=== PATIENT | female | born 1965 | race Caucasian/White ===

== ENCOUNTER 2017-09-13 00:39 | Emergency (ER) | payer MEDICARE, MEDICAID, SELFPAY ==
[2017-09-13 00:51] VITALS: BP 108/62; PULSE 98; RESP 18; TEMP 36.6; O2SAT 98; BMI 29.1
--- NOTE | 2017-09-13 01:09 | DI.RAD.S_ITS ---
PROCEDURE: XR CHEST 2V INDICATIONS: chest and back pain TECHNIQUE: 2 views of the chest were acquired. COMPARISON: None. FINDINGS: Surgical changes and devices: Partially visualized surgical plate over the lower cervical spine.. Lungs and pleura: No pleural effusions or pneumothorax. Minimal bibasilar atelectasis. No focal consolidation. Mediastinum: Mediastinal contours are normal. Heart size is normal. Bones and chest wall: No suspicious bony abnormalities. Soft tissues appear unremarkable. IMPRESSION: Mild bibasilar atelectasis. Findings consistent with the preliminary reading Dictated by: Alex Mark M.D. on 09/13/2017 at 7:43 Approved by: Alex Mark M.D. on 09/13/2017 at 7:44
--- NOTE | 2017-09-13 01:09 | ED.BACK ---
HPI - Back Pain/Injury General Chief Complaint: Back Pain/Injury Stated Complaint: fever 5 days, back/chest pain Time Seen by Provider: 09/13/17 00:54 Source: patient and family Mode of arrival: ambulatory Limitations: no limitations History of Present Illness HPI Narrative: Patient is a 52-year-old female presenting with back and chest pain. She has chronic back pain she says it has been worse over the last 5 days. She feels as though she has had a temperature though she has not taken it. She has had overall body aches felt warm and chilled at times. No productive cough no shortness of breath. She intermittently has some left-sided chest pain but not currently having chest pain. She has had multiple back surgeries. She denies any abdominal pain nausea vomiting or painful urination. She usually takes Dilaudid for pain however it is not working. Related Data Home Medications Medication Instructions Recorded Confirmed DIVALPROEX SODIUM (Depakote mg PO TID #0 08/17/10 Sprinkle) DOCUSATE SODIUM (#COLACE) 50 mg PO #0 08/17/10 MELOXICAM mg PO #0 08/17/10 NAFCILLIN (#UNIPEN / NAFCIL) 2 gm IV Q4 #0 08/17/10 citalopram [Celexa] mg PO QDAY #0 08/17/10 cyclobenzaprine 10 mg PO TID #0 08/17/10 pramipexole [Mirapex] mg PO #0 08/17/10 Hydromorphone HCL (HYDROmorphone) 12 mg PO Q8HP #0 09/21/10 methocarbamol [Robaxin-750] 750 mg PO TIDP #0 09/21/10 omeprazole 20 mg PO BID@0600,2100 #0 09/21/10 ondansetron HCl 8 mg PO Q8HP #0 09/21/10 rifampin [Rifadin] 300 mg PO BID #0 09/21/10 Allergies Allergy/AdvReac Type Severity Reaction Status Date / Time ASPIRIN Allergy Intermediate STOMACH Uncoded 07/04/17 11:57 ISSUES BEE VENOM Allergy Intermediate Uncoded 07/04/17 11:57 METHADONE Allergy Intermediate HALLUCINATI Uncoded 07/04/17 11:57 ONS MORPHINE Allergy Intermediate ANAPHYLAXIS Uncoded 07/04/17 11:57 PCN (PENICILLIN) Allergy Intermediate ANAPHYLAXIS Uncoded 07/04/17 11:57 SULFA Allergy Intermediate ANAPHYLAXIS Uncoded 07/04/17 11:57 Review of Systems Review of Systems All systems reviewed & are unremarkable except as noted in HPI and below Constitutional Reports body ache(s), Reports chills, Reports fever(s) and Denies frequent falls ENT Ears, Nose, Mouth, and Throat: Denies dizziness Cardiovascular Reports chest pain (off and on number of days), Denies irregular heart rhythm, Denies lightheadedness, Denies palpitations, Denies dyspnea, Denies dyspnea on exertion and Denies orthopnea Respiratory Denies cough, Denies dyspnea, Denies dyspnea on exertion and Denies wheezing Gastrointestinal Gastrointestinal: Denies abdominal pain, Denies change in bowel habits, Denies diarrhea, Denies nausea and Denies vomiting Musculoskeletal Reports system reviewed and no additional complaints, except as docu, Reports as per HPI and Denies numbness Integumentary/Breasts Denies pruritus, Denies erythema, Denies rash and Denies wounds Neurologic Denies behavioral changes, Denies confusion, Denies dizziness, Denies frequent falls and Denies numbness Psychiatric Denies behavioral changes and Denies confusion Endocrine Denies palpitations Allergic/Immunologic Denies wheezing PFSH Social History Smoking Status: Never smoker Exam Initial Vital Signs Initial Vital Signs: Vital Signs Temperature 97.8 F 09/13/17 00:51 Pulse Rate 98 H 09/13/17 00:51 Respiratory Rate 18 09/13/17 00:51 Blood Pressure 108/62 09/13/17 00:51 Pulse Oximetry 98 09/13/17 00:51 Const General: cooperative and well developed Nutritional Appearance: well nourished Orientation: alert, awake, oriented x3 and not confused Neck Neck: No full ROM (Left-sided pain), no meningeal signs and supple Chest Chest: normal inspection of the chest Resp Effort & Inspection: normal respiratory effort, able to speak in complete sentences, no respiratory distress and no use of accessory muscles Auscultation: clear to auscultation bilaterally, no rales, no rhonchi and no wheezes Back/Spine/Pelvis Back: No CVA tenderness Cervical Spine: pain with cervical ROM Thoracic/Lumbar Spine: thoracic and lumbar spine normal to inspection Skin General: no rashes or lesions noted, No jaundice and No petechiae Course Orders Ordered: ED Orders 09/13/17 EKG-12 Lead Stat 09/13/17 01:09 XR chest 2V Stat 09/13/17 01:50 Complete Blood Count AUTO DIFF Stat Comprehensive Metabolic Panel Stat Lactate (Lactic Acid) Stat Procalcitonin Stat Troponin with CK Cardiac Panel Stat 09/13/17 03:22 Urinalysis and Microscopic Stat Discontinued Medications Hydromorphone HCl (Dilaudid) 1 mg IV NOW ONE Stop: 09/13/17 02:35 Last Admin: 09/13/17 02:38 Dose: 1 mg Hydromorphone HCl (Dilaudid) 1 mg IV NOW ONE Stop: 09/13/17 03:16 Last Admin: 09/13/17 03:52 Dose: Hydromorphone HCl (Dilaudid) 1 mg IV NOW ONE Stop: 09/13/17 03:01 Last Admin: 09/13/17 03:05 Dose: 1 mg Sodium Chloride (Normal Saline 0.9%) 1,000 mls @ 1,000 mls/hr IV BOLUS ONE Stop: 09/13/17 02:08 Last Infusion: 09/13/17 04:07 Dose: 1,000 mls/hr Admin: 09/13/17 02:15 Dose: 1,000 mls/hr Vital Signs - 8 hr 09/13/17 00:51 09/13/17 02:00 09/13/17 04:09 Temperature 97.8 F 97.8 F 97.8 F Pulse Rate 98 H 98 H 81 Respiratory Rate 18 18 15 Blood Pressure 108/62 108/62 98/59 L Pulse Oximetry 98 98 97 MDM - Back Pain/Injury Lab Data Result diagrams: 09/13/17 01:50 09/13/17 01:50 Lab Results 09/13/17 09/13/17 09/13/17 Range/Units 01:50 01:50 01:50 WBC 9.0 (4.5-11.0) X10^3/uL RBC 3.31 L (4.0-5.2) X10^6/uL Hgb 9.2 L (12.0-16.0) g/dL Hct 27.1 L (36-46) % MCV 81.8 (80-100) fL MCH 27.8 (26-34) PG MCHC 34.0 (30-36) % RDW 15.4 H (11.6-14.8) % Plt Count 175 (150-400) X10^3/uL Neut % (Auto) 79.3 H (50-75) % Lymph % (Auto) 8.4 L (25-40) % [place] % (Auto) 10.7 (3-14) % Eos % (Auto) 1.2 L (2-4) % Baso % (Auto) 0.4 (0-2) % Neut # (Auto) 7100 H (9511-3527) /uL Sodium 144 (137-145) mmol/L Potassium 3.6 (3.4-5.1) mmol/L Chloride 103 (98-107) mmol/L Carbon Dioxide 26 (22-32) mmol/L BUN 31 H (7-17) mg/dL Creatinine 1.10 H (0.52-1.04) mg/dL Estimated GFR 52.0 L (>60) mL/min BUN/Creatinine Ratio 28.2 H (6-22) Glucose 136 H (70-100) mg/dL Lactate (0.7-2.1) mmol/L Calcium 8.8 (8.4-10.2) mg/dL Total Bilirubin 0.9 (0.2-1.3) mg/dL AST 21 (14-36) IU/L ALT 29 (9-52) IU/L Alkaline Phosphatase 310 H (38-126) U/L Total Creatine Kinase 30 (30-135) U/L Troponin I < 0.012 (0.01-0.034) ng/mL Total Protein 7.4 (6.3-8.2) g/dL Albumin 3.3 L (3.5-5.0) g/dL Globulin 4.1 (1.7-4.1) g/dL Albumin/Globulin Ratio 0.8 L (1.0-2.8) Procalcitonin 16.88 H (<0.5) ng/mL Urine Color Urine Appearance Urine pH (4.5-8.0) Ur Specific [place] (1.000-1.035) Urine Protein (Negative) Urine Glucose (UA) (Normal) g/dL Urine Ketones (NEGATIVE) Urine Occult Blood (Negative) Urine Nitrate (Negative) Urine Bilirubin (NEGATIVE) Urine Urobilinogen (0.2) E.U./dL Ur Leukocyte Esterase (NEGATIVE) Urine RBC (0-5/HPF) Urine WBC (0-5/HPF) Ur Squamous Epith Cells Amorphous Sediment Urine Bacteria (None) Hyaline Casts (None) Granular Casts (None) Urine Mucus (Negative) Ur Culture Indicated? 09/13/17 09/13/17 Range/Units 01:50 03:22 WBC (4.5-11.0) X10^3/uL RBC (4.0-5.2) X10^6/uL Hgb (12.0-16.0) g/dL Hct (36-46) % MCV (80-100) fL MCH (26-34) PG MCHC (30-36) % RDW (11.6-14.8) % Plt Count (150-400) X10^3/uL Neut % (Auto) (50-75) % Lymph % (Auto) (25-40) % [place] % (Auto) (3-14) % Eos % (Auto) (2-4) % Baso % (Auto) (0-2) % Neut # (Auto) (1286-2198) /uL Sodium (137-145) mmol/L Potassium (3.4-5.1) mmol/L Chloride (98-107) mmol/L Carbon Dioxide (22-32) mmol/L BUN (7-17) mg/dL Creatinine (0.52-1.04) mg/dL Estimated GFR (>60) mL/min BUN/Creatinine Ratio (6-22) Glucose (70-100) mg/dL Lactate 1.2 (0.7-2.1) mmol/L Calcium (8.4-10.2) mg/dL Total Bilirubin (0.2-1.3) mg/dL AST (14-36) IU/L ALT (9-52) IU/L Alkaline Phosphatase (38-126) U/L Total Creatine Kinase (30-135) U/L Troponin I (0.01-0.034) ng/mL Total Protein (6.3-8.2) g/dL Albumin (3.5-5.0) g/dL Globulin (1.7-4.1) g/dL Albumin/Globulin Ratio (1.0-2.8) Procalcitonin (<0.5) ng/mL Urine Color Dark yellow Urine Appearance Sl cloudy Urine pH 5.0 (4.5-8.0) Ur Specific [place] 1.020 (1.000-1.035) Urine Protein 2+ H (Negative) Urine Glucose (UA) Negative (Normal) g/dL Urine Ketones Trace H (NEGATIVE) Urine Occult Blood Negative (Negative) Urine Nitrate Negative (Negative) Urine Bilirubin Negative (NEGATIVE) Urine Urobilinogen 1.0 (0.2) E.U./dL Ur Leukocyte Esterase Negative (NEGATIVE) Urine RBC None seen (0-5/HPF) Urine WBC 0-1/hpf (0-5/HPF) Ur Squamous Epith Cells 1-5 /hpf Amorphous Sediment 1+ Urine Bacteria Few (2-10) H (None) Hyaline Casts 0-1/lpf (None) Granular Casts Occasional H (None) Urine Mucus 1+ H (Negative) Ur Culture Indicated? Cult not indicated Imaging Data Chest x-ray: Attestation: I personally reviewed and interpreted this imaging study as follows: My impression: No acute cardiopulmonary process ECG Data Prior ECG tracings: not available for review Interpretation: Normal sinus rhythm rate 85 no acute ischemia no ST changes normal intervals. MDM Narrative Medical decision making narrative: Patient has a significantly elevated procalcitonin however no leukocytosis no fever and a normal lactic acid. This is also inflammatory marker. I suspect that if she is being worked up for rheumatoid arthritis her inflammatory markers are elevated. She does not seem to have an acute at infection. She is asking for more pain medication. I have re-examined her back. She is tender over her spine but does not seem to be midline or diskitis. Discharge Plan Departure Patient Disposition: Home, Self-Care Clinical Impression: Thoracic back pain Discharge Date/Time: 09/13/17 04:11 Interventions: ED Discharge Assessment Last Done: 09/13/17 04:09 Instructions: DI for Thoracic Back Pain Activity Restrictions/Additional Instructions: *You have been diagnosed with back pain *What to do: No sign of acute infection. 1 inflammatory marker is elevated but this can be elevated with a severe inflammatory response such as arthritis. You should complete you're arthritis workup with your primary care physician. *Continue to take medications as directed *Follow up with your primary care provider in 2-3 days *Return to ER if you should have fever more than 100.4, increased or worsening pain, weakness in extremities or any new, worsening or concerning symptoms Prescriptions: No Action cyclobenzaprine 10 MG tablet 10 mg PO TID Qty: 0 RF: 0 citalopram [Celexa] 10 MG tablet PO QDAY Qty: 0 RF: 0 pramipexole [Mirapex] 0.125 MG tablet PO Qty: 0 RF: 0 DIVALPROEX SODIUM (Depakote Sprinkle) PO TID Qty: 0 RF: 0 DOCUSATE SODIUM (#COLACE) 50 mg PO Qty: 0 RF: 0 MELOXICAM PO Qty: 0 RF: 0 NAFCILLIN (#UNIPEN / NAFCIL) 2 gm IV Q4 Qty: 0 RF: 0 ondansetron HCl 8 MG tablet 8 mg PO Q8HP Qty: 0 RF: 0 omeprazole 20 MG capsule,delayed release(DR/EC) 20 mg PO BID@0600,2100 Qty: 0 RF: 0 rifampin [Rifadin] 300 MG capsule 300 mg PO BID Qty: 0 RF: 0 methocarbamol [Robaxin-750] 750 MG tablet 750 mg PO TIDP Qty: 0 RF: 0 Hydromorphone HCL (HYDROmorphone) 12 mg PO Q8HP Qty: 0 RF: 0 Referrals: Viviana Vaughan [Primary Care Provider] -
[2017-09-13 02:00] VITALS: BP 108/62; PULSE 98; RESP 18; TEMP 36.6; O2SAT 98; BMI 29.1
[2017-09-13 02:10] LABS: Add Manual Diff / Slide Review NO; Basophils Percent Auto 0.4 % (0-2); Eosinophils Percent Auto 1.2 % (2-4); Hematocrit 27.1 % (36-46); Hemoglobin 9.2 g/dL (12.0-16.0); Lymphocytes Percent Auto 8.4 % (25-40); Mean Corpuscular Hemoglobin 27.8 PG (26-34); Mean Corpuscular Volume 81.8 fL (80-100); Monocytes Percent Auto 10.7 % (3-14); Neutrophils Absolute Auto 7100 /uL (3000-5900); Neutrophils Percent Auto 79.3 % (50-75); Platelet Count 175 X10^3/uL (150-400); Red Blood Cell Count 3.31 X10^6/uL (4.0-5.2); Red Cell Distribution Width 15.4 % (11.6-14.8)
[2017-09-13 02:14] LABS: Alanine Aminotransferase 29 IU/L (9-52); Albumin 3.3 g/dL (3.5-5.0); Albumin Globulin Ratio 0.8 (1.0-2.8); Alkaline Phosphatase 310 U/L (38-126); Aspartate Aminotransferase 21 IU/L (14-36); BUN Creatinine Ratio 28.2 (6-22); Bilirubin Total 0.9 mg/dL (0.2-1.3); Blood Urea Nitrogen 31 mg/dL (7-17); Calcium 8.8 mg/dL (8.4-10.2); Carbon Dioxide 26 mmol/L (22-32); Chloride 103 mmol/L (98-107); Creatine Kinase 30 U/L (30-135); Globulin 4.1 g/dL (1.7-4.1); Glucose 136 mg/dL (70-100); HEMOLYSIS < 15 (0-50); Potassium 3.6 mmol/L (3.4-5.1); Sodium 144 mmol/L (137-145); Total Protein 7.4 g/dL (6.3-8.2)
[2017-09-13] MEDS: SODIUM CHLORIDE 0.9% 1,000 ML 1000 ML IV (02:15)
[2017-09-13 02:27] LABS: Troponin I < 0.012 ng/mL (0.01-0.034)
[2017-09-13 02:30] LABS: Procalcitonin 16.88 ng/mL (<0.5)
[2017-09-13] MEDS: HYDROMORPHONE 1 MG INJ IV (02:38)
[2017-09-13 03:01] LABS: Lactate (Lactic Acid) 1.2 mmol/L (0.7-2.1)
[2017-09-13] MEDS: HYDROMORPHONE 2 MG INJ 1 MG IV (03:05)
[2017-09-13 03:40] LABS: Appearance Urine UA SL CLOUDY; Glucose Urine UA NEGATIVE (Normal); Ketones Urine UA TRACE (NEGATIVE); Leukocyte Esterase Urine UA NEGATIVE (NEGATIVE); Nitrite Urine UA Negative (Negative); Occult Blood Urine UA NEGATIVE (Negative); Protein Urine UA 2+ (Negative); RBC Urine None Seen (0-5/HPF)
[2017-09-13 03:44] LABS: Bilirubin Urine UA Negative (NEGATIVE); Color Urine UA Dark Yellow
[2017-09-13 03:45] LABS: Amorphous Sediment Urine 1+; Squamous Epithelial Cell Urine 1-5 /HPF; WBC Urine 0-1/HPF (0-5/HPF)
[2017-09-13 03:46] LABS: Bacteria Urine Few (2-10); Granular Casts Urine Occasional; Hyaline Casts Urine 0-1/LPF
[2017-09-13 03:48] LABS: Culture Indicated Urine Cult Not Indicated; Mucus Urine 1+ (Negative)
[2017-09-13 04:09] VITALS: BP 98/59; PULSE 81; RESP 15; TEMP 36.6; O2SAT 97
== END 2017-09-13 04:11 | disposition home or self-care (01) ==
PROVIDERS: Emergency Provider Emergency Medicine; PCP Nurse Practitioner
DX: R50.9 Fever, unspecified (principal)
CPT/HCPCS: 36591; 71046; 80053; 81001; 81003; 82550; 82553; 83605; 84145; 84484; 85025; 93005; 99283; J1170

== ENCOUNTER 2017-09-15 11:21 | Emergency (ER) | payer MEDICARE, MEDICAID, SELFPAY ==
[2017-09-15] VITALS (9 sets, daily range): BP systolic 115–167; BP diastolic 68–110; PULSE 104–114; RESP 9–20; TEMP 36.6–36.7; O2SAT 95–100
--- NOTE | 2017-09-15 12:08 | ED_ITS ---
HPI - Extremity Problem <Nirmala Duran PA-C - Last Filed: 09/15/17 19:14> General Chief complaint: Extremity Problem,Nontraumatic Stated complaint: BACK PAIN, FEVER, LEFT KNEE IS SWOLLEN Time Seen by Provider: 09/15/17 11:25 Source: patient and old records reviewed Mode of arrival: ambulatory Limitations: no limitations History of Present Illness HPI Narrative: This 52-year-old female returns here due to acute onset of left knee pain today, along with worsening neck pain and headache. She states this really started acutely this morning. She was seen 2 days ago with back and chest pain. She is not having chest pain or dyspnea currently. She denies any new trauma to her spine or extremities. She denies any new weakness or paresthesia, states that pain is what is limiting her. She denies any vision change. She has not had any nausea or vomiting today and has had normal intake. She states that the headache is all over the top of her head. She denies any acute vision change or jaw claudication. She has not had any urinary symptoms. She states that she has had sweats at home and think she has had fever but has not taken her temperature. She denies any history of migraines or recurrent headaches. She states that she has a history of fibromyalgia and widespread chronic pain due to this as well as her severe degenerative disc disease, but currently is also being worked up for rheumatoid arthritis due to several months of pain and swelling in multiple joints. She states she has not had results back yet nor have medications been tried for this. She has been taking her usual routine Dilaudid at home for pain but not other medicines. She denies any recent travel or known exposures. She is on daily Dilaudid 4 mg q.i.d. but states she is taking this 5 times daily currently. Related Data Home Medications Medication Instructions Recorded Confirmed cyclobenzaprine 10 mg PO TID #0 08/17/10 09/15/17 pramipexole [Mirapex] 0.125 mg PO DAILY #0 08/17/10 09/15/17 hydromorphone 4 mg PO Q4-6H 09/15/17 09/15/17 Previous Rx's Medication Instructions Recorded prednisone 40 mg PO DAILY 2 Days #3 tab 09/15/17 Allergies Allergy/AdvReac Type Severity Reaction Status Date / Time morphine Allergy Severe Anaphylaxis Verified 09/15/17 11:36 penicillinase Allergy Severe Anaphylaxis Verified 09/15/17 11:36 Sulfa (Sulfonamide Allergy Severe Anaphylaxis Verified 09/15/17 11:36 Antibiotics) bee venom protein (honey bee) Allergy Intermediate Hives Verified 09/15/17 11:36 aspirin AdvReac Intermediate Abdominal Verified 09/15/17 11:36 Pain methadone AdvReac Intermediate Hallucinati Verified 09/15/17 11:36 ng Review of Systems <Nirmala Duran PA-C - Last Filed: 09/15/17 19:14> Review of Systems All systems reviewed & are unremarkable except as noted in HPI and below Exam <Nirmala Duran PA-C - Last Filed: 09/15/17 19:14> Narrative Exam Narrative: GENERAL APPEARANCE: Patient appears anxious, in NAD HEENT: PERRL, EOMI, normal oropharynx, no sinus TTP NECK: Supple, no lymphadenopathy, submandibular area is tender with perhaps mildly enlarged but symmetric glands LUNGS: Clear to auscultation bilaterally, no cough. HEART: Rate and rhythm regular without murmur, normal S1 and S2, no S3 or S4. ABDOMEN: Soft, NT, ND, + BS x 4 quadrants, mild left > right CVAT NEUROLOGIC: Alert and oriented, normal speech, and coordination. MUSCULOSKELETAL: She has slightly limited C-spine flexion but with distraction is able to fully flex. Limited rotation and lateral bend secondary to tenderness. She is tender throughout the entirety of the C-spine as well as the paraspinal musculature, less tender over the thoracolumbar spine and musculature. She has full trunk flexion. Left knee tender over the joint line. There is moderate effusion which is most prominent around the superior patella. Limited passive and active flexion/extension secondary to tenderness. No other joint effusion noted aside from the left knee. Moderate tenderness with squeeze over the metacarpals and metatarsals DERMATOLOGIC: No exanthem EXTREMITIES: No cyanosis, no edema, no calf tenderness Initial Vital Signs Initial Vital Signs: Vital Signs Temperature 98.1 F 09/15/17 11:31 Pulse Rate 114 H 09/15/17 11:31 Respiratory Rate 20 09/15/17 11:31 Blood Pressure 153/81 H 09/15/17 11:31 Pulse Oximetry 97 09/15/17 11:31 <Giuseppe Meehan DO - Last Filed: 09/16/17 07:34> Initial Vital Signs Initial Vital Signs: Vital Signs Temperature 98.1 F 09/15/17 11:31 Pulse Rate 114 H 09/15/17 11:31 Respiratory Rate 20 09/15/17 11:31 Blood Pressure 153/81 H 09/15/17 11:31 Pulse Oximetry 97 09/15/17 11:31 Course <Nirmala Duran PA-C - Last Filed: 09/15/17 19:14> Hospital Course: Dr. Meehan saw and evaluated patient as well and we reviewed lab results. He is agreeable with the following plan. Patient was offered aspiration and evaluation of fluid from her knee as well as spinal tap by Dr. Meehan as well as myself. We discussed that there are changes in her lab work, however no clear source for infection. She has had improvement in her knee pain and reports headache is starting to improve at the time of discharge as well. She and her have decided against doing any tap today. She has had polyarthralgias and apparently intermittent joint swelling as well. She reported being worked up currently for rheumatic disease. Her CRP is elevated. We decided to have her try systemic steroids just over the weekend as she says this has not been tried previously and her usual pain medicines are not effective. She was given a dose of prednisone here and prescription was sent to the pharmacy for her for the next couple of days. She and her agree to return if any acute worsening over the weekend or new symptoms such as confirmed fever. There are no other suspected sources for infection on her review of systems or exam, such as respiratory infection, endocarditis, urinary source. She is not having any chest pain, dyspnea, or abdominal pain currently. Orders Ordered: Discontinued Medications Diphenhydramine HCl (Benadryl) 25 mg IV NOW ONE Stop: 09/15/17 15:44 Last Admin: 09/15/17 16:10 Dose: 25 mg Haloperidol (Haldol) 2 mg IV NOW ONE Stop: 09/15/17 15:44 Last Admin: 09/15/17 16:13 Dose: 2 mg Hydromorphone HCl (Dilaudid) 1 mg IV NOW ONE Stop: 09/15/17 14:38 Last Admin: 09/15/17 14:47 Dose: 1 mg Sodium Chloride (Normal Saline 0.9%) 1,000 mls @ 1,000 mls/hr IV BOLUS ONE Stop: 09/15/17 13:31 Last Infusion: 09/15/17 15:00 Dose: 0 mls/hr Admin: 09/15/17 13:52 Dose: 1,000 mls/hr Sodium Chloride (Normal Saline 0.9%) 1,000 mls @ 1,000 mls/hr IV BOLUS ONE Stop: 09/15/17 16:42 Last Admin: 09/15/17 16:07 Dose: 1,000 mls/hr Ketorolac Tromethamine (Toradol) 30 mg IV NOW ONE Stop: 09/15/17 12:33 Last Admin: 09/15/17 13:52 Dose: 30 mg Metoclopramide HCl (Reglan) 5 mg IV NOW ONE Stop: 09/15/17 15:44 Last Admin: 09/15/17 16:12 Dose: 5 mg Pramipexole Dihydrochloride (Mirapex) 0.5 mg PO NOW ONE Stop: 09/15/17 15:50 Last Admin: 09/15/17 16:09 Dose: 0.5 mg Prednisone (Deltasone) 40 mg PO NOW ONE Stop: 09/15/17 17:32 Last Admin: 09/15/17 17:35 Dose: 40 mg Vital Signs - 8 hr 09/15/17 11:31 09/15/17 11:40 09/15/17 12:00 Temperature 98.1 F Pulse Rate 114 H 109 H Pulse Rate [Bilateral Dorsalis Pedis] 114 H Respiratory Rate 20 20 Blood Pressure 153/81 H Blood Pressure [Left Arm] 147/68 H Blood Pressure [Right Arm] Pulse Oximetry 97 100 09/15/17 13:26 09/15/17 14:00 09/15/17 15:07 Temperature 97.8 F Pulse Rate 106 H 109 H 104 H Pulse Rate [Bilateral Dorsalis Pedis] Respiratory Rate 20 9 L Blood Pressure Blood Pressure [Left Arm] Blood Pressure [Right Arm] 152/88 H 153/99 H 154/90 H Pulse Oximetry 95 100 100 09/15/17 16:00 09/15/17 16:48 09/15/17 17:47 Temperature Pulse Rate 107 H 110 H 110 H Pulse Rate [Bilateral Dorsalis Pedis] Respiratory Rate 18 20 Blood Pressure Blood Pressure [Left Arm] Blood Pressure [Right Arm] 161/109 H 115/110 H 167/87 H Pulse Oximetry 100 99 100 <Giuseppe Meehan DO - Last Filed: 09/16/17 07:34> Orders Ordered: Discontinued Medications Diphenhydramine HCl (Benadryl) 25 mg IV NOW ONE Stop: 09/15/17 15:44 Last Admin: 09/15/17 16:10 Dose: 25 mg Haloperidol (Haldol) 2 mg IV NOW ONE Stop: 09/15/17 15:44 Last Admin: 09/15/17 16:13 Dose: 2 mg Hydromorphone HCl (Dilaudid) 1 mg IV NOW ONE Stop: 09/15/17 14:38 Last Admin: 09/15/17 14:47 Dose: 1 mg Sodium Chloride (Normal Saline 0.9%) 1,000 mls @ 1,000 mls/hr IV BOLUS ONE Stop: 09/15/17 13:31 Last Infusion: 09/15/17 15:00 Dose: 0 mls/hr Admin: 09/15/17 13:52 Dose: 1,000 mls/hr Sodium Chloride (Normal Saline 0.9%) 1,000 mls @ 1,000 mls/hr IV BOLUS ONE Stop: 09/15/17 16:42 Last Admin: 09/15/17 16:07 Dose: 1,000 mls/hr Ketorolac Tromethamine (Toradol) 30 mg IV NOW ONE Stop: 09/15/17 12:33 Last Admin: 09/15/17 13:52 Dose: 30 mg Metoclopramide HCl (Reglan) 5 mg IV NOW ONE Stop: 09/15/17 15:44 Last Admin: 09/15/17 16:12 Dose: 5 mg Pramipexole Dihydrochloride (Mirapex) 0.5 mg PO NOW ONE Stop: 09/15/17 15:50 Last Admin: 09/15/17 16:09 Dose: 0.5 mg Prednisone (Deltasone) 40 mg PO NOW ONE Stop: 09/15/17 17:32 Last Admin: 09/15/17 17:35 Dose: 40 mg Vital Signs - 8 hr 09/15/17 11:31 09/15/17 11:40 09/15/17 12:00 Temperature 98.1 F Pulse Rate 114 H 109 H Pulse Rate [Bilateral Dorsalis Pedis] 114 H Respiratory Rate 20 20 Blood Pressure 153/81 H Blood Pressure [Left Arm] 147/68 H Blood Pressure [Right Arm] Pulse Oximetry 97 100 09/15/17 13:26 09/15/17 14:00 09/15/17 15:07 Temperature 97.8 F Pulse Rate 106 H 109 H 104 H Pulse Rate [Bilateral Dorsalis Pedis] Respiratory Rate 20 9 L Blood Pressure Blood Pressure [Left Arm] Blood Pressure [Right Arm] 152/88 H 153/99 H 154/90 H Pulse Oximetry 95 100 100 09/15/17 16:00 09/15/17 16:48 09/15/17 17:47 Temperature Pulse Rate 107 H 110 H 110 H Pulse Rate [Bilateral Dorsalis Pedis] Respiratory Rate 18 20 Blood Pressure Blood Pressure [Left Arm] Blood Pressure [Right Arm] 161/109 H 115/110 H 167/87 H Pulse Oximetry 100 99 100 MDM - Extremity (Nontraumatic) <Nirmala Duran PA-C - Last Filed: 09/15/17 19:14> Lab Data Attestation: I reviewed the patient's lab results. Result diagrams: 09/15/17 13:42 09/15/17 13:42 Lab Results 09/15/17 09/15/17 09/15/17 Range/Units 12:55 13:42 13:42 WBC 21.1 H (4.5-11.0) X10^3/uL RBC 3.51 L (4.0-5.2) X10^6/uL Hgb 9.5 L (12.0-16.0) g/dL Hct 28.9 L (36-46) % MCV 82.3 (80-100) fL MCH 27.0 (26-34) PG MCHC 32.8 (30-36) % RDW 16.1 H (11.6-14.8) % Plt Count 211 (150-400) X10^3/uL Neut % (Auto) Not Reportable Lymph % (Auto) Not Reportable [place] % (Auto) Not Reportable Eos % (Auto) Not Reportable Baso % (Auto) Not Reportable Total Counted 100 Seg Neutrophils % 63.0 (38-70) % Band Neutrophils % 25.0 H (3-7) % Lymphocytes % (Manual) 8.0 L (25-45) % Monocytes % (Manual) 3.0 (2-11) % Basophils % (Manual) 1.0 (0-1) % Neutrophils # (Manual) 92566 H (9235-8156) /uL RBC Morphology Normal morphology ESR Sodium (137-145) mmol/L Potassium (3.4-5.1) mmol/L Chloride (98-107) mmol/L Carbon Dioxide (22-32) mmol/L BUN (7-17) mg/dL Creatinine (0.52-1.04) mg/dL Estimated GFR (>60) mL/min BUN/Creatinine Ratio (6-22) Glucose (70-100) mg/dL Lactate (0.7-2.1) mmol/L Uric Acid (2.5-6.2) mg/dL Calcium (8.4-10.2) mg/dL Total Bilirubin (0.2-1.3) mg/dL AST (14-36) IU/L ALT (9-52) IU/L Alkaline Phosphatase (38-126) U/L C-Reactive Protein (<1.0) mg/dL Total Protein (6.3-8.2) g/dL Albumin (3.5-5.0) g/dL Globulin (1.7-4.1) g/dL Albumin/Globulin Ratio (1.0-2.8) Procalcitonin 4.55 H (<0.5) ng/mL Urine RBC 1-5/hpf (0-5/HPF) Urine WBC 0-1/hpf (0-5/HPF) Ur Squamous Epith Cells 10-30 /hpf H D Urine Bacteria Occasional (0-1) (None) Hyaline Casts 1-5/lpf (None) Ur Culture Indicated? Cult not indicated Micro UA Comment Not Reportable A. baumannii (PCR) (Not Detect) Betzaida albicans (PCR) (Not Detect) C. glabrata (PCR) (Not Detect) C. krusei (PCR) (Not Detect) C. parapsilosis (PCR) (Not Detect) C. tropicalis (PCR) (Not Detect) Enterobacteriac sp PCR (Not Detect) E. cloacae complex PCR (Not Detect) Enterococcus sp PCR (Not Detect) E. coli (PCR) (Not Detect) H. influenzae (PCR) (Not Detect) Klebsiella oxytoca PCR (Not Detect) Klebsiella pneumoniae (Not Detect) List. monocytogenes PCR (Not Detect) N. meningitidis (PCR) (Not Detect) Proteus species (PCR) (Not Detect) Serratia marcescens PCR (Not Detect) Staphylococcus sp PCR Staph aureus (PCR) (Not Detect) mecA-Methicil Res Gene (Not Detect) Streptococcus sp PCR (Not Detect) Group A Strep (PCR) (Not Detect) Strep agalactiae (PCR) (Not Detect) Strep pneumoniae (PCR) (Not Detect) P. aeruginosa (PCR) (Not Detect) Jose Antonio/B-Vanco Res Genes KPC-Carbap Res Gene PCR 09/15/17 09/15/17 09/15/17 Range/Units 13:42 13:42 13:42 WBC (4.5-11.0) X10^3/uL RBC (4.0-5.2) X10^6/uL Hgb (12.0-16.0) g/dL Hct (36-46) % MCV (80-100) fL MCH (26-34) PG MCHC (30-36) % RDW (11.6-14.8) % Plt Count (150-400) X10^3/uL Neut % (Auto) Lymph % (Auto) [place] % (Auto) Eos % (Auto) Baso % (Auto) Total Counted Seg Neutrophils % (38-70) % Band Neutrophils % (3-7) % Lymphocytes % (Manual) (25-45) % Monocytes % (Manual) (2-11) % Basophils % (Manual) (0-1) % Neutrophils # (Manual) (9861-0562) /uL RBC Morphology ESR Cancelled Sodium 140 (137-145) mmol/L Potassium 4.8 D (3.4-5.1) mmol/L Chloride 103 (98-107) mmol/L Carbon Dioxide 26 (22-32) mmol/L BUN 20 H (7-17) mg/dL Creatinine 0.70 (0.52-1.04) mg/dL Estimated GFR > 60.0 (>60) mL/min BUN/Creatinine Ratio 28.6 H (6-22) Glucose 119 H (70-100) mg/dL Lactate 1.0 (0.7-2.1) mmol/L Uric Acid (2.5-6.2) mg/dL Calcium 8.9 (8.4-10.2) mg/dL Total Bilirubin 2.6 H (0.2-1.3) mg/dL AST 31 (14-36) IU/L ALT 20 (9-52) IU/L Alkaline Phosphatase 414 H (38-126) U/L C-Reactive Protein > 9.0 H (<1.0) mg/dL Total Protein 8.0 (6.3-8.2) g/dL Albumin 3.2 L (3.5-5.0) g/dL Globulin 4.8 H (1.7-4.1) g/dL Albumin/Globulin Ratio 0.7 L (1.0-2.8) Procalcitonin (<0.5) ng/mL Urine RBC (0-5/HPF) Urine WBC (0-5/HPF) Ur Squamous Epith Cells Urine Bacteria (None) Hyaline Casts (None) Ur Culture Indicated? Micro UA Comment A. baumannii (PCR) (Not Detect) Betzaida albicans (PCR) (Not Detect) C. glabrata (PCR) (Not Detect) C. krusei (PCR) (Not Detect) C. parapsilosis (PCR) (Not Detect) C. tropicalis (PCR) (Not Detect) Enterobacteriac sp PCR (Not Detect) E. cloacae complex PCR (Not Detect) Enterococcus sp PCR (Not Detect) E. coli (PCR) (Not Detect) H. influenzae (PCR) (Not Detect) Klebsiella oxytoca PCR (Not Detect) Klebsiella pneumoniae (Not Detect) List. monocytogenes PCR (Not Detect) N. meningitidis (PCR) (Not Detect) Proteus species (PCR) (Not Detect) Serratia marcescens PCR (Not Detect) Staphylococcus sp PCR Staph aureus (PCR) (Not Detect) mecA-Methicil Res Gene (Not Detect) Streptococcus sp PCR (Not Detect) Group A Strep (PCR) (Not Detect) Strep agalactiae (PCR) (Not Detect) Strep pneumoniae (PCR) (Not Detect) P. aeruginosa (PCR) (Not Detect) Jose Antonio/B-Vanco Res Genes KPC-Carbap Res Gene PCR 09/15/17 09/15/17 Range/Units 13:42 13:48 WBC (4.5-11.0) X10^3/uL RBC (4.0-5.2) X10^6/uL Hgb (12.0-16.0) g/dL Hct (36-46) % MCV (80-100) fL MCH (26-34) PG MCHC (30-36) % RDW (11.6-14.8) % Plt Count (150-400) X10^3/uL Neut % (Auto) Lymph % (Auto) [place] % (Auto) Eos % (Auto) Baso % (Auto) Total Counted Seg Neutrophils % (38-70) % Band Neutrophils % (3-7) % Lymphocytes % (Manual) (25-45) % Monocytes % (Manual) (2-11) % Basophils % (Manual) (0-1) % Neutrophils # (Manual) (3965-4594) /uL RBC Morphology ESR Sodium (137-145) mmol/L Potassium (3.4-5.1) mmol/L Chloride (98-107) mmol/L Carbon Dioxide (22-32) mmol/L BUN (7-17) mg/dL Creatinine (0.52-1.04) mg/dL Estimated GFR (>60) mL/min BUN/Creatinine Ratio (6-22) Glucose (70-100) mg/dL Lactate (0.7-2.1) mmol/L Uric Acid 3.9 (2.5-6.2) mg/dL Calcium (8.4-10.2) mg/dL Total Bilirubin (0.2-1.3) mg/dL AST (14-36) IU/L ALT (9-52) IU/L Alkaline Phosphatase (38-126) U/L C-Reactive Protein (<1.0) mg/dL Total Protein (6.3-8.2) g/dL Albumin (3.5-5.0) g/dL Globulin (1.7-4.1) g/dL Albumin/Globulin Ratio (1.0-2.8) Procalcitonin (<0.5) ng/mL Urine RBC (0-5/HPF) Urine WBC (0-5/HPF) Ur Squamous Epith Cells Urine Bacteria (None) Hyaline Casts (None) Ur Culture Indicated? Micro UA Comment A. baumannii (PCR) Not detected (Not Detect) Betzaida albicans (PCR) Not detected (Not Detect) C. glabrata (PCR) Not detected (Not Detect) C. krusei (PCR) Not detected (Not Detect) C. parapsilosis (PCR) Not detected (Not Detect) C. tropicalis (PCR) Not detected (Not Detect) Enterobacteriac sp PCR Not detected (Not Detect) E. cloacae complex PCR Not detected (Not Detect) Enterococcus sp PCR Not detected (Not Detect) E. coli (PCR) Not detected (Not Detect) H. influenzae (PCR) Not detected (Not Detect) Klebsiella oxytoca PCR Not detected (Not Detect) Klebsiella pneumoniae Not detected (Not Detect) List. monocytogenes PCR Not detected (Not Detect) N. meningitidis (PCR) Not detected (Not Detect) Proteus species (PCR) Not detected (Not Detect) Serratia marcescens PCR Not detected (Not Detect) Staphylococcus sp PCR Not Reportable Staph aureus (PCR) Detected H (Not Detect) mecA-Methicil Res Gene Not detected (Not Detect) Streptococcus sp PCR Not detected (Not Detect) Group A Strep (PCR) Not detected (Not Detect) Strep agalactiae (PCR) Not detected (Not Detect) Strep pneumoniae (PCR) Not detected (Not Detect) P. aeruginosa (PCR) Not detected (Not Detect) Jose Antonio/B-Vanco Res Genes Not Reportable KPC-Carbap Res Gene PCR Not Reportable Imaging Data knee: Radiologist's impression: BACK Knee X-Ray (Signed) YannaVin - 09/15/17 [place] [address] XRay Report Signed Patient: Jessica Miramontes MR#: [id number] : 1965 Acct:[id number] Age/Sex: 52 / F Date of Service: 09/15/17 Loc: ED Accession Number: [id number] Procedure: XR knee LT 3V Ordering Provider: Nirmala Duran P.A-C PROCEDURE: XR KNEE LT 3V INDICATIONS: pain, edema TECHNIQUE: 3 views of the knee were acquired. COMPARISON: None. FINDINGS: Bones: No fractures or dislocations. No suspicious bony lesions. Mild prominence of the tibial tubercle is noted. Enthesophytes are present at the quadriceps tendon insertion and the patellar tendon origin. There mild degenerative changes of the knee, most prominent within the medial and patellofemoral compartments. Soft tissues: There appears to be prominent knee joint effusion. No suspicious soft tissue calcifications. IMPRESSION: 1. Mild degenerative changes of the left knee. 2. Prominent knee joint effusion is of uncertain etiology. The need for better characterization utilizing MRI may be determined clinically. Dictated by: Vin Raines M.D. on 09/15/2017 at 14:41 Approved by: Vin Raines M.D. on 09/15/2017 at 14:42 <Giuseppe Meehan DO - Last Filed: 09/16/17 07:34> Lab Data Lab Results 09/15/17 09/15/17 09/15/17 Range/Units 12:55 13:42 13:42 WBC 21.1 H (4.5-11.0) X10^3/uL RBC 3.51 L (4.0-5.2) X10^6/uL Hgb 9.5 L (12.0-16.0) g/dL Hct 28.9 L (36-46) % MCV 82.3 (80-100) fL MCH 27.0 (26-34) PG MCHC 32.8 (30-36) % RDW 16.1 H (11.6-14.8) % Plt Count 211 (150-400) X10^3/uL Neut % (Auto) Not Reportable Lymph % (Auto) Not Reportable [place] % (Auto) Not Reportable Eos % (Auto) Not Reportable Baso % (Auto) Not Reportable Total Counted 100 Seg Neutrophils % 63.0 (38-70) % Band Neutrophils % 25.0 H (3-7) % Lymphocytes % (Manual) 8.0 L (25-45) % Monocytes % (Manual) 3.0 (2-11) % Basophils % (Manual) 1.0 (0-1) % Neutrophils # (Manual) 77445 H (9645-0792) /uL RBC Morphology Normal morphology ESR Sodium (137-145) mmol/L Potassium (3.4-5.1) mmol/L Chloride (98-107) mmol/L Carbon Dioxide (22-32) mmol/L BUN (7-17) mg/dL Creatinine (0.52-1.04) mg/dL Estimated GFR (>60) mL/min BUN/Creatinine Ratio (6-22) Glucose (70-100) mg/dL Lactate (0.7-2.1) mmol/L Uric Acid (2.5-6.2) mg/dL Calcium (8.4-10.2) mg/dL Total Bilirubin (0.2-1.3) mg/dL AST (14-36) IU/L ALT (9-52) IU/L Alkaline Phosphatase (38-126) U/L C-Reactive Protein (<1.0) mg/dL Total Protein (6.3-8.2) g/dL Albumin (3.5-5.0) g/dL Globulin (1.7-4.1) g/dL Albumin/Globulin Ratio (1.0-2.8) Procalcitonin 4.55 H (<0.5) ng/mL Urine RBC 1-5/hpf (0-5/HPF) Urine WBC 0-1/hpf (0-5/HPF) Ur Squamous Epith Cells 10-30 /hpf H D Urine Bacteria Occasional (0-1) (None) Hyaline Casts 1-5/lpf (None) Ur Culture Indicated? Cult not indicated Micro UA Comment Not Reportable A. baumannii (PCR) (Not Detect) Betzaida albicans (PCR) (Not Detect) C. glabrata (PCR) (Not Detect) C. krusei (PCR) (Not Detect) C. parapsilosis (PCR) (Not Detect) C. tropicalis (PCR) (Not Detect) Enterobacteriac sp PCR (Not Detect) E. cloacae complex PCR (Not Detect) Enterococcus sp PCR (Not Detect) E. coli (PCR) (Not Detect) H. influenzae (PCR) (Not Detect) Klebsiella oxytoca PCR (Not Detect) Klebsiella pneumoniae (Not Detect) List. monocytogenes PCR (Not Detect) N. meningitidis (PCR) (Not Detect) Proteus species (PCR) (Not Detect) Serratia marcescens PCR (Not Detect) Staphylococcus sp PCR Staph aureus (PCR) (Not Detect) mecA-Methicil Res Gene (Not Detect) Streptococcus sp PCR (Not Detect) Group A Strep (PCR) (Not Detect) Strep agalactiae (PCR) (Not Detect) Strep pneumoniae (PCR) (Not Detect) P. aeruginosa (PCR) (Not Detect) Jose Antonio/B-Vanco Res Genes KPC-Carbap Res Gene PCR 09/15/17 09/15/17 09/15/17 Range/Units 13:42 13:42 13:42 WBC (4.5-11.0) X10^3/uL RBC (4.0-5.2) X10^6/uL Hgb (12.0-16.0) g/dL Hct (36-46) % MCV (80-100) fL MCH (26-34) PG MCHC (30-36) % RDW (11.6-14.8) % Plt Count (150-400) X10^3/uL Neut % (Auto) Lymph % (Auto) [place] % (Auto) Eos % (Auto) Baso % (Auto) Total Counted Seg Neutrophils % (38-70) % Band Neutrophils % (3-7) % Lymphocytes % (Manual) (25-45) % Monocytes % (Manual) (2-11) % Basophils % (Manual) (0-1) % Neutrophils # (Manual) (2082-3026) /uL RBC Morphology ESR Cancelled Sodium 140 (137-145) mmol/L Potassium 4.8 D (3.4-5.1) mmol/L Chloride 103 (98-107) mmol/L Carbon Dioxide 26 (22-32) mmol/L BUN 20 H (7-17) mg/dL Creatinine 0.70 (0.52-1.04) mg/dL Estimated GFR > 60.0 (>60) mL/min BUN/Creatinine Ratio 28.6 H (6-22) Glucose 119 H (70-100) mg/dL Lactate 1.0 (0.7-2.1) mmol/L Uric Acid (2.5-6.2) mg/dL Calcium 8.9 (8.4-10.2) mg/dL Total Bilirubin 2.6 H (0.2-1.3) mg/dL AST 31 (14-36) IU/L ALT 20 (9-52) IU/L Alkaline Phosphatase 414 H (38-126) U/L C-Reactive Protein > 9.0 H (<1.0) mg/dL Total Protein 8.0 (6.3-8.2) g/dL Albumin 3.2 L (3.5-5.0) g/dL Globulin 4.8 H (1.7-4.1) g/dL Albumin/Globulin Ratio 0.7 L (1.0-2.8) Procalcitonin (<0.5) ng/mL Urine RBC (0-5/HPF) Urine WBC (0-5/HPF) Ur Squamous Epith Cells Urine Bacteria (None) Hyaline Casts (None) Ur Culture Indicated? Micro UA Comment A. baumannii (PCR) (Not Detect) Betzaida albicans (PCR) (Not Detect) C. glabrata (PCR) (Not Detect) C. krusei (PCR) (Not Detect) C. parapsilosis (PCR) (Not Detect) C. tropicalis (PCR) (Not Detect) Enterobacteriac sp PCR (Not Detect) E. cloacae complex PCR (Not Detect) Enterococcus sp PCR (Not Detect) E. coli (PCR) (Not Detect) H. influenzae (PCR) (Not Detect) Klebsiella oxytoca PCR (Not Detect) Klebsiella pneumoniae (Not Detect) List. monocytogenes PCR (Not Detect) N. meningitidis (PCR) (Not Detect) Proteus species (PCR) (Not Detect) Serratia marcescens PCR (Not Detect) Staphylococcus sp PCR Staph aureus (PCR) (Not Detect) mecA-Methicil Res Gene (Not Detect) Streptococcus sp PCR (Not Detect) Group A Strep (PCR) (Not Detect) Strep agalactiae (PCR) (Not Detect) Strep pneumoniae (PCR) (Not Detect) P. aeruginosa (PCR) (Not Detect) Jose Antonio/B-Vanco Res Genes KPC-Carbap Res Gene PCR 09/15/17 09/15/17 Range/Units 13:42 13:48 WBC (4.5-11.0) X10^3/uL RBC (4.0-5.2) X10^6/uL Hgb (12.0-16.0) g/dL Hct (36-46) % MCV (80-100) fL MCH (26-34) PG MCHC (30-36) % RDW (11.6-14.8) % Plt Count (150-400) X10^3/uL Neut % (Auto) Lymph % (Auto) [place] % (Auto) Eos % (Auto) Baso % (Auto) Total Counted Seg Neutrophils % (38-70) % Band Neutrophils % (3-7) % Lymphocytes % (Manual) (25-45) % Monocytes % (Manual) (2-11) % Basophils % (Manual) (0-1) % Neutrophils # (Manual) (3933-9442) /uL RBC Morphology ESR Sodium (137-145) mmol/L Potassium (3.4-5.1) mmol/L Chloride (98-107) mmol/L Carbon Dioxide (22-32) mmol/L BUN (7-17) mg/dL Creatinine (0.52-1.04) mg/dL Estimated GFR (>60) mL/min BUN/Creatinine Ratio (6-22) Glucose (70-100) mg/dL Lactate (0.7-2.1) mmol/L Uric Acid 3.9 (2.5-6.2) mg/dL Calcium (8.4-10.2) mg/dL Total Bilirubin (0.2-1.3) mg/dL AST (14-36) IU/L ALT (9-52) IU/L Alkaline Phosphatase (38-126) U/L C-Reactive Protein (<1.0) mg/dL Total Protein (6.3-8.2) g/dL Albumin (3.5-5.0) g/dL Globulin (1.7-4.1) g/dL Albumin/Globulin Ratio (1.0-2.8) Procalcitonin (<0.5) ng/mL Urine RBC (0-5/HPF) Urine WBC (0-5/HPF) Ur Squamous Epith Cells Urine Bacteria (None) Hyaline Casts (None) Ur Culture Indicated? Micro UA Comment A. baumannii (PCR) Not detected (Not Detect) Betzaida albicans (PCR) Not detected (Not Detect) C. glabrata (PCR) Not detected (Not Detect) C. krusei (PCR) Not detected (Not Detect) C. parapsilosis (PCR) Not detected (Not Detect) C. tropicalis (PCR) Not detected (Not Detect) Enterobacteriac sp PCR Not detected (Not Detect) E. cloacae complex PCR Not detected (Not Detect) Enterococcus sp PCR Not detected (Not Detect) E. coli (PCR) Not detected (Not Detect) H. influenzae (PCR) Not detected (Not Detect) Klebsiella oxytoca PCR Not detected (Not Detect) Klebsiella pneumoniae Not detected (Not Detect) List. monocytogenes PCR Not detected (Not Detect) N. meningitidis (PCR) Not detected (Not Detect) Proteus species (PCR) Not detected (Not Detect) Serratia marcescens PCR Not detected (Not Detect) Staphylococcus sp PCR Not Reportable Staph aureus (PCR) Detected H (Not Detect) mecA-Methicil Res Gene Not detected (Not Detect) Streptococcus sp PCR Not detected (Not Detect) Group A Strep (PCR) Not detected (Not Detect) Strep agalactiae (PCR) Not detected (Not Detect) Strep pneumoniae (PCR) Not detected (Not Detect) P. aeruginosa (PCR) Not detected (Not Detect) Jose Antonio/B-Vanco Res Genes Not Reportable KPC-Carbap Res Gene PCR Not Reportable Discharge Plan Departure Patient Disposition: Home, Self-Care Clinical Impression: Effusion of left knee, Headache Discharge Date/Time: 09/15/17 17:55 Interventions: ED Discharge Assessment Last Done: 09/15/17 17:54 Instructions: DI for Headache, DI for Knee Effusion Activity Restrictions/Additional Instructions: The source of all of your symptoms is not clear today. I am not sure whether the swelling in your knee is related to the other joint pain and swelling you described to me today. The steroids may be helpful if that is the case. I think that your headache is due to mixed sources, clearly there is pain and tension in your neck which is likely contributing to this. Since it is getting a little bit better prior to your departure here, please return home and rest in a quiet place and continue your usual medications. As we talked about, you should return if you have any acutely worsening symptoms over the weekend, or new symptoms such as measured fever at home, and in that case we may need to do further testing including a lumbar puncture or removal of some of the fluid from your knee for testing, which we decided to forego after discussion today. Please make sure you follow up with your primary care provider on Sunday to review your visit here and progress since starting the prednisone as well as whether to do further testing or referral Prescriptions: New prednisone 20 mg tablet 40 mg PO DAILY 2 Days Qty: 3 RF: 0 No Action cyclobenzaprine 10 MG tablet 10 mg PO TID Qty: 0 RF: 0 pramipexole [Mirapex] 0.125 MG tablet 0.125 mg PO DAILY Qty: 0 RF: 0 hydromorphone 4 mg tablet 4 mg PO Q4-6H RF: 0 Referrals: Viviana Vaughan [Primary Care Provider] - <Giuseppe Meehan DO - Last Filed: 09/16/17 07:34> Cosign ED Attending Karthikature Attestation: Patient was seen here in the emergency department prior to this ER visit and had labs drawn with a normal white blood cell count but an elevated procalcitonin. It was deemed that time by the notes that the patient did not have a infection was discharged home without antibiotics. She returned today for new complaints of a headache, neck pain and left knee pain. The symptoms that she presented with on the day prior had resolved. On this visit she does have an elevated white blood cell count however her procalcitonin had significantly improved. Patient states that she is also being worked up for rheumatoid arthritis. It appears that she has not been on any steroids. She states that she had her rheumatoid arthritis labs drawn prior to this ER visit. She is afebrile. She does have a swollen and warm left knee however there is no signs of cellulitis. She is able to flex and extend her knee approximately 30? without any discomfort. She is also complaining of headache and neck pain. Upon my evaluation it did appear that her neck pain was paraspinal and when she was distracted was able to fully flex her neck however I was unable to see her extend her neck fully. She was rotating left and right without problems when distracted. I had a long discussion with the patient regarding her symptoms. We discussed whether not her presenting symptoms today were a pain control issue versus new pain. She had a very difficult time distinguishing whether not the symptoms were new or old. She does state that her left knee symptoms are new. We discussed her lab results to include her elevated procalcitonin yesterday and her elevated white blood cell count today and the fact that these could be inflammatory markers or they could also be signs of infection. I did discuss with her my concerns about a potential septic joint in her left knee and told her that the only definitive test would be to draw all fluid from this knee and send it to the lab for evaluation. She declined this offer of joint aspiration. Also had a discussion with her regarding her neck pain in her headache and the concerns for meningitis. We did discuss that the only definitive test would be a lumbar puncture to evaluate the cerebral spinal fluid. Patient has had extensive spinal fusion to include cervical thoracic and lumbar fusions. Patient declined the offer of a lumbar puncture. I am unsure of the etiology of her elevated white blood cell count and considered other infectious processes to include cellulitis however she has no signs of this on her exam. Considered intra-abdominal pathology however her abdomen was soft and nontender and she has no change in her bowel habits. She has no urinary symptoms. Has no symptoms consistent with pneumonia. There is some concern about potential IV drug abuse and so I thought of endocarditis and pericarditis however patient has no chest pain no shortness of breath no other symptoms consistent with this. Patient spent an extensive time here in the emergency department without worsening of her symptoms. She was afebrile throughout her stay. She declined lumbar puncture knee aspiration multiple times when offered by myself and also the [facility]. Ultimately the patient in her who is at bedside opted to go home with a course of steroids to see if this does not help her symptoms because they were also concerned that this may be a flare of potential rheumatoid arthritis which she has been worked up for. Patient was given extensive return precautions. Both she and her who was at bedside expressed understanding and agreement with plan.
--- NOTE | 2017-09-15 12:31 | DI.RAD.S_ITS ---
PROCEDURE: XR KNEE LT 3V INDICATIONS: pain, edema TECHNIQUE: 3 views of the knee were acquired. COMPARISON: None. FINDINGS: Bones: No fractures or dislocations. No suspicious bony lesions. Mild prominence of the tibial tubercle is noted. Enthesophytes are present at the quadriceps tendon insertion and the patellar tendon origin. There mild degenerative changes of the knee, most prominent within the medial and patellofemoral compartments. Soft tissues: There appears to be prominent knee joint effusion. No suspicious soft tissue calcifications. IMPRESSION: 1. Mild degenerative changes of the left knee. 2. Prominent knee joint effusion is of uncertain etiology. The need for better characterization utilizing MRI may be determined clinically. Dictated by: Vin Raines M.D. on 09/15/2017 at 14:41 Approved by: Vin Raines M.D. on 09/15/2017 at 14:42
--- NOTE | 2017-09-15 13:18 | PC.NURSE ---
Attempts x2 for IV start. Unsuccessful. 1x with US machine
[2017-09-15] MEDS: SODIUM CHLORIDE 0.9% 1,000 ML 1000 ML IV ×2 (13:52→16:07)
[2017-09-15] MEDS: KETOROLAC 60 MG/2 ML VIAL 30 MG IV (13:52)
--- NOTE | 2017-09-15 13:53 | PC.NURSE ---
4 attempts by 2 other nurses prior
[2017-09-15 14:08] LABS: Hematocrit 28.9 % (36-46); Hemoglobin 9.5 g/dL (12.0-16.0); Mean Corpuscular HGB Conc 32.8 % (30-36); Mean Corpuscular Volume 82.3 fL (80-100); Platelet Count 211 X10^3/uL (150-400); Red Blood Cell Count 3.51 X10^6/uL (4.0-5.2); Red Cell Distribution Width 16.1 % (11.6-14.8); White Blood Cell Count 21.1 X10^3/uL (4.5-11.0)
[2017-09-15 14:11] LABS: Add Manual Diff / Slide Review YES
[2017-09-15 14:16] LABS: Alanine Aminotransferase 20 IU/L (9-52); Albumin 3.2 g/dL (3.5-5.0); Albumin Globulin Ratio 0.7 (1.0-2.8); Alkaline Phosphatase 414 U/L (38-126); Aspartate Aminotransferase 31 IU/L (14-36); BUN Creatinine Ratio 28.6 (6-22); Bilirubin Total 2.6 mg/dL (0.2-1.3); Blood Urea Nitrogen 20 mg/dL (7-17); Calcium 8.9 mg/dL (8.4-10.2); Carbon Dioxide 26 mmol/L (22-32); Chloride 103 mmol/L (98-107); Estimated Glomerular Filt Rate > 60.0 mL/min (>60); Globulin 4.8 g/dL (1.7-4.1); Glucose 119 mg/dL (70-100); Potassium 4.8 mmol/L (3.4-5.1); Sodium 140 mmol/L (137-145)
[2017-09-15 14:20] LABS: C-Reactive Protein Quant > 9.0 mg/dL (<1.0); HEMOLYSIS 138 (0-50)
[2017-09-15 14:25] LABS: Uric Acid 3.9 mg/dL (2.5-6.2)
[2017-09-15 14:39] LABS: Neutrophils Absolute Manual 18568 /uL (3000-5900); Total Cells Counted 100
[2017-09-15 14:40] LABS: RBC Morphology Normal Morphology
[2017-09-15 14:43] LABS: Bacteria Urine Occasional (0-1); Culture Indicated Urine Cult Not Indicated; Hyaline Casts Urine 1-5/LPF; RBC Urine 1-5/HPF (0-5/HPF); Squamous Epithelial Cell Urine 10-30 /HPF; WBC Urine 0-1/HPF (0-5/HPF)
[2017-09-15 14:45] LABS: Procalcitonin 4.55 ng/mL (<0.5)
[2017-09-15] MEDS: HYDROMORPHONE 0.5 MG INJ 1 MG IV (14:47)
[2017-09-15] MEDS: PRAMIPEXOLE 0.25 MG TABLET 0.5 MG PO (16:09)
[2017-09-15] MEDS: diphenhydrAMINE 50 MG/ML VIAL 25 MG IV (16:10)
[2017-09-15] MEDS: METOCLOPRAMIDE 10 MG/2 ML INJ 5 MG IV (16:12)
[2017-09-15] MEDS: HALOPERIDOL 5 MG/ML VIAL 2 MG IV (16:13)
[2017-09-15] MEDS: predniSONE 20 MG TABLET 40 MG PO (17:35)
[2017-09-16 07:06] LABS: Enterococcus species Not Detected (Not Detect); Listeria monocytogenes Not Detected (Not Detect)
[2017-09-16 07:07] LABS: Acinetobacter baumannii Not Detected (Not Detect); Enterobacteriaceae species Not Detected (Not Detect); Methicillin-resistant gene Not Detected (Not Detect); Streptococcus agalactiae (Gr B Not Detected (Not Detect); Streptococcus pneumonia Not Detected (Not Detect); Streptococcus pyogenes (Gr A) Not Detected (Not Detect); Streptococcus species Not Detected (Not Detect)
[2017-09-16 07:08] LABS: Candida albicans Not Detected (Not Detect); Candida glabrata Not Detected (Not Detect); Candida krusei Not Detected (Not Detect); Candida parapsilosis Not Detected (Not Detect); Candida tropicalis Not Detected (Not Detect); E. coli Not Detected (Not Detect); Enterobacter cloacae complex Not Detected (Not Detect); Haemophilus influenzae Not Detected (Not Detect); Neisseria meningitidis Not Detected (Not Detect); Proteus species Not Detected (Not Detect); Pseudomonas aeruginosa Not Detected (Not Detect); Serratia marcescens Not Detected (Not Detect)
== END 2017-09-15 17:55 | disposition home or self-care (01) ==
PROVIDERS: Emergency Provider Internal Medicine; PCP Nurse Practitioner
DX: M25.462 Effusion, left knee (principal); R51 Headache
CPT/HCPCS: 73562; 80053; 81003; 81015; 83605; 84145; 84550; 85025; 85651; 86140; 87040; 87150; 87205; 99283; J1170; J1200; J1630; J1885; J2765

== ENCOUNTER 2017-09-16 08:28 | Inpatient (IN) | payer MEDICARE, MEDICAID, SELFPAY ==
[2017-09-16] VITALS (14 sets, daily range): BP systolic 144–178; BP diastolic 88–118; PULSE 108–122; RESP 20–28; TEMP 36.8–37.7; O2SAT 94–116; BMI 30.2
--- NOTE | 2017-09-16 | DI.RAD.S_ITS ---
PROCEDURE: FL GUIDED LUMBAR PUNCTURE LP INDICATIONS: back pain TECHNIQUE: The indications, alternatives, benefits, risks, and complications were explained to the patient. Written informed consent was obtained and placed in the chart. The patient was placed in a prone position on the fluoroscopy table, and a level was chosen for percutaneous access under fluoroscopic guidance. The site was prepped and draped in a sterile fashion. After local anaesthetic, a spinal needle was then used to enter the intrathecal space, with return of cerebrospinal fluid. After obtaining sufficient fluid, the needle was then withdrawn, and a bandage applied to the puncture site. FINDINGS: Puncture level: L4-L5 Needle: Spinal needle. Opening pressure: 20 cm. CSF volume and description: Slightly blood tinged and mildly cloudy Medications: 1% lidocaine for anaesthesia. Complications: None Laboratories: As ordered by referring clinician. IMPRESSION: Successful fluoroscopically guided lumbar puncture. Dictated by: Eliazar Haney M.D. on 09/16/2017 at 14:11 Approved by: Eliazar Haney M.D. on 09/16/2017 at 14:13
--- NOTE | 2017-09-16 08:38 | ED.GENADULT ---
HPI - General Adult General Chief complaint: Recheck/Abnormal Lab/Rx Stated complaint: BACK PAIN Time Seen by Provider: 09/16/17 08:34 Source: patient Mode of arrival: ambulatory Limitations: no limitations History of Present Illness HPI narrative: 52-year-old female who was seen here in the emergency department yesterday for left knee pain and headache and neck pain. At that time she was discharged home without any antibiotics after discussion about lumbar puncture in knee aspiration. Overnight the blood culture that was obtained yesterday resulted as positive for Staph aureus. She was called this morning and instructed that she should return to the emergency department for further evaluation and treatment. Upon arrival here in the emergency department she states that she did feel somewhat better than yesterday. She states that her left knee did hurt but it was improved from yesterday. She states that she was still having headache but it was improved from yesterday. She is also stating that she was still having neck pain and she was unsure if this was better from yesterday. No fevers. Related Data Home Medications Medication Instructions Recorded Confirmed cyclobenzaprine 10 mg PO TID #0 08/17/10 09/16/17 pramipexole [Mirapex] 0.125 mg PO DAILY #0 08/17/10 09/16/17 hydromorphone 4 mg PO Q4-6H 09/15/17 09/16/17 Previous Rx's Medication Instructions Recorded prednisone 40 mg PO DAILY 2 Days #3 tab 09/15/17 Allergies Allergy/AdvReac Type Severity Reaction Status Date / Time morphine Allergy Severe Anaphylaxis Verified 09/15/17 11:36 penicillinase Allergy Severe Anaphylaxis Verified 09/15/17 11:36 Sulfa (Sulfonamide Allergy Severe Anaphylaxis Verified 09/15/17 11:36 Antibiotics) bee venom protein (honey bee) Allergy Intermediate Hives Verified 09/15/17 11:36 aspirin AdvReac Intermediate Abdominal Verified 09/15/17 11:36 Pain methadone AdvReac Intermediate Hallucinati Verified 09/15/17 11:36 ng Review of Systems Constitutional Denies chills, Denies fatigue, Reports fever(s) and Reports headache(s) Eyes Denies loss of vision ENT Ears, Nose, Mouth, and Throat: Denies dizziness, Reports headache(s), Reports neck pain, Denies sinus pressure and Denies sore throat Cardiovascular Denies chest pain, Denies rapid heart rate, Denies irregular heart rhythm, Denies lightheadedness, Denies palpitations and Denies dyspnea Respiratory Denies chest congestion, Denies cough and Denies dyspnea Gastrointestinal Gastrointestinal: Denies diarrhea, Denies nausea and Denies vomiting Genitourinary Denies dysuria and Denies flank pain Musculoskeletal Reports back pain (Cervical spine), Denies myalgias, Reports arthralgias (Left knee), Reports joint swelling (Left knee), Denies muscle cramps, Denies muscle weakness and Reports neck pain Integumentary/Breasts Denies lesions, Denies rash and Denies wounds Neurologic Denies behavioral changes, Denies dizziness, Reports headache(s) and Denies loss of vision Psychiatric Denies behavioral changes Endocrine Denies fatigue, Denies flushing and Denies palpitations Hematologic/Lymphatic Denies easy bleeding and Denies easy bruising [facility] Medical History Arthralgia (Chronic) Chronic back pain (Chronic) Degenerative disc disease, cervical (Chronic) Degenerative disc disease, lumbar (Chronic) Depression with anxiety (Chronic) Fibromyalgia (Chronic) Restless leg syndrome (Chronic) GERD (gastroesophageal reflux disease) (Resolved) Tubal ligation status (Resolved) Surgical History History of lumbar fusion (Resolved) Hx of cholecystectomy (Resolved) Status post cervical spinal fusion (Resolved) Social History household members: spouse Smoking Status: Former smoker alcohol intake: never substance use type: marijuana Exam Initial Vital Signs Initial Vital Signs: Vital Signs Temperature 98.2 F 09/16/17 08:50 Pulse Rate 108 H 09/16/17 08:50 Respiratory Rate 20 09/16/17 08:50 Blood Pressure 170/95 H 09/16/17 08:50 Pulse Oximetry 99 09/16/17 08:50 Const General: cooperative, comfortable and No acute distress Orientation: alert, awake and oriented x3 HENMT Head: normal to inspection Mouth: oral mucosae normal Neck Other: Limited flexion does seem to be improved from yesterday does have paraspinal muscle tenderness Resp Effort & Inspection: normal respiratory effort Auscultation: clear to auscultation bilaterally Cardio Rate: tachycardic Rhythm: regular rhythm Heart Sounds: no murmurs Pulses: radial pulses present GI Inspection: non-distended Palpation: soft, No firm, No guarding and No tender Back/Spine/Pelvis Back: No CVA tenderness Skin Other: Multiple track gould bilateral arms Neuro General: alert, awake and oriented x3 Cognition: normal cognition Speech: speech normal Gait: normal gait Extrem Other: Patient with left knee that is swollen and warm however not red. Not worse and not improved from yesterday's exam Procedures Central Line Placement Right IJ: Time Out Performed: Yes Patient Placed on Monitor/Pulse Ox: Yes MD Prep: mask, gown and gloves Central Line Prep: Povidone-Iodine 1% Local Anesthetic: lidocaine 1% Amount of anesthesia used (mL): 10 Ultrasound Used for Placement: Yes Central Line Lumen Inserted: triple Post Procedure: sutured in place, good blood return, all ports aspirated, flushed, capped and sterile dressing applied Post Procedure X-Ray: no pneumothorax seen Patient Tolerated Procedure: Well and No complications Complications: none Joint Aspiration Joint Asp./Inject. 1: Time Out Performed: Yes Side of body: left Joint Aspirated: knee Ultrasound Guidance: No Skin Prep: Povidone-Iodine1% Local Anesthetic: lidocaine 1% Amount of anesthesia used (mL): 5 Needle Size Used: 18G Fluid Obtained: turbid Total fluid obtained (mL): 10 Patient Tolerated Procedure: Well and No complications Complications: none Course Orders Ordered: ED Orders 09/16/17 11:02 Cell Count w Diff Body Fluid Stat 09/16/17 11:38 XR chest 1V Stat 09/16/17 11:45 Consult to Physician Routine Complete Blood Count AUTO DIFF Stat Comprehensive Metabolic Panel Stat Crystals Body Fluid Stat Erythrocyte Sedimentation Rate Stat Lactate (Lactic Acid) Stat Lipase Stat Partial Thromboplastin Time Stat Procalcitonin Stat Prothrombin Time INR Stat Troponin I Stat 09/16/17 12:11 Cell Count w Diff CSF Stat Glucose CSF Stat HOLD TUBE CSF Stat Total Protein CSF Stat 09/16/17 12:15 Blood Culture Stat Body Fluid Culture Stat 09/16/17 13:45 CSF culture Stat Meningitis Panel Stat 09/16/17 14:52 MRSA PCR Stat 09/16/17 15:26 Education, smoking cessation ONGOING 09/16/17 15:32 Consult to Business Development Executive Routine 06/24/18 16:19 Urinalysis and Microscopic Stat Urine Culture Stat 09/17/17 05:00 Complete Blood Count AUTO DIFF Routine Comprehensive Metabolic Panel Routine 09/18/17 00:30 Vancomycin Trough Urgent Acetaminophen (Tylenol) 650 mg PO Q6HR PRN PRN Reason: As Needed for Fever/Mild Pain Al Hydrox/Mg Hydrox/Simethicone (Maalox Plus) 30 ml PO Q6HR PRN PRN Reason: Dyspepsia Dexamethasone (Decadron) 12 mg IV Q6HR [facility] Last Admin: 09/16/17 18:39 Dose: 12 mg Diphenhydramine HCl (Benadryl) 25 mg IV QID PRN PRN Reason: Allergic Symptoms Enoxaparin Sodium (Lovenox) 40 mg SUBCUT DAILY [facility] Hydromorphone HCl (Dilaudid) 1 mg IV Q4H PRN PRN Reason: Pain, Severe (7-10) Sodium Chloride (Normal Saline 0.9%) 1,000 mls @ 125 mls/hr IV CONT [facility] Last Infusion: 09/16/17 16:32 Dose: 100 mls/hr Admin: 09/16/17 12:26 Dose: 125 mls/hr Sodium Chloride (Normal Saline 0.9%) 1,000 mls @ 100 mls/hr IV CONT [facility] Ceftriaxone Sodium/Dextrose (Rocephin) 2 gm in 50 mls @ 100 mls/hr IV Q12H [facility] Last Admin: 09/16/17 17:32 Dose: 100 mls/hr Vancomycin HCl/Dextrose (Vancomycin) 1,000 mg in 200 mls @ 200 mls/hr IV Q12H [facility] Ketorolac Tromethamine (Toradol) 30 mg IV Q6HR [facility] Stop: 09/21/17 15:27 Last Admin: 09/16/17 18:38 Dose: 30 mg Lorazepam (Ativan) 0.5 mg IV Q4HR PRN PRN Reason: Anxiety Magnesium Hydroxide (Milk Of Magnesia) 30 ml PO DAILY PRN PRN Reason: Constipation Ondansetron HCl (Zofran) 4 mg IV Q8HR PRN PRN Reason: Nausea And Vomiting Pramipexole Dihydrochloride (Mirapex) 0.125 mg PO BID [facility] Last Admin: 09/16/17 12:33 Dose: 0.125 mg Pramipexole Dihydrochloride (Mirapex) 0.125 mg PO DAILY [facility] Rifampin (Rifampin) 300 mg PO BID [facility] Discontinued Medications Hydromorphone HCl (Dilaudid) 1 mg IV NOW ONE Stop: 09/16/17 10:56 Last Admin: 09/16/17 11:00 Dose: Hydromorphone HCl (Dilaudid) 1 mg IM NOW ONE Stop: 09/16/17 11:04 Last Admin: 09/16/17 11:05 Dose: 1 mg Vancomycin HCl 1,250 mg/ (Sodium Chloride) 250 mls @ 250 mls/hr IV NOW ONE Stop: 09/16/17 13:14 Last Infusion: 09/16/17 15:03 Dose: 0 mls/hr Admin: 09/16/17 14:00 Dose: 250 mls/hr Lorazepam (Ativan) 1 mg PO NOW ONE Stop: 09/16/17 10:43 Last Admin: 09/16/17 10:45 Dose: 1 mg Morphine Sulfate (Morphine) 4 mg IV Q4HR PRN PRN Reason: Pain, Moderate (4-6) Morphine Sulfate (Morphine) 4 mg IV Q4HR PRN PRN Reason: Pain, Moderate (4-6) Last Admin: 09/16/17 16:27 Dose: 4 mg Vital Signs - 8 hr 09/16/17 12:18 09/16/17 12:44 09/16/17 13:07 Temperature Pulse Rate 121 H 119 H 117 H Respiratory Rate 24 27 H 21 Blood Pressure Blood Pressure [Right Arm] 148/98 H 152/90 H 144/112 H Pulse Oximetry 94 95 96 09/16/17 14:21 09/16/17 14:30 09/16/17 15:01 Temperature 99.1 F Pulse Rate 122 H 120 H Respiratory Rate 20 23 Blood Pressure Blood Pressure [Right Arm] 149/93 H 155/88 H Pulse Oximetry 95 09/16/17 15:55 09/16/17 18:38 Temperature 99.7 F H 99.8 F H Pulse Rate Respiratory Rate 28 H Blood Pressure 176/118 H Blood Pressure [Right Arm] Pulse Oximetry 95 Medical Decision Making MDM Narrative Medical decision making narrative: Patient knee aspirate does not show signs of infection. CSF status or signs of infection. Chest x-ray shows no signs of pneumonia. Urine sores no signs of urinary tract infection. She had her paraspinal muscle tenderness appears to be muscular to me. While she was here in the emergency department we did find out from the patient's that the patient had been crushing upper Dilaudid and mixing it with water and injecting herself with that. Have a high suspicion for endocarditis. Patient was never hypotensive here in the ER. I did discuss the case with Dr. Thomas with Internal Medicine who will accept the patient. Patient given vancomycin here in the ER. Discussed admission with the patient and family at bedside. They expressed understanding and agreement. Lab Data Lab results reviewed: Yes I reviewed the patient's lab results. Result diagrams: 09/16/17 11:45 09/16/17 11:45 Lab Results 09/16/17 09/16/17 09/16/17 Range/Units 11:02 11:45 11:45 WBC 25.0 H (4.5-11.0) X10^3/uL RBC 3.37 L (4.0-5.2) X10^6/uL Hgb 9.0 L (12.0-16.0) g/dL Hct 27.4 L (36-46) % MCV 81.4 (80-100) fL MCH 26.8 (26-34) PG MCHC 32.9 (30-36) % RDW 16.0 H (11.6-14.8) % Plt Count 317 (150-400) X10^3/uL Neut % (Auto) 93.0 H (50-75) % Lymph % (Auto) 3.0 L (25-40) % Mathews % (Auto) 3.7 (3-14) % Eos % (Auto) 0.0 L (2-4) % Baso % (Auto) 0.3 (0-2) % Neut # (Auto) 71761 H (9142-0289) /uL ESR > 140 H (0-20) MM/HR PT (10.1-12.7) SECONDS INR (0.9-1.3) APTT (26.4-36.2) SECONDS Sodium (137-145) mmol/L Potassium (3.4-5.1) mmol/L Chloride (98-107) mmol/L Carbon Dioxide (22-32) mmol/L BUN (7-17) mg/dL Creatinine (0.52-1.04) mg/dL Estimated GFR (>60) mL/min BUN/Creatinine Ratio (6-22) Glucose (70-100) mg/dL Lactate (0.7-2.1) mmol/L Calcium (8.4-10.2) mg/dL Total Bilirubin (0.2-1.3) mg/dL AST (14-36) IU/L ALT (9-52) IU/L Alkaline Phosphatase (38-126) U/L Troponin I (0.01-0.034) ng/mL Total Protein (6.3-8.2) g/dL Albumin (3.5-5.0) g/dL Globulin (1.7-4.1) g/dL Albumin/Globulin Ratio (1.0-2.8) Lipase (23-300) U/L Procalcitonin 2.75 H (<0.5) ng/mL Urine Color Urine Appearance Urine pH (4.5-8.0) Ur Specific [place] (1.000-1.035) Urine Protein (Negative) Urine Glucose (UA) (Normal) g/dL Urine Ketones (NEGATIVE) Urine Occult Blood (Negative) Urine Nitrate (Negative) Urine Bilirubin (NEGATIVE) Urine Urobilinogen (0.2) E.U./dL Ur Leukocyte Esterase (NEGATIVE) Urine RBC (0-5/HPF) Urine WBC (0-5/HPF) Ur Squamous Epith Cells Amorphous Sediment Urine Bacteria (None) Ur Culture Indicated? Micro UA Comment Fluid Color Brown Fluid Appearance Cloudy Fluid RBC 33252 /uL Fld Tot Nucleated Cell 27182 /uL Fluid Polynuclear WBCs 96 % Fluid Mononuclear WBCs 1 % Fluid Eosinophils 0 % Body Fluid Clot No clots present CSF Tube Number CSF Volume CSF Appearance (Clear) CSF Color (Colorless) CSF WBC (0-5) MONO/uL CSF RBC RBC /uL CSF Mononuclear WBCs % CSF Polynuclear WBCs % CSF Glucose (40-70) mg/dL CSF Total Protein (12-60) mg/dL CSF C.neoform/gat PCR (Not Detect) CSF CMV DNA (PCR) (Not Detect) CSF Enterovirus (PCR) (Not Detect) CSF E. coli (PCR) (Not Detect) CSF H. influenzae (PCR) (Not Detect) CSF HSV I (PCR) (Not Detect) CSF HSV II (PCR) (Not Detect) CSF HHV 6 (PCR) (Not Detect) CSF L.monocytogenes PCR (Not Detect) CSF N. meningitidis PCR (Not Detect) CSF Parechovirus (PCR) (Not Detect) CSF S. agalactiae (PCR) (Not Detect) CSF S. pneumoniae (PCR) (Not Detect) CSF VZV (PCR) Nasal Screen MRSA (PCR) (Negative) 09/16/17 09/16/17 09/16/17 Range/Units 11:45 11:45 11:45 WBC (4.5-11.0) X10^3/uL RBC (4.0-5.2) X10^6/uL Hgb (12.0-16.0) g/dL Hct (36-46) % MCV (80-100) fL MCH (26-34) PG MCHC (30-36) % RDW (11.6-14.8) % Plt Count (150-400) X10^3/uL Neut % (Auto) (50-75) % Lymph % (Auto) (25-40) % Mathews % (Auto) (3-14) % Eos % (Auto) (2-4) % Baso % (Auto) (0-2) % Neut # (Auto) (7675-2570) /uL ESR (0-20) MM/HR PT 15.4 H (10.1-12.7) SECONDS INR 1.4 H (0.9-1.3) APTT 29 (26.4-36.2) SECONDS Sodium 144 (137-145) mmol/L Potassium 3.4 D (3.4-5.1) mmol/L Chloride 102 (98-107) mmol/L Carbon Dioxide 27 (22-32) mmol/L BUN 19 H (7-17) mg/dL Creatinine 0.80 (0.52-1.04) mg/dL Estimated GFR > 60.0 (>60) mL/min BUN/Creatinine Ratio 23.8 H (6-22) Glucose 128 H (70-100) mg/dL Lactate 1.1 (0.7-2.1) mmol/L Calcium 8.9 (8.4-10.2) mg/dL Total Bilirubin 0.9 (0.2-1.3) mg/dL AST 13 L (14-36) IU/L ALT 22 (9-52) IU/L Alkaline Phosphatase 384 H (38-126) U/L Troponin I (0.01-0.034) ng/mL Total Protein 7.3 (6.3-8.2) g/dL Albumin 3.1 L (3.5-5.0) g/dL Globulin 4.2 H (1.7-4.1) g/dL Albumin/Globulin Ratio 0.7 L (1.0-2.8) Lipase < 10 L (23-300) U/L Procalcitonin (<0.5) ng/mL Urine Color Urine Appearance Urine pH (4.5-8.0) Ur Specific [place] (1.000-1.035) Urine Protein (Negative) Urine Glucose (UA) (Normal) g/dL Urine Ketones (NEGATIVE) Urine Occult Blood (Negative) Urine Nitrate (Negative) Urine Bilirubin (NEGATIVE) Urine Urobilinogen (0.2) E.U./dL Ur Leukocyte Esterase (NEGATIVE) Urine RBC (0-5/HPF) Urine WBC (0-5/HPF) Ur Squamous Epith Cells Amorphous Sediment Urine Bacteria (None) Ur Culture Indicated? Micro UA Comment Fluid Color Fluid Appearance Fluid RBC /uL Fld Tot Nucleated Cell /uL Fluid Polynuclear WBCs % Fluid Mononuclear WBCs % Fluid Eosinophils % Body Fluid Clot CSF Tube Number CSF Volume CSF Appearance (Clear) CSF Color (Colorless) CSF WBC (0-5) MONO/uL CSF RBC RBC /uL CSF Mononuclear WBCs % CSF Polynuclear WBCs % CSF Glucose (40-70) mg/dL CSF Total Protein (12-60) mg/dL CSF C.neoform/gat PCR (Not Detect) CSF CMV DNA (PCR) (Not Detect) CSF Enterovirus (PCR) (Not Detect) CSF E. coli (PCR) (Not Detect) CSF H. influenzae (PCR) (Not Detect) CSF HSV I (PCR) (Not Detect) CSF HSV II (PCR) (Not Detect) CSF HHV 6 (PCR) (Not Detect) CSF L.monocytogenes PCR (Not Detect) CSF N. meningitidis PCR (Not Detect) CSF Parechovirus (PCR) (Not Detect) CSF S. agalactiae (PCR) (Not Detect) CSF S. pneumoniae (PCR) (Not Detect) CSF VZV (PCR) Nasal Screen MRSA (PCR) (Negative) 09/16/17 09/16/17 09/16/17 Range/Units 11:45 12:11 13:45 WBC (4.5-11.0) X10^3/uL RBC (4.0-5.2) X10^6/uL Hgb (12.0-16.0) g/dL Hct (36-46) % MCV (80-100) fL MCH (26-34) PG MCHC (30-36) % RDW (11.6-14.8) % Plt Count (150-400) X10^3/uL Neut % (Auto) (50-75) % Lymph % (Auto) (25-40) % Mathews % (Auto) (3-14) % Eos % (Auto) (2-4) % Baso % (Auto) (0-2) % Neut # (Auto) (7687-9698) /uL ESR (0-20) MM/HR PT (10.1-12.7) SECONDS INR (0.9-1.3) APTT (26.4-36.2) SECONDS Sodium (137-145) mmol/L Potassium (3.4-5.1) mmol/L Chloride (98-107) mmol/L Carbon Dioxide (22-32) mmol/L BUN (7-17) mg/dL Creatinine (0.52-1.04) mg/dL Estimated GFR (>60) mL/min BUN/Creatinine Ratio (6-22) Glucose (70-100) mg/dL Lactate (0.7-2.1) mmol/L Calcium (8.4-10.2) mg/dL Total Bilirubin (0.2-1.3) mg/dL AST (14-36) IU/L ALT (9-52) IU/L Alkaline Phosphatase (38-126) U/L Troponin I < 0.012 (0.01-0.034) ng/mL Total Protein (6.3-8.2) g/dL Albumin (3.5-5.0) g/dL Globulin (1.7-4.1) g/dL Albumin/Globulin Ratio (1.0-2.8) Lipase (23-300) U/L Procalcitonin (<0.5) ng/mL Urine Color Urine Appearance Urine pH (4.5-8.0) Ur Specific [place] (1.000-1.035) Urine Protein (Negative) Urine Glucose (UA) (Normal) g/dL Urine Ketones (NEGATIVE) Urine Occult Blood (Negative) Urine Nitrate (Negative) Urine Bilirubin (NEGATIVE) Urine Urobilinogen (0.2) E.U./dL Ur Leukocyte Esterase (NEGATIVE) Urine RBC (0-5/HPF) Urine WBC (0-5/HPF) Ur Squamous Epith Cells Amorphous Sediment Urine Bacteria (None) Ur Culture Indicated? Micro UA Comment Fluid Color Fluid Appearance Fluid RBC /uL Fld Tot Nucleated Cell /uL Fluid Polynuclear WBCs % Fluid Mononuclear WBCs % Fluid Eosinophils % Body Fluid Clot CSF Tube Number 3 CSF Volume 1.5 ml CSF Appearance Slightly cloudy H (Clear) CSF Color Colorless (Colorless) CSF WBC 360 H (0-5) MONO/uL CSF RBC 54 RBC /uL CSF Mononuclear WBCs 12 % CSF Polynuclear WBCs 88 % CSF Glucose 64 (40-70) mg/dL CSF Total Protein 295 H* (12-60) mg/dL CSF C.neoform/gat PCR Not detected (Not Detect) CSF CMV DNA (PCR) Not detected (Not Detect) CSF Enterovirus (PCR) Not detected (Not Detect) CSF E. coli (PCR) Not detected (Not Detect) CSF H. influenzae (PCR) Not detected (Not Detect) CSF HSV I (PCR) Not detected (Not Detect) CSF HSV II (PCR) Not detected (Not Detect) CSF HHV 6 (PCR) Not detected (Not Detect) CSF L.monocytogenes PCR Not detected (Not Detect) CSF N. meningitidis PCR Not detected (Not Detect) CSF Parechovirus (PCR) Not detected (Not Detect) CSF S. agalactiae (PCR) Not detected (Not Detect) CSF S. pneumoniae (PCR) Not detected (Not Detect) CSF VZV (PCR) Not detected Nasal Screen MRSA (PCR) (Negative) 09/16/17 09/16/17 Range/Units 14:52 16:19 WBC (4.5-11.0) X10^3/uL RBC (4.0-5.2) X10^6/uL Hgb (12.0-16.0) g/dL Hct (36-46) % MCV (80-100) fL MCH (26-34) PG MCHC (30-36) % RDW (11.6-14.8) % Plt Count (150-400) X10^3/uL Neut % (Auto) (50-75) % Lymph % (Auto) (25-40) % Mathews % (Auto) (3-14) % Eos % (Auto) (2-4) % Baso % (Auto) (0-2) % Neut # (Auto) (3898-7561) /uL ESR (0-20) MM/HR PT (10.1-12.7) SECONDS INR (0.9-1.3) APTT (26.4-36.2) SECONDS Sodium (137-145) mmol/L Potassium (3.4-5.1) mmol/L Chloride (98-107) mmol/L Carbon Dioxide (22-32) mmol/L BUN (7-17) mg/dL Creatinine (0.52-1.04) mg/dL Estimated GFR (>60) mL/min BUN/Creatinine Ratio (6-22) Glucose (70-100) mg/dL Lactate (0.7-2.1) mmol/L Calcium (8.4-10.2) mg/dL Total Bilirubin (0.2-1.3) mg/dL AST (14-36) IU/L ALT (9-52) IU/L Alkaline Phosphatase (38-126) U/L Troponin I (0.01-0.034) ng/mL Total Protein (6.3-8.2) g/dL Albumin (3.5-5.0) g/dL Globulin (1.7-4.1) g/dL Albumin/Globulin Ratio (1.0-2.8) Lipase (23-300) U/L Procalcitonin (<0.5) ng/mL Urine Color Yellow Urine Appearance Sl cloudy Urine pH 5.5 (4.5-8.0) Ur Specific [place] 1.020 (1.000-1.035) Urine Protein 1+ H (Negative) Urine Glucose (UA) Negative (Normal) g/dL Urine Ketones Negative (NEGATIVE) Urine Occult Blood Trace-lysed (Negative) Urine Nitrate Negative (Negative) Urine Bilirubin Negative (NEGATIVE) Urine Urobilinogen 0.2 (0.2) E.U./dL Ur Leukocyte Esterase Negative (NEGATIVE) Urine RBC 0-1/hpf (0-5/HPF) Urine WBC 0-1/hpf (0-5/HPF) Ur Squamous Epith Cells 5-10 /hpf H Amorphous Sediment 1+ Urine Bacteria Many (>30) H (None) Ur Culture Indicated? Not Reportable Micro UA Comment Not Reportable Fluid Color Fluid Appearance Fluid RBC /uL Fld Tot Nucleated Cell /uL Fluid Polynuclear WBCs % Fluid Mononuclear WBCs % Fluid Eosinophils % Body Fluid Clot CSF Tube Number CSF Volume CSF Appearance (Clear) CSF Color (Colorless) CSF WBC (0-5) MONO/uL CSF RBC RBC /uL CSF Mononuclear WBCs % CSF Polynuclear WBCs % CSF Glucose (40-70) mg/dL CSF Total Protein (12-60) mg/dL CSF C.neoform/gat PCR (Not Detect) CSF CMV DNA (PCR) (Not Detect) CSF Enterovirus (PCR) (Not Detect) CSF E. coli (PCR) (Not Detect) CSF H. influenzae (PCR) (Not Detect) CSF HSV I (PCR) (Not Detect) CSF HSV II (PCR) (Not Detect) CSF HHV 6 (PCR) (Not Detect) CSF L.monocytogenes PCR (Not Detect) CSF N. meningitidis PCR (Not Detect) CSF Parechovirus (PCR) (Not Detect) CSF S. agalactiae (PCR) (Not Detect) CSF S. pneumoniae (PCR) (Not Detect) CSF VZV (PCR) Nasal Screen MRSA (PCR) Negative for mrsa (Negative) Discharge Plan Departure Patient Disposition: Home, Self-Care Clinical Impression: Bacteremia, Effusion of left knee, Headache Discharge Date/Time: 09/16/17 15:05 Interventions: ED Discharge Assessment Last Done: 09/16/17 15:01 Admit Date/Time: 09/16/17 14:54 Admit Provider: Theodore Thomas
--- NOTE | 2017-09-16 09:33 | DI.RAD.S_ITS ---
PROCEDURE: XR CHEST 2V INDICATIONS: Fever of unknown origin TECHNIQUE: 2 views of the chest were acquired. COMPARISON: [facility], CR, XR CHEST 2V, 09/13/2017, 0:51. FINDINGS: Surgical changes and devices: None. Lungs and pleura: No pleural effusions or pneumothorax. Lungs are clear. Mediastinum: Mediastinal contours are normal. Heart size is normal. Bones and chest wall: No suspicious bony abnormalities. Soft tissues appear unremarkable. IMPRESSION: No acute cardiopulmonary disease. Dictated by: Eliazar Haney M.D. on 09/16/2017 at 10:20 Approved by: Eliazar Haney M.D. on 09/16/2017 at 10:24
[2017-09-16] MEDS: LORazepam 1 MG TABLET PO (10:45)
[2017-09-16] MEDS: HYDROMORPHONE 2 MG INJ 1 MG IM (11:05)
--- NOTE | 2017-09-16 11:38 | DI.RAD.S_ITS ---
PROCEDURE: XR CHEST 1V INDICATIONS: sp central line placement. TECHNIQUE: One view of the chest was acquired. COMPARISON: [facility], , XR CHEST 2V, 09/16/2017, 9:12. FINDINGS: Surgical changes and devices: There is a right IJ central line with the tip in the right atrium. Lungs and pleura: No pleural effusions or pneumothorax. Lungs are clear. Mediastinum: Mediastinal contours appear normal. Heart size is normal. Bones and chest wall: No suspicious bony lesions. Overlying soft tissues appear unremarkable. IMPRESSION: The right IJ central line tip is in the right atrium. Dictated by: Eliazar Haney M.D. on 09/16/2017 at 11:57 Approved by: Eliazar Haney M.D. on 09/16/2017 at 11:59
--- NOTE | 2017-09-16 12:08 | PC.NURSE ---
7 fr central line placed Right Neck by Dr. Meehan. Noted bleeding from site after dressing placed. Dressing changed to include surgicel and sterile 2x2. Will continue to monitor. Chest x ray completed for placement.
[2017-09-16 12:11] LABS: Add Manual Diff / Slide Review NO; Basophils Percent Auto 0.3 % (0-2); Hematocrit 27.4 % (36-46); Mean Corpuscular HGB Conc 32.9 % (30-36); Mean Corpuscular Hemoglobin 26.8 PG (26-34); Mean Corpuscular Volume 81.4 fL (80-100); Monocytes Percent Auto 3.7 % (3-14); Neutrophils Absolute Auto 23300 /uL (3000-5900); Platelet Count 317 X10^3/uL (150-400); Red Blood Cell Count 3.37 X10^6/uL (4.0-5.2)
[2017-09-16 12:14] LABS: INR 1.4 (0.9-1.3); Prothrombin Time 15.4 SECONDS (10.1-12.7)
[2017-09-16 12:16] LABS: PTT Partial Thromboplastin Tim 29 SECONDS (26.4-36.2)
[2017-09-16 12:18] LABS: Alanine Aminotransferase 22 IU/L (9-52); Albumin 3.1 g/dL (3.5-5.0); Albumin Globulin Ratio 0.7 (1.0-2.8); Alkaline Phosphatase 384 U/L (38-126); Aspartate Aminotransferase 13 IU/L (14-36); BUN Creatinine Ratio 23.8 (6-22); Bilirubin Total 0.9 mg/dL (0.2-1.3); Blood Urea Nitrogen 19 mg/dL (7-17); Calcium 8.9 mg/dL (8.4-10.2); Carbon Dioxide 27 mmol/L (22-32); Chloride 102 mmol/L (98-107); Estimated Glomerular Filt Rate > 60.0 mL/min (>60); Globulin 4.2 g/dL (1.7-4.1); Glucose 128 mg/dL (70-100); HEMOLYSIS < 15 (0-50); Potassium 3.4 mmol/L (3.4-5.1); Sodium 144 mmol/L (137-145); Total Protein 7.3 g/dL (6.3-8.2)
[2017-09-16 12:19] LABS: Lactate (Lactic Acid) 1.1 mmol/L (0.7-2.1); Lipase < 10 U/L (23-300)
[2017-09-16 12:24] LABS: Erythrocyte Sedimentation Rate > 140 MM/HR (0-20)
[2017-09-16] MEDS: SODIUM CHLORIDE 0.9% 1,000 ML 125 ML IV (12:26)
[2017-09-16] MEDS: PRAMIPEXOLE 0.125 MG TABLET PO ×2 (12:33→22:05)
[2017-09-16 12:34] LABS: Procalcitonin 2.75 ng/mL (<0.5); Troponin I < 0.012 ng/mL (0.01-0.034)
[2017-09-16 13:06] LABS: Body Fluid Appearance CLOUDY; Body Fluid Clotted? NO CLOTS PRESENT; Body Fluid Color BROWN; Body Fluid Red Blood Cells 62410 /uL; Body Fluid Tot Nucleated Cells 89280 /uL
--- NOTE | 2017-09-16 13:06 | PC.NURSE ---
Spoke w/ pt's . Pt has significant track gould on all extremities. Asked pt directly about heroin / iv drug use; pt denied. Pt's states that she crushes her dilaudid, mixes w/ water and injects it as 'it doesn't absorb when she takes it by mouth'. aware.
[2017-09-16 13:22] LABS: Eosinophils Body Fluid 0 %; Mononuclear WBC Body Fluid 1 %; Other Cells Body Fluid 3 %; Polynuclear WBC Body Fluid 96 %
[2017-09-16] MEDS: VANCOMYCIN 1,250 MG in SODIUM CHLORIDE 0.9% 250 ML IV (14:00)
[2017-09-16 14:14] LABS: Glucose CSF 64 mg/dL (40-70); Total Protein CSF 295 mg/dL (12-60)
[2017-09-16 14:52] LABS: CSF Tube Number 3
[2017-09-16 14:53] LABS: Appearance CSF Slightly Cloudy (Clear); CSF Tube Volume 1.5 mL; Color CSF Colorless (Colorless); Mononuclear WBC CSF 12 %; Polynuclear WBC CSF 88 %; Red Blood Cell CSF 54 RBC /uL; White Blood Cell CSF 360 MONO/uL (0-5)
[2017-09-16 14:54] LABS: HOLD TUBE CSF 1
--- NOTE | 2017-09-16 15:47 | PC.NURSE ---
ADMISSION Pt admitted to room 102. Able to state name and birthday. Attempted to reorient to situation/time. Pt also able to report 4/10 lower back pain and asking for dilaudid. Pt unable to answer most admission questions. Spouse called and was able to assist over the phone. Spouse reports med history and medications were updated in the ER. Bed alarm on. IV fluids infusing. Pt call light w/in reach. High fall risk due to disorientation. Primary nurse notified of admission/pt status.
[2017-09-16 15:59] LABS: Cryptococcus neoformans/gattii Not Detected (Not Detect); Enterovirus Not Detected (Not Detect); Escherichia coli K1 Not Detected (Not Detect); Haemophilus influenzae Not Detected (Not Detect); Herpes simplex virus 1 Not Detected (Not Detect); Herpes simplex virus 2 Not Detected (Not Detect); Human herpesvirus 6 Not Detected (Not Detect); Human parechovirus Not Detected (Not Detect); Listeria monocytogenes Not Detected (Not Detect); Neisseria meningitidis Not Detected (Not Detect); Streptococcus agalactiae Not Detected (Not Detect); Streptococcus pneumoniae Not Detected (Not Detect); Varicella Zoster Virus Not Detected
--- NOTE | 2017-09-16 16:02 | P.HP_ITS ---
History of Present Illness Date Patient Seen: 09/16/17 Time Patient Seen: 15:56 Chief complaint: Sepsis Narrative: For 52-year-old female presents with neck pain headache and Ghulam Hopper is pain in her knees and fever. She came to the ER the couple days ago and then yesterday again with the knee pain she was offered the the need to be tapped she required declined at that time symptoms have worsened mainly with the headache and the fever so she came in today. Her significant other states that the patient has been injecting her prescription Dilaudid. The patient denies this but says he has done in the past Patient History Surgical History History of lumbar fusion (Resolved) Hx of cholecystectomy (Resolved) Status post cervical spinal fusion (Resolved) Family & Social History Social History: household members spouse Safety & Behavioral: Feels Safe in Current Unwilling to Answer Environment Been Physically Hurt or Unwilling to Answer Threatened By a Person Tobacco & Substance use: Smoking Status Former smoker alcohol intake never alcohol intake frequency 0-2 drinks per day Substance Use Type marijuana Meds Home Medications Medication Instructions Recorded Confirmed Type cyclobenzaprine 10 mg PO TID #0 08/17/10 09/16/17 History pramipexole [Mirapex] 0.125 mg PO DAILY #0 08/17/10 09/16/17 History hydromorphone 4 mg PO Q4-6H 09/15/17 09/16/17 History prednisone 40 mg PO DAILY 2 Days #3 tab 09/15/17 09/16/17 Rx Allergies Allergy/AdvReac Type Severity Reaction Status Date / Time morphine Allergy Severe Anaphylaxis Verified 09/15/17 11:36 penicillinase Allergy Severe Anaphylaxis Verified 09/15/17 11:36 Sulfa (Sulfonamide Allergy Severe Anaphylaxis Verified 09/15/17 11:36 Antibiotics) bee venom protein (honey bee) Allergy Intermediate Hives Verified 09/15/17 11:36 aspirin AdvReac Intermediate Abdominal Verified 09/15/17 11:36 Pain methadone AdvReac Intermediate Hallucinati Verified 09/15/17 11:36 ng Review of Systems Review of Systems All systems reviewed & are unremarkable except as noted in HPI and below Exam Vital Signs (past 8 hours): - 09/16/17 08:50 09/16/17 10:04 09/16/17 11:13 Temperature 98.2 F Pulse Rate 108 H 112 H 119 H Respiratory Rate 20 26 H 22 Blood Pressure 170/95 H Blood Pressure [Right Arm] 158/105 H 165/95 H Pulse Oximetry 99 95 98 09/16/17 12:18 09/16/17 12:44 09/16/17 13:07 Temperature Pulse Rate 121 H 119 H 117 H Respiratory Rate 24 27 H 21 Blood Pressure Blood Pressure [Right Arm] 148/98 H 152/90 H 144/112 H Pulse Oximetry 94 95 96 09/16/17 14:21 09/16/17 14:30 09/16/17 15:01 Temperature 99.1 F Pulse Rate 122 H 120 H Respiratory Rate 20 23 Blood Pressure Blood Pressure [Right Arm] 149/93 H 155/88 H Pulse Oximetry 95 Oxygen Delivery Method Room Air Narrative Exam Narrative: Middle-aged female appearing older than her stated age somewhat unkept. She is agitated she is confused she is very difficult to get a history from as she just is wide ranging in her responses hard her to focus. Oropharynx dry mucous membranes Neck is she has decreased range of motion and pain with flexion and extension of the neck. Tenderness to palpation over the posterior spine cervical spines Lungs clear Heart tachycardic Abdomen soft obese nontender no masses Extremities she has what appears to be track gould in her arms bilateral Lower extremities no significant edema Neuro exam is she is agitated she is somewhat disoriented not knowing exactly where she was. No other focal neurologic deficits noted Skin moist and warm Objective Labs Result Diagrams: 09/16/17 11:45 09/16/17 11:45 Labs: Laboratory Results - last 24 hr 09/16/17 09/16/17 09/16/17 11:02 11:45 11:45 WBC 25.0 H RBC 3.37 L Hgb 9.0 L Hct 27.4 L MCV 81.4 MCH 26.8 MCHC 32.9 RDW 16.0 H Plt Count 317 Neut % (Auto) 93.0 H Lymph % (Auto) 3.0 L Mcdonald % (Auto) 3.7 Eos % (Auto) 0.0 L Baso % (Auto) 0.3 Neut # (Auto) 56895 H ESR > 140 H PT INR APTT Sodium Potassium Chloride Carbon Dioxide BUN Creatinine Estimated GFR BUN/Creatinine Ratio Glucose Lactate Calcium Total Bilirubin AST ALT Alkaline Phosphatase Troponin I Total Protein Albumin Globulin Albumin/Globulin Ratio Lipase Procalcitonin 2.75 H Fluid Color Brown Fluid Appearance [place] [address] Fld Tot Nucleated Cell 40766 Fluid Polynuclear WBCs 96 Fluid Mononuclear WBCs 1 Fluid Eosinophils 0 Body Fluid Clot No clots present CSF Tube Number CSF Volume CSF Appearance CSF Color CSF WBC CSF RBC CSF Mononuclear WBCs CSF Polynuclear WBCs CSF Glucose CSF Total Protein 09/16/17 09/16/17 09/16/17 11:45 11:45 11:45 WBC RBC Hgb Hct MCV MCH MCHC RDW Plt Count Neut % (Auto) Lymph % (Auto) Mcdonald % (Auto) Eos % (Auto) Baso % (Auto) Neut # (Auto) ESR PT 15.4 H INR 1.4 H APTT 29 Sodium 144 Potassium 3.4 D Chloride 102 Carbon Dioxide 27 BUN 19 H Creatinine 0.80 Estimated GFR > 60.0 BUN/Creatinine Ratio 23.8 H Glucose 128 H Lactate 1.1 Calcium 8.9 Total Bilirubin 0.9 AST 13 L ALT 22 Alkaline Phosphatase 384 H Troponin I Total Protein 7.3 Albumin 3.1 L Globulin 4.2 H Albumin/Globulin Ratio 0.7 L Lipase < 10 L Procalcitonin Fluid Color Fluid Appearance Fluid RBC Fld Tot Nucleated Cell Fluid Polynuclear WBCs Fluid Mononuclear WBCs Fluid Eosinophils Body Fluid Clot CSF Tube Number CSF Volume CSF Appearance CSF Color CSF WBC CSF RBC CSF Mononuclear WBCs CSF Polynuclear WBCs CSF Glucose CSF Total Protein 09/16/17 09/16/17 11:45 12:11 WBC RBC Hgb Hct MCV MCH MCHC RDW Plt Count Neut % (Auto) Lymph % (Auto) Mcdonald % (Auto) Eos % (Auto) Baso % (Auto) Neut # (Auto) ESR PT INR APTT Sodium Potassium Chloride Carbon Dioxide BUN Creatinine Estimated GFR BUN/Creatinine Ratio Glucose Lactate Calcium Total Bilirubin AST ALT Alkaline Phosphatase Troponin I < 0.012 Total Protein Albumin Globulin Albumin/Globulin Ratio Lipase Procalcitonin Fluid Color Fluid Appearance Fluid RBC Fld Tot Nucleated Cell Fluid Polynuclear WBCs Fluid Mononuclear WBCs Fluid Eosinophils Body Fluid Clot CSF Tube Number 3 CSF Volume 1.5 ml CSF Appearance Slightly cloudy H CSF Color Colorless CSF WBC 360 H CSF RBC 54 CSF Mononuclear WBCs 12 CSF Polynuclear WBCs 88 CSF Glucose 64 CSF Total Protein 295 H* Assessment & Plan Plan: Assessment/Plan Narrative: One. Acute bacterial meningitis most likely from staff. She has Staph aureus growing out of her blood culture already this was done either yesterday or the day before. With her history of IV drug use most likely it is the origin or cause of the staff bacteria in her system. She evidently has developed the acute bacterial meningitis from this. A lumbar puncture was done by Radiology which showed over 200 white blood cells most of these polys. Tap of the knee was done that is pending as far as Gram stain but the arthritis there could be either septic or possibly reactive. The patient will be placed on vancomycin and rifampin to help with penetration into the CSF. I will add ceftriaxone for now until we get the cultures back from the CSF. The PCR was ordered for the pathogens from the CSF. Echo to be done to rule out endocarditis. Plan to add dexamethasone also per protocols for bacterial meningitis. 2. Opioid dependence and abuse she has been reportedly injecting her prescription hydromorphone. This patient should not be prescribed narcotics going forward as an outpatient. She should try to enroll and narcotics abuse program. 3. Acute metabolic encephalopathy agitation confusion delirium high secondary to meningitis and will treat with as needed Ativan as needed. Quality VTE Deep Vein Thrombosis/Pulmonary Embolism Present on Admission: No
[2017-09-16] MEDS: MORPHINE 4 MG/ML INJ IV (16:27)
[2017-09-16 16:33] LABS: Appearance Urine UA SL CLOUDY; Bilirubin Urine UA NEGATIVE (NEGATIVE); Color Urine UA YELLOW; Glucose Urine UA NEGATIVE (Normal); Ketones Urine UA NEGATIVE (NEGATIVE); Leukocyte Esterase Urine UA NEGATIVE (NEGATIVE); Nitrite Urine UA Negative (Negative); Occult Blood Urine UA TRACE-LYSED (Negative); Protein Urine UA 1+ (Negative); Urobilinogen Urine UA 0.2 E.U./dL (0.2); pH Urine UA 5.5 (4.5-8.0)
[2017-09-16 16:42] LABS: RBC Urine 0-1/HPF (0-5/HPF); Squamous Epithelial Cell Urine 5-10 /HPF; WBC Urine 0-1/HPF (0-5/HPF)
[2017-09-16 16:43] LABS: Amorphous Sediment Urine 1+; Bacteria Urine Many (>30)
[2017-09-16] MEDS: CEFTRIAXONE 2 GM/50 ML FROZ.PIGGY IV (17:32)
[2017-09-16] MEDS: KETOROLAC 30 MG/ML VIAL IV (18:38)
[2017-09-16] MEDS: DEXAMETHASONE 4 MG/ML VIAL 12 MG IV (18:39)
--- NOTE | 2017-09-16 20:18 | PC.NURSE ---
jamarcus note pt c/o pain in knees, neck and back. Medicated with morphine while pt dozing. 15 minutes later, pt awake and c/o pain . Told pt she was given morphine. Pt stated I'm allergic to morphine, i get a rash all over and my throat swells. Paged Dr. Thomas with this info. Pt has no rash at this time, denies itching, SOB. No wheezing. O2 sats 97% on room air. 20:20- no s/s anaphylaxis noted. Pt resting in bed.
[2017-09-16] MEDS: rifAMPin 300 MG CAPSULE PO (22:05)
[2017-09-16] MEDS: SODIUM CHLORIDE 0.9% 1,000 ML 100 ML IV (22:07)
[2017-09-16] MEDS: diphenhydrAMINE 50 MG/ML VIAL 25 MG IV (22:10)
[2017-09-16] MEDS: HYDROMORPHONE 0.5 MG INJ 1 MG IV (22:11)
[2017-09-17] VITALS (26 sets, daily range): BP systolic 113–183; BP diastolic 68–115; PULSE 93–112; RESP 11–33; TEMP 36.6–37.6; O2SAT 1–98
[2017-09-17] MEDS: DEXAMETHASONE 4 MG/ML VIAL 12 MG IV ×2 (00:25→06:30)
[2017-09-17] MEDS: LORazepam 2 MG/ML SYRINGE 0.5 MG IV ×2 (00:53→06:10)
[2017-09-17] MEDS: VANCOMYCIN 1,000 MG/200 ML FROZ.PIGGY 200 MG IV ×2 (01:23→13:20)
[2017-09-17] MEDS: KETOROLAC 30 MG/ML VIAL IV ×4 (01:24→19:35)
[2017-09-17] MEDS: CEFTRIAXONE 2 GM/50 ML FROZ.PIGGY IV (04:13)
[2017-09-17] MEDS: HYDROMORPHONE 0.5 MG INJ 1 MG IV ×3 (04:17→13:18)
[2017-09-17 05:56] LABS: Hematocrit 27.4 % (36-46); Hemoglobin 8.9 g/dL (12.0-16.0); Mean Corpuscular HGB Conc 32.4 % (30-36); Mean Corpuscular Hemoglobin 26.7 PG (26-34); Mean Corpuscular Volume 82.2 fL (80-100); Platelet Count 305 X10^3/uL (150-400); Red Blood Cell Count 3.33 X10^6/uL (4.0-5.2); Red Cell Distribution Width 16.3 % (11.6-14.8); White Blood Cell Count 24.1 X10^3/uL (4.5-11.0)
[2017-09-17 05:57] LABS: Add Manual Diff / Slide Review YES
[2017-09-17 06:08] LABS: Alanine Aminotransferase 14 IU/L (9-52); Albumin 2.9 g/dL (3.5-5.0); Albumin Globulin Ratio 0.7 (1.0-2.8); Alkaline Phosphatase 357 U/L (38-126); Aspartate Aminotransferase 20 IU/L (14-36); BUN Creatinine Ratio 28.6 (6-22); Bilirubin Total 1.2 mg/dL (0.2-1.3); Blood Urea Nitrogen 20 mg/dL (7-17); Calcium 8.3 mg/dL (8.4-10.2); Carbon Dioxide 25 mmol/L (22-32); Chloride 103 mmol/L (98-107); Estimated Glomerular Filt Rate > 60.0 mL/min (>60); Globulin 4.2 g/dL (1.7-4.1); Glucose 149 mg/dL (70-100); HEMOLYSIS 19 (0-50); Potassium 4.1 mmol/L (3.4-5.1); Sodium 141 mmol/L (137-145); Total Protein 7.1 g/dL (6.3-8.2)
[2017-09-17 06:41] LABS: Anisocytosis 2+; Hypochromasia 1+
[2017-09-17] MEDS: ONDANSETRON 4 MG/2 ML INJ IV (08:42)
[2017-09-17] MEDS: rifAMPin 300 MG CAPSULE PO ×2 (08:43→22:50)
[2017-09-17] MEDS: SODIUM CHLORIDE 0.9% 1,000 ML 100 ML IV ×2 (08:43→20:11)
[2017-09-17] MEDS: ENOXAPARIN 40 MG/0.4 ML SYRINGE SUBCUT (08:43)
[2017-09-17] MEDS: PRAMIPEXOLE 0.125 MG TABLET PO ×2 (08:59→22:50)
--- NOTE | 2017-09-17 10:25 | PM.PN.1 ---
Subjective Date Patient Seen: 09/17/17 Time Patient Seen: 10:25 Interval history: Patient states headache is 5/10. She reports only slight improvement in neck stiffness or soreness. She has pain in the left knee. She is having episodic electric shock-like sensation in lower extremities. Exam Vital Signs (past 8 hours): - 09/17/17 03:41 09/17/17 04:49 09/17/17 05:15 Temperature 99.1 F Pulse Rate 101 H 103 H Respiratory Rate 16 33 H Blood Pressure 179/104 H 154/93 H Pulse Oximetry 93 92 92 09/17/17 08:30 Temperature 98.4 F Pulse Rate 101 H Respiratory Rate 20 Blood Pressure 183/113 H Pulse Oximetry 94 Oxygen Delivery Method Room Air Oxygen Flow Rate 0 Narrative Exam Narrative: GENERAL: Patient is alert and well oriented HEENT: Pupils equal. She has moderate nuchal rigidity. CHEST: Clear to auscultation bilaterally. CARDIAC: Tachycardic with regular rhythm EXTREMITIES: no pretibial edema. The left knee is swollen and tender but not erythematous or hot. NEUROLOGICAL: Nonfocal SKIN: Warm, dry, no petechiae, no rash Objective Labs Result Diagrams: 09/17/17 04:55 09/17/17 04:55 Labs: Laboratory Results - last 24 hr 09/16/17 09/16/17 09/16/17 11:02 11:45 11:45 WBC 25.0 H RBC 3.37 L Hgb 9.0 L Hct 27.4 L MCV 81.4 MCH 26.8 MCHC 32.9 RDW 16.0 H Plt Count 317 Neut % (Auto) 93.0 H Lymph % (Auto) 3.0 L [place] % (Auto) 3.7 Eos % (Auto) 0.0 L Baso % (Auto) 0.3 Neut # (Auto) 79245 H Seg Neutrophils % Band Neutrophils % Lymphocytes % (Manual) Monocytes % (Manual) RBC Morphology Hypochromasia Anisocytosis ESR > 140 H PT INR APTT Sodium Potassium Chloride Carbon Dioxide BUN Creatinine Estimated GFR BUN/Creatinine Ratio Glucose Lactate Calcium Total Bilirubin AST ALT Alkaline Phosphatase Troponin I Total Protein Albumin Globulin Albumin/Globulin Ratio Lipase Procalcitonin 2.75 H Urine Color Urine Appearance Urine pH Ur Specific [place] Urine Protein Urine Glucose (UA) Urine Ketones Urine Occult Blood Urine Nitrate Urine Bilirubin Urine Urobilinogen Ur Leukocyte Esterase Urine RBC Urine WBC Ur Squamous Epith Cells Amorphous Sediment Urine Bacteria Ur Culture Indicated? Micro UA Comment Fluid Color Brown Fluid Appearance Cloudy Fluid RBC 87718 Fld Tot Nucleated Cell 55809 Fluid Polynuclear WBCs 96 Fluid Mononuclear WBCs 1 Fluid Eosinophils 0 Body Fluid Clot No clots present CSF Tube Number CSF Volume CSF Appearance CSF Color CSF WBC CSF RBC CSF Mononuclear WBCs CSF Polynuclear WBCs CSF Glucose CSF Total Protein CSF C.neoform/gat PCR CSF CMV DNA (PCR) CSF Enterovirus (PCR) CSF E. coli (PCR) CSF H. influenzae (PCR) CSF HSV I (PCR) CSF HSV II (PCR) CSF HHV 6 (PCR) CSF L.monocytogenes PCR CSF N. meningitidis PCR CSF Parechovirus (PCR) CSF S. agalactiae (PCR) CSF S. pneumoniae (PCR) CSF VZV (PCR) Nasal Screen MRSA (PCR) 09/16/17 09/16/17 09/16/17 11:45 11:45 11:45 WBC RBC Hgb Hct MCV MCH MCHC RDW Plt Count Neut % (Auto) Lymph % (Auto) [place] % (Auto) Eos % (Auto) Baso % (Auto) Neut # (Auto) Seg Neutrophils % Band Neutrophils % Lymphocytes % (Manual) Monocytes % (Manual) RBC Morphology Hypochromasia Anisocytosis ESR PT 15.4 H INR 1.4 H APTT 29 Sodium 144 Potassium 3.4 D Chloride 102 Carbon Dioxide 27 BUN 19 H Creatinine 0.80 Estimated GFR > 60.0 BUN/Creatinine Ratio 23.8 H Glucose 128 H Lactate 1.1 Calcium 8.9 Total Bilirubin 0.9 AST 13 L ALT 22 Alkaline Phosphatase 384 H Troponin I Total Protein 7.3 Albumin 3.1 L Globulin 4.2 H Albumin/Globulin Ratio 0.7 L Lipase < 10 L Procalcitonin Urine Color Urine Appearance Urine pH Ur Specific [place] Urine Protein Urine Glucose (UA) Urine Ketones Urine Occult Blood Urine Nitrate Urine Bilirubin Urine Urobilinogen Ur Leukocyte Esterase Urine RBC Urine WBC Ur Squamous Epith Cells Amorphous Sediment Urine Bacteria Ur Culture Indicated? Micro UA Comment Fluid Color Fluid Appearance Fluid RBC Fld Tot Nucleated Cell Fluid Polynuclear WBCs Fluid Mononuclear WBCs Fluid Eosinophils Body Fluid Clot CSF Tube Number CSF Volume CSF Appearance CSF Color CSF WBC CSF RBC CSF Mononuclear WBCs CSF Polynuclear WBCs CSF Glucose CSF Total Protein CSF C.neoform/gat PCR CSF CMV DNA (PCR) CSF Enterovirus (PCR) CSF E. coli (PCR) CSF H. influenzae (PCR) CSF HSV I (PCR) CSF HSV II (PCR) CSF HHV 6 (PCR) CSF L.monocytogenes PCR CSF N. meningitidis PCR CSF Parechovirus (PCR) CSF S. agalactiae (PCR) CSF S. pneumoniae (PCR) CSF VZV (PCR) Nasal Screen MRSA (PCR) 09/16/17 09/16/17 09/16/17 11:45 12:11 13:45 WBC RBC Hgb Hct MCV MCH MCHC RDW Plt Count Neut % (Auto) Lymph % (Auto) [place] % (Auto) Eos % (Auto) Baso % (Auto) Neut # (Auto) Seg Neutrophils % Band Neutrophils % Lymphocytes % (Manual) Monocytes % (Manual) RBC Morphology Hypochromasia Anisocytosis ESR PT INR APTT Sodium Potassium Chloride Carbon Dioxide BUN Creatinine Estimated GFR BUN/Creatinine Ratio Glucose Lactate Calcium Total Bilirubin AST ALT Alkaline Phosphatase Troponin I < 0.012 Total Protein Albumin Globulin Albumin/Globulin Ratio Lipase Procalcitonin Urine Color Urine Appearance Urine pH Ur Specific [place] Urine Protein Urine Glucose (UA) Urine Ketones Urine Occult Blood Urine Nitrate Urine Bilirubin Urine Urobilinogen Ur Leukocyte Esterase Urine RBC Urine WBC Ur Squamous Epith Cells Amorphous Sediment Urine Bacteria Ur Culture Indicated? Micro UA Comment Fluid Color Fluid Appearance Fluid RBC Fld Tot Nucleated Cell Fluid Polynuclear WBCs Fluid Mononuclear WBCs Fluid Eosinophils Body Fluid Clot CSF Tube Number 3 CSF Volume 1.5 ml CSF Appearance Slightly cloudy H CSF Color Colorless CSF WBC 360 H CSF RBC 54 CSF Mononuclear WBCs 12 CSF Polynuclear WBCs 88 CSF Glucose 64 CSF Total Protein 295 H* CSF C.neoform/gat PCR Not detected CSF CMV DNA (PCR) Not detected CSF Enterovirus (PCR) Not detected CSF E. coli (PCR) Not detected CSF H. influenzae (PCR) Not detected CSF HSV I (PCR) Not detected CSF HSV II (PCR) Not detected CSF HHV 6 (PCR) Not detected CSF L.monocytogenes PCR Not detected CSF N. meningitidis PCR Not detected CSF Parechovirus (PCR) Not detected CSF S. agalactiae (PCR) Not detected CSF S. pneumoniae (PCR) Not detected CSF VZV (PCR) Not detected Nasal Screen MRSA (PCR) 09/16/17 09/16/17 09/17/17 14:52 16:19 04:55 WBC 24.1 H RBC 3.33 L Hgb 8.9 L Hct 27.4 L MCV 82.2 MCH 26.7 MCHC 32.4 RDW 16.3 H Plt Count 305 Neut % (Auto) Not Reportable Lymph % (Auto) Not Reportable [place] % (Auto) Not Reportable Eos % (Auto) Not Reportable Baso % (Auto) Not Reportable Neut # (Auto) Seg Neutrophils % 92.0 H Band Neutrophils % 2.0 L Lymphocytes % (Manual) 2.0 L Monocytes % (Manual) 4.0 RBC Morphology Not Reportable Hypochromasia 1+ H Anisocytosis 2+ H ESR PT INR APTT Sodium Potassium Chloride Carbon Dioxide BUN Creatinine Estimated GFR BUN/Creatinine Ratio Glucose Lactate Calcium Total Bilirubin AST ALT Alkaline Phosphatase Troponin I Total Protein Albumin Globulin Albumin/Globulin Ratio Lipase Procalcitonin Urine Color Yellow Urine Appearance Sl cloudy Urine pH 5.5 Ur Specific [place] 1.020 Urine Protein 1+ H Urine Glucose (UA) Negative Urine Ketones Negative Urine Occult Blood Trace-lysed Urine Nitrate Negative Urine Bilirubin Negative Urine Urobilinogen 0.2 Ur Leukocyte Esterase Negative Urine RBC 0-1/hpf Urine WBC 0-1/hpf Ur Squamous Epith Cells 5-10 /hpf H Amorphous Sediment 1+ Urine Bacteria Many (>30) H Ur Culture Indicated? Not Reportable Micro UA Comment Not Reportable Fluid Color Fluid Appearance Fluid RBC Fld Tot Nucleated Cell Fluid Polynuclear WBCs Fluid Mononuclear WBCs Fluid Eosinophils Body Fluid Clot CSF Tube Number CSF Volume CSF Appearance CSF Color CSF WBC CSF RBC CSF Mononuclear WBCs CSF Polynuclear WBCs CSF Glucose CSF Total Protein CSF C.neoform/gat PCR CSF CMV DNA (PCR) CSF Enterovirus (PCR) CSF E. coli (PCR) CSF H. influenzae (PCR) CSF HSV I (PCR) CSF HSV II (PCR) CSF HHV 6 (PCR) CSF L.monocytogenes PCR CSF N. meningitidis PCR CSF Parechovirus (PCR) CSF S. agalactiae (PCR) CSF S. pneumoniae (PCR) CSF VZV (PCR) Nasal Screen MRSA (PCR) Negative for mrsa 09/17/17 04:55 WBC RBC Hgb Hct MCV MCH MCHC RDW Plt Count Neut % (Auto) Lymph % (Auto) [place] % (Auto) Eos % (Auto) Baso % (Auto) Neut # (Auto) Seg Neutrophils % Band Neutrophils % Lymphocytes % (Manual) Monocytes % (Manual) RBC Morphology Hypochromasia Anisocytosis ESR PT INR APTT Sodium 141 Potassium 4.1 Chloride 103 Carbon Dioxide 25 BUN 20 H Creatinine 0.70 Estimated GFR > 60.0 BUN/Creatinine Ratio 28.6 H Glucose 149 H Lactate Calcium 8.3 L Total Bilirubin 1.2 AST 20 ALT 14 Alkaline Phosphatase 357 H Troponin I Total Protein 7.1 Albumin 2.9 L Globulin 4.2 H Albumin/Globulin Ratio 0.7 L Lipase Procalcitonin Urine Color Urine Appearance Urine pH Ur Specific [place] Urine Protein Urine Glucose (UA) Urine Ketones Urine Occult Blood Urine Nitrate Urine Bilirubin Urine Urobilinogen Ur Leukocyte Esterase Urine RBC Urine WBC Ur Squamous Epith Cells Amorphous Sediment Urine Bacteria Ur Culture Indicated? Micro UA Comment Fluid Color Fluid Appearance Fluid RBC Fld Tot Nucleated Cell Fluid Polynuclear WBCs Fluid Mononuclear WBCs Fluid Eosinophils Body Fluid Clot CSF Tube Number CSF Volume CSF Appearance CSF Color CSF WBC CSF RBC CSF Mononuclear WBCs CSF Polynuclear WBCs CSF Glucose CSF Total Protein CSF C.neoform/gat PCR CSF CMV DNA (PCR) CSF Enterovirus (PCR) CSF E. coli (PCR) CSF H. influenzae (PCR) CSF HSV I (PCR) CSF HSV II (PCR) CSF HHV 6 (PCR) CSF L.monocytogenes PCR CSF N. meningitidis PCR CSF Parechovirus (PCR) CSF S. agalactiae (PCR) CSF S. pneumoniae (PCR) CSF VZV (PCR) Nasal Screen MRSA (PCR) Assessment & Plan Plan: Assessment/Plan Narrative: 1. Staphylococcal aureus septicemia with associated bacterial meningitis and septic arthritis in left knee. Patient is on treatment with IV vancomycin and oral rifampin. Dexamethasone discontinued since it reduces penetration of vancomycin into the CSF. Blood cultures from 09/15/2017 growing staphylococcal aureus in 2 of 2 sites. Left knee synovial fluid aspiration from 09/16/2017 growing Staph aureus as well. Lumbar puncture CSF fluid from 09/16/2017 consistent with meningitis with gram-positive cocci on Gram stain. All culture final sensitivities pending. Her nasal swab is negative for MRSA and CSF PCR analysis negative for other causes of meningitis. Patient with some improvement in headache and neck stiffness. Still with low-grade fever, WBC 24 K with left shift. Plan: Continue IV vancomycin and oral rifampin. Trough level pending for this evening to adjust dosing to get trough close to 20. Transthoracic echo. Consult Orthopedic surgery regarding left knee septic joint. Anticipate at least 2 week IV antibiotic course. Currently receiving IV antibiotic via central line in right IJ but will need PICC line prior to discharge for outpatient IV antibiotic. Patient's spouse reported she is crushing and injecting her oral Dilaudid tablets which patient denies although this seems most possible etiology of her Staph aureus bacteremia. 2. Opioid dependency. Resumed her routine oral Dilaudid. She is also receiving IV Toradol and IV Dilaudid as needed for acute pain. 3. Acute metabolic encephalopathy. She had some delirium which appears resolved. 4. Acute hypertension. Blood pressure is running in 180/110 range with tachycardia. Likely acute pain related and/or opioid withdrawal. Ordered Labetalol 20 mg IV q.4 hours as needed for severe hypertension. 5. DVT prophylaxis. Low-dose Lovenox. Quality VTE Deep Vein Thrombosis/Pulmonary Embolism Present on Admission: No
[2017-09-17] MEDS: CYCLOBENZAPRINE 10 MG TABLET PO ×2 (11:08→22:50)
[2017-09-17] MEDS: HYDROMORPHONE 2 MG TABLET 4 MG PO ×3 (11:09→22:51)
[2017-09-17] MEDS: LABETALOL 20 MG/4 ML SYRINGE IV (11:19)
--- NOTE | 2017-09-17 13:54 | P.CONS_ITS ---
History of Present Illness Date Patient Seen: 09/17/17 Time Patient Seen: 13:34 Chief complaint: Sepsis Reason for consult: Left knee pain, septic arthritis Requesting provider: Phill Meeks Narrative: Patient is a 52-year-old female is somewhat unkept. She is a retired nurse. She states her symptoms began on Sunday with neck pain and headache. On Sunday morning she woke up with extreme knee pain and swelling on the left side and reduced range of motion. She was admitted to the hospital earlier today and found to have Staph bacteremia. Meningitis and left knee septic arthritis. She does endorse some pain relief following fit left knee aspiration in the emergency room which took off approximately 10 cc of turbid fluid. She complains of limited range of motion and swelling. She has a past medical history significant for chronic pain, fibromyalgia and spinal infections. She states she was seen at [facility] approximately years ago with multiple procedures for infection. She denies any use of drugs but per the medical record there is a use of marijuana and concerns from the patient's that she may be crushing Dilaudid and mixing it with water and injecting. She states rest and ice help her pain and moving her knee make it worse. She has been on IV vancomycin and oral rifampin since admission. Her neck pain is somewhat better after the initiation of treatment. She last ate at breakfast this morning approximately 9:00 a.m. she denies having any joint infections or previous injury prior to this episode. When asked about track gould on her arms and legs she states these are a result of that to puncture by Medical worker's and again denies any self injection. She is not on any blood thinners. [facility] Medical History Arthralgia (Chronic) Chronic back pain (Chronic) Degenerative disc disease, cervical (Chronic) Degenerative disc disease, lumbar (Chronic) Depression with anxiety (Chronic) Fibromyalgia (Chronic) Restless leg syndrome (Chronic) GERD (gastroesophageal reflux disease) (Resolved) Tubal ligation status (Resolved) Surgical History History of lumbar fusion (Resolved) Hx of cholecystectomy (Resolved) Status post cervical spinal fusion (Resolved) Social History household members: spouse Smoking Status: Former smoker alcohol intake: never substance use type: marijuana Meds Home Medications Medication Instructions Recorded Confirmed Type cyclobenzaprine 10 mg PO TID #0 08/17/10 09/16/17 History pramipexole [Mirapex] 0.125 mg PO DAILY #0 08/17/10 09/16/17 History hydromorphone 4 mg PO Q4-6H 09/15/17 09/16/17 History Allergies Allergy/AdvReac Type Severity Reaction Status Date / Time morphine Allergy Severe Anaphylaxis Verified 09/15/17 11:36 penicillinase Allergy Severe Anaphylaxis Verified 09/15/17 11:36 Sulfa (Sulfonamide Allergy Severe Anaphylaxis Verified 09/15/17 11:36 Antibiotics) bee venom protein (honey bee) Allergy Intermediate Hives Verified 09/15/17 11:36 aspirin AdvReac Intermediate Abdominal Verified 09/15/17 11:36 Pain methadone AdvReac Intermediate Hallucinati Verified 09/15/17 11:36 ng Review of Systems Constitutional Constitutional: Reports system reviewed and no additional complaints, except as documented Comments: Headache, neck stiffness Eyes Eyes: Reports system reviewed; no additional complaints, except as documented ENT Ears, Nose, Mouth, and Throat: Yes system reviewed; no additional complaints, except as documented Cardiovascular Cardiovascular: Reports system reviewed; no additional complaints, except as documented Respiratory Respiratory: Reports system reviewed and no additional complaints, except as documented Gastrointestinal Gastrointestinal: Reports system reviewed and no additional complaints, except as documented Musculoskeletal Musculoskeletal: Reports arthralgias, Reports joint swelling and Reports limited range of motion Comments: Left knee pain stiffness, swelling, decreased range of motion Neurologic Neurologic: Reports system reviewed and no additional complaints, except as documented Hematologic/Lymphatic Hematologic/Lymphatic: Reports system reviewed and no additional complaints, except as documented Exam Vital Signs (past 8 hours): - 09/17/17 08:15 09/17/17 08:30 09/17/17 11:15 Temperature 98.4 F 97.9 F Pulse Rate 101 H 108 H Respiratory Rate 20 16 Blood Pressure 183/113 H 163/115 H Pulse Oximetry 98 94 96 09/17/17 11:19 09/17/17 13:19 Temperature Pulse Rate 101 H 99 H Respiratory Rate Blood Pressure 163/115 H 179/96 H Pulse Oximetry Oxygen Delivery Method Room Air Oxygen Flow Rate 0 Narrative Exam Narrative: Alert and oriented female in no acute distress seen in the intensive care unit. The patient is sitting up in bed and converses easily. HEENT exam normocephalic atraumatic Respiratory exam unlabored breathing on room air lungs clear to auscultation bilaterally Cardiovascular exam: Regular rate and rhythm Abdominal exam is soft nontender Spine examination: Well-healed scars nontender to palpation Musculoskeletal examination: Patient demonstrates full range of motion of her bilateral upper extremities sensation intact to light touch median radial ulnar and axillary nerves bilaterally. Full strength biceps triceps wrist flexion wrist extension interosseous and literacy coordinator strength both sides. Patient does have numerous small lesions on the bilateral upper extremities and hand that appeared to be track gould. No obvious abscesses. Radial pulse is palpable Bilateral lower extremities are examined the bilateral lower extremities also demonstrate the same track alfa type lesions over the dorsum of the feet and up the medial capsule toward the knee again there are no obvious abscesses. The left knee is swollen with an effusion present there is no redness but there is warmth. The patient has limited range of motion of the knee approximately 5-90 degrees with pain at the extremes of motion. Regarding her right knee she has a full range of motion 0-130 degrees of flexion. No warmth or effusion palpated. Full strength to knee flexion and knee extension and dorsiflexion and plantar flexion of the ankles. Objective Imaging X-ray left knee: My impression: Three views left knee AP, lateral, sunrise demonstrates no fractures or dislocations. There is mild degenerative changes. CC of fights present at the quadriceps and patella tendon insertions, prominent tibial tubercle. Joint effusion present Radiologist's impression: FINDINGS: Bones: No fractures or dislocations. No suspicious bony lesions. Mild prominence of the tibial tubercle is noted. Enthesophytes are present at the quadriceps tendon insertion and the patellar tendon origin. There mild degenerative changes of the knee, most prominent within the medial and patellofemoral compartments. Soft tissues: There appears to be prominent knee joint effusion. No suspicious soft tissue calcifications. IMPRESSION: 1. Mild degenerative changes of the left knee. 2. Prominent knee joint effusion is of uncertain etiology. The need for better characterization utilizing MRI may be determined clinically. Dictated by: Vin Raines M.D. on 09/15/2017 at 14:41 Approved by: Vin Raines M.D. on 09/15/2017 at 14:42 Labs Result Diagrams: 09/17/17 04:55 09/17/17 04:55 Labs: Laboratory Results - last 24 hr 09/16/17 09/16/17 09/16/17 12:11 13:45 14:52 WBC RBC Hgb Hct MCV MCH MCHC RDW Plt Count Neut % (Auto) Lymph % (Auto) [place] % (Auto) Eos % (Auto) Baso % (Auto) Seg Neutrophils % Band Neutrophils % Lymphocytes % (Manual) Monocytes % (Manual) RBC Morphology Hypochromasia Anisocytosis Sodium Potassium Chloride Carbon Dioxide BUN Creatinine Estimated GFR BUN/Creatinine Ratio Glucose Calcium Total Bilirubin AST ALT Alkaline Phosphatase Total Protein Albumin Globulin Albumin/Globulin Ratio Urine Color Urine Appearance Urine pH Ur Specific [place] Urine Protein Urine Glucose (UA) Urine Ketones Urine Occult Blood Urine Nitrate Urine Bilirubin Urine Urobilinogen Ur Leukocyte Esterase Urine RBC Urine WBC Ur Squamous Epith Cells Amorphous Sediment Urine Bacteria Ur Culture Indicated? Micro UA Comment CSF Tube Number 3 CSF Volume 1.5 ml CSF Appearance Slightly cloudy H CSF Color Colorless CSF WBC 360 H CSF RBC 54 CSF Mononuclear WBCs 12 CSF Polynuclear WBCs 88 CSF Glucose 64 CSF Total Protein 295 H* CSF C.neoform/gat PCR Not detected CSF CMV DNA (PCR) Not detected CSF Enterovirus (PCR) Not detected CSF E. coli (PCR) Not detected CSF H. influenzae (PCR) Not detected CSF HSV I (PCR) Not detected CSF HSV II (PCR) Not detected CSF HHV 6 (PCR) Not detected CSF L.monocytogenes PCR Not detected CSF N. meningitidis PCR Not detected CSF Parechovirus (PCR) Not detected CSF S. agalactiae (PCR) Not detected CSF S. pneumoniae (PCR) Not detected CSF VZV (PCR) Not detected Nasal Screen MRSA (PCR) Negative for mrsa 09/16/17 09/17/17 09/17/17 16:19 04:55 04:55 WBC 24.1 H RBC 3.33 L Hgb 8.9 L Hct 27.4 L MCV 82.2 MCH 26.7 MCHC 32.4 RDW 16.3 H Plt Count 305 Neut % (Auto) Not Reportable Lymph % (Auto) Not Reportable [place] % (Auto) Not Reportable Eos % (Auto) Not Reportable Baso % (Auto) Not Reportable Seg Neutrophils % 92.0 H Band Neutrophils % 2.0 L Lymphocytes % (Manual) 2.0 L Monocytes % (Manual) 4.0 RBC Morphology Not Reportable Hypochromasia 1+ H Anisocytosis 2+ H Sodium 141 Potassium 4.1 Chloride 103 Carbon Dioxide 25 BUN 20 H Creatinine 0.70 Estimated GFR > 60.0 BUN/Creatinine Ratio 28.6 H Glucose 149 H Calcium 8.3 L Total Bilirubin 1.2 AST 20 ALT 14 Alkaline Phosphatase 357 H Total Protein 7.1 Albumin 2.9 L Globulin 4.2 H Albumin/Globulin Ratio 0.7 L Urine Color Yellow Urine Appearance Sl cloudy Urine pH 5.5 Ur Specific [place] 1.020 Urine Protein 1+ H Urine Glucose (UA) Negative Urine Ketones Negative Urine Occult Blood Trace-lysed Urine Nitrate Negative Urine Bilirubin Negative Urine Urobilinogen 0.2 Ur Leukocyte Esterase Negative Urine RBC 0-1/hpf Urine WBC 0-1/hpf Ur Squamous Epith Cells 5-10 /hpf H Amorphous Sediment 1+ Urine Bacteria Many (>30) H Ur Culture Indicated? Not Reportable Micro UA Comment Not Reportable CSF Tube Number CSF Volume CSF Appearance CSF Color CSF WBC CSF RBC CSF Mononuclear WBCs CSF Polynuclear WBCs CSF Glucose CSF Total Protein CSF C.neoform/gat PCR CSF CMV DNA (PCR) CSF Enterovirus (PCR) CSF E. coli (PCR) CSF H. influenzae (PCR) CSF HSV I (PCR) CSF HSV II (PCR) CSF HHV 6 (PCR) CSF L.monocytogenes PCR CSF N. meningitidis PCR CSF Parechovirus (PCR) CSF S. agalactiae (PCR) CSF S. pneumoniae (PCR) CSF VZV (PCR) Nasal Screen MRSA (PCR) Assessment & Plan Plan: Assessment/Plan Narrative: 1. Staphylococcal aureus septicemia with associated bacterial meningitis and septic arthritis in left knee. Patient is on treatment with IV vancomycin and oral rifampin. Blood cultures from 09/15/2017 growing staphylococcal aureus in 2 of 2 sites. Left knee synovial fluid aspiration from 09/16/2017 growing Staph aureus as well, cell count 89,000. 96% neutrophils. ESR greater than 140 , CRP greater than 9. Consistent with septic arthritis left knee. The patient is indicated for a irrigation debridement of septic arthritis to treat the infection and limit chondral damage. The patient has been indicated for arthroscopic versus open arthrotomy. The risks and benefits of the procedure were discussed with the patient in detail including but not limited to the need for additional procedures, persistent pain, progressive arthritis, stiffness, damage to nerves and/or vessels, bleeding, DVT, PE, cardiopulmonary complications and . The patient understands and agrees with the plan. Her questions were answered to his satisfaction and informed consent was signed for the above-mentioned procedure. I discussed with the patient the postoperative plan would include leaving a drain and would involve protected weight-bearing during wound healing, but early range of motion as tolerated. Additionally the patient has a Lumbar puncture CSF fluid from 09/16/2017 consistent with meningitis with gram-positive cocci on Gram stain. All culture final sensitivities pending. Her nasal swab is negative for MRSA and CSF PCR analysis negative for other causes of meningitis. The patient has a low- grade fever, WBC 24 K with left shift. She is admitted to the intensive care unit under the care of the hospitalist team. She will continue IV antibiotics, she will be NPO for operative washout of the left knee. She will also be obtaining a Transthoracic echo. Recommend 6 weeks of IV antibiotics for septic arthritis. 2. Opioid dependency. Open ox for DVT prophylaxis Time Spent With Patient Time with patient: less than 15 minutes
--- NOTE | 2017-09-17 13:55 | PM.PREOP ---
Pre-operative Note Interval Note Pre-op Check: History & Physical Reviewed by Physician H&P completed within 30 days and has changed as indicated here:: Patient has been indicated for the scheduled procedure and has been optimized medically.
--- NOTE | 2017-09-17 14:53 | PC.NURSE ---
Plan for pt to go to OR approx 1430 for L knee washing. Per pre-op, pt will go straight from room to OR r/t lack of isolation rooms. Pt will return from OR and be recovered in room. Update to pt. Consent on the chart with pre-op forms. Placed foot/head covers, SCDs, Cont. pulse ox. 1421 T97.9 HR 96 RR16 BP 157/89 (117). SPO2 on RA 95-98%. Current pain level 3/10 and acceptable to pt. Infusing NS @100ml/hr to [facility] per order. LR hanging at bedside but not yet infusing.
--- NOTE | 2017-09-17 15:06 | CM.DANOTE ---
DCP/Assessment: Reviewed chart. Patient is a 52yr old female admitted to [facility] with sepsis. PCP is Dr. Vaughan in [facility]. Pain Management MD is Dr. Bone in [place]. Primary payor is 1)Medicare 2)Medicaid. Received BAKER BREAD consult for potential complicated d/c planning. Per notes, patient with long h/o of narcotic dependence. There is some concern on whether or not patient was injecting her prescription of dilaudid. BAKER BREAD met with patient explained CM/SW role. Patient alert but somewhat medicated at time of visit. Patient reports that she resides with her spouse/Eleonora in [place] in . Patient currently on disability for previous back surgeries/injuries. Patient works at [employer] in .. 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 Patient denies illegal drug use. Patient reports that she is active with pain clinic in [place] and goes every month for prescription. Patient adamantly denies smashing up her pills and injecting them into her arms/legs. Patient provided BAKER BREAD with permission to speak with her spouse/Eleonora # [phone]. Spoke with Dr. Meeks and he reports that patient will need IV abx at time of d/c. Patient aware and would prefer to have this done at home or outpatient. Notified patient that she may need to go to SNF if medical team does not feel safe sending her out with PICC/Midline. Notified patient that BAKER BREAD would discuss options with spouse. Patient aware and agreeable. P: Pending. Ann-Marie Jain MSW Discharge Planning/Care Management CM Discharge Assessment Start: 09/17/17 15:03 Freq: Status: Active Protocol: Document 09/17/17 15:04 KJS (Rec: 09/17/17 15:05 KJS [id number]) Discharge Planning Assessment Assigned Exhauster BERNARDINO/Ann-Marie History Provided By Patient Has Patient been admitted in last 30 No days? Prior Living Arrangements RV Household Members spouse Type of transporation used prior to Drives own vehicle admit Independent with ADL's Yes Is patient alert and oriented? Yes DME Already Rented / Owned FWW / [facility] Discharge Plan Halfway Facility Review Status In Process Next Review Type Continued Stay Review
--- NOTE | 2017-09-17 16:35 | SUR.OPER ---
Supine on padded OR bed, head on pillow, arms secured on padded arm boards at <90 degrees abduction, left leg is in knee mcneal and under control of surgeon, right leg in yellow fin, safety belt at upper thighs.
--- NOTE | 2017-09-17 18:00 | SUR.PHASEI ---
pt to room in icu directly from or, escorted by four corner stayer machine operator and recovered in pt room.
--- NOTE | 2017-09-17 18:51 | PM.PNPO.1 ---
Subjective Date Patient Seen: 09/17/17 Time Patient Seen: 18:00 Interval history: The patient is a 52-year-old female with a history of opioid abuse and current diagnosis of bacteremia, meningitis, left knee septic arthritis. She is postop day 0 from arthroscopic washout left knee septic arthritis. Material was obtained in the operating room. This was sent for culture. Additionally on entering the operating room the patient complained of increasing right knee pain throughout the day. The decision was made to aspirate the right knee. At the end of the procedure the right knee was aspirated. 20 cc of yellow turbid fluid was obtained this was sent for cell count and Gram stain and culture The patient is a 52-year-old female with a history of opioid abuse and current diagnosis of bacteremia, meningitis, left knee septic arthritis. She is postop day 0 from arthroscopic washout left knee septic arthritis. Material was obtained in the operating room. This was sent for culture. Additionally on entering the operating room the patient complained of increasing right knee pain throughout the day. The decision was made to aspirate the right knee. At the end of the procedure the right knee was aspirated. 20 cc of yellow turbid fluid was obtained this was sent for cell count and Gram stain and culture Exam Vital Signs (past 8 hours): - 09/17/17 11:15 09/17/17 11:19 09/17/17 13:19 Temperature 97.9 F Pulse Rate 108 H 101 H 99 H Respiratory Rate 16 Blood Pressure 163/115 H 163/115 H 179/96 H Pulse Oximetry 96 09/17/17 14:21 09/17/17 17:54 09/17/17 17:59 Temperature 99.3 F Pulse Rate 93 H 112 H 109 H Respiratory Rate 11 L 12 14 Blood Pressure 157/89 H 131/81 H 125/81 H Pulse Oximetry 93 93 91 09/17/17 18:05 09/17/17 18:10 Temperature Pulse Rate 112 H 109 H Respiratory Rate 16 14 Blood Pressure 137/70 H 120/73 Pulse Oximetry 95 96 Oxygen Delivery Method Nasal Cannula Oxygen Flow Rate 5 Objective Labs Result Diagrams: 09/17/17 04:55 09/17/17 04:55 Labs: Laboratory Results - last 24 hr 09/17/17 09/17/17 04:55 04:55 WBC 24.1 H RBC 3.33 L Hgb 8.9 L Hct 27.4 L MCV 82.2 MCH 26.7 MCHC 32.4 RDW 16.3 H Plt Count 305 Neut % (Auto) Not Reportable Lymph % (Auto) Not Reportable [place] % (Auto) Not Reportable Eos % (Auto) Not Reportable Baso % (Auto) Not Reportable Seg Neutrophils % 92.0 H Band Neutrophils % 2.0 L Lymphocytes % (Manual) 2.0 L Monocytes % (Manual) 4.0 RBC Morphology Not Reportable Hypochromasia 1+ H Anisocytosis 2+ H Sodium 141 Potassium 4.1 Chloride 103 Carbon Dioxide 25 BUN 20 H Creatinine 0.70 Estimated GFR > 60.0 BUN/Creatinine Ratio 28.6 H Glucose 149 H Calcium 8.3 L Total Bilirubin 1.2 AST 20 ALT 14 Alkaline Phosphatase 357 H Total Protein 7.1 Albumin 2.9 L Globulin 4.2 H Albumin/Globulin Ratio 0.7 L Assessment & Plan Post-op Postoperative Procedures Operation Date: 09/17/17 15:00 Actual Procedures Side Surgeon p I&D Septic Left Knee Left Brenda Del Toro MD #1 status post arthroscopic washout left knee septic arthritis--Plan continue IV antibiotics-vancomycin per primary team anticipate 4-6 weeks of IV antibiotics for septic arthritis. Follow-up intraoperative cultures. Request initial non-or partial weightbearing left lower extremity range of motion as tolerated. draining 24-72 hours and remove when output is under 30 mils per shift #2 right knee aspiration follow-up intraoperative cultures but potentially may require arthroscopic washout-with the right knee as well Time Spent With Patient less than 15 minutes Quality VTE Deep Vein Thrombosis/Pulmonary Embolism Present on Admission: No
--- NOTE | 2017-09-17 19:06 | P.OP_ITS ---
Operative Date/Time/Diagnoses - Date of procedure: 09/17/17 Time of procedure: 16:00 Pre-op diagnosis: 1. Left knee septic arthritis ICD-10 M00.862 2. right knee effusion ICD -10 M25.469 Post-op diagnosis: same Procedure & Clinicians Procedure: 1. Left knee arthroscopic debridement CPT code 30892 2. Right knee aspiration CPT code 25022-80 Same procedure as scheduled: Yes Surgeon: Brenda Del Toro Click Yes if Unassisted: Yes Anesthesia Type: General Operative Notes Findings: Left knee showed gross purulence once the standard anterior lateral portal was made. This was sent for culture. Arthroscopic examination demonstrated an inflamed synovium mild to moderate degenerative changes. There were small areas of calcification and grade 3 cartilage changes in the patellofemoral compartment as well as grade 3 and 4 changes in the medial compartment of the knee. Right knee aspiration yielded 20 cc of yellow turbid fluid Closure Type: primary Specimen(s): other ( fluid from the left knee was sent for culture. aspirate from the right knee was sent for cx, cellc count and gram stain) Implants & Drains: one medium HV drain Estimated Blood Loss (mL): 10 Blood products transfused: none Tourniquet time (min): 50 Procedure in detail: The patient is a 52-year-old female with a history of opioid abuse and a current diagnosis of staph aureus meningitis, bacteremia, left knee septic arthritis. She is indicated for arthroscopic left knee washout for her septic arthritis. Additionally on entering the operating room she is complained of increasing right knee pain and swelling throughout the day. given her current bacteremia she is indicated for aspiration of the right knee as well to rule out arthritis. The risks benefits and alternatives to the surgery were discussed with the patient in detail including arthroscopic versus open debridements. Risks include but are not limited to need for additional procedures, infection, persistent pain, blood vessel and nerve damage , DVT, PE, cardiopulmonary complications and . Patient understands and informed consent was signed. In the ICU prior to the procedure the appropriate size and site of surgery was marked. The patient was brought directly to the operating room from the ICU due to being on droplet precautions. She was positioned supine on the operative table and general anesthesia was administered. All bony prominences were padded and an SCD was placed on the nonoperative leg. The patient was prepped and draped in the standard sterile fashion. A formal timeout procedure was performed confirming the patient side and site of surgery and that she was on appropriate schedule of vancomycin and antibiotics her last dosing was less than an hour prior to procedure. All were in agreement. The left leg was elevated and the tourniquet elevated to 300 mmHg. An 11 blade was used to establish a standard anterior lateral portal this was then opened with a hemostat yellow-white purulent material was immediately encountered this was sampled and sent for culture . The 30? scope was placed into the suprapatellar pouch unfortunately it was noted at 30? scope had a blemish on the scope lens , multiple efforts were undertaken to resolve this but I was not able to be clean. An alternative 30? scope was not available so a 70? scope was used for the remainder of the procedure. The anterior medial portal was established in the standard fashion and the shaver was introduced. 9 L of normal saline lavage through the knee, outflow was clear at the end of the washout. The shaver was used for gentle debridement. Inflamed synovium was encountered. No foreign bodies were noted. Areas of grade 3 changes were noted in the anterior compartment as well as grade 3-4 changes in the medial compartment. a superior lateral outflow portal was established then a medium Hemovac drain was removed from the needle trocar and placed through the superior lateral outflow portal into the suprapatellar pouch. The outflow portal was removed leaving the drain. the drain was then sewn in with a 3-0 nylon suture. The instruments and scope were removed from the knee and the portals were closed with 3-0 nylon suture. tourniquet was released. The Hemovac drain hooked up. A sterile dressing with Xeroform gauze ABDs and web roll and Franklin wrap was placed. And the drapes were removed. Attention then turned to the right knee which was then sterilely prepped with chlorhexidine and an 18-gauge spinal needle was used to aspirate the right knee and a lateral suprapatellar approach 20 cc of yellow turbid fluid was aspirated with the needle was withdrawn and a Band-Aid placed. The patient was awoken from anesthesia and returned to the ICU in stable condition. There were no known immediate complications from this procedure. Complications: none Condition: stable Disposition: ICU Plan for aftercare: She is advised to be nonweightbearing or limited weightbearing with crutches or a walker for her left knee. She may do range of motion as tolerated. The drain will be left in place 24-72 hours until less than 30 mL per shift. Aspirate from her right knee will be followed with the potential for wash out of her right knee if necessary or symptoms progress. The patient will continue on her scheduled IV vancomycin. She will continue Lovenox for DVT prophylaxis, SCDs.
--- NOTE | 2017-09-17 22:09 | PC.NURSE ---
jamarcus note pt sent to OR at 16:30. Pt was recovered in room 106 by PITCH FILLER. Assumed care of pt. Pt initally sleeping with snoring respirations. O2 weaned from 5 to 1 liter/min. Pt finally fully awake and asking for food and water. Pt assisted up to bathroom 3 times with FWW. Urine is orange due to rifampin. Left knee hemovac with serosanguionous fluid. Large bulky Elastic wrap bandaage to left knee.
[2017-09-18] VITALS (15 sets, daily range): BP systolic 135–178; BP diastolic 75–97; PULSE 90–108; RESP 16–20; TEMP 36.8–37.7; O2SAT 93–98
--- NOTE | 2017-09-18 | DI.ECHO.S_ITS ---
[facility] +---------+ : : [address] : : [place], [place] : : : : [id number] : : : : Phone: [phone] Echocardiogram Report + + :Name: JEREMY DE LEÓN Study Date: 09/18/2017 Height: 64 in : :[facility] Weight: 179 lb : : Gender: Female BSA: 1.9 m2 : :: 1965 Age: 52 yrs BP: 178/97 mmHg: :Reason For Study: Endocarditis : :Ordering Physician: Dr. Jaimes : :William Performed By: Sara hBeth Shin : + + Interpretation Summary 1) Mild-moderate concentric left ventricular hypertrophy with normal size, wall motion, and systolic function (EF 60-65%). 2) Grossly, normal right ventricular size and function. 3) No significant valvular abnormalities. 4) The right ventricular systolic pressure is estimated at 48 mmHg assuming a right atrial pressure of 8 mm Hg. 5) PICC tip is visualized in the right atrium. 6) Hypertension present during the study (BP 178/97). 7) No prior Echo available for comparison. If there is concern for endocarditis, consider BARRY. Procedure: A two-dimensional transthoracic echocardiogram with color flow and Doppler was performed. The study quality was technically adequate. There is no prior echocardiogram noted for this patient. The patient was in sinus tachycardia with heart rates between 97-106 bpm during the exam. Left Ventricle: The left ventricle is normal in size. Proximal septal thickening is noted. There is mild-moderate concentric left ventricular hypertrophy. The ejection fraction is estimated to be 60-65%. There are no obvious focal wall motion abnormalities noted but poor endocardial definition reduces the sensitivity for the detection of such. Assessment of diastolic parameters indicates normal left ventricular diastolic function and normal filling pressures. Right Ventricle: The right ventricle is not well visualized. The right ventricle grossly appears normal in size with probable normal systolic function. Atria: The left atrium is moderately dilated. PICC tip is visualized in the right atrium. The right atrium is borderline dilated. There is no Doppler evidence for an interatrial shunt. Mitral Valve: The mitral valve is normal in structure and function. There is trace mitral regurgitation. Aortic Valve: The aortic valve is normal in structure and function. No aortic regurgitation is present. Tricuspid Valve: The tricuspid valve is not well visualized, but is grossly normal. There is a trace or physiologic amount of tricuspid regurgitation. The right ventricular systolic pressure is estimated at 48 mmHg assuming a right atrial pressure of 8 mm Hg. Pulmonic Valve: The pulmonic valve is normal in structure and function. There is a trace or physiologic amount of pulmonic regurgitation. Great Vessels: The aortic root is normal size. The ascending aorta could not be visualized. The IVC is of normal diameter and collapses less than 50% with a sniff. This suggests a right atrial pressure of 8 mm Hg. Pericardium/ Pleura There is no pericardial effusion. MMode/2D Measurements & Calculations LVIDd: 4.3 cm LVOT diam: 1.9 cm LVIDs: 2.7 cm Ao root diam: 3.7 cm FS: 37.3 % EPSS: 0.48 cm IVSd: 1.4 cm LVPWd: 1.4 cm LV carpio. diameter/BSA (cm/m^2): 2.3 LV sys. diameter/BSA (cm/m^2): 1.4 LA A2 area: 21.4 cm2 RA long axis: 5.0 cm LA A4 area: 25.5 cm2 RA area: 18.4 cm2 LA length (vol): 5.8 cm RA vol: 58.1 ml LA vol: 80.2 ml RA : 31.1 ml/m2 LA vol index: 43.0 ml/m2 IVC diam: 1.7 cm Doppler Measurements & Calculations Ao V2 max: 169.4 cm/sec LVOT Max Jacob: 117.4 cm/sec Ao V2 mean: 112.6 cm/sec LV V1 max P.5 mmHg Ao max P.5 mmHg LV V1 VTI: 24.4 cm Ao mean P.8 mmHg MARC(I,D): 2.2 cm2 Ao V2 VTI: 33.3 cm MARC(V,D): 2.1 cm2 sev ratio: 0.73 MARC indexed to BSA (cm^2/m^2): 1.2 MV E max jacob: 118.4 cm/sec TR max jacob: 316.6 cm/sec MV A max jacob: 121.5 cm/sec TR max P.1 mmHg MV E/A: 0.97 PA V2 max: 114.8 cm/sec Med Peak E' Jacob: 9.1 cm/sec PA V2 mean: 70.8 cm/sec E/E' med: 13.0 PA mean P.4 mmHg Lat Peak E' Jacob: 12.1 cm/sec PA Accel Time: 0.07 sec E/E' lat: 9.8 E/e' average: 11.4 MV dec time: 0.10 sec MV P1/2t: 28.8 msec MV P1/2t max jacob: 118.4 cm/sec MVA(P1/2t): 7.6 cm2 Reading Physician:06:34 PM
[2017-09-18] MEDS: KETOROLAC 30 MG/ML VIAL IV ×5 (00:05→23:43)
[2017-09-18 01:33] LABS: Vancomycin Trough 9.5 ug/mL (10-20)
[2017-09-18] MEDS: VANCOMYCIN 1,000 MG/200 ML FROZ.PIGGY 200 MG IV (02:02)
[2017-09-18] MEDS: HYDROMORPHONE 2 MG TABLET 4 MG PO ×5 (03:01→18:37)
[2017-09-18 05:46] LABS: Add Manual Diff / Slide Review NO; Basophils Percent Auto 0.2 % (0-2); Hematocrit 25.9 % (36-46); Hemoglobin 8.4 g/dL (12.0-16.0); Mean Corpuscular HGB Conc 32.5 % (30-36); Mean Corpuscular Hemoglobin 26.6 PG (26-34); Monocytes Percent Auto 4.4 % (3-14); Neutrophils Absolute Auto 16200 /uL (3000-5900); Neutrophils Percent Auto 86.4 % (50-75); Platelet Count 308 X10^3/uL (150-400); Red Blood Cell Count 3.16 X10^6/uL (4.0-5.2); Red Cell Distribution Width 16.5 % (11.6-14.8); White Blood Cell Count 18.8 X10^3/uL (4.5-11.0)
[2017-09-18 05:50] LABS: BUN Creatinine Ratio 33.8 (6-22); Blood Urea Nitrogen 27 mg/dL (7-17); Carbon Dioxide 27 mmol/L (22-32); Chloride 104 mmol/L (98-107); Estimated Glomerular Filt Rate > 60.0 mL/min (>60); Glucose 137 mg/dL (70-100); HEMOLYSIS < 15 (0-50); Potassium 3.3 mmol/L (3.4-5.1); Sodium 140 mmol/L (137-145)
--- NOTE | 2017-09-18 06:19 | PC.NURSE ---
Patient has been A/Ox3, using call light appropriately, SBA with walker to BR. Hemavac patent with small serous-sang drainage, amy wrap CDI. Scheduled PO Dilaudid and IV Toradol controlling pain to LLE and neck. Vancomycin given, trough 9.5. Remains in Droplet precautions.
[2017-09-18] MEDS: ENOXAPARIN 40 MG/0.4 ML SYRINGE SUBCUT (08:09)
[2017-09-18] MEDS: PRAMIPEXOLE 0.125 MG TABLET PO ×3 (08:09→20:52)
[2017-09-18] MEDS: CYCLOBENZAPRINE 10 MG TABLET PO ×3 (08:09→20:52)
[2017-09-18] MEDS: rifAMPin 300 MG CAPSULE PO ×2 (08:09→20:52)
--- NOTE | 2017-09-18 08:57 | PC.NURSE ---
Called to Dr. Kirill Croft to clarify appropriate isolation precautions. Reported pt with gram + cocci in CSF and staph aureus from multiple sources. Dr. Croft states standard precautions are appropriate unless bodily fluids are not contained or MRSA is present in which case contact precautions should be implemented. Droplet precautions are not necessary.
[2017-09-18] MEDS: HYDROMORPHONE 0.5 MG INJ 1 MG IV ×7 (09:34→23:28)
[2017-09-18] MEDS: ACETAMINOPHEN 325 MG TABLET 650 MG PO ×2 (09:36→23:35)
[2017-09-18] MEDS: ONDANSETRON 4 MG/2 ML INJ IV (09:43)
--- NOTE | 2017-09-18 10:11 | PC.NURSE ---
Addendum entered by Deep Tavarez R.N. 09/18/17 15:20: Called to Dr. Meeks. Pt requesting PO or RI bowel med. Unknown last BM. Requested clarification for telemetry. MD states no telemetry necessary. Original Note: Addendum entered by Deep Tavarez R.N. 09/18/17 12:13: Dr. Meeks on rounds. Reported K+ level. Reported pt c/o chest pain continued. Reported VS, Temp. MD states pt no longer needs isolation precautions, only standard precautions. Original Note: Called to Dr. Meeks and reported pt c/o l lateral cp radiating to scapula that is now occuring with rest. Orders received for EKG and instructions to administer PRN IV dilaudid after EKG complete. EKG done showing NSR without any changes. Dilaudid given. On reassessment, pt is dozing/drowsy but rousable to verbal stimuli. Reports pain to back of head is decreased from 7/10 to 5/10 and CP is decreased from 6/10 to 3/10. Will monitor.
[2017-09-18] MEDS: POTASSIUM CHLORIDE 20 MEQ TAB 40 MEQ PO (12:27)
--- NOTE | 2017-09-18 13:11 | P.PN_ITS ---
Subjective Date Patient Seen: 09/18/17 Time Patient Seen: 13:07 Interval history: Patient is complaining of worsened neck pain and headache this morning. She also had some pain in the anterior chest with normal EKG. Exam Vital Signs (past 8 hours): - 09/18/17 05:17 09/18/17 05:36 09/18/17 07:55 Temperature 98.3 F 98.9 F Pulse Rate 99 H 92 H Respiratory Rate 20 16 Blood Pressure 135/75 H 153/79 H Pulse Oximetry 98 95 96 09/18/17 09:34 09/18/17 09:36 09/18/17 11:00 Temperature 99.6 F 99.6 F 100 F H Pulse Rate 105 H Respiratory Rate 20 Blood Pressure 178/97 H Pulse Oximetry 97 09/18/17 12:46 09/18/17 12:51 Temperature 100 F H Pulse Rate Respiratory Rate Blood Pressure Pulse Oximetry 96 Oxygen Delivery Method Room Air Oxygen Flow Rate 0 Narrative Exam Narrative: GENERAL: Patient is alert, cooperative, but in some distress due to headache and neck pain HEENT: Pupils equal. She has moderate nuchal rigidity. CHEST: Clear to auscultation bilaterally. CARDIAC: Regular rate and rhythm, no murmur EXTREMITIES: no pretibial edema. The left knee has postop dressing with drain. NEUROLOGICAL: Nonfocal SKIN: Warm, dry, no petechiae, no rash Objective Labs Result Diagrams: 09/18/17 05:30 09/18/17 05:30 Labs: Laboratory Results - last 24 hr 09/18/17 09/18/17 09/18/17 00:45 05:30 05:30 WBC 18.8 H RBC 3.16 L Hgb 8.4 L Hct 25.9 L MCV 82.0 MCH 26.6 MCHC 32.5 RDW 16.5 H Plt Count 308 Neut % (Auto) 86.4 H Lymph % (Auto) 9.0 L [place] % (Auto) 4.4 Eos % (Auto) 0.0 L Baso % (Auto) 0.2 Neut # (Auto) 35227 H Sodium 140 Potassium 3.3 L Chloride 104 Carbon Dioxide 27 BUN 27 H Creatinine 0.80 Estimated GFR > 60.0 BUN/Creatinine Ratio 33.8 H Glucose 137 H Calcium 8.0 L Vancomycin Trough 9.5 L Assessment & Plan Plan: Assessment/Plan Narrative: 1. Methicillin sensitive staphylococcal aureus septicemia with associated bacterial meningitis and septic arthritis in left knee. Patient had arthroscopic debridement of left knee on 09/17/2017. The right knee was also aspirated in the OR noting yellow turbid fluid. She is on treatment with IV vancomycin and oral rifampin. Her vancomycin trough level is subtherapeutic at below 10. Blood cultures from 09/15/2017 grew methicillin sensitive staphylococcal aureus in 2 of 2 sites. Left knee synovial fluid aspiration from 09/16/2017 grew methicillin sensitive Staph aureus as well. Lumbar puncture CSF fluid from 09/16/2017 consistent with staphylococcal aureus meningitis with gram-positive cocci note on Gram stain. CSF PCR analysis was negative for pneumococcus and other pathogens tested. Patient has worsening headache and neck stiffness likely due to sub-therapeutic vancomycin level. Still with low-grade fever, WBC improved. Plan: Continue IV vancomycin and oral rifampin. Pharmacy to adjust vancomycin dosing to get trough close to 20. Transthoracic echo to be done. IJ central line can be removed once PICC line placed. I will discuss duration of antibiotic course with Infectious Disease after echo is completed as length of therapy will depend on whether or not we think she has endocarditis. Patient's spouse reported she is crushing and injecting her oral Dilaudid tablets which patient denies although this seems most possible etiology of her Staph aureus bacteremia. 2. Opioid dependency. Resumed her routine oral Dilaudid. She is also receiving IV Toradol and IV Dilaudid as needed for acute pain. 3. Acute metabolic encephalopathy. She had some delirium which appears resolved. 4. Acute hypertension. Blood pressure is trending down. Likely acute pain related and/or opioid withdrawal. Ordered Labetalol 20 mg IV q.4 hours as needed for severe hypertension. 5. Chest pain. She has point tenderness in the left anterior chest in area of her pain. EKG is normal. Possibly she may have septic arthritis in the rib joint verses a muscle strain. There is no obvious redness or swelling in that area. Continue to monitor. 6. DVT prophylaxis. Low-dose Lovenox. Quality VTE Deep Vein Thrombosis/Pulmonary Embolism Present on Admission: No
--- NOTE | 2017-09-18 13:31 | CM.DPC ---
DCP/continued: Reviewed chart. Spoke with RN/Deep and requested that she call KNOWLEDGE ANALYST when patient's spouse/Eleonora arrives. Attempted to call spouse but voicemail full. Received call from Deep that spouse arrived at [facility] KNOWLEDGE ANALYST at in-service but notified RN that KNOWLEDGE ANALYST would be down within 30 minutes. KNOWLEDGE ANALYST attempted to meet with patient and spouse/Geovanna. Apparently Geovanna had already left. Attempted to call her again and still unable to leave voice mail. Patient currently getting PICC line placed and very medicated/drowsy at time of visit. Patient has provided CM team with permission to speak with her spouse. Left SNF list and CM team card phone number with RN to give to spouse if she calls or comes back re: d/c planning. P: Anticipate SNF for IV abx at time of d/c. Patient prefers to go home but it is unclear if this is safe option given suspicion that patient was self injecting her prescription. BERNARDINO Bryant
--- NOTE | 2017-09-18 13:49 | DI.RAD.S_ITS ---
PROCEDURE: XR CHEST 1V INDICATIONS: PICC line placement verification TECHNIQUE: One view of the chest was acquired. COMPARISON: [facility], CR, XR CHEST 1V, 09/16/2017, 11:42. FINDINGS: Surgical changes and devices: Right-sided central line catheter is identified with the tip overlying the atrial caval junction. Left-sided PICC line catheter is positioned with the tip overlying the superior vena cava. Postoperative changes of the lower cervical spine are not adequately evaluated. Lungs and pleura: Blunting of left costophrenic angle is suggestive of a small pleural effusion. There is no pneumothorax. There may be mild basilar atelectasis. Mediastinum: Mediastinal contours appear normal. Heart size is normal. Bones and chest wall: No suspicious bony lesions. Overlying soft tissues appear unremarkable. IMPRESSION: 1. Tubes and lines, as described. 2. Mild basilar atelectasis. 2. Trace left-sided pleural effusion. Dictated by: Vin Raines M.D. on 09/18/2017 at 13:55 Approved by: Vin Raines M.D. on 09/18/2017 at 13:56
[2017-09-18] MEDS: VANCOMYCIN 2,000 MG in SODIUM CHLORIDE 0.9% 500 ML 250 ML IV (14:16)
[2017-09-18] MEDS: LABETALOL 20 MG/4 ML SYRINGE IV (16:49)
[2017-09-18] MEDS: BISACODYL 5 MG TABLET 10 MG PO (16:50)
--- NOTE | 2017-09-18 17:01 | PC.NURSE ---
Addendum entered by Linda Le R.N. 09/18/17 19:34: 1930 - Pt continues to report significant pain, specifically headache. Discussed that narcotics may not be helping with headache, during pain assessment most improvement followed toradol administration from to . Pt verbalizes understanding, and then asks when next dose of dilaudid is available. Ice pack to neck, Fan provided. Temp 99.5. Dilaudid given per pt request. Ortho MD into see pt. Notified of reported drain output on day shift. No new orders. Original Note: Pt c/o significant headache, , ice pack to neck, IV dilaudid given PRN. Pt temp 99.0. BP prior to fulling wakeful and activity, 175/93 HR 103. Labetalol given. Monitor. Call light in reach.
--- NOTE | 2017-09-18 19:40 | PM.PNPO.1 ---
Subjective Date Patient Seen: 09/18/17 Time Patient Seen: 19:40 Interval history: 52-year-old female with MSSA meningitis, bacteremia, left knee septic arthritis Postop day 1 status post arthroscopic I and D left knee Aspiration right knee Patient reports knee pain is improved today however she is having more headaches and neck pain today. Per records vancomycin trough was subtherapeutic, and dose adjustment has been made. She continues on scheduled IV vancomycin Left knee washout did show gross purulence. Cultures are pending, but pre-surgery aspirate was positive for MSSA. Right knee aspirate showed 20 cc of yellow turbid/cloudy fluid. No organism seen cell count was 47,000 with 89% neutrophils Exam Vital Signs (past 8 hours): - 09/18/17 12:46 09/18/17 12:51 09/18/17 16:30 Temperature 100 F H 99.9 F H Pulse Rate 103 H Respiratory Rate 17 Blood Pressure 175/93 H Pulse Oximetry 96 94 09/18/17 16:33 09/18/17 16:49 09/18/17 17:12 Temperature Pulse Rate 103 H 90 Respiratory Rate Blood Pressure 175/93 H 173/88 H Pulse Oximetry 94 93 09/18/17 17:27 09/18/17 19:36 Temperature 99.5 F Pulse Rate 90 104 H Respiratory Rate 18 Blood Pressure 173/88 H 167/94 H Pulse Oximetry 94 Oxygen Delivery Method Room Air Oxygen Flow Rate 0 Narrative Exam Narrative: Patient is alert and oriented in the ICU She complains of headache neck pain and fatigue since she is having a ?bad day? But states that her knees are feeling okay. Breathing nonlabored on room Mild tachycardia She demonstrates excellent range of motion of the right knee flexing to past 90? and extending to full extension and states it feels better than yesterday. Sensation intact to light touch. Bilateral upper and lower extremity track gould stable Compartment soft 5/5 dorsiflexion plantar flexion bilateral lower extremities Left knee shows intact bandage and Hemovac drain with scant bloody drainage. Per report daytime output was 50 cc. Patient is able to flex and extend the knee says has some soreness when she gets up to the bathroom but not too bad Objective Labs Result Diagrams: 09/18/17 05:30 09/18/17 05:30 Labs: Laboratory Results - last 24 hr 06/09/18/17 09/18/17 00:45 05:30 05:30 WBC 18.8 H RBC 3.16 L Hgb 8.4 L Hct 25.9 L MCV 82.0 MCH 26.6 MCHC 32.5 RDW 16.5 H Plt Count 308 Neut % (Auto) 86.4 H Lymph % (Auto) 9.0 L [place] % (Auto) 4.4 Eos % (Auto) 0.0 L Baso % (Auto) 0.2 Neut # (Auto) 43962 H Sodium 140 Potassium 3.3 L Chloride 104 Carbon Dioxide 27 BUN 27 H Creatinine 0.80 Estimated GFR > 60.0 BUN/Creatinine Ratio 33.8 H Glucose 137 H Calcium 8.0 L Vancomycin Trough 9.5 L Assessment & Plan Post-op Postoperative Procedures Operation Date: 09/17/17 15:00 Actual Procedures Side Surgeon p I&D Septic Left Knee Left Brenda Del Toro MD 1. Left septic knee arthritis: Patient had an aspiration of the left knee that grew MSSA this is the same organism that is present in her CSF and blood. She had gross purulence at the time of the operation however operation cultures are still pending and she had been on scheduled antibiotics at that point. Plan will be to continue the drain through the next 24 hr and re-evaluate tomorrow for possible drain removal and dressing change. 2. Right knee effusion: Regarding the patient's right knee effusion her pain is improved today she has full range of motion. Aspirate did have 47,000 cells and but no growth so far. We will continue to follow with cultures if it does turn positive we would consider arthroscopic washout. The patient will continue her IV antibiotics for her bacteremia, septic arthritis and meningitis. Continue care per primary team. The patient is on Lovenox for DVT prophylaxis and has SCDs in place Time Spent With Patient less than 15 minutes Quality VTE Deep Vein Thrombosis/Pulmonary Embolism Present on Admission: No
--- NOTE | 2017-09-18 19:47 | P.PN_ITS ---
Subjective Date Patient Seen: 09/18/17 Time Patient Seen: 19:40 Interval history: 52-year-old female with MSSA meningitis, bacteremia, left knee septic arthritis Postop day 1 status post arthroscopic I and D left knee Aspiration right knee Patient reports knee pain is improved today however she is having more headaches and neck pain today. Per records vancomycin trough was subtherapeutic , and dose adjustment has been made. She continues on scheduled IV vancomycin Left knee washout did show gross purulence. Cultures are pending, but pre- surgery aspirate was positive for MSSA. Right knee aspirate showed 20 cc of yellow turbid/cloudy fluid. No organism seen cell count was 47,000 with 89% neutrophils Exam Vital Signs (past 8 hours): - 09/18/17 12:46 09/18/17 12:51 09/18/17 16:30 Temperature 100 F H 99.9 F H Pulse Rate 103 H Respiratory Rate 17 Blood Pressure 175/93 H Pulse Oximetry 96 94 09/18/17 16:33 09/18/17 16:49 09/18/17 17:12 Temperature Pulse Rate 103 H 90 Respiratory Rate Blood Pressure 175/93 H 173/88 H Pulse Oximetry 94 93 09/18/17 17:27 09/18/17 19:36 Temperature 99.5 F Pulse Rate 90 104 H Respiratory Rate 18 Blood Pressure 173/88 H 167/94 H Pulse Oximetry 94 Oxygen Delivery Method Room Air Oxygen Flow Rate 0 Narrative Exam Narrative: Patient is alert and oriented in the ICU She complains of headache neck pain and fatigue since she is having a ?bad day? But states that her knees are feeling okay. Breathing nonlabored on room Mild tachycardia She demonstrates excellent range of motion of the right knee flexing to past 90 ? and extending to full extension and states it feels better than yesterday. Sensation intact to light touch. Bilateral upper and lower extremity track gould stable Compartment soft 5/5 dorsiflexion plantar flexion bilateral lower extremities Left knee shows intact bandage and Hemovac drain with scant bloody drainage. Per report daytime output was 50 cc. Patient is able to flex and extend the knee says has some soreness when she gets up to the bathroom but not too bad Objective Labs Result Diagrams: 09/18/17 05:30 09/18/17 05:30 Labs: Laboratory Results - last 24 hr 06/09/18/17 09/18/17 00:45 05:30 05:30 WBC 18.8 H RBC 3.16 L Hgb 8.4 L Hct 25.9 L MCV 82.0 MCH 26.6 MCHC 32.5 RDW 16.5 H Plt Count 308 Neut % (Auto) 86.4 H Lymph % (Auto) 9.0 L [place] % (Auto) 4.4 Eos % (Auto) 0.0 L Baso % (Auto) 0.2 Neut # (Auto) 44375 H Sodium 140 Potassium 3.3 L Chloride 104 Carbon Dioxide 27 BUN 27 H Creatinine 0.80 Estimated GFR > 60.0 BUN/Creatinine Ratio 33.8 H Glucose 137 H Calcium 8.0 L Vancomycin Trough 9.5 L Assessment & Plan Post-op Postoperative Procedures Operation Date: 09/17/17 15:00 Actual Procedures Side Surgeon p I&D Septic Left Knee Left Brenda Del Toro MD 1. Left septic knee arthritis: Patient had an aspiration of the left knee that grew MSSA this is the same organism that is present in her CSF and blood. She had gross purulence at the time of the operation however operation cultures are still pending and she had been on scheduled antibiotics at that point. Plan will be to continue the drain through the next 24 hr and re-evaluate tomorrow for possible drain removal and dressing change. 2. Right knee effusion: Regarding the patient's right knee effusion her pain is improved today she has full range of motion. Aspirate did have 47,000 cells and but no growth so far. We will continue to follow with cultures if it does turn positive we would consider arthroscopic washout. The patient will continue her IV antibiotics for her bacteremia, septic arthritis and meningitis. Continue care per primary team. The patient is on Lovenox for DVT prophylaxis and has SCDs in place Time Spent With Patient less than 15 minutes Quality VTE Deep Vein Thrombosis/Pulmonary Embolism Present on Admission: No
--- NOTE | 2017-09-18 20:09 | PM.OP.1 ---
Procedure & Clinicians Procedure: 1. Left thigh lateral fasciotomy: CPT code 23220 2. Left thigh evacuation hematoma Same procedure as scheduled: Yes Surgeon: Brenda Del Toro Click Yes if Unassisted: No
--- NOTE | 2017-09-18 20:12 | P.OP_ITS ---
Procedure & Clinicians Procedure: 1. Left thigh lateral fasciotomy: CPT code 01900 2. Left thigh evacuation hematoma Same procedure as scheduled: Yes Surgeon: Brenda Del Toro Click Yes if Unassisted: No
[2017-09-18] MEDS: SODIUM CHLORIDE 0.9% FLUSH 10 ML IV (23:55)
[2017-09-19] VITALS (30 sets, daily range): BP systolic 147–190; BP diastolic 54–108; PULSE 86–101; RESP 15–21; TEMP 36.8–37.7; O2SAT 94–99
[2017-09-19] MEDS: VANCOMYCIN 2,000 MG in SODIUM CHLORIDE 0.9% 500 ML 250 ML IV ×2 (00:23→12:42)
--- NOTE | 2017-09-19 00:51 | PC.NURSE ---
[id number] Pt OOB with walker to bathroom. Pt assisted back to bed from bathroom. Pt requesting Dilaudid. States has headache 11/02. Rates low back pain /. Pt medicated with Dilaudid IV per EMAR. Routine dose of Toradol given. Pt states no knee pain at this time. L knee with amy bandage intact and CMS intact to james LE. Pt dozing off after Dilaudid given.
[2017-09-19] MEDS: HYDROMORPHONE 0.5 MG INJ 1 MG IV ×5 (01:30→12:41)
[2017-09-19] MEDS: HYDROMORPHONE 2 MG TABLET 4 MG PO ×7 (01:30→22:44)
--- NOTE | 2017-09-19 01:41 | PC.NURSE ---
0120 Pt awake and asjking assistance to bathroom. Pt OOB with walker and returned to bed. Pt asking when she could have Dilaudid again. Pt states headache is 7/10. Medicated with IV Dilaudid per EMAR. Pt returning to sleep during Medication administrationl.
--- NOTE | 2017-09-19 02:59 | PC.NURSE ---
Addendum entered by Melia Romero R.N. 09/19/17 04:36: Original Note: [id number] Pt awake and using call light to request assistance to bathroom. Pt OOB with walker and stand-by assistance. Pt states headache is 6/10 and low back pain is 4/10. Routine Dilaudid po given. Pt returning to sleep.
[2017-09-19] MEDS: ONDANSETRON 4 MG/2 ML INJ IV (03:55)
[2017-09-19] MEDS: SODIUM CHLORIDE 0.9% FLUSH 10 ML IV ×2 (03:57→06:01)
[2017-09-19] MEDS: LABETALOL 20 MG/4 ML SYRINGE IV ×2 (04:02→11:44)
--- NOTE | 2017-09-19 04:36 | PC.NURSE ---
[id number] HR 92 BP 174/93. Labetolol 20 mg IVP given. afteradministration at 0413 HR 78 BP 167/87. Pt states she normally is not hypertensive, but has hypertension when in pain. Analgesia administered per EMAR.
[2017-09-19] MEDS: KETOROLAC 30 MG/ML VIAL IV ×3 (05:53→16:54)
[2017-09-19] MEDS: PRAMIPEXOLE 0.125 MG TABLET PO ×3 (08:04→19:55)
[2017-09-19] MEDS: rifAMPin 300 MG CAPSULE PO ×2 (08:04→19:55)
[2017-09-19] MEDS: ENOXAPARIN 40 MG/0.4 ML SYRINGE SUBCUT (08:04)
[2017-09-19] MEDS: CYCLOBENZAPRINE 10 MG TABLET PO ×3 (08:04→19:54)
--- NOTE | 2017-09-19 13:33 | PM.PNPO.1 ---
Subjective Date Patient Seen: 09/19/17 Time Patient Seen: 13:33 Interval history: Pt history of MSSA with meningitis, bacteremia and septic left knee. She is s/p Lt knee arthroscopy I and D for septic Lt knee by Dr. Del Toro postop day 2. Pt states pain in knee is not too bad. Her main issue is her meningitis. Plan is for patient to be d/c to SNF with IV antibiotics when medically stable. Currently on IV vancomycin. Exam Vital Signs (past 8 hours): - 09/19/17 08:21 09/19/17 11:36 09/19/17 11:44 Temperature 99.2 F 98.5 F Pulse Rate 92 H 101 H 101 H Respiratory Rate 17 17 Blood Pressure 167/96 H 175/100 H 175/100 H Pulse Oximetry 95 98 09/19/17 11:55 Temperature Pulse Rate Respiratory Rate Blood Pressure 156/84 H Pulse Oximetry Oxygen Delivery Method Room Air Oxygen Flow Rate 0 Narrative Exam Narrative: Patient sitting in chair. Appears comfortable. Alert orient x3. Left knee dressing at the top is soaked through. Hemovac drain in. Left knee dressings removed. Not much swelling in the left knee. No redness or inflammation. The knee was redressed with 4x4s, ABDs, Kerlix and [place] bandage over wrap. Bilateral calf soft and nontender. Five hundred five right ankle strength. Neurovascular status intact. Objective Labs Result Diagrams: 09/18/17 05:30 09/18/17 05:30 Assessment & Plan Post-op Postoperative Procedures Operation Date: 09/17/17 15:00 Actual Procedures Side Surgeon p I&D Septic Left Knee Left Brenda Del Toro MD Postop day 2 status post left knee arthroscopy I and D for septic left knee. Hemovac drain can be discontinued when less than 30 mL of fluid. Patient to be nonweightbearing on the left knee with crutches or walker. She can do gentle range of motion in the knee. Continue IV antibiotics. Continue Lovenox and SCDs for DVT prophylaxis. Plan to discharge when medically stable by the hospitalist service. Time Spent With Patient 25 - 35 minutes Quality VTE Deep Vein Thrombosis/Pulmonary Embolism Present on Admission: No
[2017-09-19] MEDS: CARVEDILOL 6.25 MG TABLET PO ×2 (14:27→20:18)
--- NOTE | 2017-09-19 14:33 | PC.NURSE ---
Addendum entered by Dorcas Sosa R.N. 09/19/17 14:57: PAIN - some occassional moaning, given 4mg scheduled dilaudid and pt req 2mg iv admin. Original Note: TSF FROM ICU - arrived via wc, tsf to bed, l knee w/amy wrap over kerlex, hemovac drain compressed with serosang in tubing, states pain 8 on scale 0/10, + cms feet, watching tv, iv vanco infusing via lue picc.
[2017-09-19] MEDS: HYDROMORPHONE 2 MG INJ IV ×3 (14:54→22:45)
[2017-09-19] MEDS: SODIUM CHLORIDE 0.9% IV ×3 (17:15→19:26)
[2017-09-19] MEDS: NAFCILLIN IV ×3 (17:15→19:26)
--- NOTE | 2017-09-19 17:22 | PC.NURSE ---
Addendum entered by Maricarmen Connelly R.N. 09/19/17 23:07: 2300 - Patient remains symptom free of allergic reaction to nafcillin. Remains on protocol at this time, including being 1:1. Resting peacefully in bed at this time. Original Note: Addendum entered by Maricarmen Connelly R.N. 09/19/17 20:25: 2015 - Patient shows no sign of allergic reaction to nafcillin. Tolerating Nafcillin desensitization well. Dr. Meeks updated. Also gave ok for patient to be given her beta cara as ordered. Original Note: 1715 - Nafcillin desensitization began per protocol and physician orders. Patient signed consent and state full understanding of risks. Epi and benadryl at bedside.
[2017-09-19] MEDS: ACETAMINOPHEN 325 MG TABLET 650 MG PO (19:54)
--- NOTE | 2017-09-19 20:11 | PM.PN.1 ---
Subjective Date Patient Seen: 09/19/17 Interval history: Patient with continued headache and nuchal rigidity. We have had to up her as needed IV Dilaudid dosing. Exam Vital Signs (past 8 hours): - 09/19/17 14:34 09/19/17 16:25 Temperature 99.8 F H Pulse Rate 86 Respiratory Rate 18 Blood Pressure 166/100 H Pulse Oximetry 97 98 Oxygen Delivery Method Room Air Oxygen Flow Rate 0 Narrative Exam Narrative: General: Alert, well oriented, in moderate discomfort Lungs: Clear to auscultation Heart: Regular rhythm, no murmur Extremities: Left knee surgical dressing and drain noted, no pretibial edema Neurological: Nonfocal Skin: No rash Objective Labs Result Diagrams: 09/18/17 05:30 09/18/17 05:30 Assessment & Plan Plan: Assessment/Plan Narrative: 1. Methicillin sensitive staphylococcal aureus septicemia with associated bacterial meningitis and septic arthritis in left knee. Patient has history of childhood penicillin anaphylaxis and is currently being treated with vancomycin. Discussed case with Dr. Cassius Reddy for Infectious Disease opinion who recommended we proceed with penicillin desensitization so that patient can get more effective therapy with nafcillin. Penicillin desensitization has been initiated with intention of switching antibiotic management to nafcillin if all goes well. Also repeat blood cultures have been ordered. Dr. Reddy recommended repeat blood cultures until we get no growth. He recommended to discontinue rifampin. Furthermore, we have arranged for patient to get transported to [facility] on Thursday 09/21 for a BARRY to more definitively rule out endocarditis. If BARRY is normal then she will need 4 weeks of IV nafcillin 2 g every 4 hr for the septic knee joint and meningitis. If she has valvular vegetations and antibiotic duration will be 6 weeks. Patient has defervesced. She is still having headache and nuchal rigidity. She had arthroscopic debridement of left knee on 09/17/2017. The right knee was also aspirated in the OR noting yellow cloudy fluid which does not appear infected. Blood cultures from 09/15/2017 grew methicillin sensitive staphylococcal aureus in 2 of 2 sites. Left knee synovial fluid aspiration from 09/16/2017 grew methicillin sensitive Staph aureus as well. Lumbar puncture CSF fluid from 09/16/2017 consistent with staphylococcal aureus meningitis with gram-positive cocci note on Gram stain but negative culture. Her transthoracic echo did not show any vegetations. Patient's spouse reported she is crushing and injecting her oral Dilaudid tablets which patient denies although this seems most possible etiology of her Staph aureus bacteremia. Outpatient IV antibiotic management with most safely be accomplished through senior care facility. 2. Opioid dependency. Resumed her routine oral Dilaudid. She is also receiving IV Toradol and IV Dilaudid as needed for acute pain. 3. Acute metabolic encephalopathy. She had some delirium which appears resolved. 4. Acute hypertension. She was started on carvedilol 6.25 mg twice daily. 5. Chest pain. She has point tenderness in the left anterior chest in area of her pain. EKG is normal. Possibly she may have septic arthritis in the rib joint verses a muscle strain. There is no obvious redness or swelling in that area. Continue to monitor. 6. DVT prophylaxis. Low-dose Lovenox. Quality VTE Deep Vein Thrombosis/Pulmonary Embolism Present on Admission: No
[2017-09-20] VITALS (7 sets, daily range): BP systolic 142–180; BP diastolic 80–100; PULSE 83–97; RESP 18–20; TEMP 35.8–37.3; O2SAT 94–100
--- NOTE | 2017-09-20 00:52 | PC.NURSE ---
Desensitization protocol for Nafcillin infusion complete, patient tolerated without s/s reaction. Patient is calm and drowsy, VSS, SR, afebrile. Scheduled IV Toradol and PO Dilaudid controlling pain, patient also requests prn IV Dilaudid Q2H. Blood Cultures drawn via Piccline sent to lab as ordered.
[2017-09-20] MEDS: HYDROMORPHONE 2 MG INJ IV ×8 (01:06→20:25)
[2017-09-20] MEDS: HYDROMORPHONE 2 MG TABLET 4 MG PO ×6 (03:09→23:29)
[2017-09-20] MEDS: ONDANSETRON 4 MG/2 ML INJ IV (03:18)
[2017-09-20] MEDS: NAFCILLIN 2 GM in SODIUM CHLORIDE 0.9% 100 ML 200 ML IV ×6 (04:25→23:33)
[2017-09-20 05:28] LABS: BUN Creatinine Ratio 25.7 (6-22); Blood Urea Nitrogen 18 mg/dL (7-17); Carbon Dioxide 28 mmol/L (22-32); Chloride 100 mmol/L (98-107); Estimated Glomerular Filt Rate > 60.0 mL/min (>60); Glucose 127 mg/dL (70-100); HEMOLYSIS < 15 (0-50); Potassium 4.2 mmol/L (3.4-5.1); Sodium 135 mmol/L (137-145)
[2017-09-20 05:30] LABS: Add Manual Diff / Slide Review YES; Hematocrit 27.5 % (36-46); Mean Corpuscular HGB Conc 32.8 % (30-36); Mean Corpuscular Hemoglobin 26.7 PG (26-34); Mean Corpuscular Volume 81.5 fL (80-100); Platelet Count 325 X10^3/uL (150-400); Red Blood Cell Count 3.38 X10^6/uL (4.0-5.2); Red Cell Distribution Width 15.5 % (11.6-14.8)
[2017-09-20] MEDS: KETOROLAC 30 MG/ML VIAL IV ×5 (06:06→23:33)
[2017-09-20 06:37] LABS: Neutrophils Absolute Manual 10790 /uL (3000-5900); Total Cells Counted 100
[2017-09-20 06:39] LABS: Anisocytosis 1+
[2017-09-20] MEDS: CARVEDILOL 6.25 MG TABLET PO ×2 (07:39→19:43)
[2017-09-20] MEDS: PRAMIPEXOLE 0.125 MG TABLET PO ×3 (07:40→19:45)
[2017-09-20] MEDS: ENOXAPARIN 40 MG/0.4 ML SYRINGE SUBCUT (07:40)
[2017-09-20] MEDS: CYCLOBENZAPRINE 10 MG TABLET PO ×3 (07:40→19:44)
[2017-09-20] MEDS: SODIUM CHLORIDE 0.9% 250 ML 21 ML IV (10:23)
--- NOTE | 2017-09-20 10:35 | PM.PNPO.1 ---
Subjective Date Patient Seen: 09/20/17 Time Patient Seen: 10:35 Interval history: Hospital day 5, postop day 3 following left knee arthroscopic debridement and right knee aspiration by Dr. Del Toro. Right knee noted no organisms. Left knee noted MSSA. Patient had been on vancomycin has been changed to nafcillin. She does have bacteremia and meningitis which are improving. She states that her knee pain has been improving. She is taking Dilaudid both p.o. and IV as needed. Also getting Toradol IV. Still has Hemovac drain to left knee. The nurse mentions that the patient is scheduled for a BARRY at [facility] tomorrow to evaluate cardiac valves. Patient lives in [place]. There is question about either discharge to SNF versus home. Exam Vital Signs (past 8 hours): - 09/20/17 03:16 09/20/17 07:30 09/20/17 08:16 Temperature 96.5 F L 97.9 F Pulse Rate 94 H 88 Respiratory Rate 18 18 Blood Pressure 149/83 H 179/95 H Pulse Oximetry 97 94 94 Oxygen Delivery Method Room Air Oxygen Flow Rate 0 Narrative Exam Narrative: Alert, oriented no acute distress resting in chair. Legs. Right knee. No signs of infection or inflammation. Minimal if any swelling. Left knee. Dressing removed. Skin in good condition. Mild swelling of the knee. Incisions healing well with sutures in place. Hemovac in place with minimal drainage. No calf pain or swelling. Pulses symmetrical. Objective Labs Result Diagrams: 09/20/17 05:00 09/20/17 05:00 Labs: Laboratory Results - last 24 hr 09/20/17 09/20/17 05:00 05:00 WBC 13.0 H RBC 3.38 L Hgb 9.0 L Hct 27.5 L MCV 81.5 MCH 26.7 MCHC 32.8 RDW 15.5 H Plt Count 325 Neut % (Auto) Not Reportable Lymph % (Auto) Not Reportable [place] % (Auto) Not Reportable Eos % (Auto) Not Reportable Baso % (Auto) Not Reportable Total Counted 100 Seg Neutrophils % 80.0 H Band Neutrophils % 3.0 Lymphocytes % (Manual) 10.0 L Monocytes % (Manual) 3.0 Metamyelocytes % 3.0 H Myelocytes % 1.0 H Neutrophils # (Manual) 36886 H RBC Morphology Not Reportable Anisocytosis 1+ H Sodium 135 L Potassium 4.2 Chloride 100 Carbon Dioxide 28 BUN 18 H Creatinine 0.70 Estimated GFR > 60.0 BUN/Creatinine Ratio 25.7 H Glucose 127 H Calcium 8.0 L Assessment & Plan Post-op Postoperative Procedures Operation Date: 09/17/17 15:00 Actual Procedures Side Surgeon p I&D Septic Left Knee Left Brenda Del Toro MD Will DC Hemovac drain from left knee. Apply island dressing. Work with physical therapy. Patient is being followed by hospitalist for her meningitis and bacteremia and IV antibiotic. A questionable discharge to home or SNF pending hospitalist discharge. Patient would need follow-up appointment at [facility] Orthopedics office 10-14 days postop. Time Spent With Patient less than 15 minutes Quality VTE Deep Vein Thrombosis/Pulmonary Embolism Present on Admission: No
--- NOTE | 2017-09-20 10:39 | P.PN_ITS ---
Subjective Date Patient Seen: 09/20/17 Time Patient Seen: 10:35 Interval history: Hospital day 5, postop day 3 following left knee arthroscopic debridement and right knee aspiration by Dr. Del Toro. Right knee noted no organisms. Left knee noted MSSA. Patient had been on vancomycin has been changed to nafcillin. She does have bacteremia and meningitis which are improving. She states that her knee pain has been improving. She is taking Dilaudid both p.o. and IV as needed. Also getting Toradol IV. Still has Hemovac drain to left knee. The nurse mentions that the patient is scheduled for a BARRY at [facility] tomorrow to evaluate cardiac valves. Patient lives in [place]. There is question about either discharge to SNF versus home. Exam Vital Signs (past 8 hours): - 09/20/17 03:16 09/20/17 07:30 09/20/17 08:16 Temperature 96.5 F L 97.9 F Pulse Rate 94 H 88 Respiratory Rate 18 18 Blood Pressure 149/83 H 179/95 H Pulse Oximetry 97 94 94 Oxygen Delivery Method Room Air Oxygen Flow Rate 0 Narrative Exam Narrative: Alert, oriented no acute distress resting in chair. Legs. Right knee. No signs of infection or inflammation. Minimal if any swelling. Left knee. Dressing removed. Skin in good condition. Mild swelling of the knee. Incisions healing well with sutures in place. Hemovac in place with minimal drainage. No calf pain or swelling. Pulses symmetrical. Objective Labs Result Diagrams: 09/20/17 05:00 09/20/17 05:00 Labs: Laboratory Results - last 24 hr 09/20/17 09/20/17 05:00 05:00 WBC 13.0 H RBC 3.38 L Hgb 9.0 L Hct 27.5 L MCV 81.5 MCH 26.7 MCHC 32.8 RDW 15.5 H Plt Count 325 Neut % (Auto) Not Reportable Lymph % (Auto) Not Reportable [place] % (Auto) Not Reportable Eos % (Auto) Not Reportable Baso % (Auto) Not Reportable Total Counted 100 Seg Neutrophils % 80.0 H Band Neutrophils % 3.0 Lymphocytes % (Manual) 10.0 L Monocytes % (Manual) 3.0 Metamyelocytes % 3.0 H Myelocytes % 1.0 H Neutrophils # (Manual) 42738 H RBC Morphology Not Reportable Anisocytosis 1+ H Sodium 135 L Potassium 4.2 Chloride 100 Carbon Dioxide 28 BUN 18 H Creatinine 0.70 Estimated GFR > 60.0 BUN/Creatinine Ratio 25.7 H Glucose 127 H Calcium 8.0 L Assessment & Plan Post-op Postoperative Procedures Operation Date: 09/17/17 15:00 Actual Procedures Side Surgeon p I&D Septic Left Knee Left Brenda Del Toro MD Will DC Hemovac drain from left knee. Apply island dressing. Work with physical therapy. Patient is being followed by hospitalist for her meningitis and bacteremia and IV antibiotic. A questionable discharge to home or SNF pending hospitalist discharge. Patient would need follow-up appointment at [facility] Orthopedics office 10-14 days postop. Time Spent With Patient less than 15 minutes Quality VTE Deep Vein Thrombosis/Pulmonary Embolism Present on Admission: No
--- NOTE | 2017-09-20 10:52 | CM.DPC ---
Plan: Patient to transfer to [facility] tomorrow for BARRY to evaluate cardiac valves. Unsure if patient is returning to after BARRY?? If patient returns to [facility] CM to follow up with patient to determine discharge plans as patient will likely require SNF for IV Abx at discharge. Home with infusion services may not be safe as significant other reports Patient self injects prescription Dilaudid. Patient denies present behavior, but admits to past injections. .
--- NOTE | 2017-09-20 11:11 | P.PN_ITS ---
Subjective Date Patient Seen: 09/20/17 Time Patient Seen: 11:08 Interval history: No new complaints Exam Vital Signs (past 8 hours): - 09/20/17 03:16 09/20/17 07:30 09/20/17 08:16 Temperature 96.5 F L 97.9 F Pulse Rate 94 H 88 Respiratory Rate 18 18 Blood Pressure 149/83 H 179/95 H Pulse Oximetry 97 94 94 Oxygen Delivery Method Room Air Oxygen Flow Rate 0 Narrative Exam Narrative: Sitting up in a chair conversant no acute distress HEENT exam unremarkable Neck is supple Lungs clear Heart regular rhythm Lower extremities the left knee mildly swollen still surgical dressing in place Abdomen soft nontender Neuro exam unremarkable Skin warm and dry Objective Labs Result Diagrams: 09/20/17 05:00 09/20/17 05:00 Labs: Laboratory Results - last 24 hr 09/20/17 09/20/17 05:00 05:00 WBC 13.0 H RBC 3.38 L Hgb 9.0 L Hct 27.5 L MCV 81.5 MCH 26.7 MCHC 32.8 RDW 15.5 H Plt Count 325 Neut % (Auto) Not Reportable Lymph % (Auto) Not Reportable [place] % (Auto) Not Reportable Eos % (Auto) Not Reportable Baso % (Auto) Not Reportable Total Counted 100 Seg Neutrophils % 80.0 H Band Neutrophils % 3.0 Lymphocytes % (Manual) 10.0 L Monocytes % (Manual) 3.0 Metamyelocytes % 3.0 H Myelocytes % 1.0 H Neutrophils # (Manual) 58025 H RBC Morphology Not Reportable Anisocytosis 1+ H Sodium 135 L Potassium 4.2 Chloride 100 Carbon Dioxide 28 BUN 18 H Creatinine 0.70 Estimated GFR > 60.0 BUN/Creatinine Ratio 25.7 H Glucose 127 H Calcium 8.0 L Assessment & Plan Plan: Assessment/Plan Narrative: 1. Methicillin sensitive staphylococcal aureus septicemia with associated bacterial meningitis and septic arthritis in left knee. Patient has history of childhood penicillin anaphylaxis and is currently being treated with vancomycin. Discussed case with Dr. Cassius Reddy for Infectious Disease opinion who recommended we proceed with penicillin desensitization so that patient can get more effective therapy with nafcillin. Penicillin desensitization has been initiated with intention of switching antibiotic management to nafcillin if all goes well. Also repeat blood cultures have been ordered. Dr. Reddy recommended repeat blood cultures until we get no growth. He recommended to discontinue rifampin. Furthermore, we have arranged for patient to get transported to [facility] on Thursday 09/21 for a BARRY to more definitively rule out endocarditis. If BARRY is normal then she will need 4 weeks of IV nafcillin 2 g every 4 hr for the septic knee joint and meningitis. If she has valvular vegetations and antibiotic duration will be 6 weeks. We have done a penicillin desensitization procedure September 19 and now seems to be tolerating the nafcillin without difficulty Patient has defervesced. She is still having headache and nuchal rigidity. She had arthroscopic debridement of left knee on 09/17/2017. The right knee was also aspirated in the OR noting yellow cloudy fluid which does not appear infected. Blood cultures from 09/15/2017 grew methicillin sensitive staphylococcal aureus in 2 of 2 sites. Left knee synovial fluid aspiration from 09/16/2017 grew methicillin sensitive Staph aureus as well. Lumbar puncture CSF fluid from 09/16/2017 consistent with staphylococcal aureus meningitis with gram-positive cocci note on Gram stain but negative culture. Her transthoracic echo did not show any vegetations. Patient's spouse reported she is crushing and injecting her oral Dilaudid tablets which patient denies although this seems most possible etiology of her Staph aureus bacteremia. Outpatient IV antibiotic management with most safely be accomplished through halfway facility. 2. Opioid dependency. Resumed her routine oral Dilaudid. She is also receiving IV Toradol and IV Dilaudid as needed for acute pain. 3. Acute metabolic encephalopathy. She had some delirium which appears resolved. 4. Acute hypertension. She was started on carvedilol 6.25 mg twice daily. 5. Chest pain. She has point tenderness in the left anterior chest in area of her pain. EKG is normal. Possibly she may have septic arthritis in the rib joint verses a muscle strain. There is no obvious redness or swelling in that area. Continue to monitor. 6. DVT prophylaxis. Low-dose Lovenox. Quality VTE Deep Vein Thrombosis/Pulmonary Embolism Present on Admission: No
--- NOTE | 2017-09-20 12:16 | PC.NURSE ---
Day Shift Note H/V d/c'd without issue per Ladonna FARIA, stitch removed and gauze dressing applied. CARIN wrap and dressing underneath removed by PA and new island dressing applied.
[2017-09-21] VITALS (11 sets, daily range): BP systolic 154–187; BP diastolic 90–118; PULSE 80–100; RESP 16–20; TEMP 36.5–37.3; O2SAT 20–98
--- NOTE | 2017-09-21 00:06 | PC.NURSE ---
Once in room to scan phamcelet pt began whimpering, crying and moaning. As I was giving her the 4mg of PO Dilaudid and getting ready to give her IV Toradol she began asking for IV Dilaudid. I told her we would re-evaluate in one hour after the Toradol and PO Dilaudid have a chance to work. The volume of crying increased until I left the room and then it stopped.
[2017-09-21] MEDS: HYDROMORPHONE 2 MG INJ IV ×5 (01:21→12:45)
[2017-09-21] MEDS: HYDROMORPHONE 2 MG TABLET 4 MG PO ×6 (03:08→23:00)
[2017-09-21] MEDS: NAFCILLIN 2 GM in SODIUM CHLORIDE 0.9% 100 ML 200 ML IV ×5 (04:11→20:51)
--- NOTE | 2017-09-21 04:17 | PC.NURSE ---
Crying loudly and requested IV Dilaudid. The moment the syringe touched the IV tubing before injection of drug, she layed down and crying stopped.
[2017-09-21] MEDS: KETOROLAC 30 MG/ML VIAL IV ×2 (06:00→13:14)
[2017-09-21] MEDS: CARVEDILOL 6.25 MG TABLET PO ×2 (07:36→20:48)
[2017-09-21] MEDS: PRAMIPEXOLE 0.125 MG TABLET PO ×3 (07:36→20:48)
[2017-09-21] MEDS: ENOXAPARIN 40 MG/0.4 ML SYRINGE SUBCUT (07:37)
[2017-09-21] MEDS: CYCLOBENZAPRINE 10 MG TABLET PO ×3 (07:37→20:49)
[2017-09-21] MEDS: SODIUM CHLORIDE 0.9% FLUSH 10 ML IV (08:05)
--- NOTE | 2017-09-21 09:45 | PC.NURSE ---
pt transferred to [facility] for scheduled nghia, medicated with 2mg iv dilaudid just prior to departure- report called to CEDRIC Rodgers IN [facility]
[2017-09-21] MEDS: SODIUM CHLORIDE 0.9% 250 ML 21 ML IV (12:46)
--- NOTE | 2017-09-21 14:20 | CM.DPNOTE ---
Addendum entered by BERNARDINO Eugene 09/21/17 14:31: According to Dr Thomas: pt likely ready for DC Friday 09/22 Original Note: DCP Cont: Pt back from her BARRY at [facility] today; she states nothing was found. Spoke w/pt about DC planning and suggested SNF for ongoing IV abx, pt hoping to go home, but requests [facility] in order to stay close to home. Pt's spouse, sons and grand children all live on [facility]. Requested that admin assist [facility] faryne initial referral to [facility]. Following closely and awaiting CB from [facility] acceptance, bed availability, etc. PASSR completed. Per pt, spouse Geovanna has gotten a new phone # [phone]. BERNARDINO Eugene
--- NOTE | 2017-09-21 14:35 | PM.PN.1 ---
Subjective Date Patient Seen: 09/21/17 Time Patient Seen: 14:35 Interval history: No new complaints Exam Vital Signs (past 8 hours): - 09/21/17 07:32 09/21/17 08:00 09/21/17 08:21 Temperature 99.0 F Pulse Rate 95 H Respiratory Rate 16 Blood Pressure 168/118 H 184/94 H Pulse Oximetry 98 96 09/21/17 13:07 09/21/17 13:14 Temperature 99.1 F 99.1 F Pulse Rate 85 Respiratory Rate 16 Blood Pressure 154/93 H Pulse Oximetry 96 Oxygen Delivery Method Room Air Oxygen Flow Rate 0 Narrative Exam Narrative: She appears to be in no acute distress she [facility] un[facility]able Neck mild decrease in flexibility Lungs clear Heart regular rhythm Lower extremities the left knee still mildly swollen Abdomen soft nontender Neuro exam unremarkable Skin warm and dry Objective Labs Result Diagrams: 09/20/17 05:00 09/20/17 05:00 Assessment & Plan Plan: Assessment/Plan Narrative: 1. Methicillin sensitive staphylococcal aureus septicemia with associated bacterial meningitis and septic arthritis in left knee. Patient has history of childhood penicillin anaphylaxis and is currently being treated with vancomycin. Discussed case with Dr. Cassius Reddy for Infectious Disease opinion who recommended we proceed with penicillin desensitization so that patient can get more effective therapy with nafcillin. Penicillin desensitization has been initiated with intention of switching antibiotic management to nafcillin if all goes well. Also repeat blood cultures have been ordered. Dr. Reddy recommended repeat blood cultures until we get no growth. He recommended to discontinue rifampin. Furthermore, we have arranged for patient to get transported to [facility] on Thursday 09/21 for a BARRY to more definitively rule out endocarditis. If BARRY is normal then she will need 4 weeks of IV nafcillin 2 g every 4 hr for the septic knee joint and meningitis. We have done a penicillin desensitization procedure September 19 and now seems to be tolerating the nafcillin without difficulty Patient has defervesced. She is still having headache and nuchal rigidity. She had arthroscopic debridement of left knee on 09/17/2017. The right knee was also aspirated in the OR noting yellow cloudy fluid which does not appear infected. Blood cultures from 09/15/2017 grew methicillin sensitive staphylococcal aureus in 2 of 2 sites. Left knee synovial fluid aspiration from 09/16/2017 grew methicillin sensitive Staph aureus as well. Lumbar puncture CSF fluid from 09/16/2017 consistent with staphylococcal aureus meningitis with gram-positive cocci note on Gram stain but negative culture. Her transthoracic echo did not show any vegetations. Transesophageal ECHO also did not show any vegetations. The plan will be for 4 weeks of antibiotics Patient's spouse reported she is crushing and injecting her oral Dilaudid tablets which patient denies although this seems most possible etiology of her Staph aureus bacteremia. Outpatient IV antibiotic management with most safely be accomplished through snf facility. 2. Opioid dependency. Resumed her routine oral Dilaudid. She is now off IV pain medication 3. Acute metabolic encephalopathy. She had some delirium which appears resolved. 4. Acute hypertension. She was started on carvedilol 6.25 mg twice daily. 5. Chest pain. She has point tenderness in the left anterior chest in area of her pain. EKG is normal. Possibly she may have septic arthritis in the rib joint verses a muscle strain. There is no obvious redness or swelling in that area. Continue to monitor. 6. DVT prophylaxis. Low-dose Lovenox. Quality VTE Deep Vein Thrombosis/Pulmonary Embolism Present on Admission: No
[2017-09-21] MEDS: HYDROMORPHONE 4 MG TABLET PO ×2 (17:14→21:32)
--- NOTE | 2017-09-21 20:22 | PC.NURSE ---
Pt c/o back pain. Dilaudid not available yet. Offered pt Tylenol, but she refused. Ice packs provided.
[2017-09-21] MEDS: TRAZODONE 100 MG TABLET PO (23:00)
[2017-09-22] VITALS (14 sets, daily range): BP systolic 139–164; BP diastolic 70–93; PULSE 77–100; RESP 16–22; TEMP 36.6–37.6; O2SAT 97–100
[2017-09-22] MEDS: NAFCILLIN 2 GM in SODIUM CHLORIDE 0.9% 100 ML 200 ML IV ×7 (00:34→23:42)
[2017-09-22] MEDS: HYDROMORPHONE 2 MG TABLET 4 MG PO ×8 (03:27→23:41)
[2017-09-22] MEDS: CARVEDILOL 6.25 MG TABLET PO ×2 (07:59→21:14)
[2017-09-22] MEDS: CYCLOBENZAPRINE 10 MG TABLET PO ×3 (08:00→21:14)
[2017-09-22] MEDS: ENOXAPARIN 40 MG/0.4 ML SYRINGE SUBCUT (08:01)
[2017-09-22] MEDS: PRAMIPEXOLE 0.125 MG TABLET PO ×3 (08:01→21:14)
[2017-09-22] MEDS: SODIUM CHLORIDE 0.9% FLUSH 10 ML IV ×3 (08:02→23:42)
--- NOTE | 2017-09-22 09:03 | PM.DS.1 ---
History of Present Illness Chief complaint: Sepsis Discharge Providers Date of admission: 09/16/17 14:54 Primary care physician: Viviana Vaughan Consults: 09/16/17 11:45 Consult to Physician Routine Comment: Consulting Provider: Theodore Thomas Reason for consultation: Admission Has provider been notified: Yes 09/16/17 15:32 Consult to Limehouse Worker Routine Comment: 09/17/17 10:33 Consult to Physician Routine Comment: Consulting Provider: Brenda Del Toro Reason for consultation: septic arthritis left knee Has provider been notified: Yes Discharge provider: Vipul Samson MD Summary Discharge Diagnosis: 1. Methicillin sensitive staphylococcal aureus septicemia with associated bacterial meningitis and left knee septic arthritis 2. Opioid dependency 3. Acute metabolic encephalopathy 4. Acute hypertension Hospital Course: 1. Methicillin sensitive staphylococcal aureus septicemia with associated bacterial meningitis and septic arthritis in left knee. Patient has history of childhood penicillin anaphylaxis and was initially treated with vancomycin. Discussed case with Dr. Cassius Reddy for Infectious Disease opinion who recommended penicillin desensitization so that patient can get more effective therapy with nafcillin. Penicillin desensitization was been initiated with transition to antibiotic management with nafcillin. Also repeat blood cultures were ordered and negative at discharge. Plan 4 weeks of IV nafcillin 2 g every 4 hr for the septic knee joint and meningitis. Patient has defervesced. She was having headache and nuchal rigidity, resolving at discharge. She had arthroscopic debridement of left knee on 09/17/2017. The right knee was also aspirated in the OR noting yellow cloudy fluid which does not appear infected. Blood cultures from 09/15/2017 grew methicillin sensitive staphylococcal aureus in 2 of 2 sites. Left knee synovial fluid aspiration from 09/16/2017 grew methicillin sensitive Staph aureus as well. Lumbar puncture CSF fluid from 09/16/2017 consistent with staphylococcal aureus meningitis with gram-positive cocci note on Gram stain but negative culture. Her transthoracic echo did not show any vegetations. Transesophageal ECHO also did not show any vegetations. The plan will be for 4 weeks of antibiotics through 10/18/2017. Patient's spouse reported she was crushing and injecting her oral Dilaudid tablets which patient denies although this seems most possible etiology of her Staph aureus bacteremia. Outpatient IV antibiotic management with most safely be accomplished through penitentiary facility. 2. Opioid dependency. Resumed her routine oral Dilaudid. 3. Acute metabolic encephalopathy. She had some delirium which appears resolved. 4. Acute hypertension. She was started on carvedilol 6.25 mg twice daily. 5. Chest pain. She had point tenderness in the left anterior chest in area of her pain. EKG is normal. Possibly she may have had septic arthritis in the rib joint verses a muscle strain. There is no obvious redness or swelling in that area. Continue to monitor. 6. DVT prophylaxis. Low-dose Lovenox while hospitalized. Status at Discharge Functional status at discharge: independent ambulation Overall status at discharge: patient is progressing back to baseline Time Spent with Patient Greater than 30 minutes Exam Vital Signs (past 8 hours): - 09/22/17 04:00 09/22/17 07:58 09/22/17 07:59 Temperature 98 F 98.5 F Pulse Rate 81 77 77 Respiratory Rate 16 16 Blood Pressure 139/84 H 157/89 H 157/89 H Pulse Oximetry 97 97 09/22/17 08:08 Temperature Pulse Rate Respiratory Rate Blood Pressure Pulse Oximetry 97 Oxygen Delivery Method Room Air Oxygen Flow Rate 0 Narrative Exam Narrative: Patient sitting up in bed. Appears comfortable. Alert orient x3. HEENT: Unremarkable Neck: Supple Lungs: Clear to auscultation Cardiac: Regular rate and rhythm without appreciable murmur Abdomen: Soft, nontender Extremities: Without edema, left knee bandage clean dry and intact Neurologic: Alert, oriented, no focal deficits Dermatologic: No rash or skin lesions Objective Labs Result Diagrams: 09/20/17 05:00 09/20/17 05:00 Discharge Plan Dis[facility] Plan [facility] Assigned Transportation: [facility] Consult as needed: Dental, Hearing, Mental health, Podiatry and Vision I certify the postop hospital penitentiary care is medically necessary on a continuing basis for any conditions for which he/ she received care during this hospitalization.: Yes The receiving facility has agreed to accept transfer and provide medical treatment.: Yes Discharge Health Status Multidrug resistant organism: No MDRO Precautions: [place] Provider Discharge Instructions Diet: Regular Liquid consistency: Normal/Thin Food texture: Regular Wound Care Report to your healthcare provider any signs of infection, such as:: chills, fever, night sweats, increased pain and unusual drainage Discharge Data Primary Care Provider: Viviana Vaughan Attending Provider: Theodore Thomas Admit Date/Time: 09/16/17 14:54 Quality VTE Deep Vein Thrombosis/Pulmonary Embolism Present on Admission: No
--- NOTE | 2017-09-22 09:10 | P.DS_ITS ---
History of Present Illness Chief complaint: Sepsis Discharge Providers Date of admission: 09/16/17 14:54 Primary care physician: Viviana Vaughan Consults: 09/16/17 11:45 Consult to Physician Routine Comment: Consulting Provider: Theodore Thomas Reason for consultation: Admission Has provider been notified: Yes 09/16/17 15:32 Consult to Shoe Worker Routine Comment: 09/17/17 10:33 Consult to Physician Routine Comment: Consulting Provider: Brenda Del Toro Reason for consultation: septic arthritis left knee Has provider been notified: Yes Discharge provider: Vipul Samson MD Summary Discharge Diagnosis: 1. Methicillin sensitive staphylococcal aureus septicemia with associated bacterial meningitis and left knee septic arthritis 2. Opioid dependency 3. Acute metabolic encephalopathy 4. Acute hypertension Hospital Course: 1. Methicillin sensitive staphylococcal aureus septicemia with associated bacterial meningitis and septic arthritis in left knee. Patient has history of childhood penicillin anaphylaxis and was initially treated with vancomycin. Discussed case with Dr. Cassius Reddy for Infectious Disease opinion who recommended penicillin desensitization so that patient can get more effective therapy with nafcillin. Penicillin desensitization was been initiated with transition to antibiotic management with nafcillin. Also repeat blood cultures were ordered and negative at discharge. Plan 4 weeks of IV nafcillin 2 g every 4 hr for the septic knee joint and meningitis. Patient has defervesced. She was having headache and nuchal rigidity, resolving at discharge. She had arthroscopic debridement of left knee on 2017. The right knee was also aspirated in the OR noting yellow cloudy fluid which does not appear infected. Blood cultures from 09/15/2017 grew methicillin sensitive staphylococcal aureus in 2 of 2 sites. Left knee synovial fluid aspiration from 09/16/2017 grew methicillin sensitive Staph aureus as well. Lumbar puncture CSF fluid from 09/16/2017 consistent with staphylococcal aureus meningitis with gram-positive cocci note on Gram stain but negative culture. Her transthoracic echo did not show any vegetations. Transesophageal ECHO also did not show any vegetations. The plan will be for 4 weeks of antibiotics through 10/18/2017. Patient's spouse reported she was crushing and injecting her oral Dilaudid tablets which patient denies although this seems most possible etiology of her Staph aureus bacteremia. Outpatient IV antibiotic management with most safely be accomplished through assisted facility. 2. Opioid dependency. Resumed her routine oral Dilaudid. 3. Acute metabolic encephalopathy. She had some delirium which appears resolved. 4. Acute hypertension. She was started on carvedilol 6.25 mg twice daily. 5. Chest pain. She had point tenderness in the left anterior chest in area of her pain. EKG is normal. Possibly she may have had septic arthritis in the rib joint verses a muscle strain. There is no obvious redness or swelling in that area. Continue to monitor. 6. DVT prophylaxis. Low-dose Lovenox while hospitalized. Status at Discharge Functional status at discharge: independent ambulation Overall status at discharge: patient is progressing back to baseline Time Spent with Patient Greater than 30 minutes Exam Vital Signs (past 8 hours): - 09/22/17 04:00 09/22/17 07:58 09/22/17 07:59 Temperature 98 F 98.5 F Pulse Rate 81 77 77 Respiratory Rate 16 16 Blood Pressure 139/84 H 157/89 H 157/89 H Pulse Oximetry 97 97 09/22/17 08:08 Temperature Pulse Rate Respiratory Rate Blood Pressure Pulse Oximetry 97 Oxygen Delivery Method Room Air Oxygen Flow Rate 0 Narrative Exam Narrative: Patient sitting up in bed. Appears comfortable. Alert orient x3. HEENT: Unremarkable Neck: Supple Lungs: Clear to auscultation Cardiac: Regular rate and rhythm without appreciable murmur Abdomen: Soft, nontender Extremities: Without edema, left knee bandage clean dry and intact Neurologic: Alert, oriented, no focal deficits Dermatologic: No rash or skin lesions Objective Labs Result Diagrams: 09/20/17 05:00 09/20/17 05:00 Discharge Plan Discharge Plan [facility] provider: Assigned Transportation: [facility] Consult as needed: Dental, Hearing, Mental health, Podiatry and Vision I certify the postop hospital assisted care is medically necessary on a continuing basis for any conditions for which he/ she received care during this hospitalization.: Yes The receiving facility has agreed to accept transfer and provide medical treatment.: Yes Discharge Health Status Multidrug resistant organism: No MDRO Precautions: [place] Provider Discharge Instructions Diet: Regular Liquid consistency: Normal/Thin Food texture: Regular Wound Care Report to your healthcare provider any signs of infection, such as:: chills, fever, night sweats, increased pain and unusual drainage Discharge Data Primary Care Provider: Viviana Vaughan Attending Provider: Theodore Thomas Admit Date/Time: 09/16/17 14:54 Quality VTE Deep Vein Thrombosis/Pulmonary Embolism Present on Admission: No
--- NOTE | 2017-09-22 09:39 | CM.DPNOTE ---
Medicare Message SW met bedside with pt and provided her Medicare Rights and pt acknowledged understanding and states she is agreeable to d/c to SNF today and signed her Medicare Message. BERNARDINO Funk
--- NOTE | 2017-09-22 09:40 | CM.DPC ---
Addendum entered by BERNARDINO Funk 09/22/17 15:41: ADD: Per Chidi, they are declining pt due to the high daily cost of her medication for IV-Abx. NARCISO called [facility] to determine their availability today and they are full but could review tomorrow to determine if they could accept pt. NARCISO met bedside with pt and updated on above and pt requesting to d/c home with home infusion and states she did well with home infusion Q4 about 5 or so years ago and this would be her preference. NARCISO updated MD on above and inquired about home infusion and MD would be agreeable to home infusion if pt feels she can manage this. SW inquired about the discussion he had regarding alleged medication abuse and pt denied and spouse did not give any information to confirm medication misuse. Per MD, IV-Abx cannot be changed to reduce the expense for SNF. NARCISO faxed [facility] pt's facesheet and clinicals to review to determine coverage and if they could open the pt to service. SW updated pt and she is agreeable. Plan: SW to follow closely for return call from [facility] to determine insurance coverage for Home Infusion and if they can accept the pt vs calling [facility] to review for placement for IV-Abx. BERNARDINO Funk Original Note: DCP Discharge to SNF Per MD, pt is medically stable to d/c to SNF for ongoing IV-Abx today. NARCISO called [facility] Janet Engle to inquire about their review of the pt and Kadie states she will do a final review and let SW know if they can accept the pt today. Per RN, best d/c time would be between [id number] based on pt's medication dosing. NARCISO met bedside with pt and explained role and discussed d/c plan and pt still agreeable to [facility] and SW updated that we are still waiting for acceptance from [facility]. Pt states her spouse Eleonora is aware of likely d/c today and just waiting to find out the time frame. Plan: SW to [facility] pt for discharge today for IV-Abx course. BERNARDINO Funk
--- NOTE | 2017-09-22 12:34 | P.PN_ITS ---
Subjective Date Patient Seen: 09/22/17 Time Patient Seen: 12:33 Exam Vital Signs (past 8 hours): - 09/22/17 07:58 09/22/17 07:59 09/22/17 08:08 Temperature 98.5 F Pulse Rate 77 77 Respiratory Rate 16 Blood Pressure 157/89 H 157/89 H Pulse Oximetry 97 97 09/22/17 12:03 Temperature Pulse Rate 83 Respiratory Rate 18 Blood Pressure 164/86 H Pulse Oximetry 98 Oxygen Delivery Method Room Air Oxygen Flow Rate 0 Objective Labs Result Diagrams: 09/20/17 05:00 09/20/17 05:00 Assessment & Plan Post-op Postoperative Procedures Operation Date: 09/17/17 15:00 Actual Procedures Side Surgeon p I&D Septic Left Knee Left Brenda Del Toro MD patient will be discharged to [facility] by the hospitalist. See hospitalist discharge summary. She will continue on nafcillin IV x4 weeks. Plan for follow up visit at [facility] office in accordance 10 -14 days post knee surgery. Time Spent With Patient less than 15 minutes Quality VTE Deep Vein Thrombosis/Pulmonary Embolism Present on Admission: No
--- NOTE | 2017-09-22 12:35 | PM.PNPO.1 ---
Subjective Date Patient Seen: 09/22/17 Time Patient Seen: 12:35 Interval history: Hospital day 7, postop day 5 with history of left septic knee, MSSA meningitis and bacteremia. The patient has been gradually improving on nafcillin. No right knee pain noted. Left knee pain is improved but still has some discomfort with range of motion. She has been followed by hospitalist. Patient is scheduled be discharged today to [facility] for ongoing nafcillin IV treatment for the next 4 weeks. Exam Vital Signs (past 8 hours): - 09/22/17 07:58 09/22/17 07:59 09/22/17 08:08 Temperature 98.5 F Pulse Rate 77 77 Respiratory Rate 16 Blood Pressure 157/89 H 157/89 H Pulse Oximetry 97 97 09/22/17 12:03 Temperature Pulse Rate 83 Respiratory Rate 18 Blood Pressure 164/86 H Pulse Oximetry 98 Oxygen Delivery Method Room Air Oxygen Flow Rate 0 Narrative Exam Narrative: Alert, oriented no acute distress resting in bed. Legs. Right knee appears normal without signs of infection or inflammation or edema. Left knee notes mild swelling without signs of infection or inflammation. Full ROM of the right knee. Some limited range of motion of left knee from swelling. No calf pain or swelling. Pulses symmetrical. Objective Labs Result Diagrams: 09/20/17 05:00 09/20/17 05:00 Assessment & Plan Post-op Postoperative Procedures Operation Date: 09/17/17 15:00 Actual Procedures Side Surgeon p I&D Septic Left Knee Left Brenda Del Toro MD Plan. Patient is being discharged to [facility]. Gradually progress with physical therapy. Patient will need postop visit 10-14 days postop at [facility] to evaluate her knees. Time Spent With Patient less than 15 minutes Quality VTE Deep Vein Thrombosis/Pulmonary Embolism Present on Admission: No
--- NOTE | 2017-09-22 12:39 | P.PN_ITS ---
Subjective Date Patient Seen: 09/22/17 Time Patient Seen: 12:35 Interval history: Hospital day 7, postop day 5 with history of left septic knee , MSSA meningitis and bacteremia. The patient has been gradually improving on nafcillin. No right knee pain noted. Left knee pain is improved but still has some discomfort with range of motion. She has been followed by hospitalist. Patient is scheduled be discharged today to [facility] for ongoing nafcillin IV treatment for the next 4 weeks. Exam Vital Signs (past 8 hours): - 09/22/17 07:58 09/22/17 07:59 09/22/17 08:08 Temperature 98.5 F Pulse Rate 77 77 Respiratory Rate 16 Blood Pressure 157/89 H 157/89 H Pulse Oximetry 97 97 09/22/17 12:03 Temperature Pulse Rate 83 Respiratory Rate 18 Blood Pressure 164/86 H Pulse Oximetry 98 Oxygen Delivery Method Room Air Oxygen Flow Rate 0 Narrative Exam Narrative: Alert, oriented no acute distress resting in bed. Legs. Right knee appears normal without signs of infection or inflammation or edema. Left knee notes mild swelling without signs of infection or inflammation. Full ROM of the right knee. Some limited range of motion of left knee from swelling. No calf pain or swelling. Pulses symmetrical. Objective Labs Result Diagrams: 09/20/17 05:00 09/20/17 05:00 Assessment & Plan Post-op Postoperative Procedures Operation Date: 09/17/17 15:00 Actual Procedures Side Surgeon p I&D Septic Left Knee Left Brenda Del Toro MD Plan. Patient is being discharged to [facility]. Gradually progress with physical therapy. Patient will need postop visit 10-14 days postop at [facility] to evaluate her knees. Time Spent With Patient less than 15 minutes Quality VTE Deep Vein Thrombosis/Pulmonary Embolism Present on Admission: No
[2017-09-22] MEDS: SODIUM CHLORIDE 0.9% 250 ML 21 ML IV ×2 (17:14→23:42)
[2017-09-22] MEDS: TRAZODONE 100 MG TABLET PO (21:14)
[2017-09-23] MEDS: HYDROMORPHONE 2 MG TABLET 4 MG PO ×4 (01:16→07:45)
[2017-09-23] MEDS: NAFCILLIN 2 GM in SODIUM CHLORIDE 0.9% 100 ML 200 ML IV ×2 (03:29→07:44)
[2017-09-23 04:21] VITALS: BP 160/79; PULSE 90; RESP 16; TEMP 37.2; O2SAT 96
[2017-09-23 07:00] VITALS: O2SAT 96
[2017-09-23 08:30] VITALS: BP 159/83; PULSE 81; RESP 18; TEMP 37.3; O2SAT 99
--- NOTE | 2017-09-23 08:36 | PM.PN.1 ---
Subjective Date Patient Seen: 09/23/17 Time Patient Seen: 08:15 Interval history: Resting comfortably. Discharge delayed due to receiving facilities refusal to accept her due to antibiotic choice. Currently looking into outpatient infusion solutions. Exam Vital Signs (past 8 hours): - 09/23/17 04:21 09/23/17 08:30 Temperature 98.9 F 99.2 F Pulse Rate 90 81 Respiratory Rate 16 18 Blood Pressure 160/79 H 159/83 H Pulse Oximetry 96 99 Oxygen Delivery Method Room Air Oxygen Flow Rate 0 Narrative Exam Narrative: Appears comfortable Objective Labs Result Diagrams: 09/20/17 05:00 09/20/17 05:00 Assessment & Plan Plan: Assessment/Plan Narrative: 1. Methicillin sensitive staphylococcal aureus septicemia with associated bacterial meningitis and left knee septic arthritis 2. Opioid dependency 3. Acute metabolic encephalopathy 4. Acute hypertension Quality VTE Deep Vein Thrombosis/Pulmonary Embolism Present on Admission: No
--- NOTE | 2017-09-23 09:08 | CM.DPNOTE ---
Addendum entered by BERNARDINO De Leon 09/23/17 10:56: Called From [facility]/ they are declining due to the high daily cost of patient's IV-Abx. Plan: Patient to discharge home with [facility]. [facility] to meet with patient at at 1130. Patient is denying any mismanagement of her prescription Dilaudid and states she is being followed by a pain management doctor in [place]. Original Note: Patient to discharge today home with [facility]. Called [facility]: They would like to come to at 1130 to teach and administer dosage. Met with patient: patient agreeable to discharge and plan for [facility]. Patient states she will have her attend meeting at 1130.
[2017-09-23] MEDS: PRAMIPEXOLE 0.125 MG TABLET PO (09:32)
[2017-09-23] MEDS: CYCLOBENZAPRINE 10 MG TABLET PO (09:32)
[2017-09-23] MEDS: ENOXAPARIN 40 MG/0.4 ML SYRINGE SUBCUT (09:32)
[2017-09-23] MEDS: SODIUM CHLORIDE 0.9% FLUSH 10 ML IV (09:32)
[2017-09-23] MEDS: CARVEDILOL 6.25 MG TABLET PO (09:32)
[2017-09-23] MEDS: HYDROMORPHONE 4 MG TABLET PO (10:42)
--- NOTE | 2017-09-23 11:43 | PC.NURSE ---
1130 Infusion Nurse at bedside, instructing Pt & family on home IV anti Bx treatments/equipment use. Pt to dc to home today. PICC line to the LUE to remain in place for home IV medication TX .
--- NOTE | 2017-09-23 13:04 | PC.NURSE ---
1305 Pt dcd to home with family. Escorted out via w/c.
== END 2017-09-23 13:09 | disposition home or self-care (01) | DRG 987 ==
LOC: ED 12:24 → ICU 14:55 → AC 09-19 13:57 → ICU 09-19 16:12 → AC 09-22 14:03
PROVIDERS: Internal Medicine; Orthopaedic Surgery Foot and Ankle Surgery; Admitting Provider Internal Medicine; Emergency Provider Emergency Medicine; PCP Nurse Practitioner; Visit Provider Internal Medicine
DX: G00.3 Staphylococcal meningitis (principal); G93.41 Metabolic encephalopathy; F11.20 Opioid dependence, uncomplicated; M00.9 Pyogenic arthritis, unspecified; M25.461 Effusion, right knee; B95.61 Methicillin susceptible Staphylococcus aureus infection as the cause of diseases classified elsewhere; Z87.891 Personal history of nicotine dependence; R03.0 Elevated blood-pressure reading, without diagnosis of hypertension; G89.29 Other chronic pain; M79.7 Fibromyalgia; F32.9 Major depressive disorder, single episode, unspecified; F41.9 Anxiety disorder, unspecified; K21.9 Gastro-esophageal reflux disease without esophagitis; G25.81 Restless legs syndrome; S29.011A Strain of muscle and tendon of front wall of thorax, initial encounter
CPT/HCPCS: 20610; 36415; 36556; 36569; 36591; 36592; 62270; 71045; 71046; 73562; 76000; 80048; 80053; 80202; 81001; 81003; 81015; 82550; 82553; 82945; 83605; 83690; 84145; 84157; 84484; 84550; 85025; 85610; 85651; 85730; 86140; 87040; 87070; 87075; 87077; 87086; 87147; 87150; 87186; 87205; 87797; 87798; 89051; 89060; 93005; 93010; 93306; 94762; 96361; 96365; 96372; 96375; 99283; 99284; 99285; J0360; J0696; J1100; J1170; J1200; J1630; J1642; J1650; J1885; J2060; J2270; J2405; J2704; J2765; J3010; J3370

== ENCOUNTER → 2017-09-17 12:00 | Outpatient (CLI) | payer MEDICARE, MEDICAID, SELFPAY ==
[2017-09-16 15:01] VITALS: BMI 30.2
[2017-09-17 19:45] LABS: Body Fluid Red Blood Cells 3666 /uL; Body Fluid Tot Nucleated Cells 47664 /uL
[2017-09-17 19:52] LABS: Body Fluid Appearance CLOUDY; Body Fluid Clotted? NO CLOTS PRESENT; Body Fluid Color YELLOW
[2017-09-17 21:24] LABS: Eosinophils Body Fluid 0 %; Mononuclear WBC Body Fluid 11 %; Other Cells Body Fluid 0 %; Polynuclear WBC Body Fluid 89 %
== END ==
PROVIDERS: PCP Nurse Practitioner; Visit Provider Orthopaedic Surgery Foot and Ankle Surgery
DX: D72.829 Elevated white blood cell count, unspecified (principal)
CPT/HCPCS: 89051

== ENCOUNTER 2017-10-03 11:41 | Emergency (ER) | payer MEDICARE, MEDICAID, SELFPAY ==
[2017-09-16 15:01] VITALS: BMI 30.2
[2017-10-03 12:03] VITALS: BP 130/80; PULSE 80; RESP 20; TEMP 36.6; O2SAT 99
--- NOTE | 2017-10-03 12:09 | PC.NURSE ---
PICC in situ
--- NOTE | 2017-10-03 12:22 | ED.LOWEXIN ---
HPI - Extremity Injury (Lower) <GISELA Meyer - Last Filed: 10/03/17 22:27> General Chief Complaint: Extremity Injury, Lower Stated Complaint: KNEES SWOLLEN,PIC LINE NURSE WANTS XRAY ON PIC RIZ[place]NA Time Seen by Provider: 10/03/17 12:22 History of Present Illness HPI Narrative: 52-year-old female here for complaint of left knee swelling and complications with her PICC line. She is currently receiving IV antibiotics through the PICC line due to the left knee having septic arthritis. She was admitted for bacterial meningitis septicemia and left knee septic arthritis a couple of weeks ago. Orthopedics flushed out her knee in the operating room while she was admitted and her symptoms improved. She is currently undergoing 4 weeks worth of antibiotics through the PICC line. She was sent over here via the IV clinic due to pump having high pressure on the PICC line and difficulty in flushing it. Patient denies having any fevers or chills. She denies any drainage from the left knee. She reports that there increased swelling to the left knee over the last 3 days. She denies any trauma to the left knee. Related Data Home Medications Medication Instructions Recorded Confirmed trazodone 100 mg PO BEDTIME 09/21/17 09/21/17 diclofenac sodium 10/03/17 10/03/17 diclofenac sodium 1 applic TOPICAL DIRECTED 10/03/17 10/03/17 pramipexole 0.25 mg PO BID 10/03/17 10/03/17 ropinirole 10/03/17 10/03/17 trazodone 10/03/17 10/03/17 Previous Rx's Medication Instructions Recorded acetaminophen 650 mg PO Q6HR PRN #30 tab 09/22/17 bisacodyl 10 mg PO BID PRN #30 tab 09/22/17 carvedilol [Coreg] 6.25 mg PO BID #60 tab 09/22/17 cyclobenzaprine 10 mg PO TID #30 tab 09/22/17 hydromorphone 4 mg PO Q4-6H #30 tab 09/22/17 hydromorphone 4 mg PO Q4H PRN 30 Days #30 tab 09/22/17 nafcillin 2 gram IV Q4H #10 each 09/22/17 Allergies Allergy/AdvReac Type Severity Reaction Status Date / Time morphine Allergy Severe Anaphylaxis Verified 09/21/17 20:26 Sulfa (Sulfonamide Allergy Severe Anaphylaxis Verified 09/15/17 11:36 Antibiotics) bee venom protein (honey bee) Allergy Intermediate Hives Verified 09/15/17 11:36 aspirin AdvReac Intermediate Abdominal Verified 09/15/17 11:36 Pain methadone AdvReac Intermediate Hallucinati Verified 09/15/17 11:36 ng Review of Systems <GISELA Meyer - Last Filed: 10/03/17 22:27> Review of Systems Swelling and discomfort to the left Constitutional Denies chills, Denies fever(s), Denies lethargy and Denies weakness Eyes Denies change in vision, Denies eye discharge, Denies irritation and Denies loss of vision ENT Ears, Nose, Mouth, and Throat: Denies change in voice, Denies neck pain and Denies sore throat Cardiovascular Denies chest pain, Denies irregular heart rhythm, Denies lightheadedness, Denies palpitations, Denies dyspnea, Denies dyspnea on exertion and Denies orthopnea Respiratory Denies cough, Denies dyspnea, Denies dyspnea on exertion and Denies wheezing Gastrointestinal Gastrointestinal: Denies abdominal pain, Denies change in bowel habits, Denies diarrhea, Denies nausea and Denies vomiting Genitourinary Denies hematuria, Denies flank pain, Denies urinary incontinence and Denies urinary urgency Musculoskeletal Denies neck pain Integumentary/Breasts Denies pruritus, Denies erythema, Denies rash and Denies wounds Neurologic Denies confusion, Denies loss of vision and Denies weakness Psychiatric Denies anxiety, Denies confusion, Denies depression, Denies homicidal ideation and Denies suicidal ideation Endocrine Denies palpitations Hematologic/Lymphatic Denies easy bruising Allergic/Immunologic Denies wheezing Exam <GISELA Meyer - Last Filed: 10/03/17 22:27> Initial Vital Signs Initial Vital Signs: Vital Signs Temperature 98 F 10/03/17 12:03 Pulse Rate 80 10/03/17 12:03 Respiratory Rate 20 10/03/17 12:03 Blood Pressure 130/80 H 10/03/17 12:03 Pulse Oximetry 99 10/03/17 12:03 Const General: cooperative and well developed Nutritional Appearance: well nourished Orientation: alert, awake, oriented x3 and not confused HENMT Mouth: moist mucous membranes Eyes Conjunctivae: conjunctivae normal Sclera: sclerae normal Pupils: PERRL EOM: EOM intact bilaterally Resp Effort & Inspection: normal respiratory effort, able to speak in complete sentences, no respiratory distress and no use of accessory muscles Auscultation: clear to auscultation bilaterally, no rales, no rhonchi and no wheezes Cardio Rate: regular rate Rhythm: regular rhythm Heart Sounds: no click, no gallops, no murmurs and no rubs Pulses: normal peripheral pulses GI Inspection: non-distended Palpation: soft, no hepatosplenomegaly, No guarding, No pulsatile mass and No tender Auscultation: normal bowel sounds Skin General: no rashes or lesions noted, No jaundice and No petechiae Neuro General: alert, oriented x3, gait normal and no focal motor deficits Speech: speech normal <Shirley Ford DO - Last Filed: 10/09/17 07:21> Initial Vital Signs Initial Vital Signs: Vital Signs Temperature 98 F 10/03/17 12:03 Pulse Rate 80 10/03/17 12:03 Respiratory Rate 20 10/03/17 12:03 Blood Pressure 130/80 H 10/03/17 12:03 Pulse Oximetry 99 10/03/17 12:03 Course <GISELA Meyer - Last Filed: 10/03/17 22:27> Orders Ordered: ED Orders 10/03/17 13:55 XR chest 1V Stat 10/03/17 15:14 Chest [XR chest 1V] Stat 10/03/17 15:42 C-Reactive Protein Quant Stat Complete Blood Count AUTO DIFF Stat Comprehensive Metabolic Panel Stat Erythrocyte Sedimentation Rate Stat Procalcitonin Stat Vital Signs - 8 hr 10/03/17 16:02 10/03/17 17:06 Pulse Rate 73 82 Respiratory Rate 16 20 Blood Pressure 150/83 H Blood Pressure [Right Arm] 123/74 H Pulse Oximetry 100 100 <DO Ginette Light Last Filed: 10/09/17 07:21> Orders Ordered: ED Orders 10/03/17 13:55 XR chest 1V Stat 10/03/17 15:14 Chest [XR chest 1V] Stat 10/03/17 15:42 C-Reactive Protein Quant Stat Complete Blood Count AUTO DIFF Stat Comprehensive Metabolic Panel Stat Erythrocyte Sedimentation Rate Stat Procalcitonin Stat Vital Signs - 8 hr 10/03/17 16:02 10/03/17 17:06 Pulse Rate 73 82 Respiratory Rate 16 20 Blood Pressure 150/83 H Blood Pressure [Right Arm] 123/74 H Pulse Oximetry 100 100 MDM - Extremity Injury (Lower) <GISELA Meyer - Last Filed: 10/03/17 22:27> Lab Data Result diagrams: 10/03/17 15:42 10/03/17 15:42 Lab Results 10/03/17 10/03/17 10/03/17 Range/Units 15:42 15:42 15:42 WBC 4.4 L (4.5-11.0) X10^3/uL RBC 2.68 L (4.0-5.2) X10^6/uL Hgb 7.2 L (12.0-16.0) g/dL Hct 21.8 L (36-46) % MCV 81.5 (80-100) fL MCH 27.0 (26-34) PG MCHC 33.1 (30-36) % RDW 15.9 H (11.6-14.8) % Plt Count 406 H (150-400) X10^3/uL Neut % (Auto) 59.8 (50-75) % Lymph % (Auto) 24.8 L (25-40) % [place] % (Auto) 11.1 (3-14) % Eos % (Auto) 3.0 (2-4) % Baso % (Auto) 1.3 (0-2) % Neut # (Auto) 2700 L (2332-3526) /uL ESR > 140 H (0-20) MM/HR Sodium 140 (137-145) mmol/L Potassium 3.4 (3.4-5.1) mmol/L Chloride 97 L (98-107) mmol/L Carbon Dioxide 32 (22-32) mmol/L BUN 19 H (7-17) mg/dL Creatinine 1.10 H (0.52-1.04) mg/dL Estimated GFR 52.0 L (>60) mL/min BUN/Creatinine Ratio 17.3 (6-22) Glucose 124 H (70-100) mg/dL Calcium 9.1 (8.4-10.2) mg/dL Total Bilirubin 1.0 (0.2-1.3) mg/dL AST 20 (14-36) IU/L ALT 12 (9-52) IU/L Alkaline Phosphatase 281 H (38-126) U/L C-Reactive Protein 8.6 H (<1.0) mg/dL Total Protein 8.3 H (6.3-8.2) g/dL Albumin 3.4 L (3.5-5.0) g/dL Globulin 4.9 H (1.7-4.1) g/dL Albumin/Globulin Ratio 0.7 L (1.0-2.8) Procalcitonin 0.15 (<0.5) ng/mL MDM Narrative Medical decision making narrative: Chest x-ray was obtained and shows placement of the PICC line is in the vena cava. PICC line nurse came down to the emergency room to assess the PICC line and noticed on x-ray of the arm that there was a small loop inside the PICC line. He was able to pull some of the PICC line out and straighten out the loop. After this the PICC line was able to flush easier. Although he was not able to draw labs off of it. Laboratory results show no elevated white count. H&H was decreased with hemoglobin of 7 and hemoglobin hematocrit of 21. Patient decided that she wanted to leave and not stay for transfusion. Patient stated she understood the risks. Discussed case with orthopedics Dr. Gomez who recommended following up with the patient here in the next day or 2. Patient informed to follow up with primary care provider tomorrow or the next day for re-evaluation. She is also encouraged to follow up with Orthopedics tomorrow or the next day for re-evaluation of the knee. Patient stated that she would patient left ama <Shirley Ford, DO - Last Filed: 10/09/17 07:21> Lab Data Lab Results 10/03/17 10/03/17 10/03/17 Range/Units 15:42 15:42 15:42 WBC 4.4 L (4.5-11.0) X10^3/uL RBC 2.68 L (4.0-5.2) X10^6/uL Hgb 7.2 L (12.0-16.0) g/dL Hct 21.8 L (36-46) % MCV 81.5 (80-100) fL MCH 27.0 (26-34) PG MCHC 33.1 (30-36) % RDW 15.9 H (11.6-14.8) % Plt Count 406 H (150-400) X10^3/uL Neut % (Auto) 59.8 (50-75) % Lymph % (Auto) 24.8 L (25-40) % [place] % (Auto) 11.1 (3-14) % Eos % (Auto) 3.0 (2-4) % Baso % (Auto) 1.3 (0-2) % Neut # (Auto) 2700 L (1445-0690) /uL ESR > 140 H (0-20) MM/HR Sodium 140 (137-145) mmol/L Potassium 3.4 (3.4-5.1) mmol/L Chloride 97 L (98-107) mmol/L Carbon Dioxide 32 (22-32) mmol/L BUN 19 H (7-17) mg/dL Creatinine 1.10 H (0.52-1.04) mg/dL Estimated GFR 52.0 L (>60) mL/min BUN/Creatinine Ratio 17.3 (6-22) Glucose 124 H (70-100) mg/dL Calcium 9.1 (8.4-10.2) mg/dL Total Bilirubin 1.0 (0.2-1.3) mg/dL AST 20 (14-36) IU/L ALT 12 (9-52) IU/L Alkaline Phosphatase 281 H (38-126) U/L C-Reactive Protein 8.6 H (<1.0) mg/dL Total Protein 8.3 H (6.3-8.2) g/dL Albumin 3.4 L (3.5-5.0) g/dL Globulin 4.9 H (1.7-4.1) g/dL Albumin/Globulin Ratio 0.7 L (1.0-2.8) Procalcitonin 0.15 (<0.5) ng/mL Discharge Plan Departure Patient Disposition: Left Against Medical Advice Clinical Impression: Anemia, Knee pain, acute, Occlusion of peripherally inserted central catheter (PICC) line Discharge Date/Time: 10/03/17 17:09 Interventions: ED Discharge Assessment Last Done: 10/03/17 17:06 Instructions: Anemia Activity Restrictions/Additional Instructions: PICC line was adjusted to allow it to flow better here in the emergency room. Laboratory results show a decreased hematocrit and hemoglobin. Recommend following up with primary care provider in the next couple days for re-evaluation to ensure levels are stable and that you do not need transfusion. Follow up with Orthopedics for re-evaluation of the knee. Call their number at number provided to schedule a follow-up appointment here tomorrow or the next day. For any worsening symptoms return to the emergency room. Prescriptions: No Action trazodone 50 mg tablet RF: 0 ropinirole 3 mg tablet RF: 0 pramipexole 0.25 mg tablet 0.25 mg PO BID RF: 0 diclofenac sodium 75 mg tablet,delayed release (DR/EC) RF: 0 diclofenac sodium 1 % gel 1 applic Topical DIRECTED RF: 0 trazodone 100 mg 100 mg PO BEDTIME RF: 0 nafcillin 2 gram recon soln 2 gram IV Q4H Qty: 10 RF: 0 carvedilol [Coreg] 6.25 mg Tablet 6.25 mg PO BID Qty: 60 RF: 0 hydromorphone 2 mg Tablet 4 mg PO Q4H PRN (Reason: pain) 30 Days Qty: 30 RF: 0 cyclobenzaprine 10 mg Tablet 10 mg PO TID Qty: 30 RF: 0 acetaminophen 325 mg Tablet 650 mg PO Q6HR PRN (Reason: As Needed For Fever/Mild Pain) Qty: 30 RF: 0 bisacodyl 5 mg Tablet,Delayed Release (Dr/Ec) 10 mg PO BID PRN (Reason: Constipation) Qty: 30 RF: 0 hydromorphone 4 mg tablet 4 mg PO Q4-6H Qty: 30 RF: 0 Referrals: Brenda Del Toro MD [Physician] - Viviana Vaughan [Primary Care Provider] - Stand Alone Forms: Against Medical Advice <Shirley Ford DO - Last Filed: 10/09/17 07:21> Cosign ED Attending Karthikature Attestation: I was immediately available in the department for consultation. Documentation has been reviewed. I agree with assessment and plan.
--- NOTE | 2017-10-03 13:48 | PC.NURSE ---
pt c/o neck pain , and left knee pain. Pt states she was sent here from infusion clinic for PICC line not flushing, and to check placement. Unable to draw blood from PICC line. Provider aware.
--- NOTE | 2017-10-03 13:55 | DI.RAD.S_ITS ---
PROCEDURE: XR CHEST 1V INDICATIONS: Concern about PICC line placement TECHNIQUE: One view of the chest was acquired. COMPARISON: [facility], CR, XR CHEST 1V, 09/18/2017, 13:53. [facility], CR, XR CHEST 1V, 09/16/2017, 11:42. [facility], CR, XR CHEST 2V, 09/16/2017, 9:12. FINDINGS: Surgical changes and devices: Prior spine fusion procedures, PICC line crosses the midline from left-sided approach and extends into the distal SVC. Lungs and pleura: No pleural effusions or pneumothorax. Lungs are clear. Mediastinum: Mediastinal contours appear normal. Heart size is normal. Bones and chest wall: No suspicious bony lesions. Overlying soft tissues appear unremarkable. IMPRESSION: PICC line tip extends into the distal SVC. This traverses from left-sided approach. Dictated by: Dorian Lee M.D. on 10/03/2017 at 14:16 Approved by: Dorian Lee M.D. on 10/03/2017 at 14:17
--- NOTE | 2017-10-03 15:14 | DI.RAD.S_ITS ---
PROCEDURE: XR CHEST 1V INDICATIONS: PICC line placement verification TECHNIQUE: One view of the chest was acquired. COMPARISON: [facility], CR, XR CHEST 1V, 10/03/2017, 14:02. [facility], CR, XR CHEST 1V, 09/18/2017, 13:53. [facility], CR, XR CHEST 1V, 09/16/2017, 11:42. FINDINGS: Surgical changes and devices: PICC line in normal position from left-sided approach. Low cervical fusion plate partially visualized. Lungs and pleura: No pleural effusions or pneumothorax. Lungs are clear. Mediastinum: Mediastinal contours appear normal. Heart size is normal. Bones and chest wall: No suspicious bony lesions. Overlying soft tissues appear unremarkable. IMPRESSION: Normal position from left-sided approach crossing the midline and extending into the distal SVC. Dictated by: Dorian Lee M.D. on 10/03/2017 at 15:41 Approved by: Dorian Lee M.D. on 10/03/2017 at 15:41
--- NOTE | 2017-10-03 15:29 | PC.NURSE ---
called to evaluate lt arm picc line due to infusion resistance. Flushed line and noted some resistance. Flushed line with Heparin 100U/mil and locked for 30min. Reviewed pt chest film and noted there be a loop in the upper lt arm of the picc line. Line pulled back to straighten picc line out and flushed line again with less resistance noted. Dressing reapplied to site. Uche medina.
[2017-10-03 15:49] LABS: Add Manual Diff / Slide Review NO; Basophils Percent Auto 1.3 % (0-2); Hematocrit 21.8 % (36-46); Hemoglobin 7.2 g/dL (12.0-16.0); Lymphocytes Percent Auto 24.8 % (25-40); Mean Corpuscular HGB Conc 33.1 % (30-36); Mean Corpuscular Volume 81.5 fL (80-100); Monocytes Percent Auto 11.1 % (3-14); Neutrophils Absolute Auto 2700 /uL (3000-5900); Neutrophils Percent Auto 59.8 % (50-75); Platelet Count 406 X10^3/uL (150-400); Red Blood Cell Count 2.68 X10^6/uL (4.0-5.2); Red Cell Distribution Width 15.9 % (11.6-14.8); White Blood Cell Count 4.4 X10^3/uL (4.5-11.0)
[2017-10-03 16:02] VITALS: BP 123/74; PULSE 73; RESP 16; O2SAT 100
[2017-10-03 16:08] LABS: Alanine Aminotransferase 12 IU/L (9-52); Albumin 3.4 g/dL (3.5-5.0); Albumin Globulin Ratio 0.7 (1.0-2.8); Alkaline Phosphatase 281 U/L (38-126); Aspartate Aminotransferase 20 IU/L (14-36); BUN Creatinine Ratio 17.3 (6-22); Blood Urea Nitrogen 19 mg/dL (7-17); C-Reactive Protein Quant 8.6 mg/dL (<1.0); Calcium 9.1 mg/dL (8.4-10.2); Carbon Dioxide 32 mmol/L (22-32); Chloride 97 mmol/L (98-107); Globulin 4.9 g/dL (1.7-4.1); Glucose 124 mg/dL (70-100); HEMOLYSIS < 15 (0-50); Potassium 3.4 mmol/L (3.4-5.1); Sodium 140 mmol/L (137-145); Total Protein 8.3 g/dL (6.3-8.2)
[2017-10-03 16:17] LABS: Erythrocyte Sedimentation Rate > 140 MM/HR (0-20)
[2017-10-03 16:22] LABS: Procalcitonin 0.15 ng/mL (<0.5)
--- NOTE | 2017-10-03 17:03 | PC.NURSE ---
provider at bedside explaining to pt she needs a blood transfusion due to low H&H. Pt refusing TX due to I am late on my medications, I am in pain, and I just want to go home. Pt refusing treatment. Pt requesting to sign out AMA. AMA paperwork signed by pt and placed on chart. Provider aware no new orders at this time. Pt verbalizes risks of leaving ( /dying/terminal illness).
[2017-10-03 17:06] VITALS: BP 150/83; PULSE 82; RESP 20; O2SAT 100
== END 2017-10-03 17:09 | disposition left against medical advice (07) ==
PROVIDERS: Emergency Provider Nurse Practitioner Family; PCP Nurse Practitioner
DX: T82.898A Other specified complication of vascular prosthetic devices, implants and grafts, initial encounter (principal); M25.569 Pain in unspecified knee; D64.9 Anemia, unspecified
CPT/HCPCS: 71045; 80053; 84145; 85025; 85651; 86140; 99282; 99284

== ENCOUNTER → 2019-09-16 09:26 | Outpatient (CLI) | payer MEDICARE, MEDICAID, SELFPAY ==
[2017-09-16 15:01] VITALS: BMI 30.2
[2019-09-16 11:52] LABS: COVID19 -Nasal RAPID Negative (Negative)
== END ==
PROVIDERS: PCP Nurse Practitioner; Visit Provider Nurse Practitioner
DX: Z01.812 Encounter for preprocedural laboratory examination (principal)
CPT/HCPCS: 87635

== ENCOUNTER → 2019-09-16 09:44 | Outpatient (CLI) | payer MEDICARE, MEDICAID, SELFPAY ==
[2017-09-16 15:01] VITALS: BMI 30.2
[2019-09-16 11:19] LABS: Add Manual Diff / Slide Review NO; Basophils Absolute Auto 0 /uL (0-100); Basophils Percent Auto 0.4 % (0-2); Eosinophils Absolute Auto 0 /uL (0-450); Eosinophils Percent Auto 0.1 % (2-4); Hematocrit 33.5 % (36-46); Hemoglobin 11.3 g/dL (12.0-16.0); Lymphocytes Absolute Auto 1000 /uL (1100-4500); Lymphocytes Percent Auto 8.9 % (25-40); Mean Corpuscular HGB Conc 33.8 % (30-36); Mean Corpuscular Hemoglobin 27.4 PG (26-34); Monocytes Absolute Auto 900 /uL (0-900); Monocytes Percent Auto 8.1 % (3-14); Neutrophils Absolute Auto 9400 /uL (1500-7000); Neutrophils Percent Auto 82.5 % (50-75); Platelet Count 147 X10^3/uL (150-400); Red Blood Cell Count 4.14 X10^6/uL (4.0-5.2); Red Cell Distribution Width 15.7 % (11.6-14.8); White Blood Cell Count 11.4 X10^3/uL (4.5-11.0)
[2019-09-16 12:01] LABS: BUN Creatinine Ratio 11.2 (6-22); Blood Urea Nitrogen 10 mg/dL (7-17); Calcium 9.4 mg/dL (8.4-10.2); Carbon Dioxide 30 mmol/L (22-32); Chloride 104 mmol/L (98-107); Estimated Glomerular Filt Rate > 60.0 mL/min (>60); Glucose 92 mg/dL (70-100); HEMOLYSIS < 15 (0-50); Potassium 4.3 mmol/L (3.4-5.1); Sodium 141 mmol/L (137-145)
== END ==
PROVIDERS: Referring Provider Orthopaedic Surgery; Visit Provider Orthopaedic Surgery
DX: Z01.818 Encounter for other preprocedural examination (principal); Z01.812 Encounter for preprocedural laboratory examination
CPT/HCPCS: 36415; 80048; 85025; 87635; 93005

== ENCOUNTER 2019-09-19 14:14 | Inpatient (IN) | payer MEDICARE, MEDICAID, SELFPAY ==
[2017-09-16 15:01] VITALS: BMI 30.2
[2019-09-17 07:53] VITALS: BMI 31.4
[2019-09-18] VITALS (22 sets, daily range): BP systolic 120–196; BP diastolic 73–131; PULSE 72–97; RESP 12–23; TEMP 35.8–36.6; O2SAT 94–98; BMI 30.6
--- NOTE | 2019-09-18 07:42 | DI.RAD.S_ITS ---
PROCEDURE: XR KNEE LT 1TO2V INDICATIONS: post op total knee TECHNIQUE: 2 view(s) of the knee acquired. COMPARISON: [facility], ROMEL, XR KNEE LT 3V, 09/15/2017, 12:50. FINDINGS: Bones: Patient is status post knee joint arthroplasty. Hardware components are in expected positions. Visualized bony structures are intact. Soft tissues: Overlying postoperative changes are noted. IMPRESSION: Post surgical and arthroplasty changes as above. Dictated by: Ashley Mendoza M.D. on 09/18/2019 at 16:00 Approved by: Ashley Mendoza M.D. on 09/18/2019 at 16:01
[2019-09-18] MEDS: ACETAMINOPHEN 325 MG TABLET 975 MG PO (12:33)
[2019-09-18] MEDS: PREGABALIN 75 MG CAPSULE PO (12:34)
[2019-09-18] MEDS: MELOXICAM 7.5 MG TABLET 15 MG PO (12:34)
[2019-09-18] MEDS: LACTATED RINGERS 1,000 ML 42 ML IV ×2 (12:34→14:45)
--- NOTE | 2019-09-18 12:42 | PM.PREOP ---
Pre-operative Note COVID-19 COVID-19 status: Negative Result date/Date tested (Pos, Neg/Pending): 09/16/19 Interval Note History & Physical reviewed/Exam performed by Physician: Yes Changes to H&P: No
[2019-09-18] MEDS: HYDROMORPHONE 2 MG TABLET 4 MG PO (12:59)
[2019-09-18] MEDS: CEFAZOLIN 2 GM/100 ML FROZ.PIGGY IV ×2 (13:23→21:31)
--- NOTE | 2019-09-18 14:22 | SUR.OPER ---
Supine on padded OR bed. Pillow under head, arms secured on padded armboards <90 degree abduction. Safety belt across torso. Non-operative leg secured with tape over blanket over lower leg. Operative leg secured in [place] positioner.
[2019-09-18] MEDS: BUPIVACAINE 0.25% W/ EPI 30 ML VIAL 60 ML INJ (14:24)
[2019-09-18] MEDS: TRANEXAMIC ACID 1,000 MG VIAL 1000 MG INJ ×2 (14:26→15:02)
[2019-09-18] MEDS: BUPIVACAINE LIPOSOME 266 MG/20 ML VIAL INJ (14:26)
--- NOTE | 2019-09-18 15:45 | PM.OP.1 ---
Operative Date/Time/Diagnoses Date of procedure: 09/18/19 Time of procedure: 15:45 Pre-op diagnosis: Left knee osteoarthritis Post-op diagnosis: same Procedure & Clinicians Procedure: Left total knee replacement Same procedure as scheduled: Yes Indications: The patient has had progressively worsening left knee pain with radiographic changes consistent with arthritis. Non-operative management has failed and the patient has requested total knee replacement. The risks, benefits and alternatives to surgery were discussed with the patient prior to proceeding. Risks discussed included, but were not limited to, failure to relieve pain, stiffness, infection, nerve damage, deep venous thrombosis, pulmonary embolism, stroke, coma, heart attack, permanent paralysis and , as well as the potential need for eventual revision of the prosthetic. Surgeon: Vasyl Cesar Early Childhood Coordinator: Brenda Del Toro Click Yes if Unassisted: Yes Anesthesia Type: General, Spinal and Local Operative Notes Findings: Severe tricompartmental osteoarthritis without evidence for active infection. Extensive scar tissue in the soft tissues. Closure Type: primary Specimen(s): other (Tissue was sent for culture and polymerase chain reaction) Prosthetic devices, grafts, tissues, transplants, or devices: Implants used in this procedure were manufactured by the [employer] and included the BCS II Journey total knee replacement with a size 4 left Oxinium femoral component, a size 3 left non porous tibial base plate, a 10 mm cross-linked polyethylene insert and a 35 mm oval Guadalupe II patella. Applied: implant(s) Estimated Blood Loss (mL): 25 Blood products transfused: none Tourniquet time (min): 57 Procedure in detail: The patient was seen in the pre-operative area, where the left knee was identified as the operative site and this was marked with my initials. The patient received pre-operative antibiotics, and was taken to the operating room and placed on the operative table in the supine position. After satisfactory anesthesia, a wholesale parts salesperson out was performed. The left leg was encircled with a tourniquet about the proximal thigh, and the leg was prepared from the toes to the tourniquet with ChloroPrep in the usual fashion and draped through sterile drapes. The leg was elevated and exsanguinated with Eschmark bandage and the tourniquet inflated to 250 mmHg pressure. The knee was approached through an approximately 18 cm incision centered over the patella and carried into the knee through a medial parapatellar arthrotomy. The anterior osteophytes and soft tissues were removed. The rotational landmarks of Robert's line and the transepicondylar axis were marked on the femur with electrocautery, and intramedullary guide holes for the femur and tibia were created. The distal femoral cut was made in 6 degrees of valgus using the intramedullary guide at the primary cut setting. The proximal tibial cut was then made using the intramedullary guide, taking 9 mm of bone off the less involved side. The extension gap was checked and the rotation of the femoral component confirmed with the gap balancing blocks. The anterior, posterior and chamfer cuts were then made. The posterior osteophytes and soft tissues were then removed. The posterior capsule was injected with part of a mixture of 60 ml 0.25% Marcaine mixed with 20 ml Exparel for post-operative pain control. The remainder of this mixture was injected into the capsule and subcutaneous tissues during cement curing. The tibia was prepared with the rotation set by an extra medullary guide. Trial tibial and femoral components were then placed and the intercondylar notch cut through the femoral trial. Range of motion was 0-135 degrees, with good stability throughout the range. The patella was then cut to accommodate the patellar prosthetic. There was no need for a lateral release. The trials were then removed, and the femoral hole plugged with a bone plug. The bone was prepared with pulsatile lavage, and dried with a sponge. Cement was applied and the final prosthetics placed. Excess cement was removed during and after cement curing. After confirming there was no extruded cement posteriorly, the final tibial insert was placed. The knee was copiously irrigated and the tourniquet deflated. Hemostasis was obtained. The capsule was closed with interrupted # 2 polyester sutures. The subcutaneous layer was closed with 3-0 Vicryl, and the skin with a running 3-0 V-Lock suture and Dermabond. An Aquacel Ag dressing was applied and the patient was taken to recovery having tolerated the procedure well. Complications: none Post-operative Condition: stable Disposition: PACU Plan for aftercare: The patient will be maintained on a standard total knee replacement protocol with weight bearing as tolerated. The patient will receive aspirin and sequential compression devices for DVT prophylaxis. The patient will be discharged home when safe for the home environment.
[2019-09-18] MEDS: OXYCODONE IR 5 MG TABLET 10 MG PO (15:53)
[2019-09-18] MEDS: fentaNYL 100 MCG/2 ML INJ IV ×2 (15:56→16:05)
[2019-09-18] MEDS: HYDROMORPHONE 2 MG INJ IV ×2 (16:13→16:37)
[2019-09-18] MEDS: LABETALOL 20 MG/4 ML SYRINGE 5 MG IV (16:27)
[2019-09-18] MEDS: LORazepam 2 MG/ML INJ 0.5 MG IV (16:34)
--- NOTE | 2019-09-18 16:42 | SUR.PHASEI ---
Assumed care. Patient crying consistently, no tears. BP 197/120.
--- NOTE | 2019-09-18 16:44 | SUR.PHASEI ---
ASSUMED CARE AT 16:00. PT WITH CONSISTENTLY HIGH BP, DR MORTENSEN NOTIFIED AND ANTIHYPERTENSIVES ORDERED AND GIVEN, REPORT GIVEN TO RELIEF CEDRIC SAWANT .
--- NOTE | 2019-09-18 16:59 | SUR.PHASEI ---
patient relaxed, eyes closed, breathing evenly.
--- NOTE | 2019-09-18 17:25 | SUR.PHASEI ---
Patient resting in bed with eyes closed. RR even and unlabored. Responsive to verbal stimuli.
--- NOTE | 2019-09-18 18:12 | SUR.PHASEI ---
Patient transferred to the floor. VS stable. IV saline locked. Report given to Chacha. Patient easily aroused, smiling, slurring words slightly. Left knee dressing CDI. + movement to left foot. Wheelchair and belongings bag with patient.
[2019-09-18] MEDS: HYDROMORPHONE 4 MG TABLET PO ×2 (18:20→22:07)
[2019-09-18] MEDS: HYDROMORPHONE 0.5 MG INJ 0.2 MG IV ×3 (18:20→22:43)
[2019-09-18] MEDS: LACTATED RINGERS 1,000 ML 100 ML IV (18:29)
[2019-09-18] MEDS: IBUPROFEN 400 MG TABLET PO ×2 (18:37→22:07)
--- NOTE | 2019-09-18 19:29 | PC.NURSE ---
Admit/Eveningn Shift Note- Patient [facility] room via [facility] PACU at 1745. Patiet able to make needs known to staff. Pain medication provided, patient reports pain at 8. Patient complained second IV line to left FA to be very painful ad requested removall. Line removed and bandaid applied. Oriented patieht to bed and bed controls, room, bathroom, lights, phone, menu, and call tan/tv remote. Patinet agrees to call for assisstance. bed alarm activated. Call tan and phone within reach. Will continue to monitor.
[2019-09-18] MEDS: ASPIRIN EC 81 MG TABLET PO (21:02)
[2019-09-18] MEDS: DOCUSATE 100 MG CAPSULE PO (21:02)
[2019-09-18] MEDS: ACETAMINOPHEN 325 MG TABLET 650 MG PO (21:02)
[2019-09-18] MEDS: PRAMIPEXOLE 0.25 MG TABLET PO (22:07)
[2019-09-19] VITALS (8 sets, daily range): BP systolic 128–197; BP diastolic 77–116; PULSE 73–85; RESP 16–20; TEMP 36.6–36.8; O2SAT 94–100
[2019-09-19] MEDS: IBUPROFEN 400 MG TABLET PO ×5 (01:02→21:15)
[2019-09-19] MEDS: HYDROMORPHONE 4 MG TABLET PO ×6 (01:02→21:14)
[2019-09-19] MEDS: HYDROMORPHONE 2 MG TABLET PO (03:19)
--- NOTE | 2019-09-19 03:56 | PC.NURSE ---
Patient reported pain to L knee 6-7. Medicated with Dilaudid 2mg po, Upon re assessment patient reports medication not working and states pain remains at 6-7. Patient nurse notified.
[2019-09-19] MEDS: HYDROMORPHONE 0.5 MG INJ 0.2 MG IV ×3 (04:07→14:52)
--- NOTE | 2019-09-19 04:12 | PC.NURSE ---
Pt c/o pain not being managed on current regimen. Reports that 4mg PO Dilaudid is her regular medication regimen that wasn't effective enough prior to surgery and really isn't working now. Medicated with IV Dilaudid for break through pain and will continue to re-evaluate.
[2019-09-19] MEDS: LACTATED RINGERS 1,000 ML 100 ML IV (04:43)
[2019-09-19] MEDS: CEFAZOLIN 2 GM/100 ML FROZ.PIGGY IV (05:23)
[2019-09-19 05:27] LABS: Hematocrit 27.6 % (36-46); Hemoglobin 9.4 g/dL (12.0-16.0)
[2019-09-19] MEDS: ACETAMINOPHEN 325 MG TABLET 650 MG PO ×3 (08:08→21:15)
[2019-09-19] MEDS: DOCUSATE 100 MG CAPSULE PO ×2 (08:08→21:14)
[2019-09-19] MEDS: ASPIRIN EC 81 MG TABLET PO ×2 (08:08→21:14)
--- NOTE | 2019-09-19 08:30 | PM.DS.1 ---
History of Present Illness History of Present Illness Date Patient Seen: 09/19/19 Time Patient Seen: 08:30 Chief complaint: *[id number] Narrative: The history and physical is contained in the chart previously completed note. Please refer to that note for this information. Discharge Providers Provider Discharge Date: 09/19/19 Consults: 09/18/19 07:40 Consult to Anesthesiology Routine Comment: Consulting Provider: Anesthesiologist Reason for consultation: Regional block for post operative pain control 09/18/19 18:04 Consult to Discharge Planning Routine Comment: Consult to Physical Therapy Evaluate & Treat Comment: Physician Instructions: postop TKA protocol Consult to Respiratory Therapy Evaluate & Treat Comment: Physician Instructions: Evaluate and treat Discharge provider: Vasyl Cesar MD Summary Hospital Course Discharge Diagnosis: 1. 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 Post hemorrhagic anemia 3. Long-term narcotics dependency Hospital Course: The patient was admitted to the hospital and taken directly to the operating room on September 18, 2019 where she underwent a left total knee replacement without significant complications. She had difficulty with pain control overnight largely due to her preoperative use of narcotic pain medications. On postoperative day 1 she was stable and it appeared that she would be ready for discharge after physical therapy. Status at Discharge Cognitive/behavioral status at discharge: oriented Functional status at discharge: uses cane/walker Overall status at discharge: patient is progressing back to baseline Time Spent with Patient Time spent: Less than 30 minutes Exam Vital Signs (past 8 hours): - 09/19/19 05:33 Temperature 98.3 F Pulse Rate 79 Respiratory Rate 16 Blood Pressure 150/94 H Pulse Oximetry 100 Oxygen Delivery Method Room Air Oxygen Flow Rate 0 Narrative Exam Narrative: Left knee wound is dressed with no drainage on the bandage. Calf is soft. Light touch and motion are intact in the left lower extremity. Objective Labs Result Diagrams: 09/19/19 05:15 Labs: Laboratory Results - last 24 hr 09/19/19 05:15 Hgb 9.4 L Hct 27.6 L Discharge Plan Discharge Plan Patient Disposition: Home Discharge Med Rec/Prescriptions Prescriptions: New acetaminophen 325 mg Tablet 650 mg PO TID 30 Days Qty: 180 RF: 0 aspirin 81 mg Tablet,Delayed Release (Dr/Ec) 81 mg PO BID 42 Days Qty: 84 RF: 0 ibuprofen 400 mg Tablet 400 mg PO Q4HR 30 Days RF: 0 hydromorphone 4 mg Tablet 4 mg PO Q4H PRN (Reason: Pain, Severe (7-10)) Qty: 60 RF: 0 hydroxyzine pamoate 25 mg Capsule 25 mg PO Q6HR PRN (Reason: Nausea) Qty: 40 RF: 0 Continued trazodone 50 mg tablet 100 mg PO BEDTIME RF: 0 pramipexole 0.25 mg tablet 0.25 mg PO BID RF: 0 diclofenac sodium 1 % gel 1 applic Topical DIRECTED RF: 0 tizanidine 2 mg Capsule 2 mg PO Q6-8H PRN (Reason: Muscle spasms) RF: 0 omeprazole 20 mg Tablet,Delayed Release (Dr/Ec) 20 mg PO DAILY PRN (Reason: GI upset) RF: 0 Discontinued hydromorphone 4 mg tablet 4 mg PO 5XD RF: 0 Follow up/Referrals: Vasyl Cesar MD [Physician] - 2 Weeks Discharge Orders: Discharge (Order); Ordered 09/19/19 Ordered By: Vasyl Cesar Provider Discharge Instructions Diet: Diet as Tolerated and Regular Activity: You may bear weight as tolerated on your left leg. Cold/Heat Therapy: Apply ice for 15 minutes every hour as needed for pain control to the left knee. Other treatments: Support your heel with a pillow, do not put the pillow behind your knee. Skin/Wound/Dressing Care Report to your healthcare provider any signs of infection, such as:: chills, fever, night sweats, increased pain, unusual drainage and unusual redness Dressing: Leave the dressing intact until your follow-up. You may shower with the dressing in place. If the central strip of the dressing becomes saturated with either water or blood, please call the office to have it evaluated. Visit Report/Discharge Packet Instructions: DI for Knee Replacement Stand Alone Forms: Surgery Discharge Discharge Data Attending Provider: Vasyl Cesar
--- NOTE | 2019-09-19 09:40 | PT.IIE ---
Current Diagnoses Unilateral primary osteoarthritis, left knee (09/18/19) Surgery Performed Operation Date: 09/18/19 13:00 Actual Procedures p Total Knee Arthroplasty(Left) - Vasyl Cesar MD Surgical History (Last Updated 05/28/19 @ 13:26 by Shena Leung, RN) History of kidney surgery (Acute 2019) History of lumbar fusion (Resolved) Hx of cholecystectomy (Resolved) Hx of hernia repair (Acute ~2012) Status post cervical spinal fusion (Resolved) Tubal ligation status (Resolved) Medical History (Last Updated 05/28/19 @ 13:21 by Shena Leung RN) Acute metabolic encephalopathy (Acute 09/16/17) Arthralgia (Chronic) Chronic back pain (Chronic) Degenerative disc disease, cervical (Chronic) Degenerative disc disease, lumbar (Chronic) Depression with anxiety (Chronic) Fibromyalgia (Chronic) GERD (gastroesophageal reflux disease) (Resolved) Neck infection (Acute 06/2017) Osteoarthritis (Acute) Restless leg syndrome (Chronic) Rheumatoid arthritis (Acute) Sepsis (Acute 09/16/17) Physical Therapy Inpatient Evaluation/Re-Eval M1 PT/OT-IP Prior Functional Status Start: 09/19/19 13:23 Freq: NEEDED Status: Active Protocol: Document 09/19/19 09:40 AB (Rec: 09/19/19 13:44 AB [id number]) Medical Review Prior Functional Status Medical History Reviewed Yes Communication able to make needs known Mobility and Gait pt stated that she was needing mostly SBA with mobility but at times more assist with mobility at home and was unable to ambulate much due to pain. stated that she has 24 /7 caregivers during the weekdays but none on the weekends aside from her spouse who cannot assist her physically due to spouse's back problems. stated that pain has been getting worse to the point where she was not able to ambulate much and became bed bound. Activities of Daily Living and IADL's caregivers assists pt with showers Social History Household Members spouse Living Arrangements Apartment/Condo Number of Floors (Floors) One Floor Number of Stairs To Enter/Railing? no steps to enter Home Environment Tub/Shower Home Equipment Front Wheel Walker,Raised Toilet Seat Without Armrests, Shower Seat with Backrest, Hospital Bed,Grab Bars In Shower Additional Social History Comment has a transport w/c M2 PT-IP Current Condition Start: 09/19/19 13:23 Freq: NEEDED Status: Active Protocol: Document 09/19/19 09:40 AB (Rec: 09/19/19 13:44 AB [id number]) Physical Therapy Current Condition Current Condition Evaluation Date 09/19/19 Treatment Diagnosis s/p L TKE; difficulty in walking Onset Date 09/18/19 Weight Bearing Status Weight Bearing Status Weight Bear as Tolerated Allowed Weight Bearing Amount (enter % WBAT LLE or #) (%) M3 PT-IP Subjective Start: 09/19/19 13:23 Freq: NEEDED Status: Active Protocol: Document 09/19/19 09:40 AB (Rec: 09/19/19 13:44 AB [id number]) Subjective Physical Therapy Visit Type Type Initial Evaluation Visit Start Time 09:40 Visit Stop Time 10:28 Total Visit Minutes 48 Number of OFFENDER EMPLOYMENT SPECIALIST Visits 0 Physical Therapy Visit Comments Patient Comments agreeable to do PT Therapy Pain Assessment Pain When Pain Assessed At Rest Pain Present Pain Present Pain Reported Location Left Knee Intensity 6 Scale Used Numeric (0 - 10) Pain Management Techniques Apply Cold,Distraction,Re- positioning,Timing of Activity with Medications M4 PT-IP Mobility and Gait Start: 09/19/19 13:23 Freq: NEEDED Status: Active Protocol: Document 09/19/19 09:40 AB (Rec: 09/19/19 13:44 AB [id number]) PT-Bed Mobility Assessment Supine to Sit Supine to Sit Minimal Assistance,1 Person Assistance PT-Transfer Assessment Sit to and From Stand Sit to and from Stand Moderate Assistance,1 Person Assistance,Use of Upper Extremities Equipment Transfer Assistive Device Gait Belt,Front Wheeled Walker Orthotic/Prosthetic Devices or Brace: No Transfers Transfer Technique Stand Step Pivot Transfer Ability Level of Assist Moderate Assistance,1 Person Assistance,Use of Upper Extremities Comments Mobility Comments pt completed supine to sit min A and cues. c/o increase pain. completed sit to stand mod A and cues. pt tends to not put weight on LLE. instructed to put weight as tolerated and to activated L quads. pt ambulated ~ 2 ft using FWW mod A and stated that she has to sit down due to pain. positioned chair closer to pt and pt completed sit to stand again mod A and cues and transferred to chair using FWW mod A and cues. postiioned pt on chair. call light and table placed within reach. pt stated that she is not ready to go home and spouse will not be able to assist her physically and that her caregivers are only there during the weekdays. nurse aware and stated that she will inform the ortho MD. informed pt and spouse that if walking will be too much for pt at home, pt will still try to ambulate as much as she can but can also use her transport w/c if need be. both understood and agreed. Gait Assessment Gait Gait Assistance Required: Moderate Assistance Distance (Feet) 2 Able to Maintain Weight Bearing Status Yes During Gait Assistive Devices Assistive Device Gait Belt,Front Wheeled Walker Orthotic/Prosthetic Devices or Brace: No Gait Deviations General Gait Pattern Antalgic,Decreased Stride Length,Decreased Feet Clearance,Step-to Gait Factors Limiting Gait Function Factors Limiting Gait Function Decreased Activity Tolerance, Decreased Strength,Limited Range of Motion,Pain,Poor Balance,Poor Safety Awareness PT-Balance Assessment Sitting Balance and Reactions Static Sitting Balance Ability Good Dynamic Sitting Balance Ability Good Standing Balance and Reactions Static Standing Balance Ability Fair Dynamic Standing Balance Ability Poor Device Used FWW M5 PT-IP Objective Assessments Start: 09/19/19 13:23 Freq: NEEDED Status: Active Protocol: Document 09/19/19 09:40 AB (Rec: 09/19/19 13:44 AB [id number]) Orientation Orientation/Cognition Level of Alertness Alert Orientation Name,Place,Situation Safety Awareness Decreased Safety Awareness Memory Description No Deficits Noted Gross Range of Motion Lower Extremity ROM Assessment Left Impaired Impairments L knee flexion: ~ 50 deg extension: lacking 20 deg to neutral Strength Lower Extremity Strength Assessment Bilaterally Impaired Comments Strength Comments RLE: 3+/5 LLE: 3-/5 Coordination Assessment Gross Coordination Gross Coordination WNL Sensation Assessment Sensation Gross Sensation WNL Muscle Tone Muscle Tone WNL Yes M6 PT-IP Treatment Start: 09/19/19 13:23 Freq: NEEDED Status: Active Protocol: Document 09/19/19 09:40 AB (Rec: 09/19/19 13:44 AB [email or web address]) Physical Therapy Treatment Exercises Exercises Quad Sets,Heel Slides Education Education Provided Precautions,Weight Bearing Status,Post-Op Packet,Safety M7 PT-IP Assessment and Plan Start: 09/19/19 13:23 Freq: NEEDED Status: Active Protocol: Document 09/19/19 09:40 AB (Rec: 09/19/19 13:44 AB [id number]) PT Summary Assessment and Plan Potential Rehabilitation Potential Good Status of Condition at Evaluation Evolving Summary Impairments Pain,ROM,Strength,Balance, Coordination,Sensation,Tone, Cognition,Bed Mobility, Transfers,Gait,Activity Tolerance Assessment Summary pt requiring mod A with mobility and unable to tolerate much due to c/o increase pain on LLE. stated that pain was too much prior to surgery and to the point where she became bed bound. pt lives with her but stated that will not be able to assist her physically due to 's back problems. has caregivers but only during weekdays. will continue to assess progress but pt may require SNF rehab but if pt goes home, will require more assistance and HHPT. Goals Bed Mobility Goal Standby Assistance Transfer Goal Standby Assistance,Front Wheeled Walker Gait Goal Standby Assistance,Front Wheel Walker Gait Distance 100 Days to Meet Goals 5 Frequency of Treatment Frequency Of Treatment Twice a Day Treatment Plan Physical Therapy Treatment Plan Bed Mobility Training,Transfer Training,Gait Training, Therapeutic Exercise,Balance Retraining,Post Op Education, Discharge Planning,Hot or Cold Pack,Neuromuscular Re-ed, Coordination Retraining,Manual Therapy Recommendations To Nursing Amount of Assist Needed 1 Person Assist Discharge Recommendations PT Discharge Recommendations Home with 16/10 Assist,Home Health,SNF Rehab Transportation Needs at Discharge Private Vehicle,Wheelchair/ Cabulance
[2019-09-19] MEDS: PRAMIPEXOLE 0.25 MG TABLET PO ×2 (12:13→21:16)
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
--- NOTE | 2019-09-19 14:43 | PC.NURSE ---
Day shift note: Left message with Jeanne at [facility] regarding Patients discharge, needs to be cancelled. Mobility and pain control, only able to ambulate a few feet in room to BSC with PT.
--- NOTE | 2019-09-19 16:01 | PT-IP ANOTE ---
checked on pt and pt refused PT. pt stated that she is just getting comfortable and want to take a nap and asked if PT can come back. when PT asked what time pt wants PT to come back, pt looked at the clock and stated that it is towards the end of the day already. pt becomes agitated and stated OK, I'll just do it, then that stated throwing and taking her blankets off. Talked to the pt and informed pt that PT is there to assist and if pt wants to do her therapy, PT is in there but if she can't then just let PT know. Pt calmed down and requested to just had PT tomorrow morning. will f/u.
[2019-09-19] MEDS: hydrOXYzine pamoate 25 MG CAPSULE PO (21:15)
[2019-09-20] MEDS: HYDROMORPHONE 4 MG TABLET PO ×3 (00:24→06:43)
[2019-09-20 00:30] VITALS: BP 135/81; PULSE 78; RESP 16; TEMP 36.7; O2SAT 99
[2019-09-20] MEDS: TIZANIDINE 4 MG TABLET 2 MG PO (02:21)
[2019-09-20 06:44] VITALS: BP 165/86; PULSE 66; RESP 16; TEMP 36.6; O2SAT 100
[2019-09-20 07:15] VITALS: BP 175/101; PULSE 70; RESP 18; TEMP 36.6; O2SAT 99
[2019-09-20] MEDS: ASPIRIN EC 81 MG TABLET PO (09:31)
[2019-09-20] MEDS: IBUPROFEN 400 MG TABLET PO (09:31)
[2019-09-20] MEDS: DOCUSATE 100 MG CAPSULE PO (09:31)
[2019-09-20] MEDS: ACETAMINOPHEN 325 MG TABLET 650 MG PO (09:31)
[2019-09-20] MEDS: PRAMIPEXOLE 0.25 MG TABLET PO (09:32)
[2019-09-20] MEDS: SODIUM CHLORIDE 0.9% FLUSH 10 ML IV (09:33)
--- NOTE | 2019-09-20 10:25 | PT.IPTN ---
Current Diagnoses Unilateral primary osteoarthritis, left knee (09/19/19) Surgery Performed Operation Date: 09/18/19 13:00 Actual Procedures p Total Knee Arthroplasty(Left) - Vasyl Cesar MD Physical Therapy Treatment Note M2 PT-IP Current Condition Start: 09/19/19 13:23 Freq: NEEDED Status: Discharge Protocol: Document 09/19/19 09:40 AB (Rec: 09/19/19 13:44 AB [id number]) Physical Therapy Current Condition Current Condition Evaluation Date 09/19/19 Treatment Diagnosis s/p L TKE; difficulty in walking Onset Date 09/18/19 Weight Bearing Status Weight Bearing Status Weight Bear as Tolerated Allowed Weight Bearing Amount (enter % WBAT LLE or #) (%) M3 PT-IP Subjective Start: 09/19/19 13:23 Freq: NEEDED Status: Discharge Protocol: Document 09/20/19 10:05 KS (Rec: 09/20/19 13:08 KS [id number]) Subjective Physical Therapy Visit Type Type Treatment Note Visit Start Time 10:05 Visit Stop Time 10:25 Total Visit Minutes 20 Number of LEAD PAINTER Visits 1 Physical Therapy Visit Comments Patient Comments agreeable to do PT Therapy Pain Assessment Pain When Pain Assessed At Rest Pain Present Pain Present Pain Reported Location Left Knee Scale Used no number given Description Aching,Sharp Pain Behaviors Guarding,Wincing Pain Management Techniques Apply Cold,Distraction,Re- positioning,Timing of Activity with Medications M4 PT-IP Mobility and Gait Start: 09/19/19 13:23 Freq: NEEDED Status: Discharge Protocol: Document 09/20/19 10:05 KS (Rec: 09/20/19 13:08 KS [id number]) PT-Bed Mobility Assessment Scooting Scooting to Edge of Bed Standby Assistance PT-Transfer Assessment Sit to and From Stand Sit to and from Stand Contact Guard Assistance,1 Person Assistance,Use of Upper Extremities Equipment Transfer Assistive Device Gait Belt,Front Wheeled Walker Orthotic/Prosthetic Devices or Brace: No Transfers Transfer Destination Chair,Bedside Commode Transfer Technique Stand Step Pivot Transfer Ability Level of Assist Contact Guard Assistance,1 Person Assistance,Use of Upper Extremities Comments Mobility Comments Pt was in chair upon arrival from therapy w/ /caregiver in room. Pt performed L knee flex/ext. Pt SBA for scooting to edge of chair, CGA and cues for sequencing for sit<>stand w/ FWW. Pt c/o of increase pain w/ movement of LLE. Pt then performed 1 min weight shifting before requesting to sit back down. After 2 min rest break, pt completed stand step pivot transfer to BSC w/ /caregiver provided by pts . Pt then performed second stand step pivot transfer back to chair w/ CGA provided by . Pt and state they are able to manage at home and pt stated she is in too much pain and refused further treatment. Pt left in chair w/ all needs in reach and in room. Gait Assessment Assistive Devices Assistive Device Gait Belt,Front Wheeled Walker Orthotic/Prosthetic Devices or Brace: No Comments Gait Comments Only stand step pivot performed, pt reports too high pain to ambulate. PT-Balance Assessment Sitting Balance and Reactions Static Sitting Balance Ability Good Dynamic Sitting Balance Ability Good Standing Balance and Reactions Static Standing Balance Ability Fair Dynamic Standing Balance Ability Fair Device Used FWW M5 PT-IP Objective Assessments Start: 09/19/19 13:23 Freq: NEEDED Status: Discharge Protocol: Document 09/19/19 09:40 AB (Rec: 09/19/19 13:44 AB [id number]) Orientation Orientation/Cognition Level of Alertness Alert Orientation Name,Place,Situation Safety Awareness Decreased Safety Awareness Memory Description No Deficits Noted Gross Range of Motion Lower Extremity ROM Assessment Left Impaired Impairments L knee flexion: ~ 50 deg extension: lacking 20 deg to neutral Strength Lower Extremity Strength Assessment Bilaterally Impaired Comments Strength Comments RLE: 3+/5 LLE: 3-/5 Coordination Assessment Gross Coordination Gross Coordination WNL Sensation Assessment Sensation Gross Sensation WNL Muscle Tone Muscle Tone WNL Yes M6 PT-IP Treatment Start: 09/19/19 13:23 Freq: NEEDED Status: Discharge Protocol: Document 09/20/19 10:05 KS (Rec: 09/20/19 13:08 MI [id number]) Physical Therapy Treatment Exercises Exercises Seated Knee Flexion/Extension Education Education Provided Precautions,Weight Bearing Status,Safety Other Treatments Other Treatment Performed Educated pt on importance of outpatient PT. M7 PT-IP Assessment and Plan Start: 09/19/19 13:23 Freq: NEEDED Status: Discharge Protocol: Document 09/20/19 10:05 KS (Rec: 09/20/19 13:08 [place] [id number]) PT Summary Assessment and Plan Potential Rehabilitation Potential Good Status of Condition at Evaluation Evolving Summary Impairments Pain,ROM,Strength,Balance, Coordination,Sensation,Tone, Cognition,Bed Mobility, Transfers,Gait,Activity Tolerance Assessment Summary Pt was limited by pain today, but was able to complete sit<> stand and stand step pivot transfer to and from [facility] w/ CGA provided by . Pt refused further treatment d/t high levels of pain. Pt would benefit fron SNF to improve tolerance for activity and functional mobility and if going home should increase amount of assist since pts is unable to physically help. Goals Bed Mobility Goal Standby Assistance Transfer Goal Standby Assistance,Front Wheeled Walker Gait Goal Standby Assistance,Front Wheel Walker Gait Distance 100 Days to Meet Goals 5 Frequency of Treatment Frequency Of Treatment Twice a Day Treatment Plan Physical Therapy Treatment Plan Bed Mobility Training,Transfer Training,Gait Training, Therapeutic Exercise,Balance Retraining,Post Op Education, Discharge Planning,Hot or Cold Pack,Neuromuscular Re-ed, Coordination Retraining,Manual Therapy Recommendations To Nursing Amount of Assist Needed 1 Person Assist Discharge Recommendations PT Discharge Recommendations Home with 16/10 Assist,Home Health,SNF Rehab Transportation Needs at Discharge Private Vehicle,Wheelchair/ Cabulance
--- NOTE | 2019-09-20 10:28 | CM.DPC ---
DCP: continued: Dr. Del Toro rounded on pt this morning. See her note: as an addendum to Dr. Cesar dc summary of yesterday. Pt will d/c to home today as per plan specifics noted yesterday. OUTPT PT is set up. Home with Eleonora and supportive others today. Did check in with pt as she was finishing therapy with FACILITIES ADMINISTRATOR Rosita: Rosita notes that pt showed good ability to move on her own when motivated by a task she wishes to completed (in this case using the bedside commode) with Eleonora assisting her with clothing management during the process.
[2019-09-20 12:09] VITALS: BP 149/88
--- NOTE | 2019-09-20 12:09 | PC.NURSE ---
Day shift note: Patient discharge home per Dr. Del Toro order. Evaluated by CUTTER MACHINE this AM. Pain controlled with Dilaudid PO. Discharge orders given to patient and spouse, discussed importance of F/U with Dr. RAE in 2 weeks, fall risk precautions, activity, dressing care, and s/sx of infections. Patient verbalized understanding of instructions.
[2019-09-30 10:03] LABS: Bacteria Det by PCR Univ WA SEE SEPERATE REPORT
== END 2019-09-20 12:00 | disposition home or self-care (01) | DRG 470 ==
LOC: OR 14:31 → AC 14:31
PROVIDERS: Admitting Provider Orthopaedic Surgery; Referring Provider Orthopaedic Surgery; Visit Provider Orthopaedic Surgery
PROC: 0SRD0JZ Replacement of Left Knee Joint with Synthetic Substitute, Open Approach (ICD-10-PCS; CPT 27447; principal; 2019-09-18 13:00)
DX: M17.32 Unilateral post-traumatic osteoarthritis, left knee (principal); M79.7 Fibromyalgia; M06.9 Rheumatoid arthritis, unspecified; G89.18 Other acute postprocedural pain; K21.9 Gastro-esophageal reflux disease without esophagitis; Z87.891 Personal history of nicotine dependence
CPT/HCPCS: 36415; 73560; 80048; 85014; 85018; 85025; 87070; 87075; 87205; 87635; 87801; 93005; 97162; 97530; C1776; C9290; J0330; J0690; J1100; J1170; J2060; J2405; J2704; J3010

== ENCOUNTER 2019-11-12 19:00 | Emergency (ER) | payer MEDICARE, MEDICAID, SELFPAY ==
[2019-09-18 20:15] VITALS: BMI 30.6
[2019-11-12 19:18] VITALS: BP 156/86; PULSE 86; RESP 22; TEMP 36.9; O2SAT 98
--- NOTE | 2019-11-12 19:21 | DI.RAD.S_ITS ---
PROCEDURE: XR KNEE LT 3V INDICATIONS: glf, lt knee pain/swelling, recent tka TECHNIQUE: 3 views of the knee were acquired. COMPARISON: [facility], [facility], XR KNEE LT 1TO2V, 09/18/2019, 15:40. FINDINGS: Bones: Patient is status post prior left total knee arthroplasty. Left knee alignment is anatomic. No gross hardware loosening or failure. No acute fractures or dislocations. No suspicious bony lesions. No significant patellar subluxation. Soft tissues: No joint effusion. No suspicious soft tissue calcifications. IMPRESSION: Anatomic left knee alignment. No acute left knee fracture or dislocation. No gross hardware complication. Dictated by: Shahriar Moe M.D. on 11/12/2019 at 19:48 Approved by: Shahriar Moe M.D. on 11/12/2019 at 19:49
[2019-11-12] MEDS: HYDROMORPHONE 4 MG TABLET PO (20:02)
--- NOTE | 2019-11-12 20:03 | ED_ITS ---
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 Cesar presents to ED chief complain of left knee swelling and pain after she accidentally tripped on her cat 2 days ago. Patient reports she has been doing very well after the surgery and has not been requiring ambulatory occupational therapy assistant device and even gardening before the recent injury. Two days ago her cat was walking between her legs and she accidentally tripped and fell on her family member while her leg facing one way and body the other way. Patient was unable to recall whether knee was facing in or out since this happened very quickly. Patient reports intact sensation distal to left knee and reports able to move her toes without difficulty. Patient currently takes Dilaudid 4 mg q.3 hours which has been managed by pain clinic with chronic back pain after multiple surgeries. Patient reports her pain is 7 to 8/10 and reports unable to bear weight on her knee but to her toes. She has been using cool pack and ibuprofen last 2 days to work on left knee swelling and pain but without much improvement. Patient called Dr. Cesar office today and was recommended to go to ED for an x-ray test. Patient also reports she has frequent postsurgical infection in the past but denies fever, chills, redness around the knee, nausea or vomiting. Related Data Home Medications Medication Instructions Recorded Confirmed diclofenac sodium 1 applic TOPICAL DIRECTED 10/03/17 09/18/19 pramipexole 0.25 mg PO BID 10/03/17 09/18/19 trazodone 100 mg PO BEDTIME 10/03/17 09/18/19 tizanidine 2 mg PO Q6-8H PRN 05/28/19 09/18/19 omeprazole 20 mg PO DAILY PRN 09/15/19 09/18/19 hydromorphone 11/12/19 Previous Rx's Medication Instructions Recorded hydromorphone 4 mg PO Q4H PRN #60 tab 09/19/19 hydroxyzine pamoate 25 mg PO Q6HR PRN #40 cap 09/19/19 Allergies Allergy/AdvReac Type Severity Reaction Status Date / Time bee venom protein (honey bee) Allergy Severe Hives Verified 09/18/19 20:27 morphine Allergy Severe Anaphylaxis Verified 09/18/19 11:36 Sulfa (Sulfonamide Allergy Severe Anaphylaxis Verified 09/18/19 11:36 Antibiotics) gabapentin AdvReac Severe Weight gain Verified 09/18/19 11:36 aspirin AdvReac Intermediate Abdominal Verified 09/18/19 11:36 Pain methadone AdvReac Intermediate Hallucinati Verified 09/18/19 11:36 ng Review of Systems <GISELA Vazquez - Last Filed: 11/12/19 22:28> Review of Systems Narrative: General: Denies fever, chills, fatigue, malaise, sweats. HEENT: Denies sinus pain, ear pain, sore throat, difficulty swallowing, dizziness. Respiratory: Denies dyspnea, cough, wheezing, hemoptysis, sputum. Cardiovascular: Denies chest pain, palpitations, orthopnea, edema. Gastrointestinal: Denies nausea, vomiting, abdominal pain, diarrhea, constipation, melena. : Denies dysuria, frequency, incontinence, hematuria, urinary retention. Musculoskeletal: See HPI Skin: Denies rash, skin lesions, or other. Neurologic: Denies weakness, headache, numbness, change in speech, confusion, seizures, incoordination. Psychiatric: No concerning psychosocial issues. 12-point review of systems is negative except for those stated above. Patient History <GISELA Vazquez - Last Filed: 11/12/19 22:28> Medical History Acute metabolic encephalopathy (Acute 09/16/17) Arthralgia (Chronic) Chronic back pain (Chronic) Degenerative disc disease, cervical (Chronic) Degenerative disc disease, lumbar (Chronic) Depression with anxiety (Chronic) Fibromyalgia (Chronic) GERD (gastroesophageal reflux disease) (Resolved) Neck infection (Acute 06/2017) Osteoarthritis (Acute) Restless leg syndrome (Chronic) Rheumatoid arthritis (Acute) Sepsis (Acute 09/16/17) Surgical History History of kidney surgery (Acute 2019) History of lumbar fusion (Resolved) Hx of cholecystectomy (Resolved) Hx of hernia repair (Acute ~2012) Status post cervical spinal fusion (Resolved) Tubal ligation status (Resolved) Social History household members: spouse Smoking Status: Former smoker alcohol intake: current substance use type: marijuana Smoking Status: Former smoker alcohol intake frequency: holidays/special occasions only Substance Use Type: former substance user Exam <GISELA Vazquez - Last Filed: 11/12/19 22:28> Narrative Exam Narrative: General appearance: well developed, well nourished, in moderate distress from pain with movement of left leg and during examination/palpation. Head: normocephalic, atraumatic, no scalp lesions, non-tender. ENT: Hearing grossly intact. Nose without bleeding, purulent discharge. Airway patent. Neck/Thyroid: neck supple, full range of motion, no visible masses or meningeal signs. No JVD, non-tender without lymphadenopathy. Skin: no suspicious rashes, lesions over visible areas. Warm and dry and appropriate color for ethnicity. Heart: no clubbing, no cyanosis, no edema. Lungs: Breathing even and unlabored. No stridor. No accessory muscles used. Able to speak in full sentences. Chest: normal shape and expansion. Abdomen: non-obese, non-distended. Neurologic: alert and oriented. Cognitive exam, ROAD [employer] and PNS grossly intact on i nformal exam. Psych: good eye contact, normal affect. Initial Vital Signs Initial Vital Signs: Vital Signs Temperature 98.4 F 11/12/19 19:18 Pulse Rate 86 11/12/19 19:18 Respiratory Rate 22 11/12/19 19:18 Blood Pressure 156/86 H 11/12/19 19:18 Pulse Oximetry 98 11/12/19 19:18 Extrem Left lower extremity: knee Details: abnormal to inspection, tenderness, swelling Location: of the patella, of the pre-patellar area and of the infrapatellar area, abnormal ROM, warmth and other (No erythema), lower leg Details: tenderness Location: of the proximal tibia and of the proximal fibula, ankle Details: no tenderness and no swelling and foot Details: normal capillary refill, toes with normal ROM, no edema and vascular exam Details: dorsalis pedis pulse present and normal capillary refill; no tenderness <Giuseppe Meehan DO - Last Filed: 11/12/19 22:28> Initial Vital Signs Initial Vital Signs: Vital Signs Temperature 98.4 F 11/12/19 19:18 Pulse Rate 86 11/12/19 19:18 Respiratory Rate 22 11/12/19 19:18 Blood Pressure 156/86 H 11/12/19 19:18 Pulse Oximetry 98 11/12/19 19:18 Scores <GISELA Vazquez - Last Filed: 11/12/19 22:28> GCS Red Level coma scale eye opening: Spontaneous Red Level coma scale verbal response: Orientated Red Level coma scale motor response: Obey commands Red Level coma scale total score: 15 qSOFA Altered Mental Status (GCS <15): No Respiratory rate greater than/equal to 22: No Systolic blood pressure less than or equal to 100: No qSOFA Total: 0 0-1 Not High Risk 1-3 High risk Course <GISELA Vazquez - Last Filed: 11/12/19 22:28> Orders Ordered: ED Orders 11/12/19 19:21 XR knee LT 3V Stat 11/12/19 20:05 C-Reactive Protein Quant Stat Complete Blood Count AUTO DIFF Stat Erythrocyte Sedimentation Rate Stat Lactate (Lactic Acid) Stat Procalcitonin Stat Discontinued Medications Hydromorphone HCl (Dilaudid) 4 mg PO NOW ONE Stop: 11/12/19 19:36 Last Admin: 11/12/19 20:02 Dose: 4 mg Documented by: [place] Vital Signs Vital signs: Vital Signs - 8 hr 11/12/19 19:18 11/12/19 21:56 Temperature 98.4 F Pulse Rate 86 85 Respiratory Rate 22 18 Blood Pressure 156/86 H 148/80 H Pulse Oximetry 98 100 <Giuseppe Meehan DO - Last Filed: 11/12/19 22:28> Orders Ordered: ED Orders 11/12/19 19:21 XR knee LT 3V Stat 11/12/19 20:05 C-Reactive Protein Quant Stat Complete Blood Count AUTO DIFF Stat Erythrocyte Sedimentation Rate Stat Lactate (Lactic Acid) Stat Procalcitonin Stat Discontinued Medications Hydromorphone HCl (Dilaudid) 4 mg PO NOW ONE Stop: 11/12/19 19:36 Last Admin: 11/12/19 20:02 Dose: 4 mg Documented by: [place] Vital Signs Vital signs: Vital Signs - 8 hr 11/12/19 19:18 11/12/19 21:56 Temperature 98.4 F Pulse Rate 86 85 Respiratory Rate 22 18 Blood Pressure 156/86 H 148/80 H Pulse Oximetry 98 100 MDM - Extremity Injury (Lower) <GISELA Vazquez - Last Filed: 11/12/19 22:28> Differential Diagnosis Differential diagnosis: Likely acute internal derangement of knee and other (s/p knee replacment and hardware failure, septic joint/infection, knee strain) Medical Records Attestation: I reviewed the patient's medical records. Lab Data Attestation: I reviewed the patient's lab results. Result diagrams: 11/12/19 20:05 Labs: Lab Results 11/12/19 11/12/19 11/12/19 Range/Units 20:05 20:05 20:05 WBC 8.7 (4.5-11.0) X10^3/uL RBC 3.77 L (4.0-5.2) X10^6/uL Hgb 9.8 L (12.0-16.0) g/dL Hct 30.4 L (36-46) % MCV 80.6 (80-100) fL MCH 25.9 L (26-34) PG MCHC 32.1 (30-36) % RDW 17.0 H (11.6-14.8) % Plt Count 328 (150-400) X10^3/uL Neut % (Auto) 82.9 H (50-75) % Lymph % (Auto) 10.7 L (25-40) % [place] % (Auto) 5.0 (3-14) % Eos % (Auto) 1.1 L (2-4) % Baso % (Auto) 0.3 (0-2) % Neut # (Auto) 7200 H (9548-1396) /uL Lymph # (Auto) 900 L (9190-9317) /uL [place] # (Auto) 400 (0-900) /uL Eos # (Auto) 100 (0-450) /uL Baso # (Auto) 0 (0-100) /uL ESR 112 H (0-20) MM/HR Lactate 1.3 (0.7-2.1) mmol/L C-Reactive Protein (<1.0) mg/dL Procalcitonin 0.28 (<0.5) ng/mL 11/12/19 Range/Units 20:05 WBC (4.5-11.0) X10^3/uL RBC (4.0-5.2) X10^6/uL Hgb (12.0-16.0) g/dL Hct (36-46) % MCV (80-100) fL MCH (26-34) PG MCHC (30-36) % RDW (11.6-14.8) % Plt Count (150-400) X10^3/uL Neut % (Auto) (50-75) % Lymph % (Auto) (25-40) % [place] % (Auto) (3-14) % Eos % (Auto) (2-4) % Baso % (Auto) (0-2) % Neut # (Auto) (9735-9802) /uL Lymph # (Auto) (3433-0842) /uL [place] # (Auto) (0-900) /uL Eos # (Auto) (0-450) /uL Baso # (Auto) (0-100) /uL ESR (0-20) MM/HR Lactate (0.7-2.1) mmol/L C-Reactive Protein 7.2 H (<1.0) mg/dL Procalcitonin (<0.5) ng/mL Imaging Data XR-Knee LT: Radiologist's Impression: [address] [address] XRay Report Signed Patient: Jessica Miramontes [facility]#: [id number] : 1965Acct:[id number] Age/Sex: 54 / FDate of Service: 11/12/19 Loc: ED Accession Number: [id number] Procedure: XR knee LT 3V Ordering Provider: Alvarado Cook PROCEDURE: XR KNEE LT 3V INDICATIONS: glf, lt knee pain/swelling, recent tka TECHNIQUE: 3 views of the knee were acquired. COMPARISON: Merged With [facility], ROMEL, XR KNEE LT 1TO2V, 09/18/2019, 15:40. FINDINGS: Bones: Patient is status post prior left total knee arthroplasty. Left knee alignment is anatomic. No gross hardware loosening or failure. No acute fractures or dislocations. No suspicious bony lesions. No significant patellar subluxation. Soft tissues: No joint effusion. No suspicious soft tissue calcifications. IMPRESSION: Anatomic left knee alignment. No acute left knee fracture or dislocation. No gross hardware complication. Dictated by: Shahriar Moe M.D. on 11/12/2019 at 19:48 Approved by: Shahriar Moe M.D. on 11/12/2019 at 19:49 [facility] Narrative Medical decision making narrative: This is a 54 year old female who had left knee replacement for osteoarthritis and traumatic septic arthritis on 09/18/19 presents to ED with left knee swelling and pain after she tripped on her cat twisted her knee and fell. X-ray test does not show joint effusion, gross hardware loosening or failure, acute fracture or dislocations, or significant patella subluxation. Patient has history of septic arthritis. Patient is afebrile or chills at home. Knee exam does not appreciate erythema but slight warmth around the patella with moderate swelling to pre and infra patella and also around the patella. Intact sensation and pulses distally. Patient is able to plantar and dorsal flex on left foot. Patient has difficult time weight-bearing on left foot but to toes. No tachycardia and no hypotensive while in ED. CBC shows no leukocytosis. Anemia is improving since the patient was discharged to home and today's H/H is 9.8/30.4 (9.4/27.6). Lactic acid (1.3) and procalcitonin (0.28) are within normal range. Moderately elevated ESR(112) and CRP (7.2) today. @2125- Given the patient's history of septic arthritis concerned for traumatic joint infection and consulted Dr. Mckinney and lab tests, rad result and physical findings and it was recommended to follow up at the clinic tomorrow for an evaluation and informed knee aspiration is deferred at this time. Patient reports pain has decreased to 7/10 after she had taken routine pain medication Dilaudid 4mg when she arrived to ED. The patient was not content when informed to follow up tomorrow at the clinic stating she probably does not have enough gas in her car. She states will contact the clinic tomorrow to figure out the follow up plan. Return precautions were discussed with patient and patient verbalized understanding. <Giuseppe Zoran, DO - Last Filed: 11/12/19 22:28> Lab Data Labs: Lab Results 11/12/19 11/12/19 11/12/19 Range/Units 20:05 20:05 20:05 WBC 8.7 (4.5-11.0) X10^3/uL RBC 3.77 L (4.0-5.2) X10^6/uL Hgb 9.8 L (12.0-16.0) g/dL Hct 30.4 L (36-46) % MCV 80.6 (80-100) fL MCH 25.9 L (26-34) PG MCHC 32.1 (30-36) % RDW 17.0 H (11.6-14.8) % Plt Count 328 (150-400) X10^3/uL Neut % (Auto) 82.9 H (50-75) % Lymph % (Auto) 10.7 L (25-40) % [place] % (Auto) 5.0 (3-14) % Eos % (Auto) 1.1 L (2-4) % Baso % (Auto) 0.3 (0-2) % Neut # (Auto) 7200 H (7980-3544) /uL Lymph # (Auto) 900 L (2410-9519) /uL [place] # (Auto) 400 (0-900) /uL Eos # (Auto) 100 (0-450) /uL Baso # (Auto) 0 (0-100) /uL ESR 112 H (0-20) MM/HR Lactate 1.3 (0.7-2.1) mmol/L C-Reactive Protein (<1.0) mg/dL Procalcitonin 0.28 (<0.5) ng/mL 11/12/19 Range/Units 20:05 WBC (4.5-11.0) X10^3/uL RBC (4.0-5.2) X10^6/uL Hgb (12.0-16.0) g/dL Hct (36-46) % MCV (80-100) fL MCH (26-34) PG MCHC (30-36) % RDW (11.6-14.8) % Plt Count (150-400) X10^3/uL Neut % (Auto) (50-75) % Lymph % (Auto) (25-40) % [place] % (Auto) (3-14) % Eos % (Auto) (2-4) % Baso % (Auto) (0-2) % Neut # (Auto) (9510-1982) /uL Lymph # (Auto) (4732-8433) /uL [place] # (Auto) (0-900) /uL Eos # (Auto) (0-450) /uL Baso # (Auto) (0-100) /uL ESR (0-20) MM/HR Lactate (0.7-2.1) mmol/L C-Reactive Protein 7.2 H (<1.0) mg/dL Procalcitonin (<0.5) ng/mL Discharge Plan Departure Patient Disposition: Home Clinical Impression: Knee pain Qualifiers: Chronicity: unspecified Laterality: left Qualified Code(s): M25.562 - Pain in left knee Discharge Date/Time: 11/12/19 21:57 Instructions: DI for Knee Pain Activity Restrictions/Additional Instructions: You have been diagnosed with [ left knee pain s/p total knee replacement and recent fall. L knee xray test does not indicate fractures, dislocations, joint effusion or subluxation. Normal WBC with lactate and procalcitonin but elevation of CRP and ESR which are inflammatory markers. ]. What to do: *Take your medications as directed. Please continue with her current pain medications and elevate affected leg and cool packs on affected knee. *Follow up with [facility] orthopedist tomorrow, call for an appointment early in the morning. Let them know you were seen in the ED and that we asked y ou to be seen in follow up and I spoke with Dr. Mckinney over the phone. *Return to ED if you have any new, worsening, or concerning symptoms, such as [chest pain, breathing difficulty, fever, redness around knee, unable to tolerate fluids, increasing pain or any acute concerns. You could use [place] wrap on affected knee during movement and use your wheelchair or crutches for ambulation]. Prescriptions: No Action trazodone 50 mg tablet 100 mg PO BEDTIME RF: 0 pramipexole 0.25 mg tablet 0.25 mg PO BID RF: 0 diclofenac sodium 1 % gel 1 applic Topical DIRECTED RF: 0 tizanidine 2 mg Capsule 2 mg PO Q6-8H PRN (Reason: Muscle spasms) RF: 0 omeprazole 20 mg Tablet,Delayed Release (Dr/Ec) 20 mg PO DAILY PRN (Reason: GI upset) RF: 0 hydromorphone 4 mg Tablet 4 mg PO Q4H PRN (Reason: Pain, Severe (7-10)) Qty: 60 RF: 0 hydroxyzine pamoate 25 mg Capsule 25 mg PO Q6HR PRN (Reason: Nausea) Qty: 40 RF: 0 hydromorphone 4 mg tablet RF: 0 Referrals: [facility] [Provider Group] Ruth Arora ARNP [Primary Care Provider] - <Giuseppe Meehan DO - Last Filed: 11/12/19 22:28> Cosign ED Attending Cosignature Attestation: Dr Meehan Co-Sign Statement: I was available for consultation during this patient's emergency department visit. This chart is signed by myself for administrative purposes only. I did not have direct contact with this patient during this visit. They were seen independently by the APC.
[2019-11-12 20:25] LABS: Add Manual Diff / Slide Review NO; Basophils Absolute Auto 0 /uL (0-100); Basophils Percent Auto 0.3 % (0-2); Eosinophils Absolute Auto 100 /uL (0-450); Eosinophils Percent Auto 1.1 % (2-4); Hematocrit 30.4 % (36-46); Hemoglobin 9.8 g/dL (12.0-16.0); Lymphocytes Absolute Auto 900 /uL (1100-4500); Lymphocytes Percent Auto 10.7 % (25-40); Mean Corpuscular HGB Conc 32.1 % (30-36); Mean Corpuscular Hemoglobin 25.9 PG (26-34); Mean Corpuscular Volume 80.6 fL (80-100); Monocytes Absolute Auto 400 /uL (0-900); Neutrophils Absolute Auto 7200 /uL (1500-7000); Neutrophils Percent Auto 82.9 % (50-75); Platelet Count 328 X10^3/uL (150-400); Red Blood Cell Count 3.77 X10^6/uL (4.0-5.2); White Blood Cell Count 8.7 X10^3/uL (4.5-11.0)
[2019-11-12 20:38] LABS: C-Reactive Protein Quant 7.2 mg/dL (<1.0)
[2019-11-12 20:42] LABS: Lactate (Lactic Acid) 1.3 mmol/L (0.7-2.1)
[2019-11-12 20:53] LABS: Procalcitonin 0.28 ng/mL (<0.5)
[2019-11-12 20:54] LABS: Erythrocyte Sedimentation Rate 112 MM/HR (0-20)
[2019-11-12 21:56] VITALS: BP 148/80; PULSE 85; RESP 18; O2SAT 100
== END 2019-11-12 21:57 | disposition home or self-care (01) ==
PROVIDERS: Emergency Provider Nurse Practitioner Family; PCP Nurse Practitioner Family
DX: M25.562 Pain in left knee (principal); W01.0XXA Fall on same level from slipping, tripping and stumbling without subsequent striking against object, initial encounter; Z96.652 Presence of left artificial knee joint
CPT/HCPCS: 36415; 73562; 83605; 84145; 85025; 85651; 86140; 99284

== ENCOUNTER 2019-12-29 07:17 | Emergency (ER) | payer MEDICARE, MEDICAID, SELFPAY ==
[2019-09-18 20:15] VITALS: BMI 30.6
[2019-12-29] VITALS (7 sets, daily range): BP systolic 103–154; BP diastolic 58–81; PULSE 77–103; RESP 15–17; TEMP 37.5; O2SAT 94–100; BMI 29.2
--- NOTE | 2019-12-29 08:03 | ED.EXTPRO ---
HPI - Extremity Problem General Chief complaint: Extremity Problem,Nontraumatic Stated complaint: left knee infected, 4 days Time Seen by Provider: 12/29/19 07:39 Source: patient Mode of arrival: Wheelchair Limitations: no limitations History of Present Illness HPI Narrative: The patient is a 54-year-old female who presents with left knee pain infection. She had total knee arthroplasty in August of 2019. Over the last 4 days she has noticed increasing redness and swelling around her knee she now has a erythema up her medial thigh. She denies fever or chills. It is quite sensitive she is able to weightbear but it is painful and the knee is becoming more swollen. MD Complaint: extremity pain and extremity swelling Related Data Home Medications Medication Instructions Recorded Confirmed diclofenac sodium 1 applic TOPICAL DIRECTED 10/03/17 09/18/19 pramipexole 0.25 mg PO BID 10/03/17 09/18/19 trazodone 100 mg PO BEDTIME 10/03/17 09/18/19 tizanidine 2 mg PO Q6-8H PRN 05/28/19 09/18/19 omeprazole 20 mg PO DAILY PRN 09/15/19 09/18/19 hydromorphone 11/12/19 Previous Rx's Medication Instructions Recorded hydromorphone 4 mg PO Q4H PRN #60 tab 09/19/19 hydroxyzine pamoate 25 mg PO Q6HR PRN #40 cap 09/19/19 amoxicillin-pot clavulanate 1 tab PO BID #14 tab 12/29/19 [Augmentin] Allergies Allergy/AdvReac Type Severity Reaction Status Date / Time bee venom protein (honey bee) Allergy Severe Hives Verified 09/18/19 20:27 morphine Allergy Severe Anaphylaxis Verified 09/18/19 11:36 Sulfa (Sulfonamide Allergy Severe Anaphylaxis Verified 09/18/19 11:36 Antibiotics) gabapentin AdvReac Severe Weight gain Verified 09/18/19 11:36 aspirin AdvReac Intermediate Abdominal Verified 09/18/19 11:36 Pain methadone AdvReac Intermediate Hallucinati Verified 09/18/19 11:36 ng Review of Systems Review of Systems Narrative: GENERAL: Denies chills, fatigue, malaise, fever, sweats, travel HEENT: Denies sinus pain, ear pain, sore throat, difficulty swallowing, neck pain RESPIRATORY: Denies dyspnea, cough, wheezing, hemoptysis, sputum. CARDIOVASCULAR: Denies chest pain, palpitations, orthopnea, edema GASTROINTESTINAL: Denies nausea, vomiting, abdominal pain, diarrhea, constipation, melena. : Denies dysuria, frequency, incontinence, hematuria, urinary retention, flank pain. MUSCULOSKELETAL: Denies weakness, joint pain, or bony pain SKIN: See HPI NEUROLOGIC: Denies weakness, dizziness, headache, numbness, change in speech, confusion PSYCHIATRIC: No concerning psychosocial issues. 12 point review of systems is negative except for those stated above and HPI Patient History Medical History Acute metabolic encephalopathy (Acute 09/16/17) Arthralgia (Chronic) Chronic back pain (Chronic) Degenerative disc disease, cervical (Chronic) Degenerative disc disease, lumbar (Chronic) Depression with anxiety (Chronic) Fibromyalgia (Chronic) GERD (gastroesophageal reflux disease) (Resolved) Neck infection (Acute 06/2017) Osteoarthritis (Acute) Restless leg syndrome (Chronic) Rheumatoid arthritis (Acute) Sepsis (Acute 09/16/17) Surgical History History of kidney surgery (Acute 2019) History of lumbar fusion (Resolved) Hx of cholecystectomy (Resolved) Hx of hernia repair (Acute ~2012) Status post cervical spinal fusion (Resolved) Tubal ligation status (Resolved) Social History household members: spouse Smoking Status: Former smoker alcohol intake: current substance use type: marijuana Smoking Status: Former smoker alcohol intake frequency: holidays/special occasions only Substance Use Type: former substance user Exam Initial Vital Signs Initial Vital Signs: Vital Signs Temperature 99.5 F 12/29/19 07:27 Pulse Rate 103 H 12/29/19 07:27 Respiratory Rate 16 12/29/19 07:27 Blood Pressure 154/81 H 12/29/19 07:27 Pulse Oximetry 99 12/29/19 07:27 GENERAL: Well-appearing, well-nourished and in no acute distress. HEENT: Head atraumatic,EOMI, pupils reactive, face symmetric, moist mucous membranes CARDIOVASCULAR: Regular rate and rhythm without murmurs, rubs or gallops. RESPIRATORY: Breath sounds equal bilaterally, no wheezes rales or rhonchi. ABDOMEN: Soft, nontender. Normoactive bowel sounds all 4 quadrants. No guarding or rebound. EXTREMITIES: Normal range of motion, no clubbing or edema. Neurovascularly intact. NEUROLOGICAL: Alert and oriented x4 SKIN: Left knee erythematous blanchable no vesicles goes up to the medial thigh non circumferential Course Orders Ordered: ED Orders 12/29/19 08:40 Blood Culture Stat Complete Blood Count AUTO DIFF Stat Comprehensive Metabolic Panel Stat Lactate (Lactic Acid) Stat Procalcitonin Stat Discontinued Medications Hydromorphone HCl (Dilaudid) 4 mg PO NOW ONE Stop: 12/29/19 09:27 Last Admin: 12/29/19 09:32 Dose: 4 mg Documented by: MANOLO Ampicillin Sodium/Sulbactam (Sodium 3 gm/ Sodium Chloride) 100 mls @ 100 mls/hr IV NOW ONE Stop: 12/29/19 09:11 Last Infusion: 12/29/19 10:24 Dose: 0 mls/hr Documented by: Admin: 12/29/19 09:23 Dose: 100 mls/hr Documented by: MANOLO Ketorolac Tromethamine (Toradol) 30 mg IV NOW ONE Stop: 12/29/19 07:59 Last Admin: 12/29/19 08:47 Dose: 30 mg Documented by: HAYES Vital Signs Vital signs: Vital Signs - 8 hr 12/29/19 07:27 12/29/19 07:58 12/29/19 08:00 Temperature 99.5 F Pulse Rate 103 H 95 H 92 H Respiratory Rate 16 Blood Pressure 154/81 H 113/60 Pulse Oximetry 99 94 95 12/29/19 08:30 12/29/19 09:00 12/29/19 09:21 Temperature Pulse Rate 90 90 82 Respiratory Rate 15 Blood Pressure 123/68 Pulse Oximetry 100 100 100 12/29/19 10:30 Temperature Pulse Rate 77 Respiratory Rate 17 Blood Pressure 103/58 L Pulse Oximetry 98 MDM - Extremity (Nontraumatic) Lab Data Attestation: I reviewed the patient's lab results. Result diagrams: 12/29/19 08:40 12/29/19 08:40 Labs: Lab Results 12/29/19 12/29/19 12/29/19 Range/Units 08:40 08:40 08:40 WBC 7.5 (4.5-11.0) X10^3/uL RBC 3.74 L (4.0-5.2) X10^6/uL Hgb 9.5 L (12.0-16.0) g/dL Hct 28.8 L (36-46) % MCV 76.9 L (80-100) fL MCH 25.3 L (26-34) PG MCHC 32.9 (30-36) % RDW 16.7 H (11.6-14.8) % Plt Count 249 (150-400) X10^3/uL Neut % (Auto) 71.7 (50-75) % Lymph % (Auto) 15.0 L (25-40) % [place] % (Auto) 10.7 (3-14) % Eos % (Auto) 1.5 L (2-4) % Baso % (Auto) 1.1 (0-2) % Neut # (Auto) 5400 (2182-4894) /uL Lymph # (Auto) 1100 (0240-1055) /uL [place] # (Auto) 800 (0-900) /uL Eos # (Auto) 100 (0-450) /uL Baso # (Auto) 100 (0-100) /uL Sodium 138 (137-145) mmol/L Potassium 3.9 (3.4-5.1) mmol/L Chloride 99 (98-107) mmol/L Carbon Dioxide 33 H (22-32) mmol/L BUN 19 H (7-17) mg/dL Creatinine 0.63 (0.52-1.04) mg/dL Estimated GFR > 60.0 (>60) mL/min BUN/Creatinine Ratio 30.2 H (6-22) Glucose 102 H (70-100) mg/dL Lactate (0.7-2.1) mmol/L Calcium 9.3 (8.4-10.2) mg/dL Total Bilirubin 1.5 H (0.2-1.3) mg/dL AST 40 H (14-36) IU/L ALT 63 H (<35) IU/L Alkaline Phosphatase 281 H (38-126) U/L Total Protein 8.5 H (6.3-8.2) g/dL Albumin 4.0 (3.5-5.0) g/dL Globulin 4.5 H (1.7-4.1) g/dL Albumin/Globulin Ratio 0.9 L (1.0-2.8) Procalcitonin 0.13 (<0.5) ng/mL 12/29/19 Range/Units 08:40 WBC (4.5-11.0) X10^3/uL RBC (4.0-5.2) X10^6/uL Hgb (12.0-16.0) g/dL Hct (36-46) % MCV (80-100) fL MCH (26-34) PG MCHC (30-36) % RDW (11.6-14.8) % Plt Count (150-400) X10^3/uL Neut % (Auto) (50-75) % Lymph % (Auto) (25-40) % [place] % (Auto) (3-14) % Eos % (Auto) (2-4) % Baso % (Auto) (0-2) % Neut # (Auto) (8530-1530) /uL Lymph # (Auto) (4543-5883) /uL [place] # (Auto) (0-900) /uL Eos # (Auto) (0-450) /uL Baso # (Auto) (0-100) /uL Sodium (137-145) mmol/L Potassium (3.4-5.1) mmol/L Chloride (98-107) mmol/L Carbon Dioxide (22-32) mmol/L BUN (7-17) mg/dL Creatinine (0.52-1.04) mg/dL Estimated GFR (>60) mL/min BUN/Creatinine Ratio (6-22) Glucose (70-100) mg/dL Lactate 2.8 H (0.7-2.1) mmol/L Calcium (8.4-10.2) mg/dL Total Bilirubin (0.2-1.3) mg/dL AST (14-36) IU/L ALT (<35) IU/L Alkaline Phosphatase (38-126) U/L Total Protein (6.3-8.2) g/dL Albumin (3.5-5.0) g/dL Globulin (1.7-4.1) g/dL Albumin/Globulin Ratio (1.0-2.8) Procalcitonin (<0.5) ng/mL [facility] decision making narrative: The patient has erythema which appears to be cellulitis. I do not believe this to be a septic arthritis although she does have swelling over her knee. She is able to ambulate. She is afebrile without leukocytosis she has mild elevated lactate. She has no history of MRSA. She does say however that he has infectious disease doctor at [facility] because of multiple infections after surgery. She is given a dose of Unasyn to cover strep, will send her home on Augmentin. I have instructed her that this does not cover MRSA and if the erythema is getting worse she needs to return to the ED for further evaluation. I discussed all findings with the patient, Education has been performed regarding treatment plan, diagnosis, warning signs and symptoms and all concerns have been addressed. Verbally agree with and understood all of the above. Discharge Plan Departure Patient Disposition: Home Clinical Impression: Cellulitis Qualifiers: Site of cellulitis: extremity Site of cellulitis of extremity: lower extremity Laterality: left Qualified Code(s): L03.116 - Cellulitis of left lower limb Discharge Date/Time: 12/29/19 10:35 Instructions: DI for Cellulitis -- Adult Activity Restrictions/Additional Instructions: *You have been diagnosed with cellulitis *What to do: Monitor very closely if redness is getting worse or your unable to weightbear you need to return to ER any *Continue to take medications as directed Augmentin 875 twice a day for 7 day *Follow up with your primary care provider in 2-3 days [and follow up with ortho, urology etc] *Return to ER if you should have [such as] [or] any new, worsening or concerning symptoms Prescriptions: New amoxicillin-pot clavulanate [Augmentin] 875-125 mg tablet 1 tab PO BID Qty: 14 RF: 0 No Action trazodone 50 mg tablet 100 mg PO BEDTIME RF: 0 pramipexole 0.25 mg tablet 0.25 mg PO BID RF: 0 diclofenac sodium 1 % gel 1 applic Topical DIRECTED RF: 0 tizanidine 2 mg Capsule 2 mg PO Q6-8H PRN (Reason: Muscle spasms) RF: 0 omeprazole 20 mg Tablet,Delayed Release (Dr/Ec) 20 mg PO DAILY PRN (Reason: GI upset) RF: 0 hydromorphone 4 mg Tablet 4 mg PO Q4H PRN (Reason: Pain, Severe (7-10)) Qty: 60 RF: 0 hydroxyzine pamoate 25 mg Capsule 25 mg PO Q6HR PRN (Reason: Nausea) Qty: 40 RF: 0 hydromorphone 4 mg tablet RF: 0 Referrals: Ruth Arora ARNP [Primary Care Provider] -
--- NOTE | 2019-12-29 08:37 | PC.NURSE ---
Unable to obtain IV at this time with attempts from this EDRN and Derrick RN. Lab to draw bloodwork and await results ot determine further course of action per Dr. Ford.
[2019-12-29] MEDS: KETOROLAC 60 MG/2 ML VIAL 30 MG IV (08:47)
[2019-12-29 08:52] LABS: Add Manual Diff / Slide Review NO; Basophils Absolute Auto 100 /uL (0-100); Basophils Percent Auto 1.1 % (0-2); Eosinophils Absolute Auto 100 /uL (0-450); Eosinophils Percent Auto 1.5 % (2-4); Hematocrit 28.8 % (36-46); Hemoglobin 9.5 g/dL (12.0-16.0); Lymphocytes Absolute Auto 1100 /uL (1100-4500); Mean Corpuscular HGB Conc 32.9 % (30-36); Mean Corpuscular Hemoglobin 25.3 PG (26-34); Mean Corpuscular Volume 76.9 fL (80-100); Monocytes Absolute Auto 800 /uL (0-900); Monocytes Percent Auto 10.7 % (3-14); Neutrophils Absolute Auto 5400 /uL (1500-7000); Neutrophils Percent Auto 71.7 % (50-75); Platelet Count 249 X10^3/uL (150-400); Red Blood Cell Count 3.74 X10^6/uL (4.0-5.2); Red Cell Distribution Width 16.7 % (11.6-14.8); White Blood Cell Count 7.5 X10^3/uL (4.5-11.0)
[2019-12-29 09:04] LABS: Alanine Aminotransferase 63 IU/L (<35); Albumin Globulin Ratio 0.9 (1.0-2.8); Alkaline Phosphatase 281 U/L (38-126); Aspartate Aminotransferase 40 IU/L (14-36); BUN Creatinine Ratio 30.2 (6-22); Bilirubin Total 1.5 mg/dL (0.2-1.3); Blood Urea Nitrogen 19 mg/dL (7-17); Calcium 9.3 mg/dL (8.4-10.2); Carbon Dioxide 33 mmol/L (22-32); Chloride 99 mmol/L (98-107); Estimated Glomerular Filt Rate > 60.0 mL/min (>60); Globulin 4.5 g/dL (1.7-4.1); Glucose 102 mg/dL (70-100); HEMOLYSIS < 15 (0-50); Potassium 3.9 mmol/L (3.4-5.1); Sodium 138 mmol/L (137-145); Total Protein 8.5 g/dL (6.3-8.2)
[2019-12-29 09:05] LABS: Lactate (Lactic Acid) 2.8 mmol/L (0.7-2.1)
[2019-12-29 09:20] LABS: Procalcitonin 0.13 ng/mL (<0.5)
[2019-12-29] MEDS: AMPICILLIN/SULBACTAM 3 GM 3 GM in SODIUM CHLORIDE 0.9% 100 ML IV (09:23)
[2019-12-29] MEDS: HYDROMORPHONE 4 MG TABLET PO (09:32)
[2019-12-29 10:49] LABS: Reflexed Lactate in 2 Hours Y
== END 2019-12-29 10:35 | disposition home or self-care (01) ==
PROVIDERS: Emergency Provider Emergency Medicine; PCP Nurse Practitioner Family
DX: L03.116 Cellulitis of left lower limb (principal)
CPT/HCPCS: 36415; 80053; 83605; 84145; 85025; 87040; 99284; J0295; J1885

== ENCOUNTER 2019-12-30 12:12 | Inpatient (IN) | payer MEDICARE, MEDICAID, SELFPAY ==
[2019-09-18 20:15] VITALS: BMI 30.6
[2019-12-30] VITALS (15 sets, daily range): BP systolic 116–174; BP diastolic 65–95; PULSE 70–111; RESP 10–24; TEMP 35.7–37.7; O2SAT 92–99; BMI 30.2
[2019-12-30 14:06] LABS: COVID19 -Nasal RAPID Negative (Negative)
--- NOTE | 2019-12-30 15:16 | PC.NURSE ---
Patient arrived via wheelchair and direct admit at 1230. Patient is a very hard stick, multiple departments had tried IV stick [address] Cesar telephoned about the need for a PICC line or midline, Dr. Cesar gave verbal order for PICC line and 0.2mg of dilaudid IV Q1. Cherelle telephoned about the need for DI to insert line before patient's surgery. Also telephoned again since patient was in a lot of pain, a 1 time 2mg dose of dilaudid w/ a sip of water was ordered per verbal order Dr. Cesar. I let him knot that patient is crying in pain. He said when he saw her in the office today there were no complaints of pain.
[2019-12-30] MEDS: HYDROMORPHONE 2 MG TABLET PO (15:48)
[2019-12-30] MEDS: LACTATED RINGERS 1,000 ML 100 ML IV ×2 (16:16→21:30)
[2019-12-30] MEDS: LACTATED RINGERS 1,000 ML 42 ML IV ×3 (16:55→20:39)
[2019-12-30] MEDS: CEFAZOLIN 2 GM/100 ML FROZ.PIGGY IV (18:16)
--- NOTE | 2019-12-30 18:24 | SUR.OPER ---
Supine on padded OR bed. Pillow under head, arms secured on padded armboards <90 degree abduction. Safety belt across torso. Non-operative leg secured with tape over blanket over lower leg. Operative leg secured in [place]positioner. Foam padded brace at thigh of operative leg.
[2019-12-30] MEDS: fentaNYL 100 MCG/2 ML INJ IV ×4 (19:38→20:17)
--- NOTE | 2019-12-30 19:39 | PM.OP.1 ---
Operative Date/Time/Diagnoses Date of procedure: 12/30/19 Time of procedure: 19:39 Pre-op diagnosis: Left infected total knee Post-op diagnosis: same Procedure & Clinicians Procedure: Incision and drainage and polyethylene exchange left total knee Same procedure as scheduled: Yes Indications: The patient is a 54-year-old woman who 4 months ago underwent a left total knee replacement. She did very well for the 1st 3 months with no evidence of infection. Over the last 5 days she has had worsening erythema around the knee and was seen in the emergency room last night and started on amoxicillin. She also has a history of IV substance abuse, reportedly last using 2 days ago. This morning she woke and there was purulence drainage from the bottom of the total knee incision. She has agreed to incision and drainage and polyethylene exchange with long-term antibiotics after discussion the risks benefits and alternatives. Risks discussed included but were not limited to: Failure to clear the infection, stiffness, instability, nerve damage, deep venous thrombosis, pulmonary embolism, stroke, myocardial infarction, permanent paralysis and . Surgeon: Vasyl Cesar Click Yes if Unassisted: Yes Anesthesia Type: General Operative Notes Findings: Purulent fluid connection underneath the medial tibial flap of skin, potential sinus tract to the medial proximal tibia. Closure Type: primary Specimen(s): other (Swabs and tissue cultures from the superficial fluid collection and from the joint.) Prosthetic devices, grafts, tissues, transplants, or devices: A 10 mm cross-linked size 3 Journey BCS II tibial insert from [employer] was removed, a 9 mm cross-linked size 3 Journey BCS II insert was placed. Applied: drain(s) and implant(s) Estimated Blood Loss (mL): 100 Blood products transfused: none Tourniquet time (min): 38 Procedure in detail: The patient was seen in the preoperative area where she confirmed her left knee as the operative site and this was marked with my initials. She was taken to the operating room and placed on the operating room table. She underwent a general anesthetic. Following the onset of satisfactory general anesthesia, a tourniquet was placed around her proximal left thigh. The left leg was prepared from the toes the tourniquet in the usual fashion draped through sterile drapes. Prior to prepping and draping a full ?time-out? was performed. The leg was elevated for 1 minute to exsanguinate it and the tourniquet inflated to 250 mm of mercury. After tourniquet inflation the patient received 2 g of Ancef IV. This was delayed until after the tourniquet to prevent it from interfering with the cultures. An incision was fashioned incorporating most of the prior incision but excising the sinus tract. This immediately fell into a subcutaneous fluid collection which was cultured. Subcutaneous tissues were also taken for culture. This area was extensively debrided both with scalpel and rongeurs. 3 L of pulsatile lavage solution was then applied to this area. This remained clean appearing at this point however it did appear that there was a possible connection to the deep joint overlying the medial tibia. The medial parapatellar arthrotomy was then created, purulent fluid was encountered in the joint. This was cultured. Deep tissues were also taken for culture. Extensive additional debridement with a scalpel and rongeurs was again performed. There was extremely extensive scarring in the joint which limited the patient's preoperative range of motion from 30 to approximately 70?. This was mobilized. I recreated medial and lateral gutters and a suprapatellar pouch using the العلي elevator. Adherence of the posterior aspect of the patellar tendon to the tibia was elevated. Extensive synovectomy was performed. The tibial insert was removed allowing posterior synovectomy to be performed.. An additional 3 L of pulsatile lavage was used. Due to the patient's lack of motion a thinner tibial insert was then placed. The knee was examined for range of motion with findings of range from 0-135 degrees well anesthetized with the smaller insert. Stability was excellent. An additional 3 L of pulsatile lavage was then applied. The tourniquet was deflated and hemostasis obtained with electrocautery. A deep drain was placed. The arthrotomy was closed with interrupted #1 Ethibond. The subcutaneous layer was closed with interrupted 3 O Vicryl. The skin was closed with ashanti. A Tegaderm was applied on the drain and a Picco dressing was applied to the skin. The patient was then transferred to the recovery room in good condition having tolerated procedure well. Complications: none Post-operative Condition: stable Disposition: PACU Plan for aftercare: Patient will be maintained on a standard physical therapy program for range of motion. She will receive 6 weeks of IV antibiotics. She will be referred to her infectious disease physician at [facility]. Revision of this knee will not be contemplated until it is verified she has stopped using illicit IV drugs.
[2019-12-30] MEDS: LORazepam 2 MG/ML INJ 0.5 MG IV (20:03)
--- NOTE | 2019-12-30 20:08 | SUR.PHASEI ---
Arrived to PACU crying, holding left knee, drowsy, eyes mostly closed, responsive to voice. Medicated per anesthesia. She has become quiet at intervals and then begins crying again. O2 sat in the low 90s after initial dose of medication, thus subsequent doses reduced. Pain went down to a 7 and then up to an 8. Ativan given per anesthesia. patient becoming calmer, quieter and less moaning/crying. 2011 currently rates pain at a 7, maintaining sats. observed one spasm in her left leg with resulted in louder crying. pt expressed desire for her RLS med prior to surgery; will inform AC RN.
--- NOTE | 2019-12-30 20:21 | SUR.PHASEI ---
report called to the floor. Rn knows pt history from initial surgery and is aware of pain control challenges.
--- NOTE | 2019-12-30 20:31 | SUR.PHASEI ---
took some juice, resting quietly. put on O2 to help maintain sat. Becoming sleepy, eyes closed, resting quietly. VS improved to near admission levels.
--- NOTE | 2019-12-30 20:57 | SUR.PHASEI ---
2043 to room, bed down and locked, call light within reach. SCDs on. in the room. Mostly quiet with occasional whimper. put on O2 at 2lNP, sat 98%. Hand-off to RN, suggested that she resume patient's PO pain med maribell. No questions/concerns.
[2019-12-30] MEDS: HYDROMORPHONE 0.5 MG INJ 0.2 MG IV ×2 (21:26→22:46)
[2019-12-30] MEDS: ACETAMINOPHEN 325 MG TABLET 650 MG PO (21:39)
[2019-12-30] MEDS: DOCUSATE 100 MG CAPSULE PO (21:40)
[2019-12-30] MEDS: ASPIRIN EC 81 MG TABLET PO (21:40)
[2019-12-30] MEDS: HYDROMORPHONE 4 MG TABLET PO (21:40)
[2019-12-30] MEDS: TRAZODONE 50 MG TABLET 100 MG PO (21:40)
[2019-12-30] MEDS: IBUPROFEN 400 MG TABLET PO (21:40)
[2019-12-30] MEDS: PRAMIPEXOLE 0.25 MG TABLET PO (21:57)
[2019-12-30] MEDS: VANCOMYCIN 1,000 MG/200 ML PIGGYBACK 200 MG IV (23:44)
[2019-12-31] MEDS: HYDROMORPHONE 0.5 MG INJ 0.2 MG IV (00:22)
[2019-12-31 00:30] VITALS: BP 148/83; PULSE 77; RESP 18; TEMP 37.1; O2SAT 100
[2019-12-31] MEDS: IBUPROFEN 400 MG TABLET PO ×6 (01:26→21:13)
--- NOTE | 2019-12-31 02:45 | PC.NURSE ---
Addendum entered by Niya Hill R.N. 12/31/19 05:36: Complains of 6/10 left knee pain; requested/medicated with po Dilaudid in addition to scheduled Ibuprofen per patient request. Addendum entered by Niya Hill R.N. 12/31/19 03:53: Noted 1 of 4 knee cultures is growing gm + cocci so placed on contact isolation Original Note: 0038 Patient is alert and oriented with flat affect. Complaining of 6/10 left knee pain and was medicated with IV Dilaudid and ice applied. Breath sounds CTA with RA sat of 100%. HRR. BP elevated at 148/83 and has trended high. Denies nausea. BT present but denies flatus as yet. Up to BSC with 1 assist and voided 50cc; denied dysuria. Is able to move self in bed. JAREN dressing to left knee covered with amy wrap is CDI. Hemovac is intact and compressed. Non pitting edema in left leg. CMS intact except for chronic numbness she states she has had since original surgery. Requested to have SCD removed from right leg (not using on left) as causing leg to be painful; reminded to ankle wave and patient verbalizes understanding. Fall risk score is high and bed alarm is activated.
[2019-12-31 04:51] VITALS: BP 113/69; PULSE 75; RESP 18; TEMP 36.3; O2SAT 99
[2019-12-31] MEDS: HYDROMORPHONE 4 MG TABLET PO ×6 (05:18→21:12)
--- NOTE | 2019-12-31 06:47 | P.PN_ITS ---
Subjective Subjective Date Patient Seen: 12/31/19 Time Patient Seen: 06:48 Interval history: The patient is slightly somnolent but comfortable at this point. When I questioned her about the additional history of IV drug use at home (which came to light upon her nursing admission) the patient initially denies but then admits to IV use. Exam Vital Signs (past 8 hours): - 12/30/19 22:52 12/31/19 00:30 12/31/19 04:51 Temperature 98.4 F 98.7 F 97.3 F L Pulse Rate 78 77 75 Respiratory Rate 16 18 18 Blood Pressure 126/72 148/83 H 113/69 Pulse Oximetry 98 100 99 Oxygen Delivery Method Room Air Oxygen Flow Rate 0 Narrative Exam Narrative: Left knee wound is dressed with no drainage on the bandage. Drain output has been 80 mL overnight. Calf is soft. Light touch and motion are intact in the left lower extremity. Objective Labs Labs: Laboratory Results - last 24 hr 12/30/19 12:50 COVID-19 PCR Negative Assessment & Plan Post-op Postoperative Procedures: Procedures Operation Date: 12/30/19 17:15 Actual Procedures Side Surgeon p I&D poly exchange Left Vasyl Cesar MD Postoperative day: 1 Postoperative status: doing well, marginal pain control and anemia Postoperative status narrative: The patient is stable postoperative day 1 after I and D and polyethylene exchange for total knee infection. Pain control has been marginal but she appears to be in good control this morning. She does have an anemia which preexisted her surgery. Currently one Gram stain shows gram- positive cocci. There is no growth on any of the cultures as of yet. Postoperative plan: routine post-op care and ambulate Postoperative plan narrative: We will mobilize her with physical therapy. She became very stiff after her total knee replacement and this was also addressed at yesterday's surgery with lysis of adhesions and downsizing of the polyethylene insert. I have talked her about the fact that intravenous drug use is associated with bacteremia. This would explain why she did very well for 3 months after surgery with no signs of infection and then had the onset of what appears to be a staph knee infection. I have explained to her that definitive management with staged revision, if it becomes necessary, cannot be contemplated while active IV drug use is ongoing. For the time being we will attempt to save the current prosthetic with the polyethylene exchange and I and D and 6 weeks of IV antibiotics. She will remain in the hospital until the cultures are available with sensitivities to determine antibiotic choices. Quality VTE Deep Vein Thrombosis/Pulmonary Embolism Present on Admission: No
[2019-12-31 07:00] VITALS: BP 104/58; PULSE 66; RESP 14; TEMP 36.9; O2SAT 99
[2019-12-31 07:25] LABS: Hematocrit 24.5 % (36-46)
[2019-12-31 07:57] LABS: C-Reactive Protein Quant 13.1 mg/dL (<1.0)
[2019-12-31 07:59] LABS: Erythrocyte Sedimentation Rate 78 MM/HR (0-20)
[2019-12-31] MEDS: DOCUSATE 100 MG CAPSULE PO ×2 (08:09→21:13)
[2019-12-31] MEDS: LACTATED RINGERS 1,000 ML 100 ML IV (08:09)
[2019-12-31] MEDS: ASPIRIN EC 81 MG TABLET PO ×2 (08:09→21:13)
[2019-12-31] MEDS: ACETAMINOPHEN 325 MG TABLET 650 MG PO ×3 (08:09→21:13)
[2019-12-31] MEDS: PRAMIPEXOLE 0.25 MG TABLET PO ×2 (09:01→21:14)
--- NOTE | 2019-12-31 09:20 | PT.IIE ---
Surgery Performed Operation Date: 12/30/19 17:15 Actual Procedures p I&D poly exchange(Left) - Vasyl Cesar MD Surgical History (Last Reviewed 12/29/19 @ 08:07 by Shirley Ford DO) History of kidney surgery (Acute 2019) History of lumbar fusion (Resolved) Hx of cholecystectomy (Resolved) Hx of hernia repair (Acute ~2012) Status post cervical spinal fusion (Resolved) Tubal ligation status (Resolved) Medical History (Last Reviewed 12/29/19 @ 08:07 by Shirley Ford DO) Acute metabolic encephalopathy (Acute 09/16/17) Arthralgia (Chronic) Chronic back pain (Chronic) Degenerative disc disease, cervical (Chronic) Degenerative disc disease, lumbar (Chronic) Depression with anxiety (Chronic) Fibromyalgia (Chronic) GERD (gastroesophageal reflux disease) (Resolved) Neck infection (Acute 06/2017) Osteoarthritis (Acute) Restless leg syndrome (Chronic) Rheumatoid arthritis (Acute) Sepsis (Acute 09/16/17) Physical Therapy Inpatient Evaluation/Re-Eval M1 PT/OT-IP Prior Functional Status Start: 12/31/19 12:26 Freq: NEEDED Status: Active Protocol: Document 12/31/19 09:20 AB (Rec: 12/31/19 12:45 AB [id number]) Medical Review Prior Functional Status Medical History Reviewed Yes Communication able to make needs known Mobility and Gait pt stated that she is modified independent with bed mobility , transfers and ambulation: able to ambulate without AD on a good day, uses a FWW on a bad day and stated that if it is really bad, she has to use her w/c Activities of Daily Living and IADL's stated that her assists her with her dressing needs Prior Functional Level (Other details) pt just underwent L TKA last 09/18/19. pt stated that she did not get to go to her outpt PT afterwards because she was not able to arrange transportation schedule with her caregivers. Social History Household Members spouse Living Arrangements Apartment/Condo Number of Floors (Floors) One Floor Number of Stairs To Enter/Railing? no steps to enter Home Environment Standard Height Toilet,Tub/ Shower Home Equipment Front Wheel Walker,Manual Wheelchair,Raised Toilet Seat Without Armrests,Shower Seat with Backrest,Grab Bars In Shower Additional Social History Comment pt has a hospital bed has a caregiver that comes in 3x/week for 3 hours daily M2 PT-IP Current Condition Start: 12/31/19 12:26 Freq: NEEDED Status: Active Protocol: Document 12/31/19 09:20 AB (Rec: 12/31/19 12:45 AB [email or web address]) Physical Therapy Current Condition Current Condition Evaluation Date 12/31/19 Treatment Diagnosis s/p I&D L TKA with polyethylene exchange; difficulty in walking Onset Date 12/30/19 Weight Bearing Status Weight Bearing Status Weight Bear as Tolerated Allowed Weight Bearing Amount (enter % LLE WBAT or #) (%) M3 PT-IP Subjective Start: 12/31/19 12:26 Freq: NEEDED Status: Active Protocol: Document 12/31/19 09:20 AB (Rec: 12/31/19 12:45 AB [email or web address]) Subjective Physical Therapy Visit Type Type Initial Evaluation Visit Start Time 09:20 Visit Stop Time 09:58 Total Visit Minutes 38 Number of INSTRUCTOR TECHNICAL TRAINING Visits 0 Physical Therapy Visit Comments Patient Comments pt agreed to do PT but hesistant to participate Therapy Pain Assessment Pain When Pain Assessed At Rest Pain Present Pain Present Pain Reported Location Left Knee Intensity 8 Scale Used Numeric (0 - 10) Pain Management Techniques Distraction,Modification of Treatment,Re-positioning, Timing of Activity with Medications M4 PT-IP Mobility and Gait Start: 12/31/19 12:26 Freq: NEEDED Status: Active Protocol: Document 12/31/19 09:20 AB (Rec: 12/31/19 12:45 AB [email or web address]) PT-Bed Mobility Assessment Supine to Sit Supine to Sit Standby Assistance PT-Transfer Assessment Sit to and From Stand Sit to and from Stand Standby Assistance,Use of Upper Extremities Equipment Transfer Assistive Device Gait Belt,Front Wheeled Walker Orthotic/Prosthetic Devices or Brace: No Transfers Transfer Destination Chair Transfer Technique ambulated using FWW Transfer Ability Level of Assist Standby Assistance Comments Mobility Comments pt completed supine to sit SBA with pt using UE to assist with LLE movement to EOB. pt does not want LLE to be touch or assisted. pt completed sit to stand from EOB SBA and ambulated in room ~ 50 ft using FWW SBA. pt sat on chair. positioned on chair. call light and table placed within reach. Gait Assessment Gait Gait Assistance Required: Standby Assistance Distance (Feet) 50 Able to Maintain Weight Bearing Status Yes During Gait Assistive Devices Assistive Device Gait Belt,Front Wheeled Walker Orthotic/Prosthetic Devices or Brace: No Gait Deviations General Gait Pattern Decreased Stride Length, Decreased Feet Clearance,Step- to Gait Factors Limiting Gait Function Factors Limiting Gait Function Decreased Activity Tolerance, Decreased Strength,Difficulty Following Directions,Limited Range of Motion,Pain,Poor Balance,Poor Safety Awareness Comments Gait Comments pt with increase L knee flexion and unable to position foot flat on floor during standing. cued pt to correct but pt did not follow. pt also refused LLE to be touch or assisted, PT-Balance Assessment Sitting Balance and Reactions Static Sitting Balance Ability Good Dynamic Sitting Balance Ability Good Standing Balance and Reactions Static Standing Balance Ability Fair Dynamic Standing Balance Ability Fair Device Used FWW M5 PT-IP Objective Assessments Start: 12/31/19 12:26 Freq: NEEDED Status: Active Protocol: Document 12/31/19 09:20 AB ([facility]: [email or web address] Orientation Orientation/Cognition Level of Alertness Alert Orientation Name,Place,Situation Safety Awareness Decreased Safety Awareness Gross Range of Motion Lower Extremity ROM Assessment Left Impaired Impairments L knee flexion AROM: ~ 60 deg L knee extension AROM: ~ 30 deg less to neutral pt refused LLE to be touch and unable to checked PROM Strength Lower Extremity Strength Assessment Left Impaired Knee 3-/5 Muscle Tone Muscle Tone WNL Yes M6 PT-IP Treatment Start: 12/31/19 12:26 Freq: NEEDED Status: Active Protocol: Document 12/31/19 09:20 AB (Rec: 12/31/19 [facility] Physical Therapy Treatment Education Education Provided Precautions,Safety M7 PT-IP Assessment and Plan Start: 12/31/19 12:26 Freq: NEEDED Status: Active Protocol: Document 12/31/19 09:20 AB (Rec: 12/31/19 12:45 [facility] PT Summary Assessment and Plan Potential Rehabilitation Potential Good Status of Condition at Evaluation Evolving Summary Impairments Pain,ROM,Strength,Balance, Coordination,Sensation,Tone, Cognition,Bed Mobility, Transfers,Gait,Activity Tolerance Assessment Summary pt requiring SBA with mobility but has decrease L knee ROM and strength. pt refused L LE to be touch/assisted and unable to perform PROM. educated pt on importance of ROM. pt lives with her and will need homehealth PT on d/c. Goals Bed Mobility Goal Independent Transfer Goal Independent,Front Wheeled Walker Gait Goal Independent,Front Wheel Walker Gait Distance 150 Frequency of Treatment Frequency Of Treatment Twice a Day Treatment Plan Physical Therapy Treatment Plan Bed Mobility Training,Transfer Training,Gait Training, Therapeutic Exercise,Balance Retraining,Post Op Education, Discharge Planning,Hot or Cold Pack,Neuromuscular Re-ed, Coordination Retraining,Manual Therapy Recommendations To Nursing Amount of Assist Needed Standby Assistance Discharge Recommendations PT Discharge Recommendations Home with Assistance,Home Health Transportation Needs at Discharge Private Vehicle
[2019-12-31] MEDS: VANCOMYCIN 1,000 MG/200 ML PIGGYBACK 200 MG IV (12:10)
[2019-12-31 12:32] VITALS: BP 100/61; PULSE 66; RESP 14; TEMP 36.5; O2SAT 95
--- NOTE | 2019-12-31 13:10 | CM.DANOTE ---
Patient is a 54 year old female who was admitted on 12/30/19 for Knee Infection. Pt has [facility] and [facility] for insurance and her PCP is Dr. Ruth Arora. EMR was reviewed. Per Twan ANN, pt had Left Total Knee replacement at the end of August 2019 this year and was progressing well but now admits to the hospital with need for I&D and terrazzo grinder IV-Abx, pending culture results, needed at d/c. Twan ANN discussed pt's questionable hx/current IV-DA and the risks involved. SW met bedside with pt and explained role and she confirms that she lives in [facility] with her spouse Eleonora and they have grown children locally. Pt is mostly independent with ADL's but relies on spouse and caregivers for transport. Pt states she has been disabled since a back injury/infection in 2010 and has [facility] 3x week for a few hours to assist and help with transport. SW discussed MD mention of IV-DA and pt states she is frustrated and upset that drug use continues to be brought up with her when she gets an infection and adamantly denies any current drug abuse/use. Pt states that she is established with a Pain Clinic for chronic pain and has been prescribed Dilaudid successfully for at least 2 years without any issues or concerns. Pt has a hx of at least 4 other times that she has needed shelter IV-Abx courses and has successfully utilized home infusion without concern or issues. Pt states she last used [facility] about 2 years ago for sepsis and preference would be home with home infusion company. Pt strongly states she will not go to SNF for IV-Abx, too risky with COVID and the state of the world. SW discussed the concern about IV-DA and PICC placement for IV-Abx and pt acknowledges understanding and continues to deny any drug abuse. Pt approves NARCISO/DCP to contact her spouse for further questions if needed. Pt requests SW make a referral to [facility] to confirm no out of pocket expense (likely covered by pt's Medicaid as pt states no out of pocket expense for home infusion in the past) and that [facility] would be willing to accept with the question of drug use. SW called [facility] with the new referral and faxed initial clinicals but could not find PICC placement note just midline. SW called [facility] Bed admissions [phone] and had to leave a msg and inquired about bed availability and if willing to review for shelter IV-Abx and requested call back. SW called pt's Sig Other and no answer towards further discussion on pt's possible drug use vs not?? Per PT, now recommending HH if pt able to d/c home with home infusion vs Swing/SNF for IV-Abx needs. No referral to HH made yet as waiting to determine if pt will be able to safely d/c home or not. UDS may be needed to ruleout current drug use questions? Pt was discharged in 2018 home with home infusion after Sepsis with questions regarding possible drug misuse at that time without any clear understanding if pt was actively using or just had a remote hx of drug abuse. Seems still unclear at this time with confusion in communication with pt and spouse. Plan: DCP to follow closely for culture results to confirm terrazzo grinder IV-Abx needed and dose/frequency. DCP to follow for [facility] to review to determine if they will accept pt for home infusion vs Swing/SNF at d/c. If pt safe for home then HH referral needed for RN/PT. BERNARDINO Funk Discharge Planning/Care Management CM Discharge Assessment Start: 12/31/19 13:07 Freq: Status: Active Protocol: Document 12/31/19 13:07 JOHAN (Rec: 12/31/19 13:10 BF [id number]) Discharge Planning Assessment Assigned Stripper Machine Operator BERNARDINO Lu Advance Directives? No History Provided By Patient,Family Member,Medical Record Has Patient been admitted in last 30 No days? Prior Living Arrangements Apartment/Condo Household Members spouse Type of transporation used prior to Relies on Others admit Comment Spouse and [facility] provide transport for patient Independent with ADL's Yes: mostly Is patient alert and oriented? Yes Needs Assistance With Managing Medications,Home Chores / Shopping Caregiver for Another No DME Already Rented / Owned Wheelchair,FWW / Walker Patient/Family Preference Home with Home Health Comment Home with assist and HH and home infusion vs SNF/Swing bed pending IV-Abx needs Barriers to Discharge Yes Comment IV-Abx terrazzo grinder needed at d/c Discharge Plan Home with Home Health Community [facility] Physical Therapy,Home Health Nurse,IV Therapy Transportation Arrangement Family vs facility van pending d/c plan Referrals Initiated Other Additional Comment Made referral to [facility] for IV-Abx Whiteboard Updated in Patient Room with Yes name and ext. # of Stripper Machine Operator Review Status In Process Please Provide Date Initial DC 12/31/19 Assessment Was Performed Next Review Type Continued Stay Review
--- NOTE | 2019-12-31 14:36 | PT.IPTN ---
Surgery Performed Operation Date: 12/30/19 17:15 Actual Procedures p I&D poly exchange(Left) - Vasyl Cesar MD Physical Therapy Treatment Note M2 PT-IP Current Condition Start: 12/31/19 12:26 Freq: NEEDED Status: Active Protocol: Document 12/31/19 09:20 AB (Rec: 12/31/19 12:45 AB [id number]) Physical Therapy Current Condition Current Condition Evaluation Date 12/31/19 Treatment Diagnosis s/p I&D L TKA with polyethylene exchange; difficulty in walking Onset Date 12/30/19 Precautions Other Precautions contact precautions Weight Bearing Status Weight Bearing Status Weight Bear as Tolerated Allowed Weight Bearing Amount (enter % LLE WBAT or #) (%) M3 PT-IP Subjective Start: 12/31/19 12:26 Freq: NEEDED Status: Active Protocol: Document 12/31/19 14:36 AB (Rec: 12/31/19 15:30 AB [email or web address]) Subjective Physical Therapy Visit Type Type Treatment Note Visit Start Time 14:36 Visit Stop Time 14:56 Total Visit Minutes 20 Number of VEGETABLE TIER Visits 0 Physical Therapy Visit Comments Patient Comments pt is agreeable to do PT Therapy Pain Assessment Pain When Pain Assessed At Rest Pain Present Pain Present Pain Reported Location Left Knee Intensity 7 Scale Used Numeric (0 - 10) Pain Management Techniques Distraction,Re-positioning, Timing of Activity with Medications M4 PT-IP Mobility and Gait Start: 12/31/19 12:26 Freq: NEEDED Status: Active Protocol: Document 12/31/19 14:36 AB (Rec: 12/31/19 15:30 AB [id number]) PT-Bed Mobility Assessment Supine to Sit Supine to Sit Standby Assistance Sit to Supine Sit to Supine Standby Assistance Scooting Scooting to Edge of Bed Standby Assistance Scooting Up and Down in Bed Standby Assistance PT-Transfer Assessment Sit to and From Stand Sit to and from Stand Standby Assistance,Contact Guard Assistance Equipment Transfer Assistive Device Gait Belt,Front Wheeled Walker Orthotic/Prosthetic Devices or Brace: No Comments Mobility Comments pt completed supine to sit with HOB elevated SBA. pt directs her care and does not want LLE to be touch by PT. completed sit to stand SBA to CGA, ambulated using FWW in room ~ 35 ft. presents with antalgic gait, slow beau. pt is able to follow directions but is somnolent. pt requested to go back to bed and completed sit to supine SBA. pt used hands to assist LLE with bed mobility. positioned pt in bed. call light and table placed within reach. Gait Assessment Gait Gait Assistance Required: Standby Assistance Distance (Feet) 35 Able to Maintain Weight Bearing Status Yes During Gait Assistive Devices Assistive Device Gait Belt,Front Wheeled Walker Orthotic/Prosthetic Devices or Brace: No Gait Deviations General Gait Pattern Antalgic,Decreased Stride Length,Decreased Feet Clearance,Step-to Gait Factors Limiting Gait Function Factors Limiting Gait Function Decreased Activity Tolerance, Decreased Strength,Limited Range of Motion,Pain,Poor Balance,Poor Safety Awareness Comments Gait Comments pls refer to mobility section for details. pt has increase L knee flexion during standing and ambulation but directs own tasks and does not want to do much ROM on LLE M5 PT-IP Objective Assessments Start: 12/31/19 12:26 Freq: NEEDED Status: Active Protocol: Document 12/31/19 09:20 AB (Rec: 12/31/19 12:45 [facility] Orientation Orientation/Cognition Level of Alertness Alert Orientation Name,Place,Situation Safety Awareness Decreased Safety Awareness Gross Range of Motion Lower Extremity ROM Assessment Left Impaired Impairments L knee flexion AROM: ~ 60 deg L knee extension AROM: ~ 30 deg less to neutral pt refused LLE to be touch and unable to checked PROM Strength Lower Extremity Strength Assessment Left Impaired Knee 3-/5 Muscle Tone Muscle Tone WNL Yes M6 PT-IP Treatment Start: 12/31/19 12:26 Freq: NEEDED Status: Active Protocol: Document 12/31/19 14:36 AB (Rec: 12/31/19 15:30 AB [facility] Physical Therapy Treatment Education Education Provided Safety M7 PT-IP Assessment and Plan Start: 12/31/19 12:26 Freq: NEEDED Status: Active Protocol: Document 12/31/19 14:36 AB (Rec: 12/31/19 15:30 AB [facility] PT Summary Assessment and Plan Potential Rehabilitation Potential Good Summary Impairments Pain,ROM,Strength,Balance, Coordination,Sensation, Cognition,Bed Mobility, Transfers,Gait,Activity Tolerance Progress Towards Goals Slow Progress due to Medical Issues,Slow Progress due to Activity Tolerance Assessment Summary pt requiring SBA with mobility . pt plans to go home with spouse to assist her. pt directs her own care. pt will need homehealth PT on d/c. Goals Bed Mobility Goal Independent Transfer Goal Independent,Front Wheeled Walker Gait Goal Independent,Front Wheel Walker Gait Distance 150 Frequency of Treatment Frequency Of Treatment Twice a Day Treatment Plan Physical Therapy Treatment Plan Bed Mobility Training,Transfer Training,Gait Training, Therapeutic Exercise,Balance Retraining,Post Op Education, Discharge Planning,Hot or Cold Pack,Neuromuscular Re-ed, Coordination Retraining,Manual Therapy Recommendations To Nursing Amount of Assist Needed Standby Assistance Discharge Recommendations PT Discharge Recommendations Home with Assistance,Home Health Transportation Needs at Discharge Private Vehicle
[2019-12-31 15:44] VITALS: BP 102/60; PULSE 68; RESP 18; TEMP 36.4; O2SAT 98
[2019-12-31 20:13] VITALS: BP 110/59; PULSE 58; RESP 16; TEMP 36.3; O2SAT 96
[2019-12-31] MEDS: TRAZODONE 50 MG TABLET 100 MG PO (21:13)
[2020-01-01] MEDS: VANCOMYCIN 1,000 MG/200 ML PIGGYBACK 200 MG IV ×2 (00:20→13:00)
[2020-01-01] MEDS: SODIUM CHLORIDE 0.9% 250 ML 21 ML IV (00:20)
[2020-01-01] MEDS: SODIUM CHLORIDE 0.9% FLUSH 10 ML IV ×3 (00:21→19:47)
[2020-01-01 00:28] VITALS: BP 114/70; PULSE 66; RESP 12; TEMP 36.6; O2SAT 95
[2020-01-01] MEDS: IBUPROFEN 400 MG TABLET PO ×6 (00:29→19:48)
[2020-01-01] MEDS: HYDROMORPHONE 4 MG TABLET PO ×6 (00:29→19:45)
--- NOTE | 2020-01-01 01:42 | PC.NURSE ---
0032 Patient is alert and oriented with very flat affect. Breath sounds CTA with RA sat of 95%. HRR. Denies nausea. BT present and is passing flatus. Denies dysuria, frequency or urgency with urination. Is able to move herself in bed. Not up yet this shift but reportedly is out of bed with walker and SBA. JAREN dressing intact and functioning; wrapped with amy and is CDI. Hemovac intact and compressed. Refusing to wear SCD's so reminded to ankle wave when awake. FLACC of 0 but when asked patient states her pain is 6/10; requested/medicated with Dilaudid and scheduled Ibuprofen. Reports having fallen in past 3 months so is at high risk and bed alarm is activated. On contact isolation as wound cultures are growing staph aureus.
[2020-01-01 04:49] VITALS: BP 117/68; PULSE 83; RESP 12; TEMP 36.4; O2SAT 95
[2020-01-01 08:15] VITALS: BP 115/67; PULSE 62; RESP 16; TEMP 36.4; O2SAT 94
[2020-01-01] MEDS: ACETAMINOPHEN 325 MG TABLET 650 MG PO ×3 (08:56→19:46)
[2020-01-01] MEDS: PRAMIPEXOLE 0.25 MG TABLET PO ×2 (08:56→19:46)
[2020-01-01] MEDS: ASPIRIN EC 81 MG TABLET PO ×2 (08:57→19:46)
[2020-01-01] MEDS: DOCUSATE 100 MG CAPSULE PO ×2 (08:57→19:48)
--- NOTE | 2020-01-01 10:36 | PT.IPTN ---
Surgery Performed Operation Date: 12/30/19 17:15 Actual Procedures p I&D poly exchange(Left) - Vasyl Cesar MD Physical Therapy Treatment Note M2 PT-IP Current Condition Start: 12/31/19 12:26 Freq: NEEDED Status: Active Protocol: Document 12/31/19 09:20 AB (Rec: 12/31/19 12:45 AB [id number]) Physical Therapy Current Condition Current Condition Evaluation Date 12/31/19 Treatment Diagnosis s/p I&D L TKA with polyethylene exchange; difficulty in walking Onset Date 12/30/19 Precautions Other Precautions contact precautions Weight Bearing Status Weight Bearing Status Weight Bear as Tolerated Allowed Weight Bearing Amount (enter % LLE WBAT or #) (%) M3 PT-IP Subjective Start: 12/31/19 12:26 Freq: NEEDED Status: Active Protocol: Document 01/01/20 10:36 AB (Rec: 01/01/20 12:30 AB [id number]) Subjective Physical Therapy Visit Type Type Treatment Note Visit Start Time 10:36 Visit Stop Time 11:02 Total Visit Minutes 26 Number of PEDIATRIC PHYSICIAN Visits 0 Physical Therapy Visit Comments Patient Comments pt is agreeable to do PT Therapy Pain Assessment Pain When Pain Assessed At Rest Pain Present Pain Present Pain Reported Location Left Knee Scale Used pain scale not given but stated that pain is not too bad Pain Management Techniques Apply Cold,Distraction, Modification of Treatment,Re- positioning,Timing of Activity with Medications M4 PT-IP Mobility and Gait Start: 12/31/19 12:26 Freq: NEEDED Status: Active Protocol: Document 01/01/20 10:36 AB (Rec: 01/01/20 12:30 AB [id number]) PT-Bed Mobility Assessment Supine to Sit Supine to Sit Independent,Head of Bed Elevated PT-Transfer Assessment Sit to and From Stand Sit to and from Stand Standby Assistance,1 Person Assistance,Use of Upper Extremities Equipment Transfer Assistive Device Gait Belt,Front Wheeled Walker Orthotic/Prosthetic Devices or Brace: No Transfers Transfer Destination Chair Transfer Technique ambulated using FWW Transfer Ability Level of Assist Standby Assistance,Use of Upper Extremities Comments Mobility Comments completed supine to sit with HOB elevated SBA. ambulated in room ~ 65 ft SBA. agreed to do LE exercises. completed heel slides on LLE with 10 sec hold on end range x 4 reps . PROM ~ 70 deg with L knee flexion. completed L knee extension stretching with rolled towel under L heels and with pt pushing knee down to straighten knee. L knee extension ~ 20-25 degrees less to neutral. pt agreed to stay up on chair. positioned on chair. call light and table placed within reach. Gait Assessment Gait Gait Assistance Required: Standby Assistance Distance (Feet) 65 Able to Maintain Weight Bearing Status Yes During Gait Assistive Devices Assistive Device Gait Belt,Front Wheeled Walker Orthotic/Prosthetic Devices or Brace: No Gait Deviations General Gait Pattern Antalgic,Decreased Stride Length,Decreased Feet Clearance,Flexed Trunk,Lateral Trunk Lean,Step-to Gait Factors Limiting Gait Function Factors Limiting Gait Function Decreased Activity Tolerance, Decreased Strength,Limited Range of Motion,Pain,Poor Balance,Poor Safety Awareness Comments Gait Comments continues to have increase L knee flexion during standing and ambulation M5 PT-IP Objective Assessments Start: 12/31/19 12:26 Freq: NEEDED Status: Active Protocol: Document 12/31/19 09:20 AB (Rec: 12/31/19 12:45 AB [id number]) Orientation Orientation/Cognition Level of Alertness Alert Orientation Name,Place,Situation Safety Awareness Decreased Safety Awareness Gross Range of Motion Lower Extremity ROM Assessment Left Impaired Impairments L knee flexion AROM: ~ 60 deg L knee extension AROM: ~ 30 deg less to neutral pt refused LLE to be touch and unable to checked PROM Strength Lower Extremity Strength Assessment Left Impaired Knee 3-/5 Muscle Tone Muscle Tone WNL Yes M6 PT-IP Treatment Start: 12/31/19 12:26 Freq: NEEDED Status: Active Protocol: Document 01/01/20 10:36 AB (Rec: 01/01/20 12:30 AB [id number]) Physical Therapy Treatment Exercises Exercises Heel Slides,Passive Knee Extension Hang Education Education Provided Safety M7 PT-IP Assessment and Plan Start: 12/31/19 12:26 Freq: NEEDED Status: Active Protocol: Document 01/01/20 10:36 AB (Rec: 01/01/20 12:30 AB [email or web address]) PT Summary Assessment and Plan Potential Rehabilitation Potential Good Summary Impairments Pain,ROM,Strength,Balance, Coordination,Sensation,Tone, Cognition,Bed Mobility, Transfers,Gait,Activity Tolerance Progress Towards Goals Slow Progress due to Pain,Slow Progress due to Medical Issues,Slow Progress due to Activity Tolerance Assessment Summary pt requiring CGA with mobility and plans to go home with spouse to assist her. pt also has caregivers that comes in 3x/week for ~ 3 hours. pt will also benefit from homehealth PT. Goals Bed Mobility Goal Independent Transfer Goal Independent,Front Wheeled Walker Gait Goal Independent,Front Wheel Walker Gait Distance 150 Other Goals increase L knee flexion to 90 deg increase L knee extension to 5 deg Frequency of Treatment Frequency Of Treatment Twice a Day Treatment Plan Physical Therapy Treatment Plan Bed Mobility Training,Transfer Training,Gait Training, Therapeutic Exercise,Balance Retraining,Post Op Education, Discharge Planning,Hot or Cold Pack,Neuromuscular Re-ed, Coordination Retraining,Manual Therapy Recommendations To Nursing Amount of Assist Needed Standby Assistance Discharge Recommendations PT Discharge Recommendations Home with Assistance,Home Health Transportation Needs at Discharge Private Vehicle
--- NOTE | 2020-01-01 11:25 | PC.NURSE ---
Assess- Patient given dilaudid 4mg along with her tylenol and ibuprofen. Patient has a sangeetha dressing to her l.knee with acewrap. She also has a midline to her l.upper arm that is flushing but not drawing back blood. Patient has a flat affect, she is agreeable to care and has been pleasant to this RN. Patients wound cultures back and all sensitive to oxacillan. Will notify Ortho when they are up to the floor.
[2020-01-01 12:12] VITALS: BP 96/55; PULSE 57; RESP 16; TEMP 36.4; O2SAT 95
[2020-01-01 12:31] LABS: Vancomycin Trough 8.9 ug/mL (10-20)
--- NOTE | 2020-01-01 13:41 | CM.DPC ---
Addendum entered by Jenise Hernandez LPN 01/01/20 15:47: Spoke again now with Isaac/[facility]. He stated that they could accept pt on service but did warn pt and her that they could only be involved in an order was received for same by Dr. Cesar. He stated that HH RN could be ordered to partner with [facility] in PICC line dressing changes. HH therapy could also be ordered. He stated that [facility] does have paperwork that pt signs in regards to PICC line access and that if there is evidence that PICC has been used inappropriately their services would cease. Pt continues to firmly deny any elicit IV drug use. Will follow as stated in notes below. Original Note: DCP: continued: case received and discussed in Team Rounds. EMR reviewed. Met now with pt and introduced self and role. Am familiar with pt and her Eleonora from pt's admission to 4 months ago when she was here for a scheduled L TKA with Dr. Cesar. At that time she did go home with her 's supportive care and a resumption of her SETH caregivers. HH was also ordered. Dr. Cesar is planning a 6 week course of IV antibiotics and PICC is ordered. At issue is a ? of pt admitting to Dr. Cesar that she is using IV drugs and thus the plan for IV antibiotics in the home setting may not be appropriate. BERNARDINO Lu did see pt yesterday but noted the pt's actual use remained unclear. Today pt again denies using IV drugs, says she is very angry that this comes up everytime she goes into the hospital. Says she see's a physician at the [facility] in [employer] and my tox screens are always clear. Pt says I do not understand why Dr. Cesar said I told him I use IV drugs. I do not. Pt is aware of need for the 6 weeks IV antibiotics and wishes to get these with [facility] as she did in 2018. Payer for this is her Medicaid. Have spoken a couple times today with Isaac/[facility] and he reviewed clinical sent yesterday from BERNARDINO Lu and update sent this morning from this DCplanner. He has discussed case with his team and will be here at about 1400 to meet with pt. Pt's Eleonora has just arrived so she, too, can be involved in the conversation if pt wishes her to be. Twan Mckeon was just here, subbing for Dr. Cesar who will return tomorrow. She has confirmed that pt will now need to be switched to IV Ancef at every 8 hours. She spoke by phone with Dr. Cesar who states that pt will have not choice but to go to a snf to receive these due to the ? IV drug use. She will be back later today to talk with pt about this. Will let Isaac know about the specifics of the IV treatment. Pt has already stated adamantly that she will not consider going into a snf setting. PT has cleared her in terms of mobilty for the home setting with her current level of support. re ? of a swing bed at [facility] as per one suggestion from BERNARDINO Lu yesterday in case home with [facility] did not work out: received a vm this morning from her contact at [facility] who stated: our swing bed situation here is not firm. It is staffing dependent and changes day to day so can never say ahead of time if this is an option. A swing bed is essentially under the same rules/regs as a snf setting so this would likely not be a viable options. P:Will check in tomorrow morning with pt after she had been updated by Twan Mckeon re Dr. Cesar' plan and follow accordingly and after getting further direction from Dr. Cesar. Will check in with pt, Eleonora and Isaac/[facility] when he arrives.
[2020-01-01] MEDS: CEFAZOLIN 2 GM/100 ML FROZ.PIGGY IV ×2 (14:38→22:04)
--- NOTE | 2020-01-01 15:04 | PT.IPTN ---
Surgery Performed Operation Date: 12/30/19 17:15 Actual Procedures p I&D poly exchange(Left) - Vasyl Cesar MD Physical Therapy Treatment Note M2 PT-IP Current Condition Start: 12/31/19 12:26 Freq: NEEDED Status: Active Protocol: Document 12/31/19 09:20 AB (Rec: 12/31/19 12:45 AB [id number]) Physical Therapy Current Condition Current Condition Evaluation Date 12/31/19 Treatment Diagnosis s/p I&D L TKA with polyethylene exchange; difficulty in walking Onset Date 12/30/19 Precautions Other Precautions contact precautions Weight Bearing Status Weight Bearing Status Weight Bear as Tolerated Allowed Weight Bearing Amount (enter % LLE WBAT or #) (%) M3 PT-IP Subjective Start: 12/31/19 12:26 Freq: NEEDED Status: Active Protocol: Document 01/01/20 14:40 KS (Rec: 01/01/20 15:55 KS [id number]) Subjective Physical Therapy Visit Type Type Treatment Note Visit Start Time 14:40 Visit Stop Time 15:04 Total Visit Minutes 24 Number of GEOPHYSICAL COMPUTER Visits 1 Physical Therapy Visit Comments Patient Comments pt is agreeable to do PT Therapy Pain Assessment Pain When Pain Assessed At Rest Pain Present Pain Present Pain Reported Location Left Knee Intensity 6 Scale Used Numeric (0 - 10) Pain Management Techniques Apply Cold,Elevation,Re- positioning,Timing of Activity with Medications M4 PT-IP Mobility and Gait Start: 12/31/19 12:26 Freq: NEEDED Status: Active Protocol: Document 01/01/20 14:40 KS (Rec: 01/01/20 15:55 KS [id number]) PT-Bed Mobility Assessment Supine to Sit Supine to Sit Standby Assistance,Head of Bed Elevated Sit to Supine Sit to Supine Standby Assistance Scooting Scooting to Edge of Bed Standby Assistance PT-Transfer Assessment Sit to and From Stand Sit to and from Stand Standby Assistance,1 Person Assistance,Use of Upper Extremities Equipment Transfer Assistive Device Gait Belt,Front Wheeled Walker Orthotic/Prosthetic Devices or Brace: No Transfers Transfer Destination Bed Transfer Technique ambulated using FWW Transfer Ability Level of Assist Standby Assistance,Use of Upper Extremities Comments Mobility Comments Pt in bed upon arrival from therapy and agreed to ambulation. Pt SBA for sup<> sit w/ HOB elevated and SBA for scooting EOB. SBA and cues for hand placement for sit<> stand w/ FWW. Pt then ambulated ~[address] w / FWW and SBA, cues for L quad activation/knee extension but pt unable to fully extend. Pt required 1x 1 min standing rest break d/t pain and fatigue. Pt returned to room and bed sit<>sup SBA w/ HOB elevated. Pt left in bed w/ all needs in reach and ice applied to L knee. Gait Assessment Gait Gait Assistance Required: Standby Assistance Distance (Feet) 100 Able to Maintain Weight Bearing Status Yes During Gait Assistive Devices Assistive Device Gait Belt,Front Wheeled Walker Orthotic/Prosthetic Devices or Brace: No Gait Deviations General Gait Pattern Antalgic,Decreased Stride Length,Decreased Feet Clearance,Flexed Trunk,Lateral Trunk Lean Factors Limiting Gait Function Factors Limiting Gait Function Decreased Activity Tolerance, Decreased Strength,Limited Range of Motion,Pain,Poor Balance,Poor Safety Awareness Comments Gait Comments Pt ambulated ~100n ft w/ FWW and SBA and continues to have increase L knee flexion during standing and ambulation Stair Climbing Assessment Comments Stair Climbing Comments not assessed M5 PT-IP Objective Assessments Start: 12/31/19 12:26 Freq: NEEDED Status: Active Protocol: Document 12/31/19 09:20 AB (Rec: 12/31/19 12:45 AB [id number]) Orientation Orientation/Cognition Level of Alertness Alert Orientation Name,Place,Situation Safety Awareness Decreased Safety Awareness Gross Range of Motion Lower Extremity ROM Assessment Left Impaired Impairments L knee flexion AROM: ~ 60 deg L knee extension AROM: ~ 30 deg less to neutral pt refused LLE to be touch and unable to checked PROM Strength Lower Extremity Strength Assessment Left Impaired Knee 3-/5 Muscle Tone Muscle Tone WNL Yes M6 PT-IP Treatment Start: 12/31/19 12:26 Freq: NEEDED Status: Active Protocol: Document 01/01/20 14:40 KS (Rec: 01/01/20 15:55 KS [id number]) Physical Therapy Treatment Education Education Provided Weight Bearing Status,Safety M7 PT-IP Assessment and Plan Start: 12/31/19 12:26 Freq: NEEDED Status: Active Protocol: Document 01/01/20 14:40 KS (Rec: 01/01/20 15:55 KS [id number]) PT Summary Assessment and Plan Potential Rehabilitation Potential Good Summary Impairments Pain,ROM,Strength,Balance, Coordination,Sensation,Tone, Cognition,Bed Mobility, Transfers,Gait,Activity Tolerance Progress Towards Goals Slow Progress due to Pain,Slow Progress due to Medical Issues,Slow Progress due to Activity Tolerance Assessment Summary Pt SBA for all bed mobility and ambulation w/ FWW. Pt continues to have increased L knee flexion during ambulation and is unable to fully extend L knee. Pt ambulated ~100 ft w/ FWW SBA w/ 1x 1 min standing rest break d/t pain and fatigue. Pt reported 6/10 pain in L knee while resting. Pt will benefit from home health to improve tolerance for activity and functional mobility. Goals Bed Mobility Goal Independent Transfer Goal Independent,Front Wheeled Walker Gait Goal Independent,Front Wheel Walker Gait Distance 150 Other Goals increase L knee flexion to 90 deg increase L knee extension to 5 deg Frequency of Treatment Frequency Of Treatment Twice a Day Treatment Plan Physical Therapy Treatment Plan Bed Mobility Training,Transfer Training,Gait Training, Therapeutic Exercise,Balance Retraining,Post Op Education, Discharge Planning,Hot or Cold Pack,Neuromuscular Re-ed, Coordination Retraining,Manual Therapy Recommendations To Nursing Amount of Assist Needed Standby Assistance Discharge Recommendations PT Discharge Recommendations Home with Assistance,Home Health Transportation Needs at Discharge Private Vehicle
[2020-01-01 15:34] VITALS: BP 115/64; PULSE 67; RESP 16; TEMP 36.7; O2SAT 94
--- NOTE | 2020-01-01 16:23 | PM.PN.1 ---
Subjective Subjective Date Patient Seen: 01/01/20 Time Patient Seen: 16:23 Interval history: Patient is POD#2 s/p I&D and poly exchange of left knee with Dr. Cesar. Improved pain control today. She was able to mobilize with PT. Patient has no complaints. Exam Vital Signs (past 8 hours): - 01/01/20 12:12 01/01/20 15:34 Temperature 97.6 F 98.1 F Pulse Rate 57 L 67 Respiratory Rate 16 16 Blood Pressure 96/55 L 115/64 Pulse Oximetry 95 94 Oxygen Delivery Method Room Air Oxygen Flow Rate 0 Narrative Exam Narrative: 54 year old female resting in bed alert, oriented and performing arts and crafts. JAREN dressing is on and functioning. She had 45cc from her drain over the last shift. Patient able to flex/extend the knee and ankle. Calves are soft. Palpable pedal pulse. Objective Labs Result Diagrams: 12/31/19 07:10 Labs: Laboratory Results - last 24 hr 01/01/20 11:42 Vancomycin Trough 8.9 L Assessment & Plan Assessment & Plan narrative: Patient is POD#2 s/p I&D. Cultures showing broadly sensitive staph aureus. Discussed with Dr. Cesar and will discontinue Vancomycin and start Ancef 2gm Q8hrs which will continue for 6 weeks. Patient currently has midline in place, will convert this to a PICC. She should continue to work with PT. Anticipate discharge tomorrow, patient is strongly opposed to SNF however due to her history and current living situation this is likely the best discharge plan for her. Quality VTE Deep Vein Thrombosis/Pulmonary Embolism Present on Admission: No
[2020-01-01] MEDS: TRAZODONE 50 MG TABLET 100 MG PO (19:45)
[2020-01-01 20:15] VITALS: BP 117/63; PULSE 57; RESP 16; TEMP 36.2; O2SAT 95
[2020-01-02 00:39] VITALS: BP 156/85; PULSE 65; RESP 18; TEMP 36.7; O2SAT 96
[2020-01-02] MEDS: HYDROMORPHONE 4 MG TABLET PO ×5 (00:42→15:01)
[2020-01-02] MEDS: IBUPROFEN 400 MG TABLET PO ×4 (00:42→14:31)
--- NOTE | 2020-01-02 02:00 | PC.NURSE ---
0059 Patient is alert and oriented with flat affect. Breath sounds CTA with RA sat of 96%. HRR. BP elevated tonight at 156/85 and typically trends lower. Denies nausea. BT present and had BM. Up to BSC with 1 assist; denies dysuria, frequency or urgency with urination. Is able to turn herself in bed. JAREN dressing intact and functioning; amy wrap covering and is CDI. Some swelling of left LE noted. Hemovac still in and is intact and compressed. CMS is intact although patient is not able to lift leg very far off bed yet is able to get leg in/out of bed without assistance. Complained of 7/10 sharp pain in left knee and was medicated with Dilaudid + scheduled Ibuprofen; ice applied for comfort. Fall risk score is high and bed alarm is activated.
[2020-01-02 04:33] VITALS: BP 144/75; PULSE 62; RESP 16; TEMP 36.8; O2SAT 98
[2020-01-02] MEDS: SODIUM CHLORIDE 0.9% FLUSH 10 ML IV ×2 (06:04→09:06)
[2020-01-02] MEDS: SODIUM CHLORIDE 0.9% 250 ML 21 ML IV (06:04)
[2020-01-02] MEDS: CEFAZOLIN 2 GM/100 ML FROZ.PIGGY IV ×2 (06:04→14:32)
--- NOTE | 2020-01-02 08:05 | CM.DPC ---
Addendum entered by Jenise Hernandez LPN 01/02/20 12:10: Did ask Dr. Ceasr about PT. He confirmed that he wished this to be OUTPT PT at his clinic and he would arrange this as appropriate. Addendum entered by Jenise Hernandez LPN 01/02/20 11:51: Have continued to work on a d/c plan for pt today in collaboration with pt, Dr. Cesar, Annmarie Toure and Maya DIALLO. Pt remained steadfast in her resolve to avoid a snf setting due to COVID risk. Dr. Cesar now agrees to a home infusion plan with Annmarie Toure and RN/Maya DIALLO partnering with [facility] for the PICC dressing changes. Dr. Cesar had a lengthy discussion with pt re her history of drug abuse and the expectations he has for her in order for him to continue on as her physician. He has outlined these very clearly in his d/c summary. Pt confirms she is agreeable to this plan and very much wishes for the d/c to her home today. She does confirm her address: [address] [place] [address] She clarifies that she and her were living in a travel trailer and parking it at various places but in May she obtained more stable housing and has been in this apartment since June. (Dr. Cesar was updated as his understanding was that she was essentially homeless and noted this was a much better situation for pt.) All orders and needed information are now faxed to Maya DIALLO/[facility] and Annmarie Toure/[facility]. They have spoken with each other to begin the collaboration to assist pt to receive her IV antibiotics at home. FAXED: PICC line info. Current labs including COVID - . DC summary. Face/Face and HH orders. [facility] will be here between 5:30 and 6:00 this afternoon to do teach, paperwork etc. CEDRIC Schmidt confirms that she will have pt remain in the room until all is finalized and then she will d/c back home with her . Pt did call her this morning and she should be on her way to to the hospital. Original Note: DCP: continued: Ortho GIANA Mckeon's progress note of last evening is reviewed with reiteration of Dr. Cesar's expectation of a snf d/c. Met now with pt in followup. Asked her to review Medicare snf list with most reasonable options being [facility]. She reluctantly accepted the list and agreed to consider this. DC is likely today. [facility]. Will contact [facility] once their admission person is in as there is no designated admission cell contact line. Hoping to talk with Dr. Cesar.
--- NOTE | 2020-01-02 08:31 | DI.RAD.S_ITS ---
PROCEDURE: XR CHEST 1V INDICATIONS: picc line placement TECHNIQUE: One view of the chest was acquired. COMPARISON: [facility], CR, XR CHEST 1V, 10/03/2017, 15:00. [facility], CR, XR CHEST 1V, 10/03/2017, 14:02. FINDINGS: Surgical changes and devices: PET line in normal position from left-sided approach, crossing the midline and extending into the expected position of the distal SVC. Lungs and pleura: Lungs are clear. No pleural effusions or pneumothorax. Mediastinum: Mediastinal contours appear normal. Heart size is normal. Bones and chest wall: No suspicious bony lesions. Overlying soft tissues appear unremarkable. IMPRESSION: Normal PICC line positioning from left-sided approach. Dictated by: Dorian Lee M.D. on 01/02/2020 at 8:54 Approved by: Dorian Lee M.D. on 01/02/2020 at 8:54
[2020-01-02 08:52] VITALS: BP 146/87; PULSE 66; RESP 16; TEMP 36.9; O2SAT 98
[2020-01-02] MEDS: PRAMIPEXOLE 0.25 MG TABLET PO (09:04)
[2020-01-02] MEDS: ACETAMINOPHEN 325 MG TABLET 650 MG PO ×2 (09:04→14:32)
[2020-01-02] MEDS: ASPIRIN EC 81 MG TABLET PO (09:04)
[2020-01-02] MEDS: DOCUSATE 100 MG CAPSULE PO (09:04)
--- NOTE | 2020-01-02 09:14 | P.DS_ITS ---
History of Present Illness History of Present Illness Date Patient Seen: 01/02/20 Time Patient Seen: 09:14 Chief complaint: DRAINING SITE INFECTION LEFT KNEE Narrative: The history and physical is contained in the chart in a previously completed note. Please refer to that note for this information. Discharge Providers Provider Date of admission: 12/30/19 12:12 Discharge Date: 01/02/20 Primary care physician: GISELA Cash Consults: 12/30/19 21:12 Consult to Discharge Planning Routine Comment: Home IV antibiotics Consult to Physical Therapy Evaluate & Treat Comment: Physician Instructions: postop TKA protocol 01/02/20 09:06 Consult to Home Health Routine Comment: Reason For Exam: Home IV antibiotics and monitoring. Picc line care Discharge provider: Vasyl Cesar MD Summary Hospital Course Discharge Diagnosis: 1. Infected total knee replacement, left knee 2. Anemia 3. Disputed history of intravenous drug abuse Hospital Course: The patient was admitted to the hospital emergently on December 30, 2019 for drainage from her knee. During her admission she apparently stated to the intake nurse that she had injected IV drugs 2 days prior to admission. She has steadfastly refused that she said that ever since. She underwent irrigation and a repeat debridement with polyethylene liner exchange for septic knee arthritis. Methicillin susceptible Staph aureus was isolated on multiple cultures. She remained in the hospital to receive IV antibiotics until postoperative day 3 until we received final culture and sensitivities. Status at Discharge Cognitive/behavioral status at discharge: oriented Functional status at discharge: uses cane/walker Overall status at discharge: patient is progressing back to baseline Time Spent with Patient Time spent: Less than 30 minutes Exam Vital Signs (past 8 hours): - 01/02/20 04:33 01/02/20 08:52 Temperature 98.3 F 98.4 F Pulse Rate 62 66 Respiratory Rate 16 16 Blood Pressure 144/75 H 146/87 H Pulse Oximetry 98 98 Oxygen Delivery Method Room Air Oxygen Flow Rate 0 Narrative Exam Narrative: Left knee wound is dressed with no drainage on the bandage. Calf is soft. Light touch and motion are intact in the left lower extremity. Objective Labs Result Diagrams: 12/31/19 07:10 Labs: Laboratory Results - last 24 hr 01/01/20 11:42 Vancomycin Trough 8.9 L Discharge Assessment & Plan Assessment and Plan Assessment: The patient is 4 months out from a left total knee replacement. At her 3 month follow-up there was no sign of infection. She developed a draining sinus on SundayDecember 29. There is disputed history of intravenous drug use on approximately December 27. She is stable postoperatively. Her cultures have returned a methicillin-susceptible Staph aureus. She is currently receiving Ancef. Plan of Treatment: I have discussed various discharge dispositions a with the patient. She steadfastly refuses to go to a group home facility. She denies the statements made regarding IV drug use. She states that she will not use the PICC line for that purpose. We will discharge her today with home health therapy for IV infusion at home with Ancef. Follow-up will be in my office in 10-14 days. We will arrange outpatient follow-up for her at the [facility] where she is an established patient. We will arrange outpatient physical therapy. I have stated explicitly to the patient that if there is evidence that she has violated my trust in her regarding intravenous drug use that she will be discharged from my practice. She is aware that if this current treatment cycle does not succeed in eradicating the infection that she may require a staged revision. I have made it clear that I will not perform those operations if there is any evidence of intravenous drug injection. Discharge Plan Discharge Plan Patient Disposition: Home Health Service Transfer to: [facility] Discharge orders & Medications Prescriptions: New acetaminophen 325 mg Tablet 650 mg PO TID 30 Days Qty: 180 RF: 0 aspirin 81 mg Tablet,Delayed Release (Dr/Ec) 81 mg PO BID 42 Days Qty: 84 RF: 0 ibuprofen 400 mg Tablet 400 mg PO Q4HR 30 Days RF: 0 cefazolin in dextrose (iso-os) 2 gram/100 mL Piggyback 2 gm IV Q8H 42 Days RF: 0 Continued trazodone 50 mg tablet 100 mg PO BEDTIME RF: 0 pramipexole 0.25 mg tablet 0.25 mg PO BID RF: 0 diclofenac sodium 1 % gel 1 applic Topical DIRECTED RF: 0 tizanidine 2 mg Capsule 2 mg PO Q6-8H PRN (Reason: Muscle spasms) RF: 0 hydromorphone 4 mg Tablet 4 mg PO Q4H PRN (Reason: Pain, Severe (7-10)) Qty: 60 RF: 0 Follow up/Referrals: Ruth Arora ARNP [Primary Care Provider] - Vasyl Cesar MD [Physician] - 2 Weeks Diet/Activity/Treatments Diet: Diet as Tolerated and Regular Activity: You may bear weight as tolerated on your left leg. Cold/Heat Therapy: You may apply ice for 15 minutes of every hour as needed to the left knee for pain control. Other treatments: You should attend physical therapy 2 times a week. Skin/Wound/Dressing Care Report to your healthcare provider any signs of infection, such as:: chills, fever, night sweats, increased pain, unusual drainage and unusual redness Dressing: You may remove the [place] wrap in 3 days and shower normally. You may shower with the deeper dressing in place but must disconnect the battery pack to shower. Visit Report/Discharge Packet Instructions: DI for Knee Replacement, DI for Prescription Opioid Use Stand Alone Forms: Surgery Discharge Visit Report Forms: Patient Portal/API, Stroke Signs & Symptoms Discharge Data Primary Care Provider: Ruth Arora Quality VTE Deep Vein Thrombosis/Pulmonary Embolism Present on Admission: No
--- NOTE | 2020-01-02 10:10 | PT.IPTN ---
Surgery Performed Operation Date: 12/30/19 17:15 Actual Procedures p I&D poly exchange(Left) - Vasyl Cesar MD Physical Therapy Treatment Note M2 PT-IP Current Condition Start: 12/31/19 12:26 Freq: NEEDED Status: Active Protocol: Document 12/31/19 09:20 AB (Rec: 12/31/19 12:45 AB [id number]) Physical Therapy Current Condition Current Condition Evaluation Date 12/31/19 Treatment Diagnosis s/p I&D L TKA with polyethylene exchange; difficulty in walking Onset Date 12/30/19 Precautions Other Precautions contact precautions Weight Bearing Status Weight Bearing Status Weight Bear as Tolerated Allowed Weight Bearing Amount (enter % LLE WBAT or #) (%) M3 PT-IP Subjective Start: 12/31/19 12:26 Freq: NEEDED Status: Active Protocol: Document 01/02/20 09:51 SP (Rec: 01/02/20 11:48 SP [id number]) Subjective Physical Therapy Visit Type Type Treatment Note Visit Start Time 09:51 Visit Stop Time 10:10 Total Visit Minutes 19 Notes Premedicated 30 min pre PT. Number of RAYON TESTER Visits 2 Physical Therapy Visit Comments Patient Comments Pt is agreeable to working with PT. Therapy Pain Assessment Pain When Pain Assessed At Rest Pain Present Pain Present Pain Reported Location Left Knee Intensity 6 Scale Used 6/10 during mobility Description Chronic,Cramping,Pressure, Tender,Tightness,With Movement Pain Management Techniques Apply Cold,Elevation,Re- positioning,Timing of Activity with Medications M4 PT-IP Mobility and Gait Start: 12/31/19 12:26 Freq: NEEDED Status: Active Protocol: Document 01/02/20 09:51 SP (Rec: 01/02/20 11:48 SP [id number]) PT-Bed Mobility Assessment Supine to Sit Supine to Sit Standby Assistance,Head of Bed Elevated Sit to Supine Sit to Supine Standby Assistance Scooting Scooting to Edge of Bed Standby Assistance Scooting Up and Down in Bed Standby Assistance PT-Transfer Assessment Sit to and From Stand Sit to and from Stand Standby Assistance,1 Person Assistance,Use of Upper Extremities Equipment Transfer Assistive Device Gait Belt,Front Wheeled Walker Orthotic/Prosthetic Devices or Brace: No Transfers Transfer Destination Bed,Toilet Transfer Technique ambulated using FWW Transfer Ability Level of Assist Standby Assistance,Use of Upper Extremities Comments Mobility Comments Pt elevated in bed when arrived, agreed to PT on second attempt, first just medicated and wanted more time to take affect. ELevated supine>sitting (bed at home can elevate) and scoot to EOB approx 60 deg SBA with use of BUE on bed. Sit to stand cuing for BUE pushing off bed for safety. Pt was able to walk further into hallway approx 160 ft using FWW with intermittent cuing for upright posture, quad facilitation/ knee extension pre heel strike and heel toe to allow increase normal phase performance, noted heavy BUE WB on on FWW SBA step to gait patterning, required 2 brief stopped stand rests for recovery and little heavier respiratory rate due to decreased strength and activity tolerance. stand<> sit from toilet cued for use of wall rail for self support and slow descent to toilet, able to complete self pericare and pants mgt in standing with 1 UE on FWW. Pt walked back to bed approx 8 ft, SPT using FWW SBA. sittting>supine using BUE to reposition LLE into bed and able to scoot up in bed herself. Instructed in post op LLE exercises: quad set, glut set, heel slide AAROM approx 20-80 deg with gait belt cuing for self assist at home, ankle pumps and walking around every hour to allow for proper circulation with verbal confirmation. Pt had call light and all needs in reach with bed alarmed for safety. Gait Assessment Gait Gait Assistance Required: Standby Assistance Distance (Feet) 160 Able to Maintain Weight Bearing Status Yes During Gait Assistive Devices Assistive Device Gait Belt,Front Wheeled Walker Orthotic/Prosthetic Devices or Brace: No Gait Deviations General Gait Pattern Antalgic,Decreased Stride Length,Decreased Feet Clearance,Flexed Trunk,Lateral Trunk Lean,Step-to Gait Factors Limiting Gait Function Factors Limiting Gait Function Decreased Activity Tolerance, Decreased Strength,Limited Range of Motion,Pain,Poor Balance,Poor Safety Awareness Comments Gait Comments Pt ambulated further distance 160 ft w /FWW SBA, continues to advance and WB LLe in flexed positioning, provide intermittent cuing and demonstration for quad facilitation and extension pre Heel strike and into ext best can during mid stance for safety. Stair Climbing Assessment Comments Stair Climbing Comments not assessed, no stairs at home needed to assess. PT-Balance Assessment Sitting Balance and Reactions Static Sitting Balance Ability Good Dynamic Sitting Balance Ability Good Standing Balance and Reactions Static Standing Balance Ability Fair Dynamic Standing Balance Ability Fair Device Used FWW M5 PT-IP Objective Assessments Start: 12/31/19 12:26 Freq: NEEDED Status: Active Protocol: Document 12/31/19 09:20 AB (Rec: 12/31/19 12:45 AB [id number]) Orientation Orientation/Cognition Level of Alertness Alert Orientation Name,Place,Situation Safety Awareness Decreased Safety Awareness Gross Range of Motion Lower Extremity ROM Assessment Left Impaired Impairments L knee flexion AROM: ~ 60 deg L knee extension AROM: ~ 30 deg less to neutral pt refused LLE to be touch and unable to checked PROM Strength Lower Extremity Strength Assessment Left Impaired Knee 3-/5 Muscle Tone Muscle Tone WNL Yes M6 PT-IP Treatment Start: 12/31/19 12:26 Freq: NEEDED Status: Active Protocol: Document 01/02/20 09:51 SP (Rec: 01/02/20 11:48 SP [id number]) Physical Therapy Treatment Exercises Exercises Ankle Pumps,Gluteal Sets,Quad Sets,Heel Slides Education Education Provided Weight Bearing Status,Safety M7 PT-IP Assessment and Plan Start: 12/31/19 12:26 Freq: NEEDED Status: Active Protocol: Document 01/02/20 09:51 SP (Rec: 01/02/20 11:48 SP [id number]) PT Summary Assessment and Plan Potential Rehabilitation Potential Good Status of Condition at Evaluation Evolving Summary Impairments Pain,ROM,Strength,Balance, Coordination,Sensation,Tone, Cognition,Bed Mobility, Transfers,Gait,Activity Tolerance Progress Towards Goals Slow Progress due to Pain,Slow Progress due to Medical Issues,Slow Progress due to Activity Tolerance Assessment Summary Pt SBA for all bed mobility and ambulation w/ FWW. Pt continues to have increased L knee flexion during ambulation and is unable to fully extend L knee. Pt ambulated ~160 ft w/ FWW SBA w/ 2x brief standing rest break d/t pain and fatigue. Pt reported 6/10 pain in L knee while resting. Pt will benefit from home health to improve tolerance for activity and functional mobility. Pt is ok to return home with spouse to assist when medically stable. Goals Bed Mobility Goal Independent Transfer Goal Independent,Front Wheeled Walker Gait Goal Independent,Front Wheel Walker Gait Distance 150 Other Goals increase L knee flexion to 90 deg increase L knee extension to 5 deg Frequency of Treatment Frequency Of Treatment Twice a Day Treatment Plan Physical Therapy Treatment Plan Bed Mobility Training,Transfer Training,Gait Training, Therapeutic Exercise,Balance Retraining,Post Op Education, Discharge Planning,Hot or Cold Pack,Neuromuscular Re-ed, Coordination Retraining,Manual Therapy Recommendations To Nursing Amount of Assist Needed 1 Person Assist Discharge Recommendations PT Discharge Recommendations Home with Assistance,Home Health Transportation Needs at Discharge Private Vehicle
[2020-01-02 15:31] VITALS: BP 126/68; PULSE 65; RESP 14; TEMP 36.3
== END 2020-01-02 18:30 | disposition home health service (06) | DRG 486 ==
PROVIDERS: Admitting Provider Orthopaedic Surgery; PCP Nurse Practitioner Family; Referring Provider Orthopaedic Surgery; Visit Provider Orthopaedic Surgery
PROC: 0SRD0JZ Replacement of Left Knee Joint with Synthetic Substitute, Open Approach (ICD-10-PCS; CPT 27447; principal; 2019-12-30 17:15)
DX: T84.54XA Infection and inflammatory reaction due to internal left knee prosthesis, initial encounter (principal); M00.062 Staphylococcal arthritis, left knee; L03.116 Cellulitis of left lower limb; B95.61 Methicillin susceptible Staphylococcus aureus infection as the cause of diseases classified elsewhere; D64.9 Anemia, unspecified; M79.7 Fibromyalgia; M06.862 Other specified rheumatoid arthritis, left knee; Z87.891 Personal history of nicotine dependence
CPT/HCPCS: 36415; 36569; 36592; 71045; 80053; 80202; 83605; 84145; 85014; 85018; 85025; 85651; 86140; 87040; 87070; 87075; 87077; 87147; 87176; 87186; 87205; 87635; 97110; 97116; 97162; 97530; 99284; C1776; J0295; J0330; J0690; J1170; J1642; J1885; J2060; J2704; J3010

== ENCOUNTER 2020-01-16 18:44 | Emergency (ER) | payer MEDICARE, MEDICAID, SELFPAY ==
[2019-12-30 12:42] VITALS: BMI 30.2
[2020-01-16] VITALS (9 sets, daily range): BP systolic 136–190; BP diastolic 84–106; PULSE 80–91; RESP 22; TEMP 36.9; O2SAT 96–99; BMI 30.9
--- NOTE | 2020-01-16 19:31 | ED.EXTPRO ---
HPI - Extremity Problem General Chief complaint: Extremity Problem,Nontraumatic Stated complaint: knee swelling Time Seen by Provider: 01/16/20 19:05 Source: patient and EMS Mode of arrival: EMS Limitations: no limitations History of Present Illness HPI Narrative: Patient brought in by ambulance from home. Patient has home health nurse that sees her for wound VAC on the left knee. Patient of Dr. Cesar orthopedic. Patient had 2 surgeries on the left knee does past summer as well as recently in beginning of this month due to infection. She states she ran out of her Dilaudid pain medication 3 days ago because she did not have a ride. Follow-up was on the 12 of January. Her wound VAC broke 2 days ago. She states the home health nurse took the broken wound VAC away from the house. Denies any fever chills. No discharge from the wound. Matias are intact. Related Data Home Medications Medication Instructions Recorded Confirmed diclofenac sodium 1 applic TOPICAL DIRECTED 10/03/17 12/30/19 pramipexole 0.25 mg PO BID 10/03/17 12/30/19 trazodone 100 mg PO BEDTIME 10/03/17 12/30/19 tizanidine 2 mg PO Q6-8H PRN 05/28/19 12/30/19 Previous Rx's Medication Instructions Recorded hydromorphone 4 mg PO Q4H PRN #60 tab 09/19/19 acetaminophen 650 mg PO TID 30 Days #180 tab 01/02/20 aspirin 81 mg PO BID 42 Days #84 tab 01/02/20 cefazolin in dextrose (iso-os) 2 gm IV Q8H 42 Days ml 01/02/20 ibuprofen 400 mg PO Q4HR 30 Days tab 01/02/20 hydrocodone-acetaminophen [[place]] 1 tab PO Q8H PRN #14 tab 01/16/20 Allergies Allergy/AdvReac Type Severity Reaction Status Date / Time bee venom protein (honey bee) Allergy Severe Hives Verified 12/30/19 16:58 morphine Allergy Severe Anaphylaxis Verified 12/30/19 16:58 Sulfa (Sulfonamide Allergy Severe Anaphylaxis Verified 12/30/19 16:58 Antibiotics) gabapentin AdvReac Severe Weight gain Verified 12/30/19 16:58 aspirin AdvReac Intermediate Abdominal Verified 12/30/19 16:58 Pain methadone AdvReac Intermediate Hallucinati Verified 12/30/19 16:58 ng Review of Systems Review of Systems Narrative: GENERAL: Denies chills, fatigue, malaise, fever, sweats. HEENT: Denies sinus pain, ear pain, sore throat, difficulty swallowing RESPIRATORY: Denies dyspnea, cough CARDIOVASCULAR: Denies chest pain, palpitations, edema, GASTROINTESTINAL: Denies nausea, vomiting, abdominal pain, diarrhea, constipation, melena. : Denies dysuria, frequency, hematuria MUSCULOSKELETAL: Complains muscle or bony pain SKIN: Denies rash, skin lesions NEUROLOGIC: Denies weakness, headache, numbness, change in speech, confusion PSYCHIATRIC: No SI or HI or hallucinations ROS Unobtainable: All systems reviewed & are unremarkable except as noted in HPI and below Patient History Medical History Acute metabolic encephalopathy (Acute 09/16/17) Arthralgia (Chronic) Chronic back pain (Chronic) Degenerative disc disease, cervical (Chronic) Degenerative disc disease, lumbar (Chronic) Depression with anxiety (Chronic) Fibromyalgia (Chronic) GERD (gastroesophageal reflux disease) (Resolved) Neck infection (Acute 06/2017) Osteoarthritis (Acute) Restless leg syndrome (Chronic) Rheumatoid arthritis (Acute) Sepsis (Acute 09/16/17) Surgical History History of kidney surgery (Acute 2019) History of lumbar fusion (Resolved) Hx of cholecystectomy (Resolved) Hx of hernia repair (Acute ~2012) Status post cervical spinal fusion (Resolved) Tubal ligation status (Resolved) Social History household members: spouse Smoking Status: Former smoker alcohol intake: current substance use type: marijuana Smoking Status: Former smoker alcohol intake frequency: holidays/special occasions only Substance Use Type: former substance user and marijuana Exam Narrative Exam Narrative: GENERAL: patient appears stated age. Well-nourished, well-developed patient, in no distress, not toxic not dyspneic HEAD: Normocephalic. EYES: Pupils equal round and reactive. No scleral icterus. No injection no discharge ENT: Mucous membranes moist. No drooling no tongue elevation no trismus no malocclusion NECK: Trachea midline. Non tender CARDIOVASCULAR: Regular rate and rhythm without murmurs, gallops, or rubs. RESPIRATORY: Clear to auscultation. Breath sounds equal bilaterally. No wheezes, rales, or rhonchi. GASTROINTESTINAL: Abdomen soft, non-tender, nondistended. EXTREMITIES: Examination left lower extremity. Leg is warm soft and pink strong pedal pulse. Incision line anterior left knee, matias intact clean .. Slight small scant amount of serous discharge at the inferior margin of the incision. Essentially the last staple. No dehiscence. Sutures are intact. No surrounding erythema. No foul odor. BACK: Nontender without deformity or crepitance. No flank tenderness. NEURO: AOx4. SKIN: Warm and dry PSYCH: Patient is slightly anxious, is cooperative Initial Vital Signs Initial Vital Signs: Vital Signs Temperature 98.4 F 01/16/20 18:46 Pulse Rate 86 01/16/20 18:46 Respiratory Rate 22 01/16/20 18:46 Blood Pressure 190/97 H 01/16/20 18:46 Pulse Oximetry 98 01/16/20 18:46 Course Course Course Narrative: Pain control at this time. Review patient's prescriptions with her. Wound VAC is working. Orders Ordered: Discontinued Medications Hydromorphone HCl (Dilaudid) 2 mg IM NOW ONE Stop: 01/16/20 19:31 Last Admin: 01/16/20 19:40 Dose: Not Given Documented by: ISSCA Hydromorphone HCl (Dilaudid) 1 mg IV NOW ONE Stop: 01/16/20 19:40 Last Admin: 01/16/20 19:41 Dose: 1 mg Documented by: ISSAC Hydromorphone HCl (Dilaudid) 1 mg IV NOW ONE Stop: 01/16/20 20:48 Last Admin: 01/16/20 20:51 Dose: 1 mg Documented by: ISSAC Ondansetron HCl (Zofran Odt) 4 mg SL NOW ONE Stop: 01/16/20 19:31 Last Admin: 01/16/20 19:41 Dose: 4 mg Documented by: ISSAC Oxycodone/Acetaminophen (Endocet 5/325 Prepack) 1 bottle MISC SEEINSTR ONE Stop: 01/16/20 20:48 Last Admin: 01/16/20 20:58 Dose: 1 bottle Documented by: ISSAC Reevaluation(s) Reevaluation #1: Pain is controlled at this time Time: 20:51 Vital Signs Vital signs: Vital Signs - 8 hr 01/16/20 18:46 01/16/20 18:47 01/16/20 19:00 Temperature 98.4 F Pulse Rate 86 83 80 Respiratory Rate 22 Blood Pressure 190/97 H Pulse Oximetry 98 99 98 01/16/20 19:01 01/16/20 19:30 01/16/20 19:31 Temperature Pulse Rate 83 84 84 Respiratory Rate Blood Pressure 181/98 H 160/106 H Pulse Oximetry 98 98 98 01/16/20 20:00 01/16/20 20:30 01/16/20 21:00 Temperature Pulse Rate 91 H 86 80 Respiratory Rate Blood Pressure 147/98 H 145/90 H 136/84 Pulse Oximetry 96 98 97 MDM - Extremity (Nontraumatic) Differential Diagnosis Differential diagnosis: Likely other (Wound VAC malfunction) MDM Narrative Medical decision making narrative: No imaging at this time. No fall or injury. Patient here for wound VAC replacement. No blood work indicated this time. No recent illness fever chills. Patient here for medication refill as well as replacement of wound VAC. patient had prescription 120 tablets of 2 mg Dilaudid pill 7 days ago. She states she takes 6 mg every 3 or 4 hours. This is common for her after her surgeries and then she follows up with pain management that weaned her down. At this time she understands I cannot refill Dilaudid she has had Percocet in the past without any side effects. Blood pressure improved at time of discharge. 147/98. No fever. Discharge Plan Departure Patient Disposition: Home Clinical Impression: Encounter for management of wound VAC, Encounter for medication refill Discharge Date/Time: 01/16/20 22:58 Instructions: Taking Prescription Medications, DI for Prescription Opioid Use Activity Restrictions/Additional Instructions: See your surgeon and pain management provider as scheduled. Do not take more pain medication than prescribed. Return if worse or any questions or concerns. Prescriptions: New hydrocodone-acetaminophen [[place]] 7.5-325 mg tablet 1 tab PO Q8H PRN (Reason: pain) Qty: 14 RF: 0 No Action trazodone 50 mg tablet 100 mg PO BEDTIME RF: 0 pramipexole 0.25 mg tablet 0.25 mg PO BID RF: 0 diclofenac sodium 1 % gel 1 applic Topical DIRECTED RF: 0 tizanidine 2 mg Capsule 2 mg PO Q6-8H PRN (Reason: Muscle spasms) RF: 0 hydromorphone 4 mg Tablet 4 mg PO Q4H PRN (Reason: Pain, Severe (7-10)) Qty: 60 RF: 0 acetaminophen 325 mg Tablet 650 mg PO TID 30 Days Qty: 180 RF: 0 aspirin 81 mg Tablet,Delayed Release (Dr/Ec) 81 mg PO BID 42 Days Qty: 84 RF: 0 ibuprofen 400 mg Tablet 400 mg PO Q4HR 30 Days RF: 0 cefazolin in dextrose (iso-os) 2 gram/100 mL Piggyback 2 gm IV Q8H 42 Days RF: 0 Referrals: Ruth Arora ARNP [Primary Care Provider] -
[2020-01-16] MEDS: HYDROMORPHONE 1 MG INJ IV ×2 (19:41→20:51)
[2020-01-16] MEDS: ONDANSETRON 4 MG ODT SL (19:41)
[2020-01-16] MEDS: OXYCODONE/APAP 5/325 PREPACK 1 BOTTLE MISC (20:58)
== END 2020-01-16 22:58 | disposition home or self-care (01) ==
PROVIDERS: Emergency Provider Emergency Medicine; PCP Nurse Practitioner Family
DX: M25.562 Pain in left knee (principal); Z76.89 Persons encountering health services in other specified circumstances; Z76.0 Encounter for issue of repeat prescription
CPT/HCPCS: 96374; 96376; 99284; J1170

== ENCOUNTER 2020-02-07 16:54 | Inpatient (IN) | payer MEDICARE, MEDICAID, SELFPAY ==
[2019-12-30 12:42] VITALS: BMI 30.2
[2020-02-07] VITALS (13 sets, daily range): BP systolic 96–141; BP diastolic 61–91; PULSE 77–92; RESP 15–18; TEMP 36.7–37.3; O2SAT 92–99; BMI 29.2; BMI 28.3
--- NOTE | 2020-02-07 16:15 | PC.NURSE ---
Patient had left knee replacement done in August here at [place]. 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 Is currenty receiving IV Cefazolin in Left Upper Arm PICC line 3x a day and oral Rifampin 2x a day. Today was seen at [facility] ER for fever of 37.8F and increased pain in left knee. WBC:16.1 in ER and Temp normal after administration of Toradol. Given total 3mg dilaudid as well for pain control and 1L NS. Neg Covid and Neg. Urine. Sent here to be seen by Orthopedist.
--- NOTE | 2020-02-07 17:07 | PC.NURSE ---
Patient had left knee replacement done in August here at [place]. 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 Is currenty receiving IV Cefazolin in Left Upper Arm PICC line 3x a day and oral Rifampin 2x a day. Today was seen at [facility] ER for fever of 37.8C and increased pain in left knee. WBC:16.1 in ER and Temp normal after administration of Toradol. Given total 3mg dilaudid as well for pain control and 1L NS. Neg Covid and Neg. Urine. Sent here to be seen by Orthopedist.
[2020-02-07] MEDS: LIDOCAINE 2% INJ MDV 1 ML SUBCUT (17:37)
--- NOTE | 2020-02-07 18:02 | P.CONS_ITS ---
History of Present Illness Consult details Date Patient Seen: 02/07/20 Time Patient Seen: 18:03 Chief complaint: Knee infection Reason for consult: Infection knee Requesting provider: Shirley Ford Narrative: Patient is a 55-year-old female with a history of a left total knee replacement August of [address] Vasyl Cesar at [facility]. Unfortunately the patient developed a acute onset infection early December 2019. On December 29 she was taken to the operating room for a irrigation debridement and poly exchange for her left knee. She was placed on IV antibiotics and has been receiving cefazolin t.i.d. through her PICC line and rifampin monitored by [facility] infectious Disease as an outpatient. She recently saw Dr. Cesar in clinic on 02/03/2020. At that time she was noted to be doing rather well. Range of motion was 10-100 degrees and incision was healed. She thought she was doing pretty good at that appointment as well. She reports that yesterday 02/06/2020 her knee started becoming more painful. She also endorses waking up this morning with a temperature. Of note she did call this physician before presenting to [facility] ER and stated that she had a temperature of 102?. She now states this was probably 100.2 but her pain had increased. She was worked up at [facility]. White blood cell count was elevated at 16. ESR was 48 and CRP 2.9 which are notably less than her previous labs. Urinalysis was negative per report. Chest x-ray was normal per report. Was noted to have pain with any range of motion of her knee and appreciable swelling.. No drainage or redness. Blood cultures were drawn but were not available. COVID test was negative. Note she had reported congestion and respiratory symptoms in the week prior but denies those today. Just states she is ?tired of it all. She denies any recent drug use or IV drug use. She denies missing any antibiotic infusions. Meds Home Medications and Allergies Home Medications Medication Instructions Recorded Confirmed Type diclofenac sodium 1 applic TOPICAL DIRECTED 10/03/17 12/30/19 History pramipexole 0.25 mg PO BID 10/03/17 12/30/19 History trazodone 100 mg PO BEDTIME 10/03/17 12/30/19 History tizanidine 2 mg PO Q6-8H PRN 05/28/19 12/30/19 History hydromorphone 4 mg PO Q4H PRN #60 tab 09/19/19 12/30/19 Rx aspirin 81 mg PO BID 42 Days #84 tab 01/02/20 Rx cefazolin in dextrose (iso-os) 2 gm IV Q8H 42 Days ml 01/02/20 Rx hydrocodone-acetaminophen [[place]] 1 tab PO Q8H PRN #14 tab 01/16/20 Rx Allergies Allergy/AdvReac Type Severity Reaction Status Date / Time bee venom protein (honey bee) Allergy Severe Hives Verified 02/07/20 17:02 morphine Allergy Severe Anaphylaxis Verified 02/07/20 17:02 Sulfa (Sulfonamide Allergy Severe Anaphylaxis Verified 02/07/20 17:02 Antibiotics) gabapentin AdvReac Severe Weight gain Verified 02/07/20 17:02 aspirin AdvReac Intermediate Abdominal Verified 02/07/20 17:02 Pain methadone AdvReac Intermediate Hallucinati Verified 02/07/20 17:02 ng Review of Systems Constitutional Constitutional: Reports system reviewed and no additional complaints, except as documented and Reports fever(s) Eyes Eyes: Reports system reviewed and no additional complaints, except as documented Cardiovascular Cardiovascular: Denies chest pain, Denies leg edema, Denies dyspnea and Denies other Respiratory Respiratory: Denies dyspnea Comments: Denies shortness of breath or congestion last few days. Did report this last week Gastrointestinal Gastrointestinal: Denies abdominal pain, Denies nausea and Denies vomiting Genitourinary Genitourinary: Denies urinary hesitancy and Denies urinary urgency Musculoskeletal Musculoskeletal: Reports myalgias, Reports arthralgias, Reports joint swelling and Reports limited range of motion Neurologic Neurologic: Reports system reviewed and no additional complaints, except as documented Exam Vital Signs (past 8 hours): - 02/07/20 17:03 02/07/20 17:36 Temperature 98.1 F Pulse Rate 80 87 Respiratory Rate 15 18 Blood Pressure 119/74 105/62 Pulse Oximetry 99 97 Oxygen Delivery Method Room Air Narrative Exam Narrative: General examination: Alert oriented female, appears stated age, tearful at times, clutching left knee at rest HEENT exam: Normocephalic atraumatic Respiratory exam: Lungs clear on auscultation bilaterally. Respirations even and unlabored. No use of accessory muscles. No coughing CV exam regular rate and rhythm Musculoskeletal exam: Moves upper extremities and the right lower extremity freely at will. Left lower extremity rests in a flexed position approximately 20?. I can demonstrate range of motion to me at 10-90 degrees easily in bed today. As states she can get a little farther when she hangs over the side of the bed. Endorses some pain while doing this but is able to do this easily actively. Midline incision over the left knee is well healed and intact. No evidence of dehiscence and no drainage no redness at all along the incision or in the knee in general. There is mild swelling. But no large effusion. There is no generalized swelling of the left lower extremity. The calf is soft. Negative Tk. Demonstrates dorsiflexion plantar flexion of the ankle. Palpable dorsalis pedis pulses and sensation intact to light touch. The thigh is soft as well. Objective Labs Labs: Labs were taken at the outside hospital. Reports wore review today. Notable white blood cell count was elevated at 16. Creatinine normal limits. ESR was 48 and CRP 2.9 both of which are lower than the patient's previous levels in the last few weeks. COVID test was negative. Blood cultures are pending. UA was negative. Chest x-ray within normal limits. Assessment & Plan Assessment and plan (1) Prosthetic joint infection: Qualifiers: Encounter type: subsequent encounter Qualified Code(s): T84.50XD - Infection and inflammatory reaction due to unspecified internal joint prosthesis, subsequent encounter Status: Acute Assessment & Plan narrative: Left knee prosthetic joint infection, subsequent encounter. This patient has a history of a left knee replacement performed in August of 2019. She developed a infection of this in December 2019. She returned to the operating room immediately and had a poly exchange and irrigation debridement with Dr. Cesar. She is been on IV antibiotics through a PICC line managed by [facility] infectious Disease. She has had approximately 5 weeks of treatment. She is also on rifampin. Unfortunately she has persistent pain. Other than the elevated white count her vital signs and labs are within normal limits except for the elevated inflammatory markers which are actually trending lower and appropriate given her known prosthetic infection. She has not had a fever while in the emergency room. Her range of motion today is roughly the same as it is documented in Dr. Cesar last note. Given her significant pain, I did offer her a therapeutic aspiration today. She did except to this. Unfortunately no significant fluid amount was returned. I discussed with the patient that she has a difficult situation. She has a prosthetic joint infection. Her inflammatory markers are trending down but unfortunately with her persistent pain she may require an eventual explant of the prosthesis. We discussed that this would not be something that is performed now. She is on appropriate antibiotics and her vital signs are stable. We will have her continue these at home and follow-up with Dr. Cesar in Orthopedic [facility] scheduled [facility] next week. She is instructed to call on Sunday to make this appointment. COVID-19 COVID-19 status: Negative Time Spent With Patient Time with patient: 15-24 minutes
--- NOTE | 2020-02-07 18:10 | ED.EXTPRO ---
HPI - Extremity Problem General Chief complaint: Extremity Problem,Nontraumatic Stated complaint: Knee infection Time Seen by Provider: 02/07/20 16:57 Source: patient Mode of arrival: EMS Limitations: no limitations History of Present Illness HPI Narrative: Patient is a 55-year-old female with she history of his total knee arthrocentesis in August of 2019. Last month she developed an infection and it now is requiring outpatient IV antibiotic she has a PICC line for that. She was seen and evaluated [facility] today and transferred to our emergency department. She developed fever the of 102 or 100.2, she is having increasing pain of her left knee she had elevated leukocytosis of 16. Will be general ED spoke with our orthopedic, john Ramirez who requested patient be seen and evaluated [place] [facility] rather than be admitted to the hospital. MD Complaint: extremity pain and extremity swelling Related Data Home Medications Medication Instructions Recorded Confirmed diclofenac sodium 1 applic TOPICAL DIRECTED 10/03/17 12/30/19 pramipexole 0.25 mg PO BID 10/03/17 12/30/19 trazodone 100 mg PO BEDTIME 10/03/17 12/30/19 tizanidine 2 mg PO Q6-8H PRN 05/28/19 12/30/19 Previous Rx's Medication Instructions Recorded hydromorphone 4 mg PO Q4H PRN #60 tab 09/19/19 aspirin 81 mg PO BID 42 Days #84 tab 01/02/20 cefazolin in dextrose (iso-os) 2 gm IV Q8H 42 Days ml 01/02/20 hydrocodone-acetaminophen [[place]] 1 tab PO Q8H PRN #14 tab 01/16/20 Allergies Allergy/AdvReac Type Severity Reaction Status Date / Time bee venom protein (honey bee) Allergy Severe Hives Verified 02/07/20 17:02 morphine Allergy Severe Anaphylaxis Verified 02/07/20 17:02 Sulfa (Sulfonamide Allergy Severe Anaphylaxis Verified 02/07/20 17:02 Antibiotics) gabapentin AdvReac Severe Weight gain Verified 02/07/20 17:02 aspirin AdvReac Intermediate Abdominal Verified 02/07/20 17:02 Pain methadone AdvReac Intermediate Hallucinati Verified 02/07/20 17:02 ng Review of Systems Review of Systems Narrative: GENERAL: Denies chills,fever HEENT: Denies throat pain RESPIRATORY: Denies dyspnea, cough, wheezing CARDIOVASCULAR: Denies chest pain, palpitations GASTROINTESTINAL: Denies nausea, vomiting MUSCULOSKELETAL: See HPI SKIN: No rash, no laceration, no pruritus NEUROLOGIC: Denies weakness, dizziness, headache, numbness 8 point review of systems is negative except for those stated above and HPI Patient History Medical History Acute metabolic encephalopathy (Acute 09/16/17) Arthralgia (Chronic) Chronic back pain (Chronic) Degenerative disc disease, cervical (Chronic) Degenerative disc disease, lumbar (Chronic) Depression with anxiety (Chronic) Fibromyalgia (Chronic) GERD (gastroesophageal reflux disease) (Resolved) Neck infection (Acute 06/2017) Osteoarthritis (Acute) Restless leg syndrome (Chronic) Rheumatoid arthritis (Acute) Sepsis (Acute 09/16/17) Surgical History History of kidney surgery (Acute 2018) History of lumbar fusion (Resolved) Hx of cholecystectomy (Resolved) Hx of hernia repair (Acute ~2012) Status post cervical spinal fusion (Resolved) Tubal ligation status (Resolved) Social History household members: spouse Smoking Status: Former smoker alcohol intake: current substance use type: marijuana Smoking Status: Former smoker alcohol intake frequency: holidays/special occasions only Substance Use Type: former substance user and marijuana Exam Initial Vital Signs Initial Vital Signs: Vital Signs Temperature 98.1 F 02/07/20 17:03 Pulse Rate 80 02/07/20 17:03 Respiratory Rate 15 02/07/20 17:03 Blood Pressure 119/74 02/07/20 17:03 Pulse Oximetry 99 02/07/20 17:03 GENERAL: Well-appearing, well-nourished and in no acute distress. CARDIOVASCULAR: peripheral pulses in tact, cap refill <2 sec RESPIRATORY: No respiratory distress, speaks in full sentences without difficulty EXTREMITIES: Normal range of motion, no clubbing or edema. Neurovascularly intact NEUROLOGICAL: Cranial nerves II through XII grossly intact. Normal gait and speech. SKIN: Minimal erythema noted over left knee it is swollen and quite sensitive to touch. Course Orders Ordered: Discontinued Medications Hydromorphone HCl (Dilaudid) 0.5 mg IV NOW ONE Stop: 02/07/20 18:20 Last Admin: 02/07/20 18:37 Dose: 0.5 mg Documented by: CHAR Lidocaine HCl (Xylocaine 2%) 1 ml SUBCUT NOW ONE Stop: 02/07/20 17:11 Last Admin: 02/07/20 17:37 Dose: 1 ml Documented by: JOSEE Vital Signs Vital signs: Vital Signs - 8 hr 02/07/20 17:03 02/07/20 17:35 02/07/20 17:36 Temperature 98.1 F Pulse Rate 80 92 H 87 Respiratory Rate 15 18 Blood Pressure 119/74 105/62 Pulse Oximetry 99 98 97 02/07/20 18:00 02/07/20 18:30 Temperature Pulse Rate 80 78 Respiratory Rate Blood Pressure 103/70 96/62 Pulse Oximetry 94 96 MDM - Extremity (Nontraumatic) MDM Narrative Medical decision making narrative: Dr. Lindsey made aware of the patient's arrival, she is in the ED to see and evaluate patient. A bedside arthrocentesis has been done by her. She states patient can be discharged home she does have IV antibiotics, and does not need to be admitted. Patient is afebrile in the ED. she is not tachycardic. She did receive a dose of Dilaudid prior to discharge. Nurse stated that the PICC was questionable if working. WBC elevated at 16, no lactate done, elevated inflammatory markers. Discharge Plan Departure Patient Disposition: Home Clinical Impression: Infection of left knee Instructions: DI for Knee Effusion Activity Restrictions/Additional Instructions: *You have been diagnosed with left knee infection *What to do: Please continue her IV antibiotics. You will need follow-up with Orthopedics next week *Continue to take medications as directed *Follow up with your primary care provider in 2-3 days *Return to ER if you should have increasing redness, inability to stand inability to move knee or any new, worsening or concerning symptoms Prescriptions: No Action trazodone 50 mg tablet 100 mg PO BEDTIME RF: 0 pramipexole 0.25 mg tablet 0.25 mg PO BID RF: 0 diclofenac sodium 1 % gel 1 applic Topical DIRECTED RF: 0 tizanidine 2 mg Capsule 2 mg PO Q6-8H PRN (Reason: Muscle spasms) RF: 0 hydromorphone 4 mg Tablet 4 mg PO Q4H PRN (Reason: Pain, Severe (7-10)) Qty: 60 RF: 0 aspirin 81 mg Tablet,Delayed Release (Dr/Ec) 81 mg PO BID 42 Days Qty: 84 RF: 0 cefazolin in dextrose (iso-os) 2 gram/100 mL Piggyback 2 gm IV Q8H 42 Days RF: 0 hydrocodone-acetaminophen [[place]] 7.5-325 mg tablet 1 tab PO Q8H PRN (Reason: pain) Qty: 14 RF: 0 Referrals: Ruth Arora ARNP [Primary Care Provider] - Vasyl Cesar MD [Physician] -
--- NOTE | 2020-02-07 18:25 | PM.PROC.1 ---
Procedures Date/Time Date of procedure: 02/07/20 Time of procedure: 18:05 Joint Aspiration/Injection Time out performed: Yes Side of body: left Joint aspirated: knee Ultrasound guidance: No Skin prep: Chlorhexidine Local anesthesia used: lidocaine 1% Amount of anesthesia used (ml): 5 Needle size used: Other (25g) Medication injected, if any: Lidocaine Amount of medication injected (ml): 10 Patient tolerated procedure: well Complications: none and unable to obtain fluid Additional comments: Verbal consent was obtained from the patient for aspiration injection of the left knee. The left knee was draped out and the skin prepared with chlorhexidine. The skin was then anesthetized with lidocaine using a 25 gauge needle at the lateral parapatellar site. Next the area was cleansed again with chlorhexidine and a 18 gauge needle was advanced into the joint. Unfortunately no significant fluid was returned. A 10 cc of lidocaine was then injected smoothly for local anesthetic. In the was removed and a Band-Aid placed. Patient tolerated the procedure.
[2020-02-07] MEDS: HYDROMORPHONE 0.5 MG INJ IV (18:37)
--- NOTE | 2020-02-07 19:01 | PC.NURSE ---
Pts picc line difficulty to flush. Dr Ford aware,verbal order to flush with heparin. Flushed with 10ml normal saline and then heparin flush. Able to flush more easily and able to draw blood back. Normal saline infusing without difficulties
--- NOTE | 2020-02-07 20:33 | PC.NURSE ---
Pt had discharged by cab, was called by provider to come back and returned to Er at this time.
[2020-02-07] MEDS: CEFAZOLIN 2 GM/100 ML FROZ.PIGGY IV (22:31)
[2020-02-07] MEDS: HYDROMORPHONE 1 MG INJ 2 MG IV (22:31)
[2020-02-07] MEDS: PRAMIPEXOLE 0.25 MG TABLET PO (22:48)
[2020-02-07] MEDS: rifAMPin 300 MG CAPSULE PO (22:48)
[2020-02-07 23:03] LABS: Add Manual Diff / Slide Review NO; Basophils Absolute Auto 0 /uL (0-100); Basophils Percent Auto 0.4 % (0-2); Eosinophils Absolute Auto 100 /uL (0-450); Eosinophils Percent Auto 0.9 % (2-4); Hematocrit 34.8 % (36-46); Hemoglobin 11.2 g/dL (12.0-16.0); Lymphocytes Absolute Auto 900 /uL (1100-4500); Lymphocytes Percent Auto 8.3 % (25-40); Mean Corpuscular HGB Conc 32.3 % (30-36); Mean Corpuscular Hemoglobin 24.6 PG (26-34); Monocytes Absolute Auto 600 /uL (0-900); Monocytes Percent Auto 5.4 % (3-14); Neutrophils Absolute Auto 9100 /uL (1500-7000); Platelet Count 299 X10^3/uL (150-400); Red Blood Cell Count 4.58 X10^6/uL (4.0-5.2); Red Cell Distribution Width 18.2 % (11.6-14.8); White Blood Cell Count 10.8 X10^3/uL (4.5-11.0)
[2020-02-07 23:08] LABS: BUN Creatinine Ratio 39.1 (6-22); Blood Urea Nitrogen 27 mg/dL (7-17); Calcium 9.4 mg/dL (8.4-10.2); Carbon Dioxide 28 mmol/L (22-32); Chloride 102 mmol/L (98-107); Estimated Glomerular Filt Rate > 60.0 mL/min (>60); Glucose 116 mg/dL (70-100); HEMOLYSIS < 15 (0-50); Lactate (Lactic Acid) 1.6 mmol/L (0.7-2.1); Potassium 4.5 mmol/L (3.4-5.1); Sodium 136 mmol/L (137-145)
[2020-02-07 23:12] LABS: COVID19 -Nasal RAPID Negative (Negative)
[2020-02-07 23:23] LABS: Procalcitonin 49.07 ng/mL (<0.5)
--- NOTE | 2020-02-07 23:35 | PC.NURSE ---
A&OX3. oriented pt to the room. vss. IV abx infusing. report given to operation shift supervisor RN. call light in reach.
[2020-02-08] VITALS (14 sets, daily range): BP systolic 101–123; BP diastolic 65–73; PULSE 77–89; RESP 14–18; TEMP 36.1–37.8; O2SAT 94–98
[2020-02-08] MEDS: HYDROMORPHONE 4 MG TABLET PO (01:08)
[2020-02-08] MEDS: TRAZODONE 50 MG TABLET 100 MG PO ×2 (01:09→20:21)
[2020-02-08] MEDS: ONDANSETRON 4 MG ODT PO (01:09)
[2020-02-08] MEDS: PRAMIPEXOLE 0.25 MG TABLET PO ×3 (01:11→20:21)
--- NOTE | 2020-02-08 03:22 | PM.HP.1 ---
History of Present Illness History of Present Illness Date Patient Seen: 02/08/20 Time Patient Seen: 04:00 Chief complaint: Knee infection Narrative: Patient is a 55-year-old female with a history of a left total knee replacement August of [address] Vasyl Cesar at [facility]. Unfortunately the patient developed a acute onset infection early December 2019. On December 29 she was taken to the operating room for a irrigation debridement and poly exchange for her left knee. She was placed on IV antibiotics and has been receiving cefazolin t.i.d. through her PICC line and rifampin monitored by [facility] infectious Disease as an outpatient. She recently saw Dr. Cesar in clinic on 02/03/2020. At that time she was noted to be doing rather well. Range of motion was 10-100 degrees and incision was healed. She thought she was doing pretty good at that appointment as well. She reports that yesterday 02/06/2020 her knee started becoming more painful. She also endorses waking up this morning with a temperature. Of note she did call this physician before presenting to [facility] ER and stated that she had a temperature of 102?. She now states this was probably 100.2 but her pain had increased. She was worked up at [facility]. White blood cell count was elevated at 16. ESR was 48 and CRP 2.9 which are notably less than her previous labs. Urinalysis was negative per report. Chest x-ray was normal per report. Was noted to have pain with any range of motion of her knee and appreciable swelling.. No drainage or redness. Blood cultures were drawn but were not available. COVID test was negative. Note she had reported congestion and respiratory symptoms in the week prior but denies those today. Just states she is ?tired of it all. She denies any recent drug use or IV drug use. She denies missing any antibiotic infusions. Patient History Medical History Acute metabolic encephalopathy (Acute 09/16/17) Arthralgia (Chronic) Chronic back pain (Chronic) Degenerative disc disease, cervical (Chronic) Degenerative disc disease, lumbar (Chronic) Depression with anxiety (Chronic) Fibromyalgia (Chronic) GERD (gastroesophageal reflux disease) (Resolved) Neck infection (Acute 06/2017) Osteoarthritis (Acute) Restless leg syndrome (Chronic) Rheumatoid arthritis (Acute) Sepsis (Acute 09/16/17) Surgical History History of kidney surgery (Acute 2019) History of lumbar fusion (Resolved) Hx of cholecystectomy (Resolved) Hx of hernia repair (Acute ~2012) Status post cervical spinal fusion (Resolved) Tubal ligation status (Resolved) Family & Social History Social History: household members spouse Prior Living Arrangements Apartment/Condo Safety & Behavioral: Feels Safe in Current Yes Environment Been Physically Hurt or No Threatened By a Person Suicidal Ideation Description None Suicide Plan Description No Plan Tobacco & Substance use: Tobacco type cigarettes Smoking Status Former smoker alcohol intake current alcohol intake frequency holiday/special occasion Substance Use Type marijuana,former substance user Meds Home Medications and Allergies Home Medications Medication Instructions Recorded Confirmed Type diclofenac sodium 1 applic TOPICAL DIRECTED 10/03/17 12/30/19 History pramipexole 0.25 mg PO BID 10/03/17 12/30/19 History trazodone 100 mg PO BEDTIME 10/03/17 12/30/19 History tizanidine 2 mg PO Q6-8H PRN 05/28/19 12/30/19 History hydromorphone 4 mg PO Q4H PRN #60 tab 09/19/19 12/30/19 Rx aspirin 81 mg PO BID 42 Days #84 tab 01/02/20 Rx cefazolin in dextrose (iso-os) 2 gm IV Q8H 42 Days ml 01/02/20 Rx hydrocodone-acetaminophen [Haworth] 1 tab PO Q8H PRN #14 tab 01/16/20 Rx Allergies Allergy/AdvReac Type Severity Reaction Status Date / Time bee venom protein (honey bee) Allergy Severe Hives Verified 02/07/20 17:02 morphine Allergy Severe Anaphylaxis Verified 02/07/20 17:02 Sulfa (Sulfonamide Allergy Severe Anaphylaxis Verified 02/07/20 17:02 Antibiotics) gabapentin AdvReac Severe Weight gain Verified 02/07/20 17:02 aspirin AdvReac Intermediate Abdominal Verified 02/07/20 17:02 Pain methadone AdvReac Intermediate Hallucinati Verified 02/07/20 17:02 ng Review of Systems Review of Systems Narrative: Constitutional: Reports system reviewed and no additional complaints, except as documented and Reports fevers. Eyes: Reports system reviewed and no additional complaints, except as documented Cardiovascular: Denies chest pain, Denies leg edema, Denies dyspnea and Denies other Respiratory: Denies dyspnea Gastrointestinal: Denies abdominal pain, Denies nausea and Denies vomiting Genitourinary: Denies urinary hesitancy and Denies urinary urgency Musculoskeletal: Reports myalgias, arthralgias, Left knee joint swelling, and limited range of motion Neurologic: Reports system reviewed and no additional complaints, except as documented Comments: Denies shortness of breath or congestion last few days. Did report this last week ROS: Yes All systems reviewed with the patient and are negative except as otherwise documented Exam Vital Signs (past 8 hours): - 02/07/20 20:46 02/07/20 21:00 02/07/20 21:30 Temperature Pulse Rate 77 78 79 Respiratory Rate 18 18 18 Blood Pressure 127/70 126/70 116/74 Pulse Oximetry 97 96 96 02/07/20 22:00 02/07/20 22:31 02/07/20 23:01 Temperature 99.2 F Pulse Rate 84 83 79 Respiratory Rate 18 18 18 Blood Pressure 130/79 129/91 H 141/61 H Pulse Oximetry 96 97 98 02/07/20 23:35 02/07/20 23:57 Temperature 98.5 F Pulse Rate 81 Respiratory Rate 16 Blood Pressure 141/61 H Pulse Oximetry 92 98 Oxygen Delivery Method Room Air Oxygen Flow Rate 0 Narrative Exam Narrative: General examination: Alert oriented female, appears stated age, tearful at times, clutching left knee at rest HEENT exam: Normocephalic atraumatic, extraocular muscles intact, oropharynx is clear and mucous membranes are moist. Neck supple and symmetric, no thyroid enlargement nontender, no masses by palpation. Respiratory exam: Lungs clear on auscultation bilaterally. Respirations even and unlabored. No adventitious sounds present, no wheezes, rhonchi, or rales. No use of accessory muscles. No coughing CV exam S1 and S2 with regular rate and rhythm without murmurs, rubs, or gallops, no carotid bruit. Musculoskeletal exam: Moves upper extremities and the right lower extremity freely to get up to bedside commode. Midline incision over the left knee is well healed and intact. No evidence of drainage, redness at all along the incision or in the knee in general. There is mild swelling. But no large effusion. There is no generalized swelling of the left lower extremity. The calf is soft. Negative Tk. Demonstrates dorsiflexion plantar flexion of the ankle. Palpable dorsalis pedis pulses and sensation intact to light touch. No cyanosis, clubbing or edema. Neuro: Patient is alert and orientated x3, appropriate affect, sensation to touch intact, CN 2-12 grossly intact. Skin: Warm dry and intact without rashes, ulcerations or petechiae with the exception of the left knee noted above. Objective Labs Result Diagrams: 02/07/20 22:44 02/07/20 22:44 Labs: Laboratory Results - last 24 hr 02/07/20 02/07/20 02/07/20 22:44 22:44 22:44 WBC 10.8 RBC 4.58 Hgb 11.2 L Hct 34.8 L MCV 76.0 L MCH 24.6 L MCHC 32.3 RDW 18.2 H Plt Count 299 Neut % (Auto) 85.0 H Lymph % (Auto) 8.3 L Hunt % (Auto) 5.4 Eos % (Auto) 0.9 L Baso % (Auto) 0.4 Neut # (Auto) 9100 H Lymph # (Auto) 900 L Hunt # (Auto) 600 Eos # (Auto) 100 Baso # (Auto) 0 Sodium 136 L Potassium 4.5 Chloride 102 Carbon Dioxide 28 BUN 27 H Creatinine 0.69 Estimated GFR > 60.0 BUN/Creatinine Ratio 39.1 H Glucose 116 H Lactate Calcium 9.4 Procalcitonin 49.07 H COVID-19 PCR 02/07/20 02/07/20 22:44 22:55 WBC RBC Hgb Hct MCV MCH MCHC RDW Plt Count Neut % (Auto) Lymph % (Auto) Hunt % (Auto) Eos % (Auto) Baso % (Auto) Neut # (Auto) Lymph # (Auto) Hunt # (Auto) Eos # (Auto) Baso # (Auto) Sodium Potassium Chloride Carbon Dioxide BUN Creatinine Estimated GFR BUN/Creatinine Ratio Glucose Lactate 1.6 Calcium Procalcitonin COVID-19 PCR Negative Assessment & Plan Assessment & Plan narrative: 1. 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 Ford and Dr. Lindsey orthopedic surgeon, and Dr. Cesar notified. -both Dr. Ford and Dr. Lindsey attempted to tap the left knee-no fluid was obtained. Dr. Lindsey recommended that the patient may require eventual explant of prosthesis. This could not be performed at this time, only when she has completed antibiotics and Infectious state is resolved. -patient had labs drawn at another facility today and was found to have leukocytosis of 16, vitals in ER temp 99.2, blood pressure 141/61, heart rate 79, respiratory rate 18, O2 saturation 98%, procalcitonin 49.07, hemoglobin 11.2 hematocrit 34.8, MCV 76, MCH 24.6, RDW 18.2, BUN 27, lactate negative. -patient to continue home medication for pain management topical Voltaren gel 3%, Haworth, hydromorphone, Pramipexole, denies itching, and trazodone. -repeat a.m. labs ordered to include ferritin magnesium TIBC and UA, blood cultures pending -patient to continue her antibiotics rifampin p.o. 300 mg and Keflex IV 2 g through her PICC line. -patient to follow-up with Dr. Cesar [facility] next week. She is instructed to call on Sunday to make this appointment. VTE prophylaxis: enoxaparin 40 and SCDs Code status: Full code Surrogate: Eleonora Allison Pt was admitted for left knee prosthetic joint infection, subsequent encounter. This patient has a history of a left knee replacement performed in August of 2019. She developed a infection of this in December 2019. She returned to the operating room immediately and had a poly exchange and irrigation debridement with Dr. Cesar. She is been on IV antibiotics through a PICC line managed by [facility] infectious Disease. She has had approximately 5 weeks of treatment. She is also on rifampin PO and Keflex IV. Patient has failed outpatient medical management, due to the complex pathology and acuity of infection patient requires inpatient medical management.
[2020-02-08] MEDS: HYDROMORPHONE 0.5 MG INJ 2 MG IV (05:03)
[2020-02-08 05:35] LABS: Add Manual Diff / Slide Review NO; Basophils Absolute Auto 0 /uL (0-100); Basophils Percent Auto 0.5 % (0-2); Eosinophils Absolute Auto 100 /uL (0-450); Hematocrit 32.2 % (36-46); Hemoglobin 10.4 g/dL (12.0-16.0); Lymphocytes Absolute Auto 700 /uL (1100-4500); Lymphocytes Percent Auto 11.8 % (25-40); Mean Corpuscular HGB Conc 32.4 % (30-36); Mean Corpuscular Hemoglobin 24.8 PG (26-34); Mean Corpuscular Volume 76.5 fL (80-100); Monocytes Absolute Auto 200 /uL (0-900); Monocytes Percent Auto 3.9 % (3-14); Neutrophils Absolute Auto 4700 /uL (1500-7000); Neutrophils Percent Auto 81.8 % (50-75); Platelet Count 237 X10^3/uL (150-400); Red Blood Cell Count 4.21 X10^6/uL (4.0-5.2); Red Cell Distribution Width 17.9 % (11.6-14.8); White Blood Cell Count 5.8 X10^3/uL (4.5-11.0)
[2020-02-08 05:45] LABS: Blood Urea Nitrogen 25 mg/dL (7-17); Calcium 8.9 mg/dL (8.4-10.2); Carbon Dioxide 27 mmol/L (22-32); Chloride 104 mmol/L (98-107); Estimated Glomerular Filt Rate > 60.0 mL/min (>60); Glucose 132 mg/dL (70-100); HEMOLYSIS < 15 (0-50); Magnesium 1.9 mg/dL (1.6-2.3); Potassium 4.3 mmol/L (3.4-5.1); Sodium 136 mmol/L (137-145)
[2020-02-08 05:53] LABS: Total Iron Binding Capacity 429 ug/dL (265-497)
[2020-02-08 06:43] LABS: Ferritin 54 ng/mL (11-264)
[2020-02-08] MEDS: ENOXAPARIN 40 MG/0.4 ML SYRINGE SUBCUT (08:22)
[2020-02-08] MEDS: DICLOFENAC 1% GEL 100 GM 1 APPLIC TOP ×2 (08:27→13:10)
[2020-02-08] MEDS: HYDROMORPHONE 4 MG TABLET 6 MG PO (08:32)
[2020-02-08 09:07] LABS: Bacteria Urine None Seen; RBC Urine None Seen (0-5/HPF); WBC Urine None Seen (0-5/HPF)
[2020-02-08 09:09] LABS: Appearance Urine UA Clear; Color Urine UA Orange
[2020-02-08 09:15] LABS: Culture Indicated Urine Cult Not Indicated; Squamous Epithelial Cell Urine 5-10 /HPF (0-5/HPF)
[2020-02-08] MEDS: CEFAZOLIN 2 GM/100 ML FROZ.PIGGY IV (09:25)
[2020-02-08 09:52] LABS: Enterococcus species Not Detected (Not Detect); Listeria monocytogenes Not Detected (Not Detect); Staphylococcus species Not Detected (Not Detect); Vancomycin-rest genes A/B Not Detected (Not Detect)
[2020-02-08 09:53] LABS: Acinetobacter baumannii Not Detected (Not Detect); Candida albicans Not Detected (Not Detect); Candida glabrata Not Detected (Not Detect); Candida krusei Not Detected (Not Detect); Candida parapsilosis Detected (Not Detect); Candida tropicalis Not Detected (Not Detect); E. coli Not Detected (Not Detect); Enterobacter cloacae complex Detected (Not Detect); Enterobacteriaceae species Detected (Not Detect); Haemophilus influenzae Not Detected (Not Detect); KPC (carbapenem-resist gene) Not Detected (Not Detect); Methicillin-resistant gene Not Detected (Not Detect); Neisseria meningitidis Not Detected (Not Detect); Proteus species Not Detected (Not Detect); Pseudomonas aeruginosa Not Detected (Not Detect); Serratia marcescens Not Detected (Not Detect); Streptococcus agalactiae (Gr B Not Detected (Not Detect); Streptococcus pneumonia Not Detected (Not Detect); Streptococcus pyogenes (Gr A) Not Detected (Not Detect); Streptococcus species Not Detected (Not Detect)
--- NOTE | 2020-02-08 11:47 | CM.DANOTE ---
Discharge Planning/Care Management DCP: assessment: case received, EMR reviewed and met with pt during Team Bedside Rounds and then afterwards in followup. Introduced self and role. Am familiar with pt from her last admission to : 12/29-01/01 with a d/c go home setting with Eleonora's supportive assist, [facility] and [facility] for extended IV antibiotic therapy to knee infection. (post of TKA 09/18-09/19). Pt confirms that all has been going well with [facility] and [facility] (primarily doing PICC dressing changes and labs) and pt has been seeing Dr. Cesar in followup. She states most recent visit to him was Sunday Dr. Lindsey and ER physician both attempted fluid aspiration in ER but with limited success. Pt has admitted to care of hospitalist team. Pt says she is hopeful that Dr. Cesar will be in to see her during this stay. She also stated to Dr. Hernández in Rounds that she has been following with her ID physician Dr. Syed/[facility] and Dr. Hernández said she plans to followup with ID at that facility to discuss POC going forward. Pt has PICC line that has been in place about 6 weeks. Pt notes she has almost completed the required 6 weeks of treatment and that Dr. Cesar had indicated that a revision of the surgery might be needed. P: DCP team will be following up as more is known re the POC going forward. Will not fax or call [facility] today as this is Sunday. Will leave to team on for Sunday to begin this process and more should be known re POC at that time. CM Discharge Assessment Start: 02/08/20 11:37 Freq: Status: Active Protocol: Document 02/08/20 11:37 ITV (Rec: 02/08/20 11:47 ITV [id number]) Discharge Planning Assessment Advance Directives? No History Provided By Patient,Medical Record Has Patient been admitted in last 30 No days? Prior Living Arrangements Apartment/Condo Household Members spouse Independent with ADL's Yes Is patient alert and oriented? Yes Caregiver for Another No Referrals Initiated Other Review Status In Process
[2020-02-08] MEDS: HYDROMORPHONE 2 MG TABLET 6 MG PO ×3 (12:30→20:21)
[2020-02-08] MEDS: ACETAMINOPHEN 325 MG TABLET 650 MG PO (12:30)
[2020-02-08] MEDS: FLUCONAZOLE 200 MG/100 ML PIGGYBACK 100 MG IV (14:46)
--- NOTE | 2020-02-08 15:17 | PT.IIE ---
Current Diagnoses Infection and inflammatory reaction due to unspecified internal joint prosthesis, subsequent encounter (02/07/20) Surgical History (Last Reviewed 02/08/20 @ 03:26 by ROMANA Mallory) History of kidney surgery (Acute 2019) History of lumbar fusion (Resolved) Hx of cholecystectomy (Resolved) Hx of hernia repair (Acute ~2012) Status post cervical spinal fusion (Resolved) Tubal ligation status (Resolved) Medical History (Last Reviewed 02/08/20 @ 03:26 by ROMANA Mallroy) Acute metabolic encephalopathy (Acute 09/16/17) Arthralgia (Chronic) Chronic back pain (Chronic) Degenerative disc disease, cervical (Chronic) Degenerative disc disease, lumbar (Chronic) Depression with anxiety (Chronic) Fibromyalgia (Chronic) GERD (gastroesophageal reflux disease) (Resolved) Neck infection (Acute 06/2017) Osteoarthritis (Acute) Restless leg syndrome (Chronic) Rheumatoid arthritis (Acute) Sepsis (Acute 09/16/17) Physical Therapy Inpatient Evaluation/Re-Eval M1 PT/OT-IP Prior Functional Status Start: 02/08/20 09:38 Freq: NEEDED Status: Active Protocol: Document 02/08/20 14:41 AW (Rec: 02/08/20 15:17 AW [id number]) Medical Review Prior Functional Status Medical History Reviewed Yes Communication Pt is an effective verbal communicator. Mobility and Gait Pt is modified independent with use of FWW for household mobility and w/c for longer distances. Activities of Daily Living and IADL's Pt requires assist with lower body dressing - sometimes balance assist, other times with actual dressing. She has setup and standby assist for showers and occasional assist with toileting needs. Her spouse, Geovanna, provides all assist. Prior Functional Level (Other details) Pt has had multiple surgeries over the last few years. She had L TKA in August 2019 and I&D of that joint on 12/30/19. She has had a PICC line in her LUE for IV antibiotics for ~5 weeks. Pt has a caregiver 3x/ week who mostly assists with housekeeping. Pt has been receiving services from [facility] to manage antibiotics. Pt currently has [facility] for nursing but PT discharged her from two days ago. Social History Household Members spouse Living Arrangements Apartment/Condo Number of Floors (Floors) One Floor Number of Stairs To Enter/Railing? level entrance Home Environment Standard Height Toilet,Tub/ Shower Home Equipment Front Wheel Walker,Raised Toilet Seat Without Armrests, Shower Seat with Backrest, Hospital Bed,Grab Bars In Shower Additional Social History Comment Pt has a hospital bed set up in the living room for easier access to bathroom and all other needs. She has a transport wheelchair. She lives in a ground floor apartment with her spouse, Eleonora. Pt and her state they had been homeless until earlier this year. Eleonora reports she has her own mobility limitations created by worsening degenerative disk disease. M2 PT-IP Current Condition Start: 02/08/20 09:38 Freq: NEEDED Status: Active Protocol: Document 02/08/20 14:41 AW (Rec: 02/08/20 15:17 AW [id number]) Physical Therapy Current Condition Current Condition Evaluation Date 02/08/20 Treatment Diagnosis L prosthetic knee infection; difficulty in walking Onset Date 01/25/20 M3 PT-IP Subjective Start: 02/08/20 09:38 Freq: NEEDED Status: Active Protocol: Document 02/08/20 14:41 AW (Rec: 02/08/20 15:17 AW [id number]) Subjective Physical Therapy Visit Type Type Initial Evaluation Visit Start Time 14:20 Visit Stop Time 14:38 Total Visit Minutes 18 Notes Pt's spouse, Eleonora, was present throughout session Number of JOURNALIST Visits 0 Physical Therapy Visit Comments Patient Comments Pt is willing to participate with PT Patient Goals Pt hopes to return home and improve her mobility but is discouraged knowing she will likely need revision TKA and a longer course of rehab. Therapy Pain Assessment Pain When Pain Assessed During Mobility Pain Present Pain Present Pain Reported Location Left Knee Intensity 6 Pain Management Techniques Re-positioning,Timing of Activity with Medications M4 PT-IP Mobility and Gait Start: 02/08/20 09:38 Freq: NEEDED Status: Active Protocol: Document 02/08/20 14:41 AW (Rec: 02/08/20 15:17 AW [id number]) PT-Bed Mobility Assessment Supine to Sit Supine to Sit Standby Assistance Sit to Supine Sit to Supine Standby Assistance Scooting Scooting to Edge of Bed Standby Assistance PT-Transfer Assessment Sit to and From Stand Sit to and from Stand Standby Assistance,Use of Upper Extremities Equipment Transfer Assistive Device Gait Belt,Front Wheeled Walker Transfers Transfer Destination Bed Transfer Technique pt ambulated with FWW Transfer Ability Level of Assist Standby Assistance Comments Mobility Comments Pt was sitting up in the bed in cross-legged position as PT arrived. With HOB flat, she completed supine <> sit and ambulated around the room with FWW SBA. Activity tolerance was limited due to pain with all activity. Gait Assessment Gait Gait Assistance Required: Standby Assistance Distance (Feet) 50 Assistive Devices Assistive Device Gait Belt,Front Wheeled Walker Gait Deviations General Gait Pattern Antalgic,Decreased Stride Length,Decreased Feet Clearance,Flexed Trunk,Lateral Trunk Lean,Step-to Gait Factors Limiting Gait Function Factors Limiting Gait Function Decreased Activity Tolerance, Decreased Sensation,Decreased Strength,Limited Range of Motion,Pain,Poor Balance,Poor Safety Awareness Comments Gait Comments Pt's left knee ROM is ~10-100 which affects gait with FWW. LLE weightbearing was limited with pt WB heavily through BUE on the walker. Pt was safe with FWW for limited distance. Stair Climbing Assessment Comments Stair Climbing Comments Not assessed. No stairs at home. PT-Balance Assessment Sitting Balance and Reactions Static Sitting Balance Ability Good Dynamic Sitting Balance Ability Good Standing Balance and Reactions Static Standing Balance Ability Fair Dynamic Standing Balance Ability Fair Device Used FWW M5 PT-IP Objective Assessments Start: 02/08/20 09:38 Freq: NEEDED Status: Active Protocol: Document 02/08/20 14:41 AW (Rec: 02/08/20 15:17 AW [id number]) Orientation Orientation/Cognition Level of Alertness Alert Orientation Name,Day of Week,Place, Situation Language Function Ability No Deficits Noted Safety Awareness Decreased Safety Awareness Gross Range of Motion Lower Extremity ROM Assessment Left Impaired Impairments Left knee ROM ~10-100 degrees. Strength Lower Extremity Strength Assessment Left Impaired Hip 4-/5 Knee ext 3-/5; flex 3+/5 Ankle 4/5 Sensation Assessment Sensation Gross Sensation Left LE Impaired Sensation Description Numbness Comments Sensation Comments Pt reports numbness to left 3rd through 5th digits which is more pronounced on the plantar surface. M6 PT-IP Treatment Start: 02/08/20 09:38 Freq: NEEDED Status: Active Protocol: Document 02/08/20 14:41 AW (Rec: 02/08/20 15:17 AW [id number]) Physical Therapy Treatment Exercises Exercises Ankle Pumps,Heel Slides Education Education Provided Precautions,Safety M7 PT-IP Assessment and Plan Start: 02/08/20 09:38 Freq: NEEDED Status: Active Protocol: Document 02/08/20 14:41 AW (Rec: 02/08/20 15:17 AW [id number]) PT Summary Assessment and Plan Potential Rehabilitation Potential Fair Status of Condition at Evaluation Evolving Summary Impairments Pain,ROM,Strength,Balance, Sensation,Transfers,Gait, Activity Tolerance Assessment Summary Jessica is a 55 yo woman admitted with infection of left knee prosthesis. She had TKA on 09/18/19 and I&D on 12/29. She has been receiving IV antibiotics via PICC line. At recent baseline, pt has been ambulating short distances with FWW and using a transport wheelchair for longer distances. She lives with her spouse, Eleonora, who is limited in her ability to assist due to her own health problems. Pt has caregiver assist ~3x/week for mostly housekeeping. On evaluation, left knee ROM was ~10-100 degrees and pt demonstrates heavy UE weightbearing on FWW during gait. Pt hopes to undergo revision of the left knee eventually. PT anticipates this pt will be safe to discharge home with increased level of assist. Pt states HH PT recently discharged her but new HH orders may be beneficial at this point given pt's change in condition. Goals Bed Mobility Goal Independent Transfer Goal Independent,Front Wheeled Walker Gait Goal Standby Assistance,Front Wheel Walker Gait Distance 75 Days to Meet Goals 2 Frequency of Treatment Frequency Of Treatment Once a Day Treatment Plan Physical Therapy Treatment Plan Bed Mobility Training,Transfer Training,Gait Training, Therapeutic Exercise,Balance Retraining,Discharge Planning, Hot or Cold Pack Other Recommendations and Next Treatment progress gait with FWW; ther Focus ex to include passive extension hang and strengthening as tolerated Recommendations To Nursing Amount of Assist Needed Standby Assistance Discharge Recommendations PT Discharge Recommendations Home with Assistance,Home Health Transportation Needs at Discharge Private Vehicle
[2020-02-08] MEDS: PIPERACILLIN-TAZO 3.375 GM/50 ML FROZ.PIGGY IV ×2 (16:20→22:07)
[2020-02-08] MEDS: SENNOSIDES 8.6 MG TABLET 17.2 MG PO (20:21)
[2020-02-08] MEDS: diphenhydrAMINE 25 MG TABLET PO (21:24)
[2020-02-09] VITALS (10 sets, daily range): BP systolic 111–143; BP diastolic 63–86; PULSE 72–96; RESP 14–16; TEMP 36.2–37; O2SAT 92–99
[2020-02-09] MEDS: HYDROMORPHONE 2 MG TABLET 6 MG PO ×5 (00:27→21:04)
[2020-02-09] MEDS: PIPERACILLIN-TAZO 3.375 GM/50 ML FROZ.PIGGY IV ×4 (03:25→22:34)
[2020-02-09] MEDS: PRAMIPEXOLE 0.25 MG TABLET PO ×2 (07:40→21:05)
[2020-02-09] MEDS: TIZANIDINE 4 MG TABLET 2 MG PO (07:40)
[2020-02-09] MEDS: ACETAMINOPHEN 325 MG TABLET 650 MG PO (07:40)
[2020-02-09] MEDS: diphenhydrAMINE 25 MG TABLET PO (07:42)
[2020-02-09 08:28] LABS: Add Manual Diff / Slide Review NO; Basophils Absolute Auto 0 /uL (0-100); Basophils Percent Auto 1.1 % (0-2); Eosinophils Absolute Auto 200 /uL (0-450); Eosinophils Percent Auto 4.4 % (2-4); Hematocrit 31.3 % (36-46); Hemoglobin 9.9 g/dL (12.0-16.0); Lymphocytes Absolute Auto 900 /uL (1100-4500); Lymphocytes Percent Auto 22.1 % (25-40); Mean Corpuscular HGB Conc 31.7 % (30-36); Mean Corpuscular Hemoglobin 24.3 PG (26-34); Mean Corpuscular Volume 76.8 fL (80-100); Monocytes Absolute Auto 400 /uL (0-900); Monocytes Percent Auto 9.5 % (3-14); Neutrophils Absolute Auto 2700 /uL (1500-7000); Neutrophils Percent Auto 62.9 % (50-75); Platelet Count 230 X10^3/uL (150-400); Red Blood Cell Count 4.08 X10^6/uL (4.0-5.2); White Blood Cell Count 4.3 X10^3/uL (4.5-11.0)
[2020-02-09 08:37] LABS: BUN Creatinine Ratio 27.8 (6-22); Blood Urea Nitrogen 22 mg/dL (7-17); Calcium 9.1 mg/dL (8.4-10.2); Carbon Dioxide 28 mmol/L (22-32); Chloride 106 mmol/L (98-107); Estimated Glomerular Filt Rate > 60.0 mL/min (>60); Glucose 128 mg/dL (70-100); HEMOLYSIS < 15 (0-50); Potassium 4.2 mmol/L (3.4-5.1); Sodium 140 mmol/L (137-145)
[2020-02-09 08:53] LABS: Procalcitonin 27.53 ng/mL (<0.5)
[2020-02-09] MEDS: ENOXAPARIN 40 MG/0.4 ML SYRINGE SUBCUT (08:54)
[2020-02-09] MEDS: SODIUM CHLORIDE 0.9% FLUSH 10 ML IV ×2 (09:08→21:06)
--- NOTE | 2020-02-09 09:14 | CM.DPC ---
Addendum entered by Michelle Cardenas R.N. 02/09/20 11:18: Met briefly in team rounds. Dr. Mon indicated that patient will be getting a new PICC line. Nerissa from [facility] called with status on patient. Indicated that nursing is still coming in, but they were planning on DC next week. P.T. just discharged patient as well. Gave Nerissa update, indicating that P.T. may need to be added back, but will see how she does. Nursing may have to stay in longer as well. Original Note: DCP Cont: Contacted Isaac at [facility], and updated him that patient is here in the hospital. He is familiar with patient, for he is on their service. Patient resides in [place]. She worked with P.T., and it is noted that home is set up for safety, and she also has a walker. Let Isaac know that this supervisor case loading would continue to give him updates. P: DCP to continue to follow. Will discuss at team rounds as well, as cultures are pending, and unclear which antibiotic that patient will be discharged with. Michelle Cardenas RN/Patient Transition Specialist
--- NOTE | 2020-02-09 11:19 | PC.NURSE ---
Day shift: Midline placed by JOSELITO Trotter today at approx 1105.
--- NOTE | 2020-02-09 12:11 | PT.IPTN ---
Current Diagnoses Infection and inflammatory reaction due to unspecified internal joint prosthesis, subsequent encounter (02/07/20) Physical Therapy Treatment Note M2 PT-IP Current Condition Start: 02/08/20 09:38 Freq: NEEDED Status: Active Protocol: Document 02/08/20 14:41 AW (Rec: 02/08/20 15:17 AW [id number]) Physical Therapy Current Condition Current Condition Evaluation Date 02/08/20 Treatment Diagnosis L prosthetic knee infection; difficulty in walking Onset Date 01/25/20 M3 PT-IP Subjective Start: 02/08/20 09:38 Freq: NEEDED Status: Active Protocol: Document 02/09/20 12:05 AW (Rec: 02/09/20 12:10 AW [id number]) Subjective Physical Therapy Visit Type Type Treatment Note Visit Start Time 11:49 Visit Stop Time 12:03 Total Visit Minutes 14 Number of CHARGING BOARD OPERATOR Visits 0 Physical Therapy Visit Comments Patient Comments Pt is willing to participate with PT Therapy Pain Assessment Pain When Pain Assessed During Mobility Pain Present Pain Present Pain Reported Location Left Knee Intensity 6 Pain Management Techniques Re-positioning,Timing of Activity with Medications M4 PT-IP Mobility and Gait Start: 02/08/20 09:38 Freq: NEEDED Status: Active Protocol: Document 02/09/20 12:05 AW (Rec: 02/09/20 12:10 AW [id number]) PT-Bed Mobility Assessment Supine to Sit Supine to Sit Standby Assistance Sit to Supine Sit to Supine Standby Assistance Scooting Scooting to Edge of Bed Standby Assistance Scooting Up and Down in Bed Standby Assistance PT-Transfer Assessment Sit to and From Stand Sit to and from Stand Standby Assistance,Use of Upper Extremities Equipment Transfer Assistive Device Gait Belt,Front Wheeled Walker Transfers Transfer Destination Bed Transfer Technique pt ambulated with FWW Transfer Ability Level of Assist Standby Assistance Comments Mobility Comments Pt completed all mobility SBA. She continues to sit in habitual cross-legged posture. Spent time today discussing positioning to improve extension ROM and demonstrated passive extension hang with pillow or towel roll under ankle. Pt understood and agreed. Gait Assessment Gait Gait Assistance Required: Standby Assistance Distance (Feet) 240 Assistive Devices Assistive Device Gait Belt,Front Wheeled Walker Gait Deviations General Gait Pattern Antalgic,Decreased Stride Length,Decreased Feet Clearance,Flexed Trunk,Lateral Trunk Lean,Step-to Gait Factors Limiting Gait Function Factors Limiting Gait Function Decreased Activity Tolerance, Decreased Sensation,Decreased Strength,Limited Range of Motion,Pain,Poor Balance,Poor Safety Awareness Comments Gait Comments Pt has improved LLE weightbearing this date with report of improved pain symptoms. Lack of extension in LLE affects overall gait pattern. Stair Climbing Assessment Comments Stair Climbing Comments Not assessed. No stairs at home. PT-Balance Assessment Sitting Balance and Reactions Static Sitting Balance Ability Good Dynamic Sitting Balance Ability Good Standing Balance and Reactions Static Standing Balance Ability Fair Dynamic Standing Balance Ability Fair Device Used FWW M5 PT-IP Objective Assessments Start: 02/08/20 09:38 Freq: NEEDED Status: Active Protocol: Document 02/08/20 14:41 AW (Rec: 02/08/20 15:17 AW [id number]) Orientation Orientation/Cognition Level of Alertness Alert Orientation Name,Day of Week,Place, Situation Language Function Ability No Deficits Noted Safety Awareness Decreased Safety Awareness Gross Range of Motion Lower Extremity ROM Assessment Left Impaired Impairments Left knee ROM ~10-100 degrees. Strength Lower Extremity Strength Assessment Left Impaired Hip 4-/5 Knee ext 3-/5; flex 3+/5 Ankle 4/5 Sensation Assessment Sensation Gross Sensation Left LE Impaired Sensation Description Numbness Comments Sensation Comments Pt reports numbness to left 3rd through 5th digits which is more pronounced on the plantar surface. M6 PT-IP Treatment Start: 02/08/20 09:38 Freq: NEEDED Status: Active Protocol: Document 02/09/20 12:05 AW (Rec: 02/09/20 12:10 AW [id number]) Physical Therapy Treatment Exercises Exercises Heel Slides,Passive Knee Extension Hang Education Education Provided Precautions,Safety M7 PT-IP Assessment and Plan Start: 02/08/20 09:38 Freq: NEEDED Status: Active Protocol: Document 02/09/20 12:05 AW (Rec: 02/09/20 12:10 AW [id number]) PT Summary Assessment and Plan Potential Rehabilitation Potential Fair Status of Condition at Evaluation Evolving Summary Impairments Pain,ROM,Strength,Balance, Sensation,Transfers,Gait, Activity Tolerance Progress Towards Goals Progressing Toward Goals Assessment Summary Jessica improved her gait distance today. PT reassessed and upgraded goals. Anticipate discharge to home with assist and PT. Goals Bed Mobility Goal Independent Transfer Goal Independent,Front Wheeled Walker Gait Goal Independent,Front Wheel Walker Gait Distance 200 Days to Meet Goals 2 Frequency of Treatment Frequency Of Treatment Once a Day Treatment Plan Physical Therapy Treatment Plan Bed Mobility Training,Transfer Training,Gait Training, Therapeutic Exercise,Balance Retraining,Discharge Planning, Hot or Cold Pack Other Recommendations and Next Treatment progress gait with FWW; ther Focus ex to include passive extension hang and strengthening as tolerated Recommendations To Nursing Amount of Assist Needed Standby Assistance Discharge Recommendations PT Discharge Recommendations Home with Assistance,Home Health Transportation Needs at Discharge Private Vehicle
--- NOTE | 2020-02-09 13:12 | PM.PN.1 ---
Subjective Subjective Date Patient Seen: 02/09/20 Time Patient Seen: 13:12 Interval history: taiwo is a 55-year-old female with a history of a left total knee replacement August of [address] Vasyl Cesar at [facility] c/b post operative infection with IV antibiotics and PICC placement. Now admitted with Enterobacter and Betzaida bacteremia. Patient's PICC line was discontinued this morning and a midline was placed instead. Have attempted to contact her infectious disease doctor but have had a busy signal each time as far as recommendations for antibiotic therapy. Her procalcitonin has improved today. She remains on fluconazole and Zosyn at this time. Joint tap was attempted but no fluid removed. Patient still complains at knee pain today, she is frustrated about the PICC line having to be removed. Will need repeat blood cultures given candidemia. Exam Vital Signs (past 8 hours): - 02/09/20 07:40 02/09/20 07:47 02/09/20 11:20 Temperature 98.6 F 97.8 F Pulse Rate 80 72 Respiratory Rate 14 16 Blood Pressure 143/86 H 141/76 H Pulse Oximetry 99 98 94 02/09/20 13:08 Temperature Pulse Rate Respiratory Rate Blood Pressure Pulse Oximetry 98 Oxygen Delivery Method Room Air Oxygen Flow Rate 0 Narrative Exam Narrative: GENERAL APPEARANCE: Well developed, well nourished, in no acute distress. SKIN: Inspection of the skin reveals no rashes, ulcerations or petechiae. Area of prior PICC line without erythema, tenderness, or induration HEENT: Normocephalic atraumatic, extraocular muscles are intact, oropharynx is clear and mucous membranes are moist, neck is supple without adenopathy NECK: Supple and symmetric. There was no thyroid enlargement, and no tenderness, or masses were felt. CHEST: Normal AP diameter and normal contour without any kyphoscoliosis. LUNGS: Auscultation of the lungs revealed no wheezes, rhonchi, or rales. CARDIOVASCULAR: There was a regular rate and rhythm without any murmurs, gallops, rubs. Peripheral pulses were 2+ and symmetric. ABDOMEN: Soft and nontender with normal bowel sounds. No ascites was noted. MUSCULOSKELETAL: There was no tenderness noted. There is mild swelling of her left knee with tenderness and mild warmth but no overlying erythema. Incision appears well healing and without drainage. EXTREMITIES: No cyanosis, clubbing or edema. NEUROLOGIC: Alert and oriented x 3. Normal affect. Strength is +5/5 in the Upper Extremities and Lower Extremities Bilaterally. Sensation to touch was normal. Objective Labs Result Diagrams: 02/09/20 08:16 02/09/20 08:16 Labs: Laboratory Results - last 24 hr 02/09/20 02/09/20 02/09/20 08:16 08:16 08:16 WBC 4.3 L RBC 4.08 Hgb 9.9 L Hct 31.3 L MCV 76.8 L MCH 24.3 L MCHC 31.7 RDW 18.0 H Plt Count 230 Neut % (Auto) 62.9 Lymph % (Auto) 22.1 L [place] % (Auto) 9.5 Eos % (Auto) 4.4 H Baso % (Auto) 1.1 Neut # (Auto) 2700 Lymph # (Auto) 900 L [place] # (Auto) 400 Eos # (Auto) 200 Baso # (Auto) 0 Sodium 140 Potassium 4.2 Chloride 106 Carbon Dioxide 28 BUN 22 H Creatinine 0.79 Estimated GFR > 60.0 BUN/Creatinine Ratio 27.8 H Glucose 128 H Calcium 9.1 Procalcitonin 27.53 H Assessment & Plan Assessment & Plan narrative: 1. Candidemia, and Enterobacter bacteremia, acute, present on admission -source is most likely the patient's PICC line that was placed for outpatient antibiotic therapy. Have discontinued PICC and placed midline temporarily. -attempting to contact patient's outpatient ID, Dr. Gibbs at [facility], busy signal each attempt but will continue to attempt to reach. -repeat blood cultures to monitor for clearance of candidemia -continue fluconazole and zosyn at this time. Patient previously on rafmpin and keflex. -procalcitonin now declining from >40 to 27. 2. 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 Ford and Dr. Lindsey orthopedic surgeon, and Dr. Cesar notified. -both Dr. Ford and Dr. Lindsey attempted to tap the left knee-no fluid was obtained. Dr. Lindsey recommended that the patient may require eventual explant of prosthesis. This could not be performed at this time, only when she has completed antibiotics and Infectious state is resolved. -patient had labs drawn at another facility today and was found to have leukocytosis of 16, vitals in ER temp 99.2, blood pressure 141/61, heart rate 79, respiratory rate 18, O2 saturation 98%, procalcitonin 49.07, hemoglobin 11.2 hematocrit 34.8, MCV 76, MCH 24.6, RDW 18.2, BUN 27, lactate negative. -patient to continue home medication for pain management topical Voltaren gel 3%, [place], hydromorphone, Pramipexole, denies itching, and trazodone. -patient to follow-up with Dr. Cesar [facility] next week. Code: Full Dispo: unclear timing at this point, awaiting culture results and Infectious disease recommendations regarding outpatient treatment. Anticipate possibility of discharge in the next 1-3 days, will need to await blood culture results to make sure candidemia has resolved. COVID-19 COVID-19 status: Negative
[2020-02-09] MEDS: FLUCONAZOLE 200 MG/100 ML PIGGYBACK 100 MG IV (13:52)
[2020-02-09] MEDS: diphenhydrAMINE 25 MG TABLET 50 MG PO (14:47)
[2020-02-09] MEDS: SENNOSIDES 8.6 MG TABLET 17.2 MG PO (21:04)
[2020-02-09] MEDS: DICLOFENAC 1% GEL 100 GM 1 APPLIC TOP (21:05)
[2020-02-09] MEDS: TRAZODONE 50 MG TABLET 100 MG PO (22:34)
--- NOTE | 2020-02-09 23:23 | PC.NURSE ---
VSS. Pain 6-7, PO Dilaudid 6mg q 4 hours given with relief to 10 pain. Patient at 100% of her dinner. 1 person SBA.
[2020-02-10] VITALS (7 sets, daily range): BP systolic 118–139; BP diastolic 65–78; PULSE 69–79; RESP 14–18; TEMP 36.5–36.9; O2SAT 95–98
--- NOTE | 2020-02-10 00:15 | PC.NURSE ---
Addendum entered by Niya Hill R.N. 02/10/20 04:57: States pain is currently 7/10 so medicated with po Dilaudid. Unable to draw blood from midline Original Note: Patient seen and assessed at 2321. Is alert and oriented with very flat affect. Breath sounds CTA with RA sat of 92%. HRR. Denies nausea. BT present and abdomen is soft. Denies dysuria, frequency urgency with urination. Moving self in bed. Out of bed with walker and 1 assist due to weakness/pain in left LE. Knee incision is well approximated with scabbed spot in middle of dressing; no redness but knee is tender to touch. Patient states pain is 6/10 and normal pain level is 5/10 so is tolerating; declines ice pack. Has chronic neuropathy in lateral aspect of left foot. Refusing to wear SCD's so reminded to ankle wave when awake. Fall risk score is moderate but verbalizes agreement to call for assistance so bed alarm is not activated at this time.
[2020-02-10] MEDS: HYDROMORPHONE 2 MG TABLET 6 MG PO ×7 (01:09→20:44)
[2020-02-10] MEDS: PIPERACILLIN-TAZO 3.375 GM/50 ML FROZ.PIGGY IV (04:00)
[2020-02-10] MEDS: SODIUM CHLORIDE 0.9% FLUSH 10 ML IV ×4 (04:00→20:45)
[2020-02-10] MEDS: CEFTRIAXONE 2 GM/50 ML FROZ.PIGGY IV (08:42)
[2020-02-10] MEDS: ENOXAPARIN 40 MG/0.4 ML SYRINGE SUBCUT (08:50)
[2020-02-10] MEDS: PRAMIPEXOLE 0.25 MG TABLET PO ×2 (08:50→20:45)
[2020-02-10 08:57] LABS: Add Manual Diff / Slide Review NO; Basophils Absolute Auto 0 /uL (0-100); Basophils Percent Auto 0.8 % (0-2); Eosinophils Absolute Auto 200 /uL (0-450); Eosinophils Percent Auto 3.2 % (2-4); Hematocrit 29.5 % (36-46); Hemoglobin 9.4 g/dL (12.0-16.0); Lymphocytes Absolute Auto 1100 /uL (1100-4500); Lymphocytes Percent Auto 19.9 % (25-40); Mean Corpuscular Hemoglobin 24.3 PG (26-34); Mean Corpuscular Volume 76.1 fL (80-100); Monocytes Absolute Auto 400 /uL (0-900); Monocytes Percent Auto 6.8 % (3-14); Neutrophils Absolute Auto 3900 /uL (1500-7000); Neutrophils Percent Auto 69.3 % (50-75); Platelet Count 258 X10^3/uL (150-400); Red Blood Cell Count 3.87 X10^6/uL (4.0-5.2); Red Cell Distribution Width 17.9 % (11.6-14.8); White Blood Cell Count 5.6 X10^3/uL (4.5-11.0)
[2020-02-10 09:07] LABS: Alanine Aminotransferase 29 IU/L (<35); Albumin 3.8 g/dL (3.5-5.0); Alkaline Phosphatase 159 U/L (38-126); Aspartate Aminotransferase 23 IU/L (14-36); BUN Creatinine Ratio 30.3 (6-22); Bilirubin Total 0.4 mg/dL (0.2-1.3); Blood Urea Nitrogen 23 mg/dL (7-17); Calcium 9.1 mg/dL (8.4-10.2); Carbon Dioxide 28 mmol/L (22-32); Chloride 103 mmol/L (98-107); Estimated Glomerular Filt Rate > 60.0 mL/min (>60); Glucose 153 mg/dL (70-100); HEMOLYSIS < 15 (0-50); Magnesium 1.9 mg/dL (1.6-2.3); Potassium 4.1 mmol/L (3.4-5.1); Sodium 138 mmol/L (137-145); Total Protein 7.8 g/dL (6.3-8.2)
[2020-02-10] MEDS: DICLOFENAC 1% GEL 100 GM 1 APPLIC TOP (10:54)
--- NOTE | 2020-02-10 11:16 | CM.DPC ---
Addendum entered by Michelle Cardenas R.N. 02/10/20 14:54: Isaac from [facility] called back and stated that they will need to get insurance authorization from Medicaid for this medication, and it can take one to two days. Updated Dr. Mon on situation. Addendum entered by Michelle Cardenas R.N. 02/10/20 12:04: Dr. Mon stated that discharge will be tomorrow. Dr. Lee, I&D doctor recommends monitoring Q&C for [address] Lee is the I&D MD at [facility]. Will update [facility]. Original Note: DCP Cont: Patient is going to be on Micofungin 100mg at discharge, Q24 hours. Updated Isaac at [facility]. Left him a message, for this is under Medicaid. She will also go home on oral antibiotics, Levoquin, as well. Patient has midline. P: DCP to continue to follow. She could possibly be discharged home today. Michelle Cardenas RN/Administrative Intern.
[2020-02-10] MEDS: levoFLOXacin 250 MG TABLET 750 MG PO (12:25)
[2020-02-10] MEDS: diphenhydrAMINE 25 MG TABLET 50 MG PO ×3 (12:27→23:36)
--- NOTE | 2020-02-10 13:53 | PT.IPTN ---
Current Diagnoses Infection and inflammatory reaction due to unspecified internal joint prosthesis, subsequent encounter (02/07/20) Physical Therapy Treatment Note M2 PT-IP Current Condition Start: 02/08/20 09:38 Freq: NEEDED Status: Active Protocol: Document 02/08/20 14:41 AW (Rec: 02/08/20 15:17 AW [id number]) Physical Therapy Current Condition Current Condition Evaluation Date 02/08/20 Treatment Diagnosis L prosthetic knee infection; difficulty in walking Onset Date 01/25/20 M3 PT-IP Subjective Start: 02/08/20 09:38 Freq: NEEDED Status: Active Protocol: Document 02/10/20 13:30 CLB (Rec: 02/10/20 14:07 CLB [id number]) Subjective Physical Therapy Visit Type Type Treatment Note Visit Start Time 13:30 Visit Stop Time 13:53 Total Visit Minutes 23 Number of DIGITAL MARKETER Visits 1 Physical Therapy Visit Comments Patient Comments Pt is willing to participate with PT but states she is wiped out today due to taking Benadryl for itching. Therapy Pain Assessment Pain When Pain Assessed During Mobility Pain Present Pain Present Pain Reported Location Left Knee Intensity 7 Pain Management Techniques Re-positioning,Timing of Activity with Medications M4 PT-IP Mobility and Gait Start: 02/08/20 09:38 Freq: NEEDED Status: Active Protocol: Document 02/10/20 13:30 CLB (Rec: 02/10/20 14:07 CLB [id number]) PT-Bed Mobility Assessment Sit to Supine Sit to Supine Standby Assistance Scooting Scooting to Edge of Bed Standby Assistance Scooting Up and Down in Bed Standby Assistance PT-Transfer Assessment Sit to and From Stand Sit to and from Stand Standby Assistance,Use of Upper Extremities Equipment Transfer Assistive Device Gait Belt,Front Wheeled Walker Transfers Transfer Destination Bed Transfer Technique pt ambulated with FWW Transfer Ability Level of Assist Standby Assistance Comments Mobility Comments Pt on EOB upon arrival painting. Pt stood SBA w/FWW and ambulated in ashraf ~260ft w / decreased knee extention of LLE and antalgic gait. Pt c/o 7/10 pain with ambulation. Pt performed seated knee flx/ext. Pt left sitting in bed semisupine BP 139/72. Informed SLOTS MANAGER of pt BP. Gait Assessment Gait Gait Assistance Required: Standby Assistance Distance (Feet) 260 Assistive Devices Assistive Device Gait Belt,Front Wheeled Walker Gait Deviations General Gait Pattern Antalgic,Decreased Stride Length,Decreased Feet Clearance,Flexed Trunk,Lateral Trunk Lean,Step-to Gait Factors Limiting Gait Function Factors Limiting Gait Function Decreased Activity Tolerance, Decreased Sensation,Decreased Strength,Limited Range of Motion,Pain,Poor Balance,Poor Safety Awareness Comments Gait Comments see mobility section. Stair Climbing Assessment Comments Stair Climbing Comments Not assessed. No stairs at home. PT-Balance Assessment Sitting Balance and Reactions Static Sitting Balance Ability Good Dynamic Sitting Balance Ability Good Standing Balance and Reactions Static Standing Balance Ability Fair Dynamic Standing Balance Ability Fair Device Used FWW M5 PT-IP Objective Assessments Start: 02/08/20 09:38 Freq: NEEDED Status: Active Protocol: Document 02/08/20 14:41 AW (Rec: 02/08/20 15:17 AW [id number]) Orientation Orientation/Cognition Level of Alertness Alert Orientation Name,Day of Week,Place, Situation Language Function Ability No Deficits Noted Safety Awareness Decreased Safety Awareness Gross Range of Motion Lower Extremity ROM Assessment Left Impaired Impairments Left knee ROM ~10-100 degrees. Strength Lower Extremity Strength Assessment Left Impaired Hip 4-/5 Knee ext 3-/5; flex 3+/5 Ankle 4/5 Sensation Assessment Sensation Gross Sensation Left LE Impaired Sensation Description Numbness Comments Sensation Comments Pt reports numbness to left 3rd through 5th digits which is more pronounced on the plantar surface. M6 PT-IP Treatment Start: 02/08/20 09:38 Freq: NEEDED Status: Active Protocol: Document 02/10/20 13:30 CLB (Rec: 02/10/20 14:07 CLB [id number]) Physical Therapy Treatment Exercises Exercises Seated Knee Flexion/Extension M7 PT-IP Assessment and Plan Start: 02/08/20 09:38 Freq: NEEDED Status: Active Protocol: Document 02/10/20 13:30 CLB (Rec: 02/10/20 14:07 CLB [id number]) PT Summary Assessment and Plan Potential Rehabilitation Potential Fair Status of Condition at Evaluation Evolving Summary Impairments Pain,ROM,Strength,Balance, Sensation,Transfers,Gait, Activity Tolerance Assessment Summary Pt continues to do well with gait distance with slow step through gait that is antalgic with heavy UE use on walker. Pt is SBA for all mobility with c/o increased pain in WB. Goals Bed Mobility Goal Independent Transfer Goal Independent,Front Wheeled Walker Gait Goal Independent,Front Wheel Walker Gait Distance 200 Days to Meet Goals 2 Frequency of Treatment Frequency Of Treatment Once a Day Treatment Plan Physical Therapy Treatment Plan Bed Mobility Training,Transfer Training,Gait Training, Therapeutic Exercise,Balance Retraining,Discharge Planning, Hot or Cold Pack Other Recommendations and Next Treatment progress gait with FWW; ther Focus ex to include passive extension hang and strengthening as tolerated Recommendations To Nursing Amount of Assist Needed Standby Assistance Discharge Recommendations PT Discharge Recommendations Home with Assistance,Home Health Transportation Needs at Discharge Private Vehicle
--- NOTE | 2020-02-10 14:08 | P.PN_ITS ---
Subjective Subjective Date Patient Seen: 02/10/20 Time Patient Seen: 14:08 Interval history: Jessica Miramontes is a 55-year-old female with a history of a left total knee replacement August of [address] Vasyl Cesar at [facility] c/b post operative infection with IV antibiotics and PICC placement. Now admitted with Enterobacter and Betzaida bacteremia. Patient's PICC line was discontinued this morning and a midline was placed instead. Was able to contact her infectious disease doctor, Dr. Syed, at [facility]. Patient's enterobacter had sensitivities result this morning and was able to come up with a definitive plan for the patient. He agreed with removal of her PICC line which was performed, and believe this to be the most likely source. She requires 14 days of anti fungal therapy, and a week for her enterobacter bacteremia however that this can be with oral therapy. For her knee she requires treatment for MSSA as well as Rifampin therapy. Ultimately, decided to have the patient complete a total 14 day course of micafungin for the candidemia, and the patient will continue on Levaquin and rifampin which will adequately cover her bacteremia as well as her infected prosthesis. He did want to make sure that the patient's repeat blood cultures were negative, and further recommended monitoring of her QT interval. Exam Vital Signs (past 8 hours): - 02/10/20 07:50 02/10/20 08:56 02/10/20 13:05 Temperature 98.4 F Pulse Rate 69 Respiratory Rate 16 Blood Pressure 120/73 Pulse Oximetry 96 97 98 02/10/20 13:50 Temperature 97.9 F Pulse Rate 74 Respiratory Rate 16 Blood Pressure 139/72 Pulse Oximetry Oxygen Delivery Method Room Air Oxygen Flow Rate 0 Narrative Exam Narrative: GENERAL APPEARANCE: Well developed, well nourished, in no acute distress. SKIN: Inspection of the skin reveals no rashes, ulcerations or petechiae. Area of prior PICC line without erythema, tenderness, or induration HEENT: Normocephalic atraumatic, extraocular muscles are intact, oropharynx is clear and mucous membranes are moist, neck is supple without adenopathy NECK: Supple and symmetric. There was no thyroid enlargement, and no tenderness, or masses were felt. CHEST: Normal AP diameter and normal contour without any kyphoscoliosis. LUNGS: Auscultation of the lungs revealed no wheezes, rhonchi, or rales. CARDIOVASCULAR: There was a regular rate and rhythm without any murmurs, gallops, rubs. Peripheral pulses were 2+ and symmetric. ABDOMEN: Soft and nontender with normal bowel sounds. No ascites was noted. MUSCULOSKELETAL: There was no tenderness noted. There is mild swelling of her left knee with tenderness and mild warmth but no overlying erythema. Incision appears well healing and without drainage. EXTREMITIES: No cyanosis, clubbing or edema. NEUROLOGIC: Alert and oriented x 3. Normal affect. Strength is +5/5 in the Upper Extremities and Lower Extremities Bilaterally. Sensation to touch was normal. Objective Labs Result Diagrams: 02/10/20 08:45 02/10/20 08:45 Labs: Laboratory Results - last 24 hr 02/10/20 02/10/20 08:45 08:45 WBC 5.6 RBC 3.87 L Hgb 9.4 L Hct 29.5 L MCV 76.1 L MCH 24.3 L MCHC 32.0 RDW 17.9 H Plt Count 258 Neut % (Auto) 69.3 Lymph % (Auto) 19.9 L [place] % (Auto) 6.8 Eos % (Auto) 3.2 Baso % (Auto) 0.8 Neut # (Auto) 3900 Lymph # (Auto) 1100 [place] # (Auto) 400 Eos # (Auto) 200 Baso # (Auto) 0 Sodium 138 Potassium 4.1 Chloride 103 Carbon Dioxide 28 BUN 23 H Creatinine 0.76 Estimated GFR > 60.0 BUN/Creatinine Ratio 30.3 H Glucose 153 H Calcium 9.1 Magnesium 1.9 Total Bilirubin 0.4 AST 23 ALT 29 Alkaline Phosphatase 159 H Total Protein 7.8 Albumin 3.8 Globulin 4.0 Albumin/Globulin Ratio 1.0 Assessment & Plan Assessment & Plan narrative: 1. Candidemia, and Enterobacter bacteremia, acute, present on admission -source is most likely the patient's PICC line that was placed for outpatient antibiotic therapy. Have discontinued PICC and placed midline temporarily. -14 days of anti fungal therapy, and a week for her enterobacter bacteremia however that this can be with oral therapy. For her knee she requires treatment for MSSA as well as Rifampin therapy. Ultimately, decided to have the patient complete a total 14 day course of micafungin for the candidemia, and the patient will continue on Levaquin and rifampin which will adequately cover her bactere bryan as well as her infected prosthesis. -repeat blood cultures to monitor for clearance of candidemia and bacteremia still pending -fluconazole initially started, changed to micafungin 100 mg daily today. Total 14 day course for candidemia after first documented clearance, which will hopefully be yesterday, today will be day 2/14 if cultures negative. -for Enterobacter bacteremia and prosthetic infection with MSSA, changed to Levquin 750 mg daily with rifampin 600 mg daily. To continue indefinitely for now. -monitor QtC overnight given change of medications with telemetry, check EKG in AM. 2. Prosthetic joint infection left knee, chronic, present on admission -consult in the ER by both Dr. Ford and Dr. Lindsey orthopedic surgeon, and Dr. Cesar notified. -both Dr. Ford and Dr. Lindsey attempted to tap the left knee-no fluid was obtained. Dr. Lindsey recommended that the patient may require eventual explant of prosthesis. This could not be performed at this time, only when she has completed antibiotics and Infectious state is resolved. -patient had labs drawn at another facility today and was found to have leukocytosis of 16, vitals in ER temp 99.2, blood pressure 141/61, heart rate 79, respiratory rate 18, O2 saturation 98%, procalcitonin 49.07, hemoglobin 11.2 hematocrit 34.8, MCV 76, MCH 24.6, RDW 18.2, BUN 27, lactate negative. -patient to continue home medication for pain management topical Voltaren gel 3%, [place], hydromorphone (increased dosing today to q3 from q4), Pramipexole, denies itching, and trazodone. -patient to follow-[facility] with [facility] next week. Patient follows with outpatient pain management. -continue on rifampin and levaquin as noted above. Code: Full Dispo: anticipate possible discharge tomorrow assuming no reactions to new antibiotic therapy and no telemetry events.
--- NOTE | 2020-02-10 14:17 | CM.DPNOTE ---
Faxed Midline insertion area note to [facility] per Annmarie. Scanned fax confirmation sheet. Jeana Butler CM Field Administrator.
[2020-02-10] MEDS: MICAFUNGIN 100 MG in SODIUM CHLORIDE 0.9% 100 ML IV (15:09)
--- NOTE | 2020-02-10 23:30 | PC.NURSE ---
VSS. Pain reported 10/02, PRN Dilaudid 6mg given 2X with relief. Independent in room.
[2020-02-11] VITALS (11 sets, daily range): BP systolic 127–158; BP diastolic 71–96; PULSE 74–85; RESP 16–22; TEMP 36.1–37; O2SAT 94–100
[2020-02-11] MEDS: HYDROMORPHONE 2 MG TABLET 6 MG PO ×7 (00:09→23:29)
[2020-02-11] MEDS: TIZANIDINE 4 MG TABLET 2 MG PO ×3 (01:53→23:39)
[2020-02-11 06:15] LABS: Add Manual Diff / Slide Review NO; Basophils Absolute Auto 100 /uL (0-100); Basophils Percent Auto 0.9 % (0-2); Eosinophils Absolute Auto 200 /uL (0-450); Eosinophils Percent Auto 2.4 % (2-4); Hematocrit 29.6 % (36-46); Hemoglobin 9.5 g/dL (12.0-16.0); Lymphocytes Absolute Auto 1400 /uL (1100-4500); Lymphocytes Percent Auto 18.7 % (25-40); Mean Corpuscular HGB Conc 31.9 % (30-36); Mean Corpuscular Hemoglobin 24.5 PG (26-34); Mean Corpuscular Volume 76.9 fL (80-100); Monocytes Absolute Auto 600 /uL (0-900); Monocytes Percent Auto 7.9 % (3-14); Neutrophils Absolute Auto 5200 /uL (1500-7000); Neutrophils Percent Auto 70.1 % (50-75); Platelet Count 287 X10^3/uL (150-400); Red Blood Cell Count 3.85 X10^6/uL (4.0-5.2); Red Cell Distribution Width 18.1 % (11.6-14.8); White Blood Cell Count 7.4 X10^3/uL (4.5-11.0)
[2020-02-11 06:29] LABS: Alanine Aminotransferase 25 IU/L (<35); Alkaline Phosphatase 178 U/L (38-126); Aspartate Aminotransferase 23 IU/L (14-36); BUN Creatinine Ratio 34.8 (6-22); Bilirubin Total 0.3 mg/dL (0.2-1.3); Blood Urea Nitrogen 23 mg/dL (7-17); Calcium 9.2 mg/dL (8.4-10.2); Carbon Dioxide 28 mmol/L (22-32); Chloride 103 mmol/L (98-107); Estimated Glomerular Filt Rate > 60.0 mL/min (>60); Globulin 4.2 g/dL (1.7-4.1); Glucose 123 mg/dL (70-100); HEMOLYSIS < 15 (0-50); Magnesium 1.9 mg/dL (1.6-2.3); Sodium 138 mmol/L (137-145); Total Protein 8.2 g/dL (6.3-8.2)
[2020-02-11] MEDS: ENOXAPARIN 40 MG/0.4 ML SYRINGE SUBCUT (07:43)
[2020-02-11] MEDS: SODIUM CHLORIDE 0.9% FLUSH 10 ML IV ×3 (07:43→23:30)
--- NOTE | 2020-02-11 07:43 | DI.RAD.S_ITS ---
PROCEDURE: XR CHEST 1V INDICATIONS: r chest pain TECHNIQUE: One view of the chest was acquired. COMPARISON: [facility], CR, XR CHEST 1V, 01/02/2020, 8:34. FINDINGS: Surgical changes and devices: None. Lungs and pleura: Lungs are clear. No pleural effusions or pneumothorax. Mediastinum: Mediastinal contours appear normal. Heart size is normal. Bones and chest wall: No suspicious bony lesions. Overlying soft tissues appear unremarkable. IMPRESSION: No evidence acute pulmonary process. Dictated by: Hussein Kenyon M.D. on 02/11/2020 at 9:00 Approved by: Hussein Kenyon M.D. on 02/11/2020 at 9:00
--- NOTE | 2020-02-11 07:45 | PC.NURSE ---
Patient activated her call light, upon entering the room, the patient was crying and clutching her upper right chest complaining of severe chest pain. I informed my RN (Opal). I then proceeded to get a set of vitals on the patient. During that course the patient sat up in even more pain.
[2020-02-11] MEDS: MAG HYDROX/ALUM/SIMETH 30 ML UDC PO (07:50)
[2020-02-11] MEDS: diazePAM 10 MG/2 ML SYRINGE 5 MG IV ×2 (07:58→09:38)
[2020-02-11] MEDS: HYDROMORPHONE 2 MG INJ IV ×6 (08:36→21:19)
--- NOTE | 2020-02-11 08:58 | PT-IP ANOTE ---
Pt is being worked up for new onset angina this AM. Will hold PT treatment at this time.
--- NOTE | 2020-02-11 09:30 | DI.CT.S_ITS ---
PROCEDURE: CT ANGIO CHEST PE PROTOCOL INDICATIONS: r/o PE, R chest pain TECHNIQUE: After the administration of intravenous contrast, 2 mm thick sections acquired from the pulmonary apices to the posterior costophrenic angles. 3-dimensional maximum intensity projection (MIP) coronal and sagittal reformats were then acquired through the thorax. For radiation dose reduction, the following was used: automated exposure control, adjustment of mA and/or kV according to patient size. COMPARISON: None. FINDINGS: Image quality: Excellent. Pulmonary arteries: Pulmonary arteries are normal in size, and demonstrate no intraluminal filling defects to suggest central pulmonary embolism. Lungs and pleura: Ill-defined nodular opacity, medial left upper lobe, image 130/7, measuring 5 mm. Ill-defined nodular opacity, anterior segment left upper lobe, image 142/7 measuring 6 mm, of uncertain significance. Ill-defined nodular opacity anterior left upper lobe, image 151/7, measuring 6 mm, also of uncertain significance. These are all in close proximity to each other, and may represent acute infection or inflammation. Cannot exclude small masses. No pleural effusions or pneumothorax. Central and peripheral airways are patent. Mediastinum: Heart size is normal, without pericardial effusion. No mediastinal or hilar adenopathy. Thoracic aorta is normal in caliber and enhancement. Esophagus is normal in caliber, without hiatal hernia. Bones and chest wall: No suspicious bony lesions. Old compressions result in increased thoracic kyphosis. Ribs and thoracic spine appear intact throughout. Thyroid gland is unremarkable as visualized. No axillary or supraclavicular adenopathy. Abdomen: Visualized upper abdominal solid organs appear normal in the early arterial phase of enhancement. IMPRESSION: 1. No evidence acute pulmonary emboli. 2. Multiple ill-defined nodular opacities in the anterior aspect of the left upper lobe. The largest of these measure 6 mm. This is of uncertain significance, and may potentially represent acute inflammation or infection. Three-month follow-up CT is recommended to document resolution and exclude multiple small masses. Dictated by: Hussein Kenyon M.D. on 02/11/2020 at 10:10 Approved by: Hussein Kenyon M.D. on 02/11/2020 at 10:31
[2020-02-11] MEDS: levoFLOXacin 250 MG TABLET 750 MG PO (10:13)
[2020-02-11] MEDS: PRAMIPEXOLE 0.25 MG TABLET PO ×2 (10:13→20:00)
[2020-02-11] MEDS: rifAMPin 300 MG CAPSULE 600 MG PO (10:18)
--- NOTE | 2020-02-11 10:47 | DI.ECHO.S_ITS ---
[facility] +---------+ [facility] +---------+ : : [address] : [address] : : : : [id number] : : : : Phone: [phone]+ Echocardiogram Report + + :Name: JEREMY DE LEÓN Study Date: 02/12/2020 Height: 64 in : :[facility] Weight: 167 lb : : Gender: Female BSA: 1.8 m2 : :: 1965 Age: 55 yrs BP: 134/78 mmHg: :Reason For Study: CANDIDEMIA, BACTEREMIA WITH PULMONARY EMBOLI : :Ordering Physician: : :MICHELLE YANEZ Performed By: Lazara Clark : :Referring: MICHELLE YANEZ : + + Interpretation Summary The left ventricle is normal in size and wall thickness. Left ventricular systolic function appears normal without focal wall motion abnormalities. The ejection fraction is estimated to be 60-65%. LVEF has not changed since prior study. Diastolic parameters suggest a relaxation abnormality of the left ventricle, consistent with probable normal filling pressures. The right ventricle is normal in size and function. Pulmonary artery pressures cannot be estimated because of the lack of a measurable TR jet velocity but the IVC suggests a CVP of around 3 mmHg. The left atrium is moderately dilated. Right atrial size is normal. There is no significant valvular heart disease. The ascending aorta is mildly enlarged. Procedure: A two-dimensional transthoracic echocardiogram with color flow and Doppler was performed. The study quality was technically adequate. Comparison is made with the echocardiogram of 09/18/2017. The patient was in sinus rhythm with heart rates between 68-90 bpm during the exam. Left Ventricle: The left ventricle is normal in size and wall thickness. Left ventricular systolic function appears normal without focal wall motion abnormalities. The ejection fraction is estimated to be 60-65%. Diastolic parameters suggest a relaxation abnormality of the left ventricle, consistent with probable normal filling pressures. Right Ventricle: The right ventricle is normal in size and function. Atria: The left atrium is moderately dilated. Right atrial size is normal. There is no Doppler evidence for an interatrial shunt. Mitral Valve: The mitral valve is normal in structure and function. There is no mitral regurgitation noted. Aortic Valve: The aortic valve is trileaflet. The aortic valve opens well. There is no aortic valve stenosis. No aortic regurgitation is present. Tricuspid Valve: The tricuspid valve is normal in structure and function. There is trace tricuspid regurgitation. Pulmonary artery pressures cannot be estimated because of the lack of a measurable TR jet velocity but the IVC suggests a CVP of around 3 mmHg. Pulmonic Valve: The pulmonic valve is not well seen, but is grossly normal. There is no pulmonic valvular regurgitation. There is no significant valvular heart disease. Great Vessels: The aortic root is normal size. The ascending aorta is mildly enlarged. The IVC is of normal diameter and collapses greater than 50% with a sniff. This suggests a low right atrial pressure of 3 mm Hg. Pericardium/ Pleura There is no pericardial effusion. There is no pleural effusion. MMode/2D Measurements & Calculations LVIDd: 4.8 cm LVOT diam: 2.0 cm LVIDs: 2.9 cm Ao root diam: 3.3 cm FS: 39.2 % asc Aorta Diam: 3.5 cm EPSS: 0.33 cm Ao Arch Diam (Prox Trans): 3.2 cm IVSd: 0.98 cm LVPWd: 0.87 cm LV carpio. diameter/BSA (cm/m^2): 2.6 LV sys. diameter/BSA (cm/m^2): 1.6 LA A2 area: 21.2 cm2 RA long axis: 4.0 cm LA A4 area: 19.4 cm2 RA area: 12.0 cm2 LA length (vol): 4.8 cm RA vol: 30.8 ml LA vol: 72.7 ml RA : 17.0 ml/m2 LA vol index: 40.1 ml/m2 IVC diam: 1.7 cm RVD1 (basal): 3.4 cm TAPSE: 1.9 cm Doppler Measurements & Calculations Ao V2 max: 178.4 cm/sec LVOT Max Jacob: 131.5 cm/sec Ao V2 mean: 111.2 cm/sec LV V1 max P.9 mmHg Ao max P.7 mmHg LV V1 VTI: 25.2 cm Ao mean P.8 mmHg MARC(I,D): 2.6 cm2 Ao V2 VTI: 32.1 cm MARC(V,D): 2.4 cm2 sev ratio: 0.79 MARC indexed to BSA (cm^2/m^2): 1.4 MV E max jacob: 79.5 cm/sec PA V2 max: 79.2 cm/sec MV A max jacob: 87.8 cm/sec PA V2 mean: 50.7 cm/sec MV E/A: 0.90 PA mean P.2 mmHg Med Peak E' Jacob: 6.2 cm/sec PA pr(Accel): 27.6 mmHg E/E' med: 12.7 Lat Peak E' Jacob: 10.9 cm/sec E/E' lat: 7.3 E/e' average: 10.0 MV dec time: 0.29 sec SV(LVOT): 82.8 ml Reading Physician:01:33 PM
[2020-02-11] MEDS: ACETAMINOPHEN 325 MG TABLET 650 MG PO (11:45)
[2020-02-11] MEDS: KETOROLAC 30 MG/ML VIAL IV ×3 (11:46→23:29)
[2020-02-11 12:15] LABS: Procalcitonin 7.07 ng/mL (<0.5)
--- NOTE | 2020-02-11 13:50 | P.PN_ITS ---
Subjective Subjective Date Patient Seen: 02/11/20 Time Patient Seen: 13:51 Interval history: Jessica Miramontes is a 55-year-old female with a history of a left total knee replacement August of [address] Vasyl Cesar at [facility] c/b post operative infection with IV antibiotics and PICC placement. Now admitted with Enterobacter and Betzaida bacteremia. Patient started complaining of acute onset of R chest wall pain this morning not responding to v alium or dilaudid. EKG unremarkable with no evidence of ischemia. CXR negative. CT chest PE protocol showing multiple small pulmonary lesions, but no source of her R sided chest pain. Since this morning it has abated somewhat with increased dilaudid, valium, and toradol. Bedside ultrasound confirmed midline placement is indeed venous. Suspect musculoskeletal cause at this time. Her procalcitonin has improved to 7 from 42 on admission. Given multiple pulmonary lesions have ordered TTE for further evaluation, although repeat blood cultures negative and patient has been afebrile with declining procalcitonin. Exam Vital Signs (past 8 hours): - 02/11/20 07:30 Temperature 98.2 F Pulse Rate 84 Respiratory Rate 22 Blood Pressure 158/71 H Pulse Oximetry 97 Oxygen Delivery Method Room Air Oxygen Flow Rate 0 Narrative Exam Narrative: GENERAL APPEARANCE: Well developed, well nourished, female in acute pain / distress. Improved throughout the day with pain medications. SKIN: Inspection of the skin reveals no rashes, ulcerations or petechiae. Area of prior PICC line without erythema, tenderness, or induration. Area of new LUE midline without swelling, induration, or erythema. HEENT: Normocephalic atraumatic, extraocular muscles are intact, oropharynx is clear and mucous membranes are moist, neck is supple without adenopathy NECK: Supple and symmetric. There was no thyroid enlargement, and no tenderness, or masses were felt. CHEST: Normal AP diameter and normal contour without any kyphoscoliosis. R upper chest with pain upon minimal palpation. Tense musculature. LUNGS: Auscultation of the lungs revealed no wheezes, rhonchi, or rales. CARDIOVASCULAR: There was a regular rate and rhythm without any murmurs, gallops, rubs. Peripheral pulses were 2+ and symmetric. ABDOMEN: Soft and nontender with normal bowel sounds. No ascites was noted. MUSCULOSKELETAL: There was no tenderness noted. There is mild swelling of her left knee with tenderness and mild warmth but no overlying erythema. Incision a ppears well healing and without drainage. EXTREMITIES: No cyanosis, clubbing or edema. NEUROLOGIC: Alert and oriented x 3. Strength is +5/5 in the Upper Extremities and Lower Extremities Bilaterally. Sensation to touch was normal. Objective Labs Result Diagrams: 02/11/20 06:00 02/11/20 06:00 Labs: Laboratory Results - last 24 hr 02/11/20 02/11/20 02/11/20 06:00 06:00 07:00 WBC 7.4 RBC 3.85 L Hgb 9.5 L Hct 29.6 L MCV 76.9 L MCH 24.5 L MCHC 31.9 RDW 18.1 H Plt Count 287 Neut % (Auto) 70.1 Lymph % (Auto) 18.7 L [place] % (Auto) 7.9 Eos % (Auto) 2.4 Baso % (Auto) 0.9 Neut # (Auto) 5200 Lymph # (Auto) 1400 [place] # (Auto) 600 Eos # (Auto) 200 Baso # (Auto) 100 Sodium 138 Potassium 4.0 Chloride 103 Carbon Dioxide 28 BUN 23 H Creatinine 0.66 Estimated GFR > 60.0 BUN/Creatinine Ratio 34.8 H Glucose 123 H Calcium 9.2 Magnesium 1.9 Total Bilirubin 0.3 AST 23 ALT 25 Alkaline Phosphatase 178 H Total Protein 8.2 Albumin 4.0 Globulin 4.2 H Albumin/Globulin Ratio 1.0 Procalcitonin 7.07 H Assessment & Plan Assessment & Plan narrative: Jessica Miramontes is a 55-year-old female with a history of a left total knee replacement August of [address] Vasyl Cesar at [facility] c/b post operative infection with IV antibiotics and PICC placement. Now admitted with Enterobacter and Betzaida bacteremia. 1. Candidemia, and Enterobacter bacteremia, acute, present on admission -source is most likely the patient's PICC line that was placed for outpatient antibiotic therapy. Have discontinued PICC and placed midline temporarily. -14 days of anti fungal therapy, and a week for her enterobacter bacteremia however that this can be with oral therapy. For her knee she requires treatment for MSSA as well as Rifampin therapy. Ultimately, decided to have the patient complete a total 14 day course of micafungin for the candidemia, and the patient will continue on Levaquin and rifampin which will adequately cover her bacteremia as well as her infected prosthesis. -repeat blood cultures to monitor for clearance of candidemia and bacteremia with no growth. -fluconazole initially started, changed to micafungin 100 mg daily today. Total 14 day course for candidemia after first documented clearance, today will be day 3/14 if cultures remain negative. -for Enterobacter bacteremia and prosthetic infection with MSSA, changed to L evquin 750 mg daily with rifampin 600 mg daily. To continue indefinitely for now. -monitor QtC with telemetry, EKG unremarkable today. -given CT appearance, check TTE to evaluate for vegatation. Attempted to recheck with her ID physician today but again not available for ? need for BARRY which would necessitate transfer. 2. Prosthetic joint infection left knee, chronic, present on admission -consult in the ER by both Dr. Ford and Dr. Lindsey orthopedic surgeon, and Dr. Cesar notified. -both Dr. Ford and Dr. Lindsey attempted to tap the left knee-no fluid was obtained. Dr. Lindsey recommended that the patient may require eventual explant of prosthesis. This could not be performed at this time, only when she has completed antibiotics and Infectious state is resolved. -patient had labs drawn at another facility today and was found to have leukocytosis of 16, vitals in ER temp 99.2, blood pressure 141/61, heart rate 79, respiratory rate 18, O2 saturation 98%, procalcitonin 49.07, hemoglobin 11.2 hematocrit 34.8, MCV 76, MCH 24.6, RDW 18.2, BUN 27, lactate negative. -patient to continue home medication for pain management topical Voltaren gel 3%, [place], hydromorphone (increased dosing today to q3 from q4), Pramipexole, denies itching, and trazodone. -patient to follow-up with Dr[facility] Cesar [facility] scheduled [facility] next week. Patient follows with outpatient pain management. -continue on rifampin and levaquin as noted above. 3. R chest wall pain, acute, not present on admission - unclear etiology but most likely musculoskeletal. CTA chest without PE. EKG with no evidence of ischemia and pain is R sided. No telemetry events. Midline appears to be in place on bedside ultrasound. No difficulties with midline currently. Consider removing midline however she has poor venous access and recently had L sided PICC and will need to continue micafungin for 11 days. - depending on response to additional pain medications, consider vascular ultrasound although now swelling in her RUE currently or possibly pulling her Midline as discussed above. Code: Full Dispo: pending insurance authorization for outpatient micafungin to be completed by her outpatient ID physician, not medically stable at this time given R chest wall pain requiring IV medications currently to control.
--- NOTE | 2020-02-11 14:15 | PT.IPTN ---
Current Diagnoses Infection and inflammatory reaction due to unspecified internal joint prosthesis, subsequent encounter (02/07/20) Physical Therapy Treatment Note M2 PT-IP Current Condition Start: 02/08/20 09:38 Freq: NEEDED Status: Active Protocol: Document 02/08/20 14:41 AW (Rec: 02/08/20 15:17 AW [id number]) Physical Therapy Current Condition Current Condition Evaluation Date 02/08/20 Treatment Diagnosis L prosthetic knee infection; difficulty in walking Onset Date 01/25/20 M3 PT-IP Subjective Start: 02/08/20 09:38 Freq: NEEDED Status: Active Protocol: Document 02/11/20 13:58 HH (Rec: 02/11/20 14:15 HH [id number]) Subjective Physical Therapy Visit Type Type Initial Evaluation Visit Start Time 12:04 Visit Stop Time 12:20 Total Visit Minutes 16 Notes SPT Ilia Morejon led tx session and supervised by PT Alexy Bose. Per nursing, pt has been calling out for severe pain at R shoulder and chest since last night. Number of XEROX MACHINE OPERATOR Visits 0 Physical Therapy Visit Comments Patient Comments My right arm has been hurting so bad. Therapy Pain Assessment Pain When Pain Assessed At Rest Pain Present Pain Present Pain Reported Location R arm and chest Intensity 8 Scale Used Dowling-Wiggins (Faces) Description Acute,With Movement Pain Behaviors Calling Out,Facial Grimacing, Guarding,Moaning Pain Management Techniques Timing of Activity with Medications M4 PT-IP Mobility and Gait Start: 02/08/20 09:38 Freq: NEEDED Status: Active Protocol: Document 02/11/20 13:58 HH (Rec: 02/11/20 14:15 HH [id number]) PT-Bed Mobility Assessment Supine to Sit Supine to Sit Standby Assistance PT-Transfer Assessment Sit to and From Stand Sit to and from Stand Standby Assistance Equipment Transfer Assistive Device Gait Belt,Front Wheeled Walker Orthotic/Prosthetic Devices or Brace: No Transfers Transfer Destination Bed,Chair Transfer Technique Stand Step Pivot Transfer Ability Level of Assist Standby Assistance,Use of Upper Extremities Comments Mobility Comments Pt was lying in bed calling out for R arm and chest bed upon PT and SPT arrival. She stated her pain is less and agreed to mobilize to chair and have lunch after. She completed supine to sit with use of L rail and able to pivot herself towards L side EOB SBA. She then stood up with LUE pushed off from bed and FWW SBA. Pt then stand step pivot herself to L side and sat down in chair. She was calling out with facial grimacing during the entire session. But she did feel better after sitting down with tray table placed in front of her with call light within reach. SpO2 maintained at >94% HR ~90 during session Stair Climbing Assessment Comments Stair Climbing Comments pt did not walk. PT-Balance Assessment Sitting Balance and Reactions Static Sitting Balance Ability Good Dynamic Sitting Balance Ability Good Standing Balance and Reactions Static Standing Balance Ability Good Dynamic Standing Balance Ability Good Device Used FWW M5 PT-IP Objective Assessments Start: 02/08/20 09:38 Freq: NEEDED Status: Active Protocol: Document 02/08/20 14:41 AW (Rec: 02/08/20 15:17 AW [id number]) Orientation Orientation/Cognition Level of Alertness Alert Orientation Name,Day of Week,Place, Situation Language Function Ability No Deficits Noted Safety Awareness Decreased Safety Awareness Gross Range of Motion Lower Extremity ROM Assessment Left Impaired Impairments Left knee ROM ~10-100 degrees. Strength Lower Extremity Strength Assessment Left Impaired Hip 4-/5 Knee ext 3-/5; flex 3+/5 Ankle 4/5 Sensation Assessment Sensation Gross Sensation Left LE Impaired Sensation Description Numbness Comments Sensation Comments Pt reports numbness to left 3rd through 5th digits which is more pronounced on the plantar surface. M6 PT-IP Treatment Start: 02/08/20 09:38 Freq: NEEDED Status: Active Protocol: Document 02/10/20 13:30 CLB (Rec: 02/10/20 14:07 CLB [id number]) Physical Therapy Treatment Exercises Exercises Seated Knee Flexion/Extension M7 PT-IP Assessment and Plan Start: 02/08/20 09:38 Freq: NEEDED Status: Active Protocol: Document 02/11/20 13:58 HH (Rec: 02/11/20 14:15 HH [id number]) PT Summary Assessment and Plan Potential Rehabilitation Potential Good Status of Condition at Evaluation Stable Summary Impairments Pain,ROM,Strength,Balance,Bed Mobility,Transfers,Gait, Activity Tolerance Progress Towards Goals Slow Progress due to Pain,Slow Progress due to Medical Issues,Slow Progress due to Activity Tolerance,Slow Progress - Other Assessment Summary Pt did not progress today d/t new onset of R chest and arm pain. Care team is well aware of that and pt is going to have echo later this pm. Pt was calling out for pain during the entire session but she did complete bed to chair transfer with FWW SBA. Will cont work with pt to improve her mobility and strength. Goals Bed Mobility Goal Independent Transfer Goal Independent,Front Wheeled Walker Gait Goal Independent,Front Wheel Walker Gait Distance 75 Days to Meet Goals 2 Frequency of Treatment Frequency Of Treatment Once a Day Treatment Plan Physical Therapy Treatment Plan Bed Mobility Training,Transfer Training,Gait Training, Therapeutic Exercise,Balance Retraining,Hot or Cold Pack, Neuromuscular Re-ed Other Recommendations and Next Treatment progress gait with FWW; ther Focus ex to include passive extension hang and strengtehning as endy Recommendations To Nursing Amount of Assist Needed Standby Assistance Discharge Recommendations PT Discharge Recommendations Home with Assistance,Home Health Transportation Needs at Discharge Private Vehicle
--- NOTE | 2020-02-11 14:32 | CM.DPC ---
DCP Cont: Per MD, pt with some pain and had MRI today and not stable for discharge yet. SW received call from Isaac at [facility] stating insurance denied Micafungal med but will approve Caspofungin Acetate but need ID MD to complete a Prior Auth form before insurance can approve and the pwk was faxed to ID but waiting. Isaac faxed the Prior Auth form to SW for Hospitalist to review in case getting the auth form back from ID creates a barrier to timely discharge. SW provided Prior Auth form to MD and discussed that ID MD also faxed and MD not required to fill it out unless he prefers to complete for pt discharge. MD attempting to get in touch with ID anyways to further discuss pt medical status and lung lesions and course of treatment. SW updated [facility] and will continue to follow for insurance auth for fungal medication. MD states Echo ordered and pending for pt. Plan: SW to follow closely in the morning with [facility] to determine if Prior Auth form for medication has been completed by ID or Hospitalist towards insurance coverage of Micafungal. BERNARDINO Funk
[2020-02-11] MEDS: ONDANSETRON 4 MG ODT PO (14:50)
[2020-02-11] MEDS: MICAFUNGIN 100 MG in SODIUM CHLORIDE 0.9% 100 ML IV (14:58)
[2020-02-11] MEDS: diphenhydrAMINE 25 MG TABLET 50 MG PO (19:58)
[2020-02-12] VITALS (9 sets, daily range): BP systolic 120–163; BP diastolic 67–96; PULSE 77–90; RESP 16–20; TEMP 36.1–37.2; O2SAT 96–100
[2020-02-12] MEDS: HYDROMORPHONE 2 MG INJ IV ×3 (01:17→08:18)
[2020-02-12] MEDS: SODIUM CHLORIDE 0.9% FLUSH 10 ML IV ×5 (01:17→18:06)
--- NOTE | 2020-02-12 02:32 | PC.NURSE ---
Addendum entered by Niya Hill R.N. 02/12/20 03:06: Complains of 6/10 left knee pain; medicated with po Dilaudid. Original Note: Patient assessed at 2340. Is alert and oriented. Breath sound diminished at bases but CTA with RA sat of 99%. HRR with telemetry reading of SR. Denies nausea. BT present and abdomen is soft. Denies dysuria, frequency or urgency with urination; urine noted to be bright orange from Rifampin. Is independent with mobility. Left knee remains swollen; incision healing with small scabbed spot but back tender fourdrinier to touch. Puckering of proximal incision noted when patient stands. Complained of 6/10 left knee pain and was medicated with po Dilaudid + scheduled Toradol. At 0117 complained of 5/10 right chest wall pain and was medicated with IV Dilaudid. Patient seems to be watching clock and requesting pain meds whenever she is aware she can have something additional. CMS intact except for chronic lateral left foot neuropathy. Refuses to wear SCD's so reminded to be ankle waving and patient verbalizes understanding. Fall risk score is moderate.
[2020-02-12] MEDS: HYDROMORPHONE 2 MG TABLET 6 MG PO ×4 (03:05→11:43)
[2020-02-12] MEDS: KETOROLAC 30 MG/ML VIAL IV ×3 (06:00→18:06)
[2020-02-12] MEDS: levoFLOXacin 250 MG TABLET 750 MG PO (08:22)
[2020-02-12] MEDS: ENOXAPARIN 40 MG/0.4 ML SYRINGE SUBCUT (08:22)
[2020-02-12] MEDS: PRAMIPEXOLE 0.25 MG TABLET PO ×2 (08:22→20:06)
[2020-02-12] MEDS: rifAMPin 300 MG CAPSULE 600 MG PO (08:22)
[2020-02-12 08:23] LABS: Add Manual Diff / Slide Review NO; Basophils Absolute Auto 100 /uL (0-100); Basophils Percent Auto 0.6 % (0-2); Eosinophils Absolute Auto 200 /uL (0-450); Eosinophils Percent Auto 1.6 % (2-4); Hematocrit 27.8 % (36-46); Lymphocytes Absolute Auto 900 /uL (1100-4500); Lymphocytes Percent Auto 9.3 % (25-40); Mean Corpuscular HGB Conc 32.3 % (30-36); Mean Corpuscular Hemoglobin 24.8 PG (26-34); Mean Corpuscular Volume 76.7 fL (80-100); Monocytes Absolute Auto 900 /uL (0-900); Monocytes Percent Auto 9.4 % (3-14); Neutrophils Absolute Auto 7400 /uL (1500-7000); Neutrophils Percent Auto 79.1 % (50-75); Platelet Count 256 X10^3/uL (150-400); Red Blood Cell Count 3.63 X10^6/uL (4.0-5.2); Red Cell Distribution Width 18.3 % (11.6-14.8); White Blood Cell Count 9.4 X10^3/uL (4.5-11.0)
--- NOTE | 2020-02-12 08:43 | CM.DPC ---
Addendum entered by Jenise Hernandez LPN 02/12/20 12:37: Had discussion with Dr. Wiley re more information from [facility]/. Dr. Mon has clarified with the infectious disease physician that pt will be d/c'd on oral levaquin and oral rifampin. The only IV infusion needed will be a total of 14 days of the antifungal. Current Micafungal that pt is receiving is fine with a mid-line. If auth is received for the Caspofungin a midline will not be doable as is too acidic. PICC would be needed. Dr. Wiley states that she is aware that pt will not consider a snf setting and that she cannot ethically d/c to a setting that would not include this important medication. She is going to reach out to Dr. Hardwick for further discussion re management of this patient. Addendum entered by Jenise Hernandez LPN 02/12/20 11:44: Received a call back from [facility]/. He stated that the prior auth form needed was completed by Dr. Mon and faxed to Medicaid. Same form was faxed to the ID physician to fill out. He stated that no answer has been received yet. Dr. Wiley and CEDRIC Lunsford are updated and will check in now with pt. Original Note: DCP: continued: case received and EMR for last few days reviewed. Dr. Wiley is here as hospitalist and wanting update re auth for the antifungal. [facility] pharmacist is contacted and she reports that this is still in process. The Micafungal has been denied by Medicaid but approval pending on CaspoAcetate with need for the ID physician to completed a prior auth form. Per Nain Lu's note this was in process yesterday afternoon. [facility] pharmacist says she expects an update later today. Will update Dr. Wiley and follow accordingly.
[2020-02-12 08:48] LABS: Procalcitonin 3.44 ng/mL (<0.5)
[2020-02-12 08:50] LABS: Magnesium 1.9 mg/dL (1.6-2.3)
[2020-02-12] MEDS: diphenhydrAMINE 25 MG TABLET 50 MG PO (08:59)
--- NOTE | 2020-02-12 11:29 | PT.IPTN ---
Current Diagnoses Infection and inflammatory reaction due to unspecified internal joint prosthesis, subsequent encounter (02/07/20) Physical Therapy Treatment Note M2 PT-IP Current Condition Start: 02/08/20 09:38 Freq: NEEDED Status: Active Protocol: Document 02/08/20 14:41 AW (Rec: 02/08/20 15:17 AW [id number]) Physical Therapy Current Condition Current Condition Evaluation Date 02/08/20 Treatment Diagnosis L prosthetic knee infection; difficulty in walking Onset Date 01/25/20 M3 PT-IP Subjective Start: 02/08/20 09:38 Freq: NEEDED Status: Active Protocol: Document 02/12/20 11:17 AW (Rec: 02/12/20 11:28 AW [id number]) Subjective Physical Therapy Visit Type Type Treatment Note Visit Start Time 11:01 Visit Stop Time 11:14 Total Visit Minutes 13 Physical Therapy Visit Comments Patient Comments Let's get this over with. Therapy Pain Assessment Pain When Pain Assessed At Rest Pain Present Pain Present Pain Reported Location Right Chest Intensity 7 Scale Used Numeric (0 - 10) Pain Management Techniques Distraction,Re-positioning, Timing of Activity with Medications Left Knee Intensity 7 Scale Used Numeric (0 - 10) Pain Management Techniques Distraction,Re-positioning, Timing of Activity with Medications M4 PT-IP Mobility and Gait Start: 02/08/20 09:38 Freq: NEEDED Status: Active Protocol: Document 02/12/20 11:17 AW (Rec: 02/12/20 11:28 AW [id number]) PT-Transfer Assessment Sit to and From Stand Sit to and from Stand Standby Assistance Equipment Transfer Assistive Device Gait Belt,Front Wheeled Walker Orthotic/Prosthetic Devices or Brace: No Transfers Transfer Destination Chair Transfer Technique pt ambulated with FWW Transfer Ability Level of Assist Standby Assistance,Use of Upper Extremities Comments Mobility Comments Pt sitting up on the chair when PT arrived for second attempt to see pt. On first attempt, she refused, stating she had just been medicated. Pt is now tearful and states she fears her pain will get out of control as medical providers adjust her medications. She is ultimately willing to mobilize with PT. She stood from the chair and pivoted to find her mask in a bag located behind the chair. She then began to use the FWW to ambulate out into the hallway. She ambulated with FWW SBA 130 feet with slightly decreased left lateral lean in stance and both hands on the FWW. On return to the room , she began to hold her RUE close to her trunk while guiding the FWW with only her left hand. She was able to do so with SBA. Pt returned to the room and sat in the chair SBA. She was left with call light and all needs within reach. Gait Assessment Gait Gait Assistance Required: Standby Assistance Distance (Feet) 260 Able to Maintain Weight Bearing Status Yes During Gait Assistive Devices Assistive Device Gait Belt,Front Wheeled Walker Gait Deviations General Gait Pattern Antalgic,Decreased Stride Length,Decreased Feet Clearance,Flexed Trunk,Lateral Trunk Lean,Step-to Gait Factors Limiting Gait Function Factors Limiting Gait Function Decreased Activity Tolerance, Decreased Sensation,Decreased Strength,Limited Range of Motion,Pain,Poor Balance,Poor Safety Awareness Comments Gait Comments see mobility section. Stair Climbing Assessment Comments Stair Climbing Comments No stairs at home. PT-Balance Assessment Sitting Balance and Reactions Static Sitting Balance Ability Good Dynamic Sitting Balance Ability Good Standing Balance and Reactions Static Standing Balance Ability Good Dynamic Standing Balance Ability Good Device Used FWW M5 PT-IP Objective Assessments Start: 02/08/20 09:38 Freq: NEEDED Status: Active Protocol: Document 02/08/20 14:41 AW (Rec: 02/08/20 15:17 AW [id number]) Orientation Orientation/Cognition Level of Alertness Alert Orientation Name,Day of Week,Place, Situation Language Function Ability No Deficits Noted Safety Awareness Decreased Safety Awareness Gross Range of Motion Lower Extremity ROM Assessment Left Impaired Impairments Left knee ROM ~10-100 degrees. Strength Lower Extremity Strength Assessment Left Impaired Hip 4-/5 Knee ext 3-/5; flex 3+/5 Ankle 4/5 Sensation Assessment Sensation Gross Sensation Left LE Impaired Sensation Description Numbness Comments Sensation Comments Pt reports numbness to left 3rd through 5th digits which is more pronounced on the plantar surface. M6 PT-IP Treatment Start: 02/08/20 09:38 Freq: NEEDED Status: Active Protocol: Document 02/12/20 11:17 AW (Rec: 02/12/20 11:29 AW [id number]) Physical Therapy Treatment Exercises Exercises Seated Knee Flexion/Extension Education Education Provided Precautions,Safety M7 PT-IP Assessment and Plan Start: 02/08/20 09:38 Freq: NEEDED Status: Active Protocol: Document 02/12/20 11:17 AW (Rec: 02/12/20 11:28 AW [id number]) PT Summary Assessment and Plan Potential Rehabilitation Potential Good Status of Condition at Evaluation Stable Summary Impairments Pain,ROM,Strength,Balance,Bed Mobility,Transfers,Gait, Activity Tolerance Progress Towards Goals Slow Progress due to Pain,Slow Progress due to Medical Issues,Slow Progress due to Activity Tolerance,Slow Progress - Other Assessment Summary Pt's mobility status is stable even with complication of RUE pain. She describes the pain as deep and running from anterior shoulder through to scapula but is also hypersensitive to light palpation. Goals Bed Mobility Goal Independent Transfer Goal Independent,Front Wheeled Walker Gait Goal Independent,Front Wheel Walker Gait Distance 75 Days to Meet Goals 2 Frequency of Treatment Frequency Of Treatment Once a Day Treatment Plan Physical Therapy Treatment Plan Bed Mobility Training,Transfer Training,Gait Training, Therapeutic Exercise,Balance Retraining,Hot or Cold Pack, Neuromuscular Re-ed Other Recommendations and Next Treatment progress gait with FWW; ther Focus ex to include passive extension hang and strengtening as endy Recommendations To Nursing Amount of Assist Needed Independent Discharge Recommendations PT Discharge Recommendations Home with Assistance,Home Health Transportation Needs at Discharge Private Vehicle
[2020-02-12] MEDS: TIZANIDINE 4 MG TABLET 2 MG PO (11:42)
[2020-02-12] MEDS: HYDROMORPHONE 2 MG TABLET PO (12:25)
[2020-02-12] MEDS: MICAFUNGIN 100 MG in SODIUM CHLORIDE 0.9% 100 ML IV (15:15)
[2020-02-12] MEDS: HYDROMORPHONE 2 MG TABLET 8 MG PO ×2 (16:31→20:06)
--- NOTE | 2020-02-12 18:02 | P.PN_ITS ---
Subjective Subjective Date Patient Seen: 02/12/20 Interval history: Jessica Miramontes is a 55-year-old female with a history of a left total knee replacement August of [address] Vasyl Cesar at [facility] complicated by post operative infection with IV antibiotics and PICC placement and now admitted with Enterobacter and Betzaida bacteremia. The patient is resting in bedside chair. She reports significant pain all over but mostly in her knee and right shoulder. She is unable to abduct right arm past 40 degrees. She has no palpable abnormality, erythema or edema surrounding the right arm, axilla or shoulder. CTA did not demonstrate any soft tissue abnormality of right shoulder. She is upset that IV pain medication was discontinued. She requests more pain medication and is currently receiving 6 mg Dilaudid every 3 hours. She inquires how much pain medication she will be able to be sent home with and tries to calculate the amount that she will need to get by until she is able to follow-up with her pain management physician. Per nursing staff, the patient will continually request pain medication but then is asleep in chair immediately afterward. She denies headache, cough, shortness of breath, chest pain, abdominal pain, nausea, vomiting, fever, chills, dysuria, or constipation. She endorses loose stool. She is voiding and eliminating without difficulty. She is up ambulating with assistance. Exam Vital Signs (past 8 hours): - 02/12/20 11:53 02/12/20 15:25 Temperature 97.2 F L Pulse Rate 81 Respiratory Rate 16 Blood Pressure 136/78 Pulse Oximetry 99 100 Oxygen Delivery Method Room Air Oxygen Flow Rate 0 Narrative Exam Narrative: General: Middle-aged female sitting in bedside chair and in no acute distress, appears uncomfortable and chronically ill, mildly diaphoretic, highly anxious and irritable. HEENT: Normocephalic, atraumatic. External ears without defect. Pupils equal, round, and reactive to light. Anicteric sclerae, moist conjunctivae, and no lid lag. Oropharynx free of erythema and cobble stoning with moist mucosa. Neck: Supple with full range of motion. No jugular venous distension. No lymphadenopathy or thyromegaly. Cardiovascular: Regular rate and rhythm without murmurs, rubs, or gallops appreciated. Pulmonary: Clear to auscultation bilaterally without crackles, wheezes, or rhonchi. Normal respiratory effort with no use of accessory muscles. Abdomen: Soft, bowel sounds present, nontender, nondistended. Extremities: No clubbing, cyanosis, or edema. Left knee with vertical surgical scar that is healed well without edema or erythema. Midline and right arm in place without surrounding erythema or edema. Skin: Normal temperature, turgor, and texture; no rash, ulcers, or subcutaneous nodules appreciated. Neurological: Cranial nerves grossly intact. Psychiatric: Highly anxious and irritable mood and affect. Alert and oriented to person, place, and time. Objective Labs Result Diagrams: 02/12/20 08:07 02/11/20 06:00 Labs: Laboratory Results - last 24 hr 02/12/20 02/12/20 02/12/20 08:07 08:07 08:07 WBC 9.4 RBC 3.63 L Hgb 9.0 L Hct 27.8 L MCV 76.7 L MCH 24.8 L MCHC 32.3 RDW 18.3 H Plt Count 256 Neut % (Auto) 79.1 H Lymph % (Auto) 9.3 L Huron % (Auto) 9.4 Eos % (Auto) 1.6 L Baso % (Auto) 0.6 Neut # (Auto) 7400 H Lymph # (Auto) 900 L [place] # (Auto) 900 Eos # (Auto) 200 Baso # (Auto) 100 Magnesium 1.9 Procalcitonin 3.44 H Assessment & Plan Assessment & Plan narrative: Jessica Miramontes is a 55-year-old female with a history of a left total knee replacement August [address] Vasyl Cesar at [facility] complicated by post operative infection with IV antibiotics and PICC placement and now admitted with Enterobacter and Betzaida bacteremia. 1. Candidemia and Enterobacter bacteremia, acute, present on admission. Resolving. -Source is most likely the patient's PICC line that was placed for outpatient antibiotic therapy. Have discontinued PICC and placed midline temporarily. -Initial blood cultures x2 grew Betzaida parapsilosis and Enterobacter cloacae. Repeat blood cultures x2 have no growth to date and have cleared candidemia and bacteremia. -Echocardiogram did not demonstrate any vegetations or septic emboli. -Per discussion with infectious disease, Dr. Gibbs, the patient is to complete a total 14 day course of micafungin for the candidemia and the patient will continue on levofloxacin and rifampin indefinitely (duration will be per ID) which will adequately cover her bacteremia, as well as, her infected prosthesisb with MSSA. 2. Prosthetic joint infection left knee, chronic, present on admission -Consult in the ED by both Dr. Ford and Dr. Del Toro and Dr. Cesar orthopedic surgeons notified. -Both Dr. Ford and Dr. Del Toro attempted to tap the left knee-no fluid was obtained. Dr. Del Toro recommended that the patient may require eventual explant of prosthesis. This could not be performed at this time, only when she has completed antibiotics and infectious state is resolved. -Patient had labs drawn at another facility today and was found to have leukocytosis of 16, vitals in ER temp 99.2, blood pressure 141/61, heart rate 79, respiratory rate 18, O2 saturation 98%, procalcitonin 49.07, hemoglobin 11.2 hematocrit 34.8, MCV 76, MCH 24.6, RDW 18.2, BUN 27, lactate negative. WBC has normalized and procalcitonin trending down now 7.07. Continue to monitor WBC and procalcitonin daily. -Patient to continue home medication for pain management including: topical Volt aren gel 3%, hydromorphone (increased dosing from 6 mg to 8 mg every 3 hours and discontinued IV hydromorphone), pramipexole, tizanidine and trazodone. -Patient to follow-[facility] with Dr[facility] C[facility] next week. Patient follows with outpatient pain management. -Continue on rifampin and levofloxacin as noted above. 3. Chronic pain with opiate dependence, present on admission. Active. -Patient has migratory pain and mostly complaining of left knee pain, diffuse non focal back pain and right shoulder pain. She complained of right sided chest pain on 02/10 but has not recurred. -Unclear etiology but most likely musculoskeletal. CTA chest without PE or soft tissue abnormality of right shoulder with noted left sided pulmonary nodules infectious vs inflammatory. EKG with no evidence of ischemia. No telemetry events. Midline appears to be in place on bedside ultrasound and no difficulties with midline currently. -Discussed right shoulder pain with her orthopedic surgeon Dr. Cesar and he will plan to assess tomorrow. Code status: Full Code VTE prophylaxis: Enoxaparin Disposition: Patient to discharge home with home health and [facility] pending insurance authorization for outpatient micafungin to be completed by her outpatient ID physician.
[2020-02-13] VITALS (10 sets, daily range): BP systolic 125–161; BP diastolic 72–93; PULSE 79–87; RESP 13–16; TEMP 36–36.9; O2SAT 93–100
[2020-02-13] MEDS: diphenhydrAMINE 25 MG TABLET 50 MG PO ×2 (00:11→16:00)
[2020-02-13] MEDS: HYDROMORPHONE 2 MG TABLET 8 MG PO ×7 (00:11→22:18)
[2020-02-13] MEDS: KETOROLAC 30 MG/ML VIAL IV ×4 (00:12→18:54)
[2020-02-13] MEDS: SODIUM CHLORIDE 0.9% FLUSH 10 ML IV ×5 (00:13→21:12)
--- NOTE | 2020-02-13 06:03 | PC.NURSE ---
IV midline site flushes, and can accept IV meds, but will not allow blood draw. Lab called for peripheral draw.
[2020-02-13] MEDS: ENOXAPARIN 40 MG/0.4 ML SYRINGE SUBCUT (08:14)
[2020-02-13] MEDS: rifAMPin 300 MG CAPSULE 600 MG PO (08:26)
[2020-02-13] MEDS: levoFLOXacin 250 MG TABLET 750 MG PO (08:27)
[2020-02-13] MEDS: PRAMIPEXOLE 0.25 MG TABLET PO ×2 (08:27→21:12)
--- NOTE | 2020-02-13 09:08 | DIET.PN ---
Dietary Progress Note 55y F admitted with Enterobacter and Betzaida bacteremia. RD alerted that patient expressing dissatisfaction with meals offered. Pt would prefer fried foods. Pt reports not liking to eat anything healthy and is getting sick of hamburgers. Says she is starting to not want to eat. Pt also frustrated because she is a late night eater and meals are not served that late. Problem solved with patient to come up with a few additional meals she would be comfortable eating such as clam chowder, BLT, loaded potatoes, etc. Also worked with pt to come up with foods she could order and save for later in the night such as cereal with milk and sandwiches. Pt likes iceberg lettuce instead of mixed greens/antonia, if kitchen gets iceberg lettuce will offer pt a salad to encourage vegetable intake. Encouraged pt to eat enough protein to support her healing. Diet Order: General
--- NOTE | 2020-02-13 11:05 | CM.DPC ---
Addendum entered by Jenise Hernandez LPN 02/13/20 16:30: Pt was not updated re the d/c until about 1545 as she was in process of PICC placement. This was done and she reports being pleased by the approval but both she and her say that a d/c back to [place] is the dark is unsafe as cannot drive in the dark. Today's IV dose is just being hung, is late due to PICC placement. Dr. Wiley is updated as is CEDRIC ricketts, Ingrid PEDRO # 2 is presented to pt who says she wishes to appeal the d/c. She knows the number to call on the sheet. CEDRIC Quintero is updated as this d/c automatic corn grinder operator must leave for the day per dept rules. Monae of [facility] has confirmed she has all she needs for her staff to see pt tomorrow at home. She will call later in jamarcus for final PICC information and to see it pt is going to d/c later tonight. Addendum entered by Jenise Hernandez LPN 02/13/20 15:11: Monika has called. She put the referral through the pt's Medicaid and has received the authorization for the Micafungin. Dr. Wiley confirms this is the medication that will be best. PICC is being placed now. Pt is expected to d/c today. Addendum entered by Jenise Hernandez LPN 02/13/20 14:19: Dr. Wiley has filled out new request form for the Caspofungin and this is faxed back now to Monika/Annmarie Toure. Monika has been on hold with insurance [employer] for last 45 minutes. Will await update. Addendum entered by Jenise Hernandez LPN 02/13/20 13:37: Dr. Cesar was here to see pt and his progress note is reviewed. He discussed POC with Dr. Wiley. Spoke with Monika/Annmarie Toure. She said the only pre-auth form that has been submitted is from Dr. Mon and this is for the medication that is not covered on the Part D formulary. Questioned this as understanding of the team here was that this was going through pt's medicaid. Monika said that as far as she knew they had to have a denial before going to next option: Medicaid. Reminded her that a denial had already apparently been received for the Micafungin. She agreed to research this further and acknowledges that need is urgent as this is Sunday and pt is stable for d/c pending this last piece. Dr. Wiley is updated. She will redo the paperwork for the preauth. Says the midline is no longer working and a PICC is in place so the Caspofungin should be an option. Monika will fax the needed form. Will follow. Met with pt. She remains adamant re no snf and says she is at far too great a risk of COVID infection to even consider a snf setting. Her is at bedside and repeats same. Pt has 9 more days to go on the IV antibiotic. Dr. Wiley is aware that pt will not consider a snf but requests a referral to one anyway to show team is looking at all options. VM is left for August/. Original Note: DCP: continued: barrier to discharge continues to be the insurance authorization for the anti-fungal IV medication. Received vm from [facility] this morning: no confirmed auth yet. Their team will continue to work on this. Dr. Wiley updated. Dr. Cesar is expected to see pt today to evaluate her shoulder, per Dr. Wiley.
--- NOTE | 2020-02-13 11:34 | PT.IPTN ---
Current Diagnoses Infection and inflammatory reaction due to unspecified internal joint prosthesis, subsequent encounter (02/07/20) Physical Therapy Treatment Note M2 PT-IP Current Condition Start: 02/08/20 09:38 Freq: NEEDED Status: Active Protocol: Document 02/08/20 14:41 AW (Rec: 02/08/20 15:17 AW [id number]) Physical Therapy Current Condition Current Condition Evaluation Date 02/08/20 Treatment Diagnosis L prosthetic knee infection; difficulty in walking Onset Date 01/25/20 M3 PT-IP Subjective Start: 02/08/20 09:38 Freq: NEEDED Status: Active Protocol: Document 02/13/20 11:18 HH (Rec: 02/13/20 11:33 [id number]) Subjective Physical Therapy Visit Type Type Treatment Note Visit Start Time 10:50 Visit Stop Time 11:06 Total Visit Minutes 16 Physical Therapy Visit Comments Patient Comments I guess we could do this Therapy Pain Assessment Pain When Pain Assessed At Rest Pain Present Pain Present Pain Reported Location Right Chest Intensity 8 Scale Used Numeric (0 - 10) Pain Management Techniques Distraction,Re-positioning, Timing of Activity with Medications Left Knee Intensity 7 Scale Used Numeric (0 - 10) Pain Management Techniques Distraction,Re-positioning, Timing of Activity with Medications M4 PT-IP Mobility and Gait Start: 02/08/20 09:38 Freq: NEEDED Status: Active Protocol: Document 02/13/20 11:18 HH (Rec: 02/13/20 11:33 [id number]) PT-Transfer Assessment Sit to and From Stand Sit to and from Stand Independent,Use of Upper Extremities Equipment Transfer Assistive Device Gait Belt,Front Wheeled Walker Orthotic/Prosthetic Devices or Brace: No Transfers Transfer Destination Chair Transfer Technique pt ambulated with FWW Transfer Ability Level of Assist Independent,Use of Upper Extremities Comments Mobility Comments Pt sitting up on chair upon PT arrival. Pt stated that she has no difficulty with mobility but R chest and knee pain are main concerns. She agreed to mobilize with PT. Pt stood up independently by pushing off through armrests. She then amb with PT from her room to end of [facility] and returned. Pt initially walked with 2UEs on FWW SBA but then only used LUE on FWW when she returned d/t severe pain on R shoulder/ chest. She was able navigate well with the FWW. She then returned to bedside chair after with stand step pivot transfer independently. Pt agreed that she has not need for therapy at this point but need more pain medication. Pt agreed to be d/c from therapy at this point. Call light placed within reach. Gait Assessment Gait Gait Assistance Required: Standby Assistance Distance (Feet) 280 Able to Maintain Weight Bearing Status Yes During Gait Assistive Devices Assistive Device Gait Belt,Front Wheeled Walker Gait Deviations General Gait Pattern Antalgic,Decreased Stride Length,Decreased Feet Clearance,Flexed Trunk,Lateral Trunk Lean,Step-to Gait Factors Limiting Gait Function Factors Limiting Gait Function Decreased Activity Tolerance, Decreased Sensation,Decreased Strength,Limited Range of Motion,Pain,Poor Balance,Poor Safety Awareness Comments Gait Comments see mobility section. Stair Climbing Assessment Comments Stair Climbing Comments No stairs at home. PT-Balance Assessment Sitting Balance and Reactions Static Sitting Balance Ability Normal Dynamic Sitting Balance Ability Normal Standing Balance and Reactions Static Standing Balance Ability Good Dynamic Standing Balance Ability Good Device Used FWW M5 PT-IP Objective Assessments Start: 02/08/20 09:38 Freq: NEEDED Status: Active Protocol: Document 02/08/20 14:41 AW (Rec: 02/08/20 15:17 AW [id number]) Orientation Orientation/Cognition Level of Alertness Alert Orientation Name,Day of Week,Place, Situation Language Function Ability No Deficits Noted Safety Awareness Decreased Safety Awareness Gross Range of Motion Lower Extremity ROM Assessment Left Impaired Impairments Left knee ROM ~10-100 degrees. Strength Lower Extremity Strength Assessment Left Impaired Hip 4-/5 Knee ext 3-/5; flex 3+/5 Ankle 4/5 Sensation Assessment Sensation Gross Sensation Left LE Impaired Sensation Description Numbness Comments Sensation Comments Pt reports numbness to left 3rd through 5th digits which is more pronounced on the plantar surface. M6 PT-IP Treatment Start: 02/08/20 09:38 Freq: NEEDED Status: Active Protocol: Document 02/12/20 11:17 AW (Rec: 02/12/20 11:29 AW [id number]) Physical Therapy Treatment Exercises Exercises Seated Knee Flexion/Extension Education Education Provided Precautions,Safety M7 PT-IP Assessment and Plan Start: 02/08/20 09:38 Freq: NEEDED Status: Active Protocol: Document 02/13/20 11:18 HH (Rec: 02/13/20 11:33 [id number]) PT Summary Assessment and Plan Potential Rehabilitation Potential Good Status of Condition at Evaluation Stable Summary Impairments Pain,ROM,Strength,Balance,Bed Mobility,Transfers,Gait, Activity Tolerance Progress Towards Goals Slow Progress due to Pain,Slow Progress due to Medical Issues,Slow Progress due to Activity Tolerance,Safe For Discharge Assessment Summary Pt's mobility status is stable and able to meet all rehab goals. Pt is safe overall for all mobility with her FWW. However, pt cont to complain severe pain at R shoulder and per nursing pt is going to have R shoulder consult with . In my opinion, pt is at her baseline regarding mobility and there's no need for therapy. Expect pt to be d /c home with assistance with HH once her pain is more stable. Frequency of Treatment Frequency Of Treatment Discharge Recommendations To Nursing Amount of Assist Needed Independent Discharge Recommendations PT Discharge Recommendations Home with Assistance,Home Health Transportation Needs at Discharge Private Vehicle
--- NOTE | 2020-02-13 12:33 | P.PN_ITS ---
Subjective Subjective Date Patient Seen: 02/13/20 Time Patient Seen: 12:33 Interval history: I was asked to see the patient due to right shoulder pain. She is well known to me from her previous admissions and from my office and prior surgery. Exam Vital Signs (past 8 hours): - 02/13/20 08:00 02/13/20 08:29 Temperature 97.2 F L Pulse Rate 83 Respiratory Rate 16 Blood Pressure 155/89 H Pulse Oximetry 99 99 Oxygen Delivery Method Room Air Oxygen Flow Rate 0 Narrative Exam Narrative: Right shoulder is painful to abduct past 90?. She can elevate to 90?. No significant swelling. Tender over the subacromial area. No erythema no drainage. Left knee wound is healed. There is some mild soft tissue swelling. She is able to weightbear with minimal discomfort. She lacks about 10? of extension but can flex beyond 100?. While resuming the seated position in bed it is noted that the patient puts full weight on both upper extremities weight-bearing through the shoulders. Objective Labs Result Diagrams: 02/12/20 08:07 02/11/20 06:00 Assessment & Plan Assessment & Plan narrative: The patient has right shoulder pain, but has a history of rheumatoid arthritis and multiple joint pains. I do not believe that she has seeded her right shoulder with her line infection. It is more likely that she has a flare of rheumatoid arthritis or potentially rotator cuff tear. Neither of these would require immediate drainage. Her fever is controlled, white count is controlled and inflammatory mediators are improving. She needs ongoing treatment for for her fungemia/jacques line infection, bacteremia from her line infection and then several weeks of oral suppression for her prior knee infection before we will be able to determine whether or not she needs a two stage knee revision for infection. If her shoulder continues to bother her, we can evaluate it more completely as an outpatient. She should be on oral anti- inflammatories to help with the pain and inflammation unless there is a medical contraindication. She should be scheduled to see me about 2 weeks after disc harge. Time Spent With Patient Time with patient: 15-24 minutes
--- NOTE | 2020-02-13 14:15 | PM.PN.1 ---
Subjective Subjective Date Patient Seen: 02/13/20 Exam Vital Signs (past 8 hours): - 02/13/20 08:00 02/13/20 08:29 02/13/20 13:30 Temperature 97.2 F L 96.8 F L Pulse Rate 83 79 Respiratory Rate 16 16 Blood Pressure 155/89 H 143/86 H Pulse Oximetry 99 99 96 Oxygen Delivery Method Room Air Oxygen Flow Rate 0 Objective Labs Result Diagrams: 02/12/20 08:07 02/11/20 06:00
--- NOTE | 2020-02-13 15:22 | DI.RAD.S_ITS ---
PROCEDURE: XR CHEST FOR PICC 1V INDICATIONS: PICC placement confirmation COMPARISON: [facility], , XR CHEST 1V, 02/11/2020, 8:36. FINDINGS: PICC was placed by the intravenous therapy team from the right side. Fluoroscopic spot film demonstrates the tip of PICC projecting to the area of lower SVC. IMPRESSION: Tip of PICC projects to the area of lower SVC. Dictated by: Deep Dowling M.D. on 02/13/2020 at 16:01 Approved by: Deep Dowling M.D. on 02/13/2020 at 16:02
--- NOTE | 2020-02-13 15:24 | CM.DPNOTE ---
Faxed order to [facility] on 02/13/20 per Jenise. Will scan fax confirmation sheet. Jeana Butler CM Asst.
[2020-02-13] MEDS: MICAFUNGIN 100 MG in SODIUM CHLORIDE 0.9% 100 ML IV (16:01)
--- NOTE | 2020-02-13 21:20 | PC.NURSE ---
21:21- Requesting trazadone with next dose of pain medication- may be late administration.
[2020-02-13] MEDS: TRAZODONE 50 MG TABLET 100 MG PO (22:17)
--- NOTE | 2020-02-13 22:28 | PC.NURSE ---
Dr. Wiley verbally informs this leader writer pt is discharged home following antibiotic this afternoon/early evening. This leader writer informs pt who states has no transportation home and further states is not ready to discharge to home. Pt states, She can send me home in the morning, I have that right. Dr. Wiley was informed of these statements by patient and Dr. Wiley states pt is discharged to home and pt may find has to pay for stay beyond this evening. Pt was informed by this leader writer of this statement by Dr. Wiley. car rental managerJenise, informed of the above conversation and provides this leader writer with phone number for pt to dispute discharge. This number was given to pt by this leader writer as per healthcare facility administratorJenise.
--- NOTE | 2020-02-13 22:40 | PC.NURSE ---
Pt w/ chronic pain, pain not controlled by pain medication. Requesting pain medications on the clock. New PICC inserted, R brach SVC. Tolerated, saline and heparin flush. Antifungal drip. Pain radiating from PICC site to opposite side of chest. Pain at knee as well from prior joint replacement.
[2020-02-14] VITALS: O2SAT 93
[2020-02-14] MEDS: KETOROLAC 30 MG/ML VIAL IV ×3 (00:03→12:26)
[2020-02-14] MEDS: DICLOFENAC 1% GEL 100 GM 1 APPLIC TOP (00:14)
[2020-02-14] MEDS: diphenhydrAMINE 25 MG TABLET 50 MG PO (01:10)
[2020-02-14] MEDS: HYDROMORPHONE 2 MG TABLET 8 MG PO ×3 (01:11→07:40)
[2020-02-14 03:40] VITALS: BP 111/64; PULSE 77; RESP 16; TEMP 36.7; O2SAT 95
[2020-02-14 04:00] VITALS: O2SAT 95
[2020-02-14] MEDS: SODIUM CHLORIDE 0.9% FLUSH 10 ML IV ×2 (06:35→08:19)
[2020-02-14 07:11] LABS: Chloride 106 mmol/L (98-107); HEMOLYSIS < 15 (0-50)
[2020-02-14 07:13] LABS: Alanine Aminotransferase 21 IU/L (<35); Albumin 3.6 g/dL (3.5-5.0); Albumin Globulin Ratio 0.9 (1.0-2.8); Alkaline Phosphatase 182 U/L (38-126); Aspartate Aminotransferase 20 IU/L (14-36); BUN Creatinine Ratio 45.8 (6-22); Bilirubin Total 0.4 mg/dL (0.2-1.3); Blood Urea Nitrogen 27 mg/dL (7-17); Calcium 9.1 mg/dL (8.4-10.2); Carbon Dioxide 28 mmol/L (22-32); Estimated Glomerular Filt Rate > 60.0 mL/min (>60); Glucose 123 mg/dL (70-100); Magnesium 1.9 mg/dL (1.6-2.3); Potassium 4.6 mmol/L (3.4-5.1); Sodium 139 mmol/L (137-145); Total Protein 7.6 g/dL (6.3-8.2)
[2020-02-14 07:14] LABS: Hemoglobin A1C% w Est Avg Glu 5.6 % (4.0-6.0)
[2020-02-14 07:21] LABS: Add Manual Diff / Slide Review NO; Basophils Absolute Auto 100 /uL (0-100); Basophils Percent Auto 1.1 % (0-2); Eosinophils Absolute Auto 300 /uL (0-450); Eosinophils Percent Auto 4.3 % (2-4); Hematocrit 26.1 % (36-46); Hemoglobin 8.5 g/dL (12.0-16.0); Lymphocytes Absolute Auto 1400 /uL (1100-4500); Lymphocytes Percent Auto 23.8 % (25-40); Mean Corpuscular HGB Conc 32.4 % (30-36); Mean Corpuscular Hemoglobin 24.8 PG (26-34); Mean Corpuscular Volume 76.5 fL (80-100); Monocytes Absolute Auto 600 /uL (0-900); Monocytes Percent Auto 9.4 % (3-14); Neutrophils Absolute Auto 3600 /uL (1500-7000); Neutrophils Percent Auto 61.4 % (50-75); Platelet Count 287 X10^3/uL (150-400); Red Blood Cell Count 3.41 X10^6/uL (4.0-5.2); Red Cell Distribution Width 18.2 % (11.6-14.8); White Blood Cell Count 5.9 X10^3/uL (4.5-11.0)
[2020-02-14 07:58] VITALS: BP 114/72; PULSE 81; RESP 16; TEMP 36.4; O2SAT 95
[2020-02-14 07:58] LABS: Procalcitonin 0.99 ng/mL (<0.5)
[2020-02-14 08:00] VITALS: O2SAT 95
--- NOTE | 2020-02-14 08:00 | CM.DPC ---
Addendum entered by Michelle Cardenas R.N. 02/14/20 09:17: Spoke to patient this morning, with BERNARDINO Fung. Discussed discharge, and if patient is ready to discharge home today. Stated, my can't drive, the brakes don't work well. Let her know that Medicaid transport can be contacted, and called [employer] and verified that they can pick patient up today at 1300, and would be no charge. Set up time for now, and also spoke to Monae at [facility] who indicated that medication is set up for home, and that authorization was completed. Spoke to patient, and she indicated, I'm not going anywhere unless they give me the pain medications that I want, the last time I was here, I went home with no pain medications, and I just ended up back in the hospital. Patient also indicated that she sees a pain specialist in [place], and indicated, He will have to approve if I'm getting enough pain medications, and I have his personal cell number. Let nurse, Rebecca, and nurse coordinator, Aparna, know that patient is refusing to discharge unless she gets the pain medication that she needs. Will continue to discuss at team rounds. Original Note: DCP Cont: Received notification from [facility] regarding appealing process. Patient was discharged yesterday, but did not wish to leave for fear of her partner driving in the dark. Taty is requesting documents from medical record be faxed before noon today if possible. Faxed over requested documents, IMM, detailed noticed of discharge, records from discharge, physician orders, notes, ER visit, discharge summary, P.T. notes. P: Patient has discharge orders, will check in with her. Will also follow up with [facility], as well. Michelle Cardenas RN/Speech Language Pathologist
[2020-02-14] MEDS: ENOXAPARIN 40 MG/0.4 ML SYRINGE SUBCUT (08:18)
[2020-02-14] MEDS: rifAMPin 300 MG CAPSULE 600 MG PO (08:19)
[2020-02-14] MEDS: PRAMIPEXOLE 0.25 MG TABLET PO (08:19)
[2020-02-14] MEDS: levoFLOXacin 250 MG TABLET 750 MG PO (08:19)
[2020-02-14 12:00] VITALS: O2SAT 96
--- NOTE | 2020-02-14 12:10 | P.DS_ITS ---
History of Present Illness History of Present Illness Date Patient Seen: 02/08/20 Chief complaint: Knee infection Narrative: Written by Dianne HIGGINS: Patient is a 55-year-old female with a history of a left total knee replacement August of [address] Vasyl Cesar at [facility]. Unfortunately the patient developed a acute onset infection early December 2019. On December 29 she was taken to the operating room for a irrigation debridement and poly exchange for her left knee. She was placed on IV antibiotics and has been receiving cefazolin t.i.d. through her PICC line and rifampin monitored by [facility] infectious Disease as an outpatient. She recently saw Dr. Cesar in clinic on 02/03/2020. At that time she was noted to be doing rather well. Range of motion was 10-100 degrees and incision was healed. She thought she was doing pretty good at that appointment as well. She reports that yesterday 02/06/2020 her knee started becoming more painful. She also endorses waking up this morning with a temperature. Of note she did call this physician before presenting to [facility] ER and stated that she had a temperature of 102?. She now states this was probably 100.2 but her pain had increased. She was worked up at [facility]. White blood cell count was elevated at 16. ESR was 48 and CRP 2.9 which are notably less than her previous labs. Urinalysis was negative per report. Chest x-ray was normal per report. Was noted to have pain with any range of motion of her knee and appreciable swelling.. No drainage or redness. Blood cultures were drawn but were not available. COVID test was negative. Note she had reported congestion and respiratory symptoms in the week prior but denies those today. Just states she is ?tired of it all. She denies any recent drug use or IV drug use. She denies missing any antibiotic infusions. Discharge Providers Provider Date of admission: 02/07/20 21:56 Discharge Date: 02/13/20 Primary care physician: GISELA Cash Consults: 02/07/20 23:37 Consult to Discharge Planning Routine Comment: Consult to Physical Therapy Evaluate & Treat Comment: Physician Instructions: Evaluate and Treat 02/13/20 15:21 Consult to Home Health Routine Comment: Maya DIALLO has the referral Reason For Exam: resume HH RN and PT Discharge provider: Dedra Wiley DO Summary Hospital Course Discharge Diagnosis: 1. Acute Candidemia and Enterobacter bacteremia, present on admission. Resolving. 2. Prosthetic left knee joint infection, chronic, present on admission. Resolving. 3. Chronic pain with opiate dependence, present on admission. Active. Hospital Course: Jessica Miramontes is a 55-year-old female with a history of a left total knee re placement August of [address] Vasyl Cesar at [facility] complicated by post operative infection with IV antibiotics and PICC placement and now admitted with Enterobacter and Ebtzaida bacteremia. 1. Acute Candidemia and Enterobacter bacteremia, present on admission. Resolving. -Source is most likely the patient's PICC line that was placed for outpatient antibiotic therapy. PICC line removed and new PICC line placed. -Initial blood cultures x2 grew Betzaida parapsilosis and Enterobacter cloacae. Repeat blood cultures x2 have no growth to date and have cleared candidemia and bacteremia. -Echocardiogram did not demonstrate any vegetations or septic emboli. -Per previous providers discussion with infectious disease, Dr. Gibbs, the patient is to complete a total 14 day course of micafungin for the candidemia and continue on levofloxacin and rifampin indefinitely (duration will be per ID) which will adequately cover her bacteremia, as well as, her infected prosthesis with MSSA. Patient was discharged on micafungin 100 mg IV daily day for 9 additional days to complete 14 days total and levofloxacin 750 mg daily and Rifampin 600 mg daily. 2. Prosthetic left knee joint infection, chronic, present on admission. Resolving. -Both Dr. Ford and Dr. Del Toro attempted to tap the left knee but no fluid was able to be aspirated. Dr. Del Toro recommended that the patient may require eventual explant of prosthesis but not until infection has completely resolved. -Patient had labs drawn at another facility today and was found to have leukocytosis of 16, vitals in ER temp 99.2, blood pressure 141/61, heart rate 79, respiratory rate 18, O2 saturation 98%, procalcitonin 49.07, hemoglobin 11.2 hematocrit 34.8, MCV 76, MCH 24.6, RDW 18.2, BUN 27, lactate negative. WBC has normalized and procalcitonin trending down now 3.44. Continue to monitor WBC and procalcitonin daily. -Previous left knee culture grew MSSA. -Continued on rifampin and levofloxacin as noted above. -Patient to follow-up with Dr. Cesar [facility] next week and Dr. Gibbs of infectious disease. 3. Chronic pain with opiate dependence, present on admission. Active. -Patient has history of rheumatoid arthritis that is untreated and migratory mu scle and joint pain. She mostly complained of left knee pain, diffuse non-focal back pain and right shoulder pain. She complained of right sided chest pain on 02/10 but has not recurred. -Unclear etiology but most likely musculoskeletal. CTA chest without PE or soft tissue abnormality of right shoulder with noted left sided pulmonary nodules infectious vs inflammatory. EKG with no evidence of ischemia. No telemetry events. -Discussed right shoulder pain with her orthopedic surgeon, Dr. Cesar, who felt right shoulder pain to be musculoskeletal and possibly rotator cuff injury but no evidence of soft tissue or joint infection. -Patient to continue home medication for pain management including: topical Voltaren gel 3%, hydromorphone (increased dosing from 6 mg to 8 mg every 3 hours and discontinued IV hydromorphone), pramipexole, tizanidine and trazodone. -Recommend continued close outpatient pain management and patient has scheduled appointment with PMR on 01/16/2020. Patient likely has tolerance and dependence and noted to have some drug-seeking behaviors. Exam Vital Signs (past 8 hours): - 02/13/20 08:29 02/13/20 13:30 02/13/20 15:55 Temperature 97.2 F L 96.8 F L 97.3 F L Pulse Rate 83 79 79 Respiratory Rate 16 16 13 Blood Pressure 155/89 H 143/86 H 161/93 H Pulse Oximetry 99 96 100 Oxygen Delivery Method Room Air Oxygen Flow Rate 0 Narrative Exam Narrative: General: Middle-aged female sitting in bedside chair and in no acute distress, appears uncomfortable and chronically ill, mildly diaphoretic, highly anxious and irritable. HEENT: Normocephalic, atraumatic. External ears without defect. Pupils equal, round, and reactive to light. Anicteric sclerae, moist conjunctivae, and no lid lag. Oropharynx free of erythema and cobble stoning with moist mucosa. Neck: Supple with full range of motion. No jugular venous distension. No lymphadenopathy or thyromegaly. Cardiovascular: Regular rate and rhythm without murmurs, rubs, or gallops appreciated. Pulmonary: Clear to auscultation bilaterally without crackles, wheezes, or rhonchi. Normal respiratory effort with no use of accessory muscles. Abdomen: Soft, bowel sounds present, nontender, nondistended. Extremities: No clubbing, cyanosis, or edema. Left knee with vertical surgical scar that is healed well without edema or erythema. Right shoulder pain with limited range of motion to abduction approximately 45?. Paraspinal cervical hypertrophy and muscle tension. Skin: Normal temperature, turgor, and texture; no rash, ulcers, or subcutaneous nodules appreciated. Neurological: Cranial nerves grossly intact. Psychiatric: Highly anxious and irritable mood and affect. Alert and oriented to person, place, and time. Objective Labs Result Diagrams: 02/12/20 08:07 02/11/20 06:00 Discharge Plan Discharge Plan Patient Disposition: Home Health Service Provider Discharge Comment: You are being discharged home to resume home health and [facility] for micafungin 100 mg IV daily for 9 additional days. Y ou have been prescribed levofloxacin 750 mg daily and rifampin 600 mg daily (prescribed [address] Gibbs will have to take over the prescription) to continue indefinitely until directed otherwise by Dr. Gibbs of Infectious Disease. You were provided a temporary prescription of hydromorphone 2 mg every 4 hours quantity #10 tabs to help control pain in addition to your previous pain prescription prescribed by your PMR physician. Please follow-up with Dr. Gibbs and Dr. Cesar as previously scheduled. Please follow-up with your pain management physician at your scheduled appointment on Sunday. Discharge orders & Medications Prescriptions: New hydromorphone 2 mg Tablet 2 mg PO Q4H PRN (Reason: Pain, Severe (7-10)) Qty: 10 RF: 0 micafungin [Mycamine] 100 mg Recon Soln 100 mg IV Q24H Qty: 9 RF: 0 rifampin 300 mg Capsule 600 mg PO DAILY Qty: 20 RF: 0 levofloxacin 750 mg tablet 750 mg PO DAILY Qty: 10 RF: 0 Continued trazodone 50 mg tablet 100 mg PO BEDTIME RF: 0 pramipexole 0.25 mg tablet 0.25 mg PO BID RF: 0 diclofenac sodium 1 % gel 1 applic Topical DIRECTED RF: 0 tizanidine 2 mg Capsule 2 mg PO Q6-8H PRN (Reason: Muscle spasms) RF: 0 hydromorphone 4 mg Tablet 4 mg PO Q4H PRN (Reason: Pain, Severe (7-10)) Qty: 60 RF: 0 ondansetron 8 mg tablet,disintegrating 8 mg PO Q12H RF: 0 Discontinued cefazolin in dextrose (iso-os) 2 gram/100 mL Piggyback 2 gm IV Q8H 42 Days RF: 0 Follow up/Referrals: Ruth Arora ARNP [Primary Care Provider] - Vasyl Cesar MD [Physician] - As previously scheduled Diet/Activity/Treatments Diet: Diet as Tolerated Activity: Activity as tolerated Discharge Data Primary Care Provider: Ruth Arora
--- NOTE | 2020-02-14 12:11 | CM.DPC ---
Addendum entered by Michelle Cardenas R.N. 02/14/20 12:29: Called [facility] [employer] and changed machine operator hop picker time to 1330, to enable her having time to complete her ABO before she leaves. Called [facility], and updated Vicky, letting her know that patient is discharging home today. Faxed over resumption orders of nursing, and added P.T/O.T. as well. Monae at [facility] indicated that they will see patient tomorrow for her next IV dose. Faxed over DC summary as well, to Maya. Original Note: DCP Cont: This tool and production planner went back into patient room with nurse, Rebecca. Discussed discharge today. Patient indicated, she needs more than 10 tablets of her pain medication to get her through the week-end before her appointment on Sunday with the pain doctor in [place]. Patient stated, I'm not leaving here unless I get my pain medications, at least if I leave tomorrow, I will have the 10 tablets that I need. Antonieta, [employer], has also been in contact with patient as well. Dr. Wiley indicated concerns about discharging her home with the medications that she is requesting. She is going to consult with Dr. Nathan, regarding a plan for her medications at discharge. Have set up cab to machine operator hop picker at 1300 through [employer] transport, and Monae, at [facility] (pharmacist), is requesting that her IV medication be given before she discharges. Dr. Wiley is sending patient home with pain medications, and prescription is being sent at [facility]. Patient has not yet heard from [facility], and she is aware that if they deny, she can get billed. Patient is willing to discharge home today. Asked nurse, Rebecca, if she can give her her IV antifungal medication before she leaves. Confirmed with [employer] that they can pick patient up at 1300 through [employer]. P: Patient is to discharge home today. Will fax [facility] as well. Michelle Cardenas RN/Animal Skinner
[2020-02-14] MEDS: MICAFUNGIN 100 MG in SODIUM CHLORIDE 0.9% 100 ML IV (12:22)
[2020-02-14] MEDS: HYDROMORPHONE 4 MG TABLET 8 MG PO (12:56)
--- NOTE | 2020-02-14 12:57 | PC.NURSE ---
Addendum entered by Leandro Ivey R.N. 02/14/20 13:17: Patient educated about all discharge instructions including new medications and home infusions, ss/ of infection, diet and exercise. Patient verbalized all teaching instructions. Patient left facility via cab home. Patient left facility with all belongings. All prescriptions were sent electronically. Addendum entered by Leandro Ivey R.N. 02/14/20 13:06: Patient PICC line dressing changed today, patient has a sore on arm from adhesive reaction. Allevyn dressing applied. Original Note: Patient has been very upset today about discharge plan and medications for discharge (Diluadid 2mg was ordered 10 taps at first). Concerns were expressed by staff to Dr. Wiley, and care management team. Dr. Wiley changed medications for discharge. I along with Donna from care management talked to patient many times regarding discharge concerns and the potential abuse of medications.
--- NOTE | 2020-02-14 13:56 | CM.SWNOTE ---
HAND CHAIN MAKER Note This HAND CHAIN MAKER assisting ARCENIO Anguiano in coordination of DCP. According to conversation w/ARCENIO Anguiano, patient ready for DC yesterday afternoon, DC order placed by Dr Wiley and patient had 1. Started appeal process through [facility] and 2. Said her could not drive to pick her up in the dark ARCENIO Anguiano faxed 70+ page chart to [facility] this morning per [facility] request; now awaiting communication from [facility] re: additional requests and/or determination. Meanwhile, ARCENIO Anguiano and this HAND CHAIN MAKER working on the coordination of DCP w/patient and nursing staff. Met w/patient multiple times today to review DCP. Patient states she can leave today but worried about a ride and how many narcotics she will DC with. ARCENIO Anguiano arranged transportation for 1300 p/u via [employer] transport taxi. Re: DC scripts, patient being prescribed IV micafungin 100 mg IV daily for 9 additional days (managed by [facility]) and hydromorphone 4 mg every 4 hours quantity #84 tabs; Will refer now to Dr Wiley's DC Comments: The patient appealed her discharge which is currently pending. The patient remains medically stable and appropriate for discharge. The patient is overusing her opiate prescription prescribed by PMR and there is a concern for previous PICC line injection which precipitated current infections which were treated appropriately. The patient is discharged with a PICC line and instructed not to use PICC line for anything other than IV anti-fungal administered through [facility]. The patient continued to abuse staff regarding opiates. The patient was not satisfied with perceived care and frustrated regarding narcotic use and pain control in the setting of chronic opiate use disorder. Continued to try to reason with the patient and although uncomfortable with the amount of opiates prescribed did so accordingly to reduce the risk of harm. The patient was receiving Dilaudid 8 mg PO every 3 hours which was reduced to Dilaudid 8 mg PO every 4 hours and assuming that the patient has her home medication prescribed by PMR of Dilaudid 4 mg PO every 4 hours the patient was discharged with Dilaudid 4 mg PO every 4 hours quantity # 84. The patient is to follow-up with her PMR Dr. Pete on 02/16/20. I discussed case with a board certified addiction medicine specialist Dr. Kaitlin Nathan to come up with a compromise. The patient was discharged 02/14/20. Inevitably, entered patient room this afternoon w/CEDRIC Fernandez to review summary of above, patient was agreeable and said she would contact her to update. ARCENIO/CEDRIC Anguiano updated and completing the remainder of DC coordination. BERNARDINO Eugene
--- NOTE | 2020-02-23 15:37 | CM.DPNOTE ---
On 02/13/20 [facility] agreed with the hospitals determination - this patient was medically stable for discharge on 02/14/20. Letter scanned into this EMR.
== END 2020-02-14 13:28 | disposition home health service (06) | DRG 315 ==
LOC: ED 21:56 → AC 02-08 14:24
PROVIDERS: Internal Medicine; Admitting Provider Nurse Practitioner Family; Emergency Provider Emergency Medicine; PCP Nurse Practitioner Family; Referring Provider Emergency Medicine; Visit Provider Nurse Practitioner Family
DX: T80.211A Bloodstream infection due to central venous catheter, initial encounter (principal); T84.54XA Infection and inflammatory reaction due to internal left knee prosthesis, initial encounter; M00.862 Arthritis due to other bacteria, left knee; B49 Unspecified mycosis; F11.20 Opioid dependence, uncomplicated; B95.2 Enterococcus as the cause of diseases classified elsewhere; B95.61 Methicillin susceptible Staphylococcus aureus infection as the cause of diseases classified elsewhere; M25.511 Pain in right shoulder; M79.7 Fibromyalgia; Z87.891 Personal history of nicotine dependence; R07.89 Other chest pain; G89.29 Other chronic pain; M06.9 Rheumatoid arthritis, unspecified
CPT/HCPCS: 36415; 36569; 36592; 71045; 71275; 80048; 80053; 81001; 82728; 83036; 83550; 83605; 83735; 84145; 85025; 87040; 87150; 87186; 87205; 87635; 93005; 93306; 96374; 96376; 97116; 97162; 97530; 99284; J0690; J0696; J1170; J1450; J1642; J1650; J1885; J2248; J2543; J3360; Q9967

== ENCOUNTER → 2020-03-27 08:50 | Outpatient (CLI) | payer MEDICARE, MEDICAID, SELFPAY ==
[2020-02-07 23:21] VITALS: BMI 28.3
[2020-03-27 10:13] LABS: COVID19 -Nasal RAPID Negative (Negative)
== END ==
PROVIDERS: PCP Nurse Practitioner Family; Visit Provider Physician Assistant
DX: Z01.812 Encounter for preprocedural laboratory examination (principal); Z20.822 Contact with and (suspected) exposure to COVID-19
CPT/HCPCS: 87635

== ENCOUNTER 2020-03-27 08:53 | Emergency (ER) | payer MEDICARE, MEDICAID, SELFPAY ==
[2020-02-07 23:21] VITALS: BMI 28.3
--- NOTE | 2020-03-27 08:57 | ED_ITS ---
HPI - Extremity Problem General Chief complaint: Extremity Problem,Nontraumatic Stated complaint: LT KNEE INFECTION PRE/POST SURGERY, PAIN Time Seen by Provider: 03/27/20 08:56 Source: patient and family Mode of arrival: Ambulatory Limitations: no limitations History of Present Illness HPI Narrative: 55-year-old female former smoker were with ongoing, chronic knee pain presents for evaluation of increasing pain. She had a left total knee performed locally over the summer and developed subsequent infection with washout in December. She had been doing well and has had some increasing pain and reports some swelling over the past days to weeks. She has been on antibiotics, has seen her orthopedist on multiple occasions and is scheduled to have a revision on Sunday. Her biggest concern is that she states she is scheduled to run out of her pain medications tonight. She denies any fever or chills nor nausea or vomiting MD Complaint: extremity pain Related Data Home Medications Medication Instructions Recorded Confirmed diclofenac sodium 1 applic TOPICAL DIRECTED 10/03/17 02/09/20 pramipexole 0.25 mg PO BID 10/03/17 02/09/20 trazodone 100 mg PO BEDTIME 10/03/17 02/09/20 tizanidine 2 mg PO Q6-8H PRN 05/28/19 02/09/20 ondansetron 8 mg PO Q12H 02/09/20 02/09/20 Previous Rx's Medication Instructions Recorded hydromorphone 4 mg PO Q4H PRN #60 tab 09/19/19 levofloxacin 750 mg PO DAILY #10 tab 02/13/20 micafungin [Mycamine] 100 mg IV Q24H #9 ea 02/13/20 rifampin 600 mg PO DAILY #20 cap 02/13/20 hydromorphone [Dilaudid] 4 mg PO Q4H PRN #84 tab 02/14/20 Allergies Allergy/AdvReac Type Severity Reaction Status Date / Time bee venom protein (honey bee) Allergy Severe Hives Verified 03/27/20 09:16 morphine Allergy Severe Anaphylaxis Verified 03/27/20 09:16 Sulfa (Sulfonamide Allergy Severe Anaphylaxis Verified 03/27/20 09:16 Antibiotics) gabapentin AdvReac Severe Weight gain Verified 03/27/20 09:16 aspirin AdvReac Intermediate Abdominal Verified 03/27/20 09:16 Pain methadone AdvReac Intermediate Hallucinati Verified 03/27/20 09:16 ng Review of Systems Constitutional Constitutional: Reports chills, Denies fatigue, Reports fever(s), Denies frequent falls, Denies lethargy and Denies weakness Eyes Eyes: Denies change in vision, Denies eye discharge, Denies irritation and Denies loss of vision ENT Ears, Nose, Mouth, and Throat: Denies change in voice, Denies dizziness, Denies neck pain, Denies sore throat and Denies throat swelling Cardiovascular Cardiovascular: Denies chest pain, Denies irregular heart rhythm, Denies light headedness, Denies palpitations, Denies dyspnea, Denies dyspnea on exertion and Denies orthopnea Respiratory Respiratory: Denies cough, Denies dyspnea, Denies dyspnea on exertion and Denies wheezing Gastrointestinal Gastrointestinal: Denies abdominal pain, Denies change in bowel habits, Denies diarrhea, Denies nausea and Denies vomiting Musculoskeletal Musculoskeletal: Reports abnormal gait, Reports arthralgias, Reports joint swelling, Denies neck pain and Denies numbness Integumentary/Breasts Skin/Breast: Denies pruritus, Denies erythema, Denies rash and Denies wounds Neurologic Neurologic: Reports abnormal gait, Denies behavioral changes, Denies confusion, Denies dizziness, Denies frequent falls, Denies loss of vision, Denies numbness and Denies weakness Psychiatric Psychiatric: Denies anxiety, Denies behavioral changes, Denies confusion, Denies depression, Denies homicidal ideation and Denies suicidal ideation Endocrine Endocrine: Denies fatigue, Denies flushing and Denies palpitations Hematologic/Lymphatic Hematologic/Lymphatic: Denies easy bruising Allergic/Immunologic Allergic/Immunologic: Denies urticaria, Denies throat swelling and Denies wheezing Patient History Medical History (Updated 03/27/20 @ 09:58 by Tomas Donaldson DO) Acute metabolic encephalopathy (09/16/17) Arthralgia Chronic back pain Degenerative disc disease, cervical Degenerative disc disease, lumbar Depression with anxiety Fibromyalgia GERD (gastroesophageal reflux disease) Neck infection (06/2017) Osteoarthritis Restless leg syndrome Rheumatoid arthritis Sepsis (09/16/17) Surgical History (Updated 03/24/20 @ 08:18 by Shena Leung RN) History of arthroplasty of left knee (09/18/19) History of kidney surgery (2018) History of lumbar fusion Hx of cholecystectomy Hx of hernia repair (~2012) Status post cervical spinal fusion Tubal ligation status Social History household members: spouse Smoking Status: Former smoker alcohol intake: current substance use type: marijuana Smoking Status: Former smoker alcohol intake frequency: holidays/special occasions only Substance Use Type: former substance user and marijuana Exam Narrative Exam Narrative: GEN: AOx3 and in mild distress EYES: Pupils are equal, round, and reactive to light and accommodation. Extraoccular muscles are intact bilaterally. There is no subconjunctival hemorrhage or exudate. CHEST: Lungs are clear to auscultation bilaterally and free of wheezes, rales, or rhonchi. Heart rate is regular rhythm, there are no murmurs, clicks, rubs, or gallops. There is no chest wall tenderness. ABD: Abdomen is soft and nontender. There is no guarding or rebound. Bowel sounds are normal in all 4 quadrants. There is no mass or organomegaly. EXT: Mild effusion, no redness or warmth. Decreased ROM due to pain. SKIN: Warm, pink, and dry. No erythema or rash Initial Vital Signs Initial Vital Signs: Vital Signs Temperature 98.3 F 03/27/20 09:09 Pulse Rate 106 H 03/27/20 09:09 Respiratory Rate 18 03/27/20 09:09 Blood Pressure 154/82 H 03/27/20 09:09 Pulse Oximetry 99 03/27/20 09:09 Course Course Course Narrative: lengthy discussion with patient and friend about the use of her dilaudid. I called the dispensing pharmacy who state she had Dilaudid 8mg #84 dispensed on 03/20 which should last 3 weeks. She quickly understood that I could not refill medications and she said she would go home to find some missing pills. Furthermore, her exam is not consistent with an effusion that I'd expect to successfully tap. She's been given return precautions and has had questions answered to her apparent satisfaction Vital Signs Vital signs: Vital Signs - 8 hr 03/27/20 10:03 Pulse Rate 90 Respiratory Rate 14 Blood Pressure 128/72 Pulse Oximetry 99 Discharge Plan Departure Patient Disposition: Home Clinical Impression: Chronic pain of left knee Instructions: DI for Knee Pain Activity Restrictions/Additional Instructions: *You have been diagnosed with [acute on chronic left knee pain. Possible infectious process] *What to do: *Take medications as directed: Continue taking the antibiotics as prescribed. As we discussed you should have enough Dilaudid 8 mg tablets to carry through Sunday *Return to ER if you should have any new, worsening or concerning symptoms Prescriptions: No Action trazodone 50 mg tablet 100 mg PO BEDTIME RF: 0 pramipexole 0.25 mg tablet 0.25 mg PO BID RF: 0 diclofenac sodium 1 % gel 1 applic Topical DIRECTED RF: 0 tizanidine 2 mg Capsule 2 mg PO Q6-8H PRN (Reason: Muscle spasms) RF: 0 hydromorphone 4 mg Tablet 4 mg PO Q4H PRN (Reason: Pain, Severe (7-10)) Qty: 60 RF: 0 ondansetron 8 mg tablet,disintegrating 8 mg PO Q12H RF: 0 micafungin [Mycamine] 100 mg Recon Soln 100 mg IV Q24H Qty: 9 RF: 0 rifampin 300 mg Capsule 600 mg PO DAILY Qty: 20 RF: 0 levofloxacin 750 mg tablet 750 mg PO DAILY Qty: 10 RF: 0 hydromorphone [Dilaudid] 4 mg tablet 4 mg PO Q4H PRN (Reason: pain) Qty: 84 RF: 0 Referrals: Ruth Arora ARNP [Primary Care Provider] -
[2020-03-27 09:09] VITALS: BP 154/82; PULSE 106; RESP 18; TEMP 36.8; O2SAT 99
[2020-03-27 09:33] VITALS: PULSE 99
[2020-03-27 09:35] VITALS: PULSE 90; RESP 18; O2SAT 99
[2020-03-27 10:03] VITALS: BP 128/72; PULSE 90; RESP 14; O2SAT 99
== END 2020-03-27 10:04 | disposition home or self-care (01) ==
PROVIDERS: Emergency Provider Emergency Medicine; PCP Nurse Practitioner Family
DX: M25.562 Pain in left knee (principal)
CPT/HCPCS: 99281

== ENCOUNTER 2020-03-29 07:30 | Inpatient (IN) | payer MEDICARE, MEDICAID, SELFPAY ==
[2020-02-07 23:21] VITALS: BMI 28.3
[2020-03-24 08:05] VITALS: BMI 29.2
[2020-03-29] VITALS (17 sets, daily range): BP systolic 126–180; BP diastolic 59–124; PULSE 73–107; RESP 12–89; TEMP 36–37.1; O2SAT 17–98; BMI 29.2
--- NOTE | 2020-03-29 | DI.RAD.S_ITS ---
PROCEDURE: FL GUIDED PICC PLACEMENT INDICATIONS: Infection and inflammatory reaction COMPARISON: None. FINDINGS: PICC was placed by the intravenous therapy team from the left side. Fluoroscopic spot film demonstrates the tip of PICC projecting to the area of SVC right atrial junction. IMPRESSION: Tip of PICC projects to the area of SVC/right atrial junction. Dictated by: Hussein Kenyon M.D. on 03/29/2020 at 10:52 Approved by: Hussein Kenyon M.D. on 03/29/2020 at 10:52
--- NOTE | 2020-03-29 11:10 | DI.RAD.S_ITS ---
PROCEDURE: XR KNEE LT 1TO2V INDICATIONS: Post op knee implant removal, cement spacer TECHNIQUE: 2 views of the knee acquired. COMPARISON: [facility], CR, XR KNEE LT 3V, 11/12/2019, 19:29. FINDINGS: Bones: Patient is status post removal of the previously seen left total knee arthroplasty and placement of a methylmethacrylate spacer. Overall bony alignment is maintained. A few tiny metallic fragments are seen projecting over the medial femoral condyle. Soft tissues: Overlying postoperative changes and skin ashanti are noted. IMPRESSION: Status post removal of left total knee arthroplasty with methylmethacrylate spacer. Dictated by: Harry Styles M.D. on 03/29/2020 at 17:03 Approved by: Harry Styles M.D. on 03/29/2020 at 17:05
[2020-03-29] MEDS: LACTATED RINGERS 1,000 ML 42 ML IV ×2 (11:17→16:36)
--- NOTE | 2020-03-29 11:26 | SUR.PREOP ---
Spoke with Dr. Yang regarding patient's pain level and desire for pain medication. She takes dilaudid at home and states that her last dose was at 5 am. will consult with her.
--- NOTE | 2020-03-29 11:29 | SUR.PREOP ---
Dr. Yang ordered PO med; handoff to Charly Johnston RN to manage.
[2020-03-29] MEDS: HYDROMORPHONE 4 MG TABLET 8 MG PO (11:42)
[2020-03-29] MEDS: CELECOXIB 200 MG CAPSULE PO (13:38)
[2020-03-29] MEDS: ACETAMINOPHEN 325 MG TABLET 975 MG PO (13:38)
[2020-03-29] MEDS: PREGABALIN 75 MG CAPSULE PO (13:39)
--- NOTE | 2020-03-29 13:39 | SUR.PREOP ---
States that her pain is down to a 6/10. She is not longer moaning, grimacing, or acting uncomfortable. She is sitting up in the bed playing a game on her phone.
--- NOTE | 2020-03-29 13:59 | PM.PREOP ---
Pre-operative Note COVID-19 COVID-19 status: Negative Result date/Date tested (Pos, Neg/Pending): 03/27/20 Interval Note History & Physical reviewed/Exam performed by Physician: Yes Changes to H&P: No
[2020-03-29] MEDS: CEFAZOLIN 2 GM/100 ML FROZ.PIGGY IV ×2 (14:13→22:14)
[2020-03-29] MEDS: TRANEXAMIC ACID 1,000 MG VIAL 1000 MG INJ (14:30)
--- NOTE | 2020-03-29 14:45 | SUR.OPER ---
Addendum entered by Kadie Tran R.N. 03/29/20 16:38: At 1630, Per Slava Candelario, PAC, amy wrap to be loosened in a couple hours around 1830. CEDRIC Shepherd in PACU aware. Original Note: Supine on padded OR bed, head on pillow, arms secured on padded arm boards at <90 degrees abduction, legs uncrossed, safety belt at thigh, tape over blanket over right lower leg. Left leg sterile draped, in [place] positioner.
[2020-03-29] MEDS: TRANEXAMIC ACID 1,000 MG VIAL 1000 MG IV (16:01)
--- NOTE | 2020-03-29 16:31 | P.OP_ITS ---
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 She did well for 2-3 months but then developed the acute onset of drainage. This was irrigated and a poly exchange performed with extensive debridement. She underwent IV antibiotic treatment for an extended period of time and was then transition to oral suppression. Despite this she has shown continued signs of swelling of the knee and an aspiration last week showed methicillin-susceptible Staph aureus. She has agreed to stage revision after discussion of the risks benefits and alternatives. Risks discussed included but were not limited to: Failure to clear the infection, recurrent stiffness, recurrent pain, nerve damage, deep venous thrombosis, pulmonary embolism, stroke, myocardial infarction, permanent paralysis and . Surgeon: Vasyl Cesar Head Of Business Development: Slava Candelario Click Yes if Unassisted: No Anesthesia Type: General Operative Notes Findings: Gross purulence in a pocket above the lateral aspect of the femoral side and softness in the tibia with what appeared like a sinus tract into the medial tibial plateau. Closure Type: primary Specimen(s): other (Cultures were sent.) Prosthetic devices, grafts, tissues, transplants, or devices: A COPAL exchange G knee spacer was placed. Applied: implant(s) Estimated Blood Loss (mL): 100 Blood products transfused: none Tourniquet time (min): 84 Procedure in detail: The patient was seen in the preoperative area where she identified her left knee as the operative site and this was marked with my initials. She received her preoperative antibiotics. She was taken to the operating room placed on the operating room table where she underwent a general anesthetic. After general anesthesia a tourniquet was placed about her proximal left thigh. The patient received 1 g of tranexamic acid at the initiation of the procedure and a 2nd when the tourniquet was deflated. Left leg was prepared from the toes the tourniquet ChloraPrep in the usual fashion draped through sterile drapes. The leg was elevated and exsanguinated with an Esmarch bandage and the tourniquet inflated to 250 mm of mercury. Pre-existing scar was excised and the knee was entered through a medial parapatellar arthrotomy. All prior sutures were removed. The immediately encountered joint fluid was cultured. I then used the cautery to reestablish a suprapatellar pouch and medial and lateral and lateral gutters. During the establishement of the lateral gutter, we encountered a pocket of purulent fluid which was evacuated and cultured. Using a combination of oscillating saw and osteotomes, the prosthetics were removed. The underlying bone cement was removed. The patella was removed using an oscillating saw and a drill to remove the lugs. All cement residue that was visible was removed. The knee was then irrigated with a liter of Bactisure solution followed by a liter of pulsatile lavage saline. The medium size trials for the cement spacers were used. This was the best available fit. Gentamicin containing bone cement was then prepared and the bone cement spacers were implanted. After curing of the bone cement, the wound was irrigated another time with pulsatile lavage. The tourniquet was deflated for total tourniquet time of 84 minutes. Hemostasis was obtained with electrocautery. Wound was closed with interrupted #1 Ethibond sutures in the capsular layer followed by 3- 0 Vicryl in the subcutaneous layer followed by ashanti and Dermabond for skin. A Evelina dressing was then applied. The patient's leg was placed in a knee immobilizer. She was taken to recovery room in good condition having tolerated the procedure well. Complications: none Post-operative Condition: stable Disposition: PACU Plan for aftercare: The patient will be maintained in the hospital likely for approximately 3 days until cultures and sensitivities are available. She will then be discharged on home IV antibiotics. Her infectious disease physician is at [facility] and he will be apprised of the outcome of the culture results.
[2020-03-29] MEDS: fentaNYL 100 MCG/2 ML INJ IV ×2 (16:39→17:10)
[2020-03-29] MEDS: ONDANSETRON 4 MG/2 ML INJ IV ×2 (16:40→19:48)
[2020-03-29] MEDS: HYDROMORPHONE 2 MG INJ IV ×3 (16:41→17:10)
[2020-03-29] MEDS: LORazepam 2 MG/ML INJ 0.5 MG IV ×2 (16:42→16:51)
[2020-03-29] MEDS: HYDROMORPHONE 2 MG TABLET 10 MG PO (16:59)
--- NOTE | 2020-03-29 17:27 | SUR.PHASEI ---
Advised patient that no more pain medication would be administered while in PACU due to the large amount of medication already provided. Patient has had 6 of Dilaudid IV, 10 mg of PO dilaudid, 200 mg of Fentanyl; 1.0 mg of IV Ativan.
--- NOTE | 2020-03-29 17:40 | SUR.PHASEI ---
Notified Anesthesiology of BP of 176/114 and HR of 104. Patient has been consistently hypertensive and slightly tachycardic since arrival to PACU. Patient rates knee pain 6/10 now after multiple doses of narcotic pain medication. Awaiting orders from anesthesiology.
--- NOTE | 2020-03-29 17:44 | SUR.PHASEI ---
Received orders from Anesthesiologist for Labetalol 10 mg IV.
[2020-03-29] MEDS: LABETALOL 20 MG/4 ML SYRINGE 10 MG IV (17:47)
--- NOTE | 2020-03-29 18:39 | SUR.PHASEI ---
Transferred patient to floor in stable condition with all belongings. GCS 15. VSS. Report given to CEDRIC Olea
--- NOTE | 2020-03-29 19:09 | PC.ADMIT ---
[email or web address] Admission Note: The patient,Jessica Miramontes,55 y/o, was given written information regarding hospital policies, unit procedures and contact persons. Patient's smoking status: Former smoker. Vital Signs - 8 hr 03/29/20 11:45 03/29/20 16:29 03/29/20 16:34 Temperature 98.8 F 97.2 F L Pulse Rate 73 99 H 106 H Respiratory Rate 18 16 20 Blood Pressure 152/94 H 146/97 H 162/109 H Pulse Oximetry 95 97 94 03/29/20 16:39 03/29/20 16:49 03/29/20 16:59 Temperature Pulse Rate 107 H 101 H 102 H Respiratory Rate 20 16 89 H Blood Pressure 180/122 H 177/124 H 177/112 H Pulse Oximetry 94 94 17 L 03/29/20 17:14 03/29/20 17:30 03/29/20 17:47 Temperature Pulse Rate 101 H 106 H 103 H Respiratory Rate 12 13 Blood Pressure 157/105 H 170/102 H 172/116 H Pulse Oximetry 98 97 03/29/20 17:52 03/29/20 17:57 03/29/20 18:29 Temperature 98.1 F 98.1 F Pulse Rate 79 77 78 Respiratory Rate 14 12 16 Blood Pressure 140/90 151/86 H 132/59 L Pulse Oximetry 98 97 96 Pt arrived from PACU on stretcher, recieved from float RN. Pt solmulent with incoherent speech. Reoriented pt to room, call system and plan of care. L knee wrapped with amy wrap and brace. JAREN dressing has green OK flashing light. Continuous pulse ox on. Pt has 94%O2 at 2L NC. Bed alarm set, call light within reach.
[2020-03-29] MEDS: IBUPROFEN 400 MG TABLET PO (19:46)
[2020-03-29] MEDS: LACTATED RINGERS 1,000 ML 100 ML IV (19:47)
[2020-03-29] MEDS: ACETAMINOPHEN 325 MG TABLET 650 MG PO (20:40)
[2020-03-29] MEDS: DOCUSATE 100 MG CAPSULE PO (20:40)
[2020-03-29] MEDS: TRAZODONE 100 MG TABLET PO (20:40)
[2020-03-29] MEDS: HYDROMORPHONE 4 MG TABLET 10 MG PO (20:40)
[2020-03-29] MEDS: ASPIRIN EC 81 MG TABLET PO (20:40)
[2020-03-29] MEDS: PRAMIPEXOLE 0.25 MG TABLET PO (21:00)
[2020-03-29] MEDS: INFLUENZA VACCINE 0.5 ML SYRINGE IM (22:14)
[2020-03-30] MEDS: TIZANIDINE 4 MG TABLET 2 MG PO ×3 (00:24→18:56)
[2020-03-30] MEDS: IBUPROFEN 400 MG TABLET PO ×6 (00:25→21:36)
[2020-03-30 00:30] VITALS: BP 111/72; PULSE 86; RESP 18; TEMP 36.2; O2SAT 95
[2020-03-30] MEDS: HYDROMORPHONE 4 MG TABLET 10 MG PO ×6 (03:21→21:35)
[2020-03-30 03:50] VITALS: BP 120/84; PULSE 76; RESP 18; TEMP 36.6; O2SAT 99
[2020-03-30] MEDS: CEFAZOLIN 2 GM/100 ML FROZ.PIGGY IV (05:49)
[2020-03-30] MEDS: ONDANSETRON 4 MG ODT 8 MG PO (06:29)
[2020-03-30] MEDS: levoFLOXacin 250 MG TABLET 750 MG PO (06:29)
[2020-03-30 06:51] LABS: Hematocrit 25.6 % (36-46); Hemoglobin 8.3 g/dL (12.0-16.0)
[2020-03-30] MEDS: HYDROMORPHONE 0.5 MG INJ 0.2 MG IV ×3 (06:57→23:59)
--- NOTE | 2020-03-30 07:47 | PM.PNPO.1 ---
Subjective Subjective Date Patient Seen: 03/30/20 Time Patient Seen: 07:47 Interval history: POD #1 s/p removal of left total knee arthroplasty and placement of antibiotic spacer with Dr. Cesar. Patient in significant pain this morning and very tearful. Exam Vital Signs (past 8 hours): - 03/30/20 00:30 03/30/20 03:50 Temperature 97.2 F L 97.9 F Pulse Rate 86 76 Respiratory Rate 18 18 Blood Pressure 111/72 120/84 Pulse Oximetry 95 99 Oxygen Delivery Method Nasal Cannula Oxygen Flow Rate 0 Narrative Exam Narrative: Patient lying in bed. Left knee immobilizer in place and well fitting. JAREN dressing CDI and functioning. [place] wrap in place. Calves are soft, compressible, and nontender. SCD in place on right calf none on left leg. DP pulses symmetrical. Objective Labs Result Diagrams: 03/30/20 06:38 03/30/20 08:15 Labs: Laboratory Results - last 24 hr 03/30/20 06:38 Hgb 8.3 L Hct 25.6 L PFSH Medical History Acute metabolic encephalopathy (09/16/17) Arthralgia Chronic back pain Degenerative disc disease, cervical Degenerative disc disease, lumbar Depression with anxiety Fibromyalgia GERD (gastroesophageal reflux disease) Neck infection (06/2017) Osteoarthritis Restless leg syndrome Rheumatoid arthritis Sepsis (09/16/17) Surgical History History of arthroplasty of left knee (09/18/19) History of kidney surgery (2018) History of lumbar fusion Hx of cholecystectomy Hx of hernia repair (~2012) Status post cervical spinal fusion Tubal ligation status Social History household members: spouse Smoking Status: Former smoker alcohol intake: current substance use type: marijuana Assessment & Plan Post-op Postoperative Procedures: Procedures Operation Date: 03/29/20 13:15 Actual Procedures Side Surgeon p excision, prosthesis, knee, total, w. antibiotic spacer insertion Left Vasyl Cesar MD Patient will mobilize with PT today. Will place a foot/ankle SCD on left side. CMP ordered and reviewed. Patient has been on chronic pain medication. She can start IV toradol 15 mg Q6HRs for 4 doses. Given that she is taking IV dilaudid around 3 hours after PO dilaudid dose, will change PO dilaudid 10 mg to every 3 hours instead of every 4 hours. Vistaril changed to 50 mg. ASA 81 mg BID for VTE prophylaxis. Waiting for culture results. Anticipate her being here for 3 days. Quality VTE Deep Vein Thrombosis/Pulmonary Embolism Present on Admission: No
[2020-03-30 08:00] VITALS: BP 108/59; PULSE 70; RESP 18; TEMP 36.4; O2SAT 97
[2020-03-30] MEDS: ASCORBIC ACID 500 MG TABLET PO ×2 (08:16→21:35)
[2020-03-30] MEDS: hydrOXYzine pamoate 25 MG CAPSULE PO (08:16)
[2020-03-30] MEDS: ACETAMINOPHEN 325 MG TABLET 650 MG PO ×3 (08:16→21:35)
[2020-03-30] MEDS: ASPIRIN EC 81 MG TABLET PO ×2 (08:16→21:36)
[2020-03-30] MEDS: DOCUSATE 100 MG CAPSULE PO ×2 (08:16→21:35)
[2020-03-30] MEDS: PRAMIPEXOLE 0.25 MG TABLET PO ×2 (08:17→21:00)
[2020-03-30 08:35] LABS: Alanine Aminotransferase 103 IU/L (<35); Albumin 3.2 g/dL (3.5-5.0); Albumin Globulin Ratio 0.9 (1.0-2.8); Alkaline Phosphatase 286 U/L (38-126); Aspartate Aminotransferase 130 IU/L (14-36); Bilirubin Total 0.3 mg/dL (0.2-1.3); Blood Urea Nitrogen 21 mg/dL (7-17); Calcium 8.4 mg/dL (8.4-10.2); Carbon Dioxide 31 mmol/L (22-32); Chloride 105 mmol/L (98-107); Estimated Glomerular Filt Rate > 60.0 mL/min (>60); Globulin 3.6 g/dL (1.7-4.1); Glucose 125 mg/dL (70-100); HEMOLYSIS < 15 (0-50); Sodium 138 mmol/L (137-145); Total Protein 6.8 g/dL (6.3-8.2)
[2020-03-30] MEDS: KETOROLAC 30 MG/ML VIAL 15 MG IV ×2 (08:58→18:56)
--- NOTE | 2020-03-30 09:38 | PT.IIE ---
Current Diagnoses Infection and inflammatory reaction due to internal left knee prosthesis, subsequent encounter (03/29/20) Surgery Performed Operation Date: 03/29/20 13:15 Actual Procedures p excision, prosthesis, knee, total, w. antibiotic spacer insertion(Left) - Vasyl Cesar MD Surgical History (Last Updated 03/24/20 @ 08:18 by Shena Leung RN) History of arthroplasty of left knee (09/18/19) History of kidney surgery (2018) History of lumbar fusion Hx of cholecystectomy Hx of hernia repair (~2012) Status post cervical spinal fusion Tubal ligation status Medical History (Last Reviewed 02/08/20 @ 03:26 by Dianne Carroll PULMONARY FUNCTION TECHNOLOGIST-) Acute metabolic encephalopathy (09/16/17) Arthralgia Chronic back pain Degenerative disc disease, cervical Degenerative disc disease, lumbar Depression with anxiety Fibromyalgia GERD (gastroesophageal reflux disease) Neck infection (06/2017) Osteoarthritis Restless leg syndrome Rheumatoid arthritis Sepsis (09/16/17) Physical Therapy Inpatient Evaluation/Re-Eval M1 PT/OT-IP Prior Functional Status Start: 03/30/20 10:57 Freq: NEEDED Status: Active Protocol: Document 03/30/20 09:38 AB (Rec: 03/30/20 11:08 AB [email or web address]) Medical Review Prior Functional Status Medical History Reviewed Yes Communication able to make needs known Mobility and Gait pt stated that she is modified independent with all mobilities and ambulation using FWW and occasionally SPC Social History Household Members spouse Living Arrangements Apartment/Condo Number of Floors (Floors) One Floor Number of Stairs To Enter/Railing? no steps to tner Home Environment Standard Height Toilet,Tub/ Shower Home Equipment Front Wheel Walker,Straight Cane,Manual Wheelchair,Shower Seat with Backrest,Hospital Bed,Grab Bars In Shower Additional Social History Comment has a caregiver that comes in but only assists with house chores per pt M2 PT-IP Current Condition Start: 03/30/20 10:57 Freq: NEEDED Status: Active Protocol: Document 03/30/20 09:38 AB (Rec: 03/30/20 11:08 AB [email or web address]) Physical Therapy Current Condition Current Condition Evaluation Date 03/30/20 Treatment Diagnosis L TKA removal/replacement of spacer; difficulty in walking Onset Date 03/29/20 Precautions Brace L knee immobilizer Other Precautions per ortho doctor's note: can do ROM in bed Weight Bearing Status Weight Bearing Status Weight Bear as Tolerated Allowed Weight Bearing Amount (enter % WBAT with L knee immobilizer or #) (%) M3 PT-IP Subjective Start: 03/30/20 10:57 Freq: NEEDED Status: Active Protocol: Document 03/30/20 09:38 AB (Rec: 03/30/20 11:08 AB [email or web address]) Subjective Physical Therapy Visit Type Type Initial Evaluation Visit Start Time 09:38 Visit Stop Time 09:55 Total Visit Minutes 17 Number of BIOFUELS ENGINEERING MANAGER Visits 0 Physical Therapy Visit Comments Patient Comments initially refusing but agreed afterwards Therapy Pain Assessment Pain When Pain Assessed At Rest Pain Present Pain Present Pain Reported Location Left Knee Intensity 7 Scale Used Numeric (0 - 10) Pain Management Techniques Modification of Treatment,Re- positioning,Timing of Activity with Medications M4 PT-IP Mobility and Gait Start: 03/30/20 10:57 Freq: NEEDED Status: Active Protocol: Document 03/30/20 09:38 AB (Rec: 03/30/20 11:08 [email or web address]) PT-Bed Mobility Assessment Supine to Sit Supine to Sit Standby Assistance,Head of Bed Elevated Sit to Supine Sit to Supine Standby Assistance,Head of Bed Elevated PT-Transfer Assessment Sit to and From Stand Sit to and from Stand Standby Assistance Equipment Transfer Assistive Device Front Wheeled Walker Orthotic/Prosthetic Devices or Brace: Yes Comments Mobility Comments completed supine to sit with HOB elevated SBA. ambulated in room using FWW SBA 30 ft + 40 ft. refused to sit up on chair. completed sit to supine SBA. educated on ROM. pt was able to manage knee immobilizer mod I. Gait Assessment Gait Gait Assistance Required: Standby Assistance Distance (Feet) 40 Able to Maintain Weight Bearing Status Yes During Gait Assistive Devices Assistive Device Front Wheeled Walker Orthotic/Prosthetic Devices or Brace: Yes Gait Deviations General Gait Pattern Antalgic,Decreased Stride Length,Decreased Feet Clearance Factors Limiting Gait Function Factors Limiting Gait Function Decreased Activity Tolerance, Decreased Strength,Limited Range of Motion,Pain,Poor Balance,Poor Safety Awareness PT-Balance Assessment Sitting Balance and Reactions Static Sitting Balance Ability Normal Dynamic Sitting Balance Ability Normal Standing Balance and Reactions Static Standing Balance Ability Good Dynamic Standing Balance Ability Fair Device Used FWW M5 PT-IP Objective Assessments Start: 01/05/21 10:57 Freq: NEEDED Status: Active Protocol: Document 03/30/20 09:38 AB (Rec: 03/30/20 11:08 AB [email or web address]) Orientation Orientation/Cognition Level of Alertness Alert Orientation Place,Situation Language Function Ability No Deficits Noted Safety Awareness Decreased Safety Awareness Gross Range of Motion Lower Extremity ROM Assessment Left Impaired Impairments L knee pain inhibiting movement Strength Lower Extremity Strength Assessment Left Impaired Hip 3-/5 Muscle Tone Muscle Tone WNL Yes M6 PT-IP Treatment Start: 03/30/20 10:57 Freq: NEEDED Status: Active Protocol: Document 03/30/20 09:38 AB (Rec: 03/30/20 11:08 AB [email or web address]) Physical Therapy Treatment Education Education Provided Precautions,Weight Bearing Status,Safety M7 PT-IP Assessment and Plan Start: 03/30/20 10:57 Freq: NEEDED Status: Active Protocol: Document 03/30/20 09:38 AB (Rec: 03/30/20 11:08 AB [email or web address]) PT Summary Assessment and Plan Potential Rehabilitation Potential Good Status of Condition at Evaluation Evolving Summary Impairments Pain,ROM,Strength,Balance, Sensation,Cognition,Bed Mobility,Transfers,Gait, Activity Tolerance Assessment Summary pt requiring SBA with mobility using FWW. pt directs her own care and required encouragement to participate. pt plans to go home with her spouse to assist her. pt may go home when medically stable. Goals Bed Mobility Goal Independent Transfer Goal Independent,Front Wheeled Walker Gait Goal Independent,Front Wheel Walker Gait Distance 150 Days to Meet Goals 5 Frequency of Treatment Frequency Of Treatment Once a Day Treatment Plan Physical Therapy Treatment Plan Bed Mobility Training,Transfer Training,Gait Training, Therapeutic Exercise,Balance Retraining,Post Op Education, Discharge Planning,Hot or Cold Pack,Neuromuscular Re-ed Recommendations To Nursing Amount of Assist Needed Standby Assistance Discharge Recommendations PT Discharge Recommendations Home with Assistance,Home Health,Outpatient PT Transportation Needs at Discharge Private Vehicle
[2020-03-30 12:30] VITALS: BP 118/64; PULSE 70; RESP 18; TEMP 36.6; O2SAT 98
[2020-03-30] MEDS: hydrOXYzine pamoate 25 MG CAPSULE 50 MG PO ×2 (13:24→21:36)
[2020-03-30 16:00] VITALS: BP 107/63; PULSE 80; RESP 16; TEMP 36.5; O2SAT 96
[2020-03-30 19:50] VITALS: BP 130/56; PULSE 96; RESP 16; TEMP 36.4; O2SAT 96
[2020-03-30] MEDS: TRAZODONE 100 MG TABLET PO (21:36)
[2020-03-31] VITALS: BP 105/58; PULSE 89; RESP 16; TEMP 36.8; O2SAT 93
[2020-03-31] MEDS: IBUPROFEN 400 MG TABLET PO ×6 (00:52→21:55)
[2020-03-31] MEDS: HYDROMORPHONE 4 MG TABLET 10 MG PO ×8 (01:01→23:46)
[2020-03-31] MEDS: KETOROLAC 30 MG/ML VIAL 15 MG IV ×2 (02:29→12:36)
[2020-03-31] MEDS: hydrOXYzine pamoate 25 MG CAPSULE 50 MG PO ×3 (03:45→16:16)
[2020-03-31 04:00] VITALS: BP 94/57; PULSE 82; RESP 16; TEMP 37; O2SAT 96
--- NOTE | 2020-03-31 06:49 | PM.PNPO.1 ---
Subjective Subjective Date Patient Seen: 03/31/20 Time Patient Seen: 06:49 Interval history: The patient reports she is the most comfortable she has been in 6 months. She reports that when she walks she hears constant clicking in her knee. She requests that we interact with her pain management team for outpatient treatment. She reports she has not seen care management while in the hospital. Exam Vital Signs (past 8 hours): - 03/31/20 00:00 03/31/20 04:00 Temperature 98.3 F 98.6 F Pulse Rate 89 82 Respiratory Rate 16 16 Blood Pressure 105/58 L 94/57 L Pulse Oximetry 93 96 Oxygen Delivery Method Room Air Oxygen Flow Rate 0 Narrative Exam Narrative: Left knee wound is dressed with no drainage on the bandage. Calf is soft. Light touch and motion are intact left lower extremity. Objective Labs Result Diagrams: 03/30/20 06:38 03/30/20 08:15 Labs: Laboratory Results - last 24 hr 03/30/20 03/30/20 06:38 08:15 Hgb 8.3 L Hct 25.6 L Sodium 138 Potassium 4.0 Chloride 105 Carbon Dioxide 31 BUN 21 H Creatinine 0.75 Estimated GFR > 60.0 BUN/Creatinine Ratio 28.0 H Glucose 125 H Calcium 8.4 Total Bilirubin 0.3 AST 130 H ALT 103 H Alkaline Phosphatase 286 H Total Protein 6.8 Albumin 3.2 L Globulin 3.6 Albumin/Globulin Ratio 0.9 L Microbiology results show Staph aureus. Sensitivity results are pending. Outpatient aspiration showed a pansensitive Staphylococcus aureus. [facility] Medical History Acute metabolic encephalopathy (09/16/17) Arthralgia Chronic back pain Degenerative disc disease, cervical Degenerative disc disease, lumbar Depression with anxiety Fibromyalgia GERD (gastroesophageal reflux disease) Neck infection (06/2017) Osteoarthritis Restless leg syndrome Rheumatoid arthritis Sepsis (09/16/17) Surgical History History of arthroplasty of left knee (09/18/19) History of kidney surgery (2018) History of lumbar fusion Hx of cholecystectomy Hx of hernia repair (~2012) Status post cervical spinal fusion Tubal ligation status Social History household members: spouse Smoking Status: Former smoker alcohol intake: current substance use type: marijuana Assessment & Plan Post-op Postoperative Procedures: Procedures Operation Date: 03/29/20 13:15 Actual Procedures Side Surgeon p excision, prosthesis, knee, total, w. antibiotic spacer insertion Left Vasyl Cesar MD Postoperative day: 2 Postoperative status: doing well and anemia Postoperative status narrative: The patient is stable 2 days out from her excision of her left total knee and placement of a cement spacer. She has a moderate post hemorrhagic anemia which is stable. Culture results appear to be confirming her outpatient aspiration of Staphylococcus aureus infection. Postoperative plan: routine post-op care and ambulate Postoperative plan narrative: We will prepare for outpatient IV therapy with Ancef in addition to her Levaquin. I will be contacting her pain management physician today to coordinate pain control out of the hospital and I will coordinate with her infectious disease physician regarding antibiotic choice. Her post hemorrhagic anemia he does not require immediate treatment. I anticipate that she will be ready for discharge tomorrow after we have final sensitivity results. Time Spent With Patient Time with patient: less than 15 minutes Quality VTE Deep Vein Thrombosis/Pulmonary Embolism Present on Admission: No
[2020-03-31] MEDS: levoFLOXacin 250 MG TABLET 750 MG PO (07:36)
[2020-03-31 08:00] VITALS: BP 106/65; PULSE 82; RESP 16; TEMP 36.6; O2SAT 96
[2020-03-31] MEDS: ASPIRIN EC 81 MG TABLET PO ×2 (09:06→21:55)
[2020-03-31] MEDS: ACETAMINOPHEN 325 MG TABLET 650 MG PO ×3 (09:07→21:56)
[2020-03-31] MEDS: ASCORBIC ACID 500 MG TABLET PO ×2 (09:07→21:56)
[2020-03-31] MEDS: PRAMIPEXOLE 0.25 MG TABLET PO ×2 (09:12→21:55)
[2020-03-31] MEDS: SODIUM CHLORIDE 0.9% FLUSH 10 ML IV ×2 (09:13→21:53)
[2020-03-31] MEDS: HYDROMORPHONE 0.5 MG INJ 0.2 MG IV ×2 (09:13→16:17)
--- NOTE | 2020-03-31 11:30 | PT.IPTN ---
Current Diagnoses Infection and inflammatory reaction due to internal left knee prosthesis, subsequent encounter (03/29/20) Surgery Performed Operation Date: 03/29/20 13:15 Actual Procedures p excision, prosthesis, knee, total, w. antibiotic spacer insertion(Left) - Vasyl Cesar MD Physical Therapy Treatment Note M2 PT-IP Current Condition Start: 03/30/20 10:57 Freq: NEEDED Status: Active Protocol: Document 03/30/20 09:38 AB (Rec: 03/30/20 11:08 AB [id number]) Physical Therapy Current Condition Current Condition Evaluation Date 03/30/20 Treatment Diagnosis L TKA removal/replacement of spacer; difficulty in walking Onset Date 03/29/20 Precautions Brace L knee immobilizer Other Precautions per ortho doctor's note: can do ROM in bed Weight Bearing Status Weight Bearing Status Weight Bear as Tolerated Allowed Weight Bearing Amount (enter % WBAT with L knee immobilizer or #) (%) M3 PT-IP Subjective Start: 03/30/20 10:57 Freq: NEEDED Status: Active Protocol: Document 03/31/20 11:14 SP (Rec: 03/31/20 12:01 SP [id number]) Subjective Physical Therapy Visit Type Type Treatment Note Visit Start Time 11:14 Visit Stop Time 11:30 Total Visit Minutes 16 Number of ESTHETICIAN PERMANENT MAKEUP ARTIST Visits 1 Physical Therapy Visit Comments Patient Comments Pt willing to work with therapy. Therapy Pain Assessment Pain When Pain Assessed During Mobility Pain Present Pain Present Pain Reported Location Left Knee Intensity 6 Scale Used Numeric (0 - 10) Description Aching,Sharp Pain Management Techniques Modification of Treatment,Re- positioning,Timing of Activity with Medications M4 PT-IP Mobility and Gait Start: 03/30/20 10:57 Freq: NEEDED Status: Active Protocol: Document 03/31/20 11:14 SP (Rec: 03/31/20 12:01 SP [id number]) PT-Bed Mobility Assessment Supine to Sit Supine to Sit Standby Assistance,Head of Bed Elevated Sit to Supine Sit to Supine Standby Assistance,Head of Bed Elevated Scooting Scooting to Edge of Bed Standby Assistance Scooting Up and Down in Bed Standby Assistance PT-Transfer Assessment Sit to and From Stand Sit to and from Stand Standby Assistance,Use of Upper Extremities Equipment Transfer Assistive Device Front Wheeled Walker Orthotic/Prosthetic Devices or Brace: Yes Transfers Transfer Destination Bed Transfer Technique pt ambulated using fWW Transfer Ability Level of Assist Standby Assistance,Use of Upper Extremities Comments Mobility Comments Pt was elevated sitting in bed with knee immobilizer donned LLE. Elevated supine<> sitting , scoot to EOB and scoot up in bed using BUE assist with LLE repositioning and RLE. Sit<> stand using BUE and FWW. Pt willing to walk around room x1 lap approx 30 ft before returining to bed, approx the distance needed from car to sit in home step to gait patterning with moderate BUE WB on FWW WBAT, stable. Pt was elevated supine in bed, able to doff LLE immobilizer and use BUE to assist L knee flexion, Min support for uncontact foot with nonskid sock donned to allow ease of movement x5 reps, quad sets 3 sec hold x5, glut sets 5 sec x5 reps, ankle pumps x10. Educated importance of mobility for ROM and strength allowed and good knowledge of donning LLE immobilizer with movement activity. Pt stated has assist for showers at home . Pt is ok to return home with assist when medically stable. Pt was elevated sitting in bed with call light and all needs in reach, friend in room when left. Gait Assessment Gait Gait Assistance Required: Standby Assistance Distance (Feet) 40 Able to Maintain Weight Bearing Status Yes During Gait Assistive Devices Assistive Device Front Wheeled Walker Orthotic/Prosthetic Devices or Brace: Yes Gait Deviations General Gait Pattern Antalgic,Decreased Stride Length,Decreased Feet Clearance,Step-to Gait Factors Limiting Gait Function Factors Limiting Gait Function Decreased Activity Tolerance, Decreased Strength,Limited Range of Motion,Pain,Poor Balance Comments Gait Comments See mobility comments for details. Stair Climbing Assessment Comments Stair Climbing Comments Not need to assess due to no stairs at home. PT-Balance Assessment Sitting Balance and Reactions Static Sitting Balance Ability Normal Dynamic Sitting Balance Ability Normal Standing Balance and Reactions Static Standing Balance Ability Good Dynamic Standing Balance Ability Fair Device Used FWW M5 PT-IP Objective Assessments Start: 03/30/20 10:57 Freq: NEEDED Status: Active Protocol: Document 03/30/20 09:38 AB (Rec: 03/30/20 11:08 AB [id number]) Orientation Orientation/Cognition Level of Alertness Alert Orientation Place,Situation Language Function Ability No Deficits Noted Safety Awareness Decreased Safety Awareness Gross Range of Motion Lower Extremity ROM Assessment Left Impaired Impairments L knee pain inhibiting movement Strength Lower Extremity Strength Assessment Left Impaired Hip 3-/5 Muscle Tone Muscle Tone WNL Yes M6 PT-IP Treatment Start: 03/30/20 10:57 Freq: NEEDED Status: Active Protocol: Document 03/31/20 11:14 SP (Rec: 03/31/20 12:01 SP [id number]) Physical Therapy Treatment Exercises Exercises Ankle Pumps,Gluteal Sets,Quad Sets,Heel Slides Knee ROM Measurement L knee approx 5- 70 deg Education Education Provided Precautions,Weight Bearing Status,Post-Op Packet,Safety Brace Education Donning,[place],Patient M7 PT-IP Assessment and Plan Start: 03/30/20 10:57 Freq: NEEDED Status: Active Protocol: Document 03/31/20 11:14 SP (Rec: 03/31/20 12:01 SP [id number]) PT Summary Assessment and Plan Potential Rehabilitation Potential Good Status of Condition at Evaluation Evolving Summary Impairments Pain,ROM,Strength,Balance, Sensation,Cognition,Bed Mobility,Transfers,Gait, Activity Tolerance Progress Towards Goals Progressing Toward Goals,Slow Progress due to Pain,Slow Progress due to Activity Tolerance Assessment Summary pt requiring SBA with mobility using FWW. pt directs her own care and requires occasional encouragement to participate. pt plans to go home with her spouse to assist her. pt may go home when medically cleared . Pt has outpt therapy set up. Goals Bed Mobility Goal Independent Transfer Goal Independent,Front Wheeled Walker Gait Goal Independent,Front Wheel Walker Gait Distance 150 Days to Meet Goals 5 Frequency of Treatment Frequency Of Treatment Once a Day Treatment Plan Physical Therapy Treatment Plan Bed Mobility Training,Transfer Training,Gait Training, Therapeutic Exercise,Balance Retraining,Post Op Education, Discharge Planning,Hot or Cold Pack,Neuromuscular Re-ed Recommendations To Nursing Amount of Assist Needed Standby Assistance Discharge Recommendations PT Discharge Recommendations Home with Assistance,Home Health,Outpatient PT Transportation Needs at Discharge Private Vehicle
[2020-03-31 13:22] VITALS: BP 110/68; PULSE 80; RESP 17; TEMP 36.6; O2SAT 97
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
[2020-03-31 15:20] VITALS: BP 119/57; PULSE 70; RESP 18; TEMP 36.1; O2SAT 96
[2020-03-31] MEDS: CEFAZOLIN 2 GM/100 ML FROZ.PIGGY IV ×2 (15:56→23:43)
--- NOTE | 2020-03-31 16:22 | PC.NURSE ---
Addendum entered by Ingrid Sweeney R.N. 03/31/20 22:53: Pt has been awake working on painting projects most of shift with LLE supported in bed. Requests pain meds (po dilaudid) every 3 hours and rates pain consistently to left knee 6/10. Has been provided with ice packs this evening shift. Addendum entered by Ingrid Sweeney R.N. 03/31/20 17:47: Pt rates left knee pain 6.5/10. Requests narcotic meds when available. Is very specific about meds requested. Original Note: Pt in bed drowsy, but rousable to voice. Has LLE up on bed and c/o pain 7/10 to left knee. Requests any and all meds that are available including iv dilaudid to manage pain. Pt was given iv dilaudid and po vistaril to manage pain. States pain is achey and sharp. JAREN drain/dressing in place to left knee. Calf scd in place to right calf. Pt admits to sensation to left LE with palpable pedal pulse. Pittiing edema 2+ and ice applied to left knee. Will continue to monitor and treat for c/o pain. [place] wrap to left knee snugly rewrapped.
[2020-03-31] MEDS: ONDANSETRON 4 MG ODT 8 MG PO (18:54)
[2020-03-31 19:50] VITALS: BP 98/56; PULSE 81; RESP 18; TEMP 36.3; O2SAT 96
[2020-03-31] MEDS: TRAZODONE 100 MG TABLET PO (21:55)
[2020-03-31] MEDS: SODIUM CHLORIDE 0.9% 250 ML 21 ML IV (23:42)
--- NOTE | 2020-04-01 00:19 | PC.NURSE ---
Patient is alert and oriented. Breath sounds CTA with RA sat of 97%. HRR. Denies nausea. BT present and abdomen is soft; reports having had BM yesterday. Denies dysuria, frequency or urgency with urination. Moving self in bed and is getting up to bathroom with walker independently; wears immobilizer to left LE when out of bed. JAREN dressing functioning and intact with small area of red drainage at upper end; wrapped with amy. 1+ edema in left leg/foot. Complains of 7/10 throbbing/stabbing pain and was medicated with po Dilaudid and ice packs applied. Refusing to wear SCD's at this time so reminded to ankle wave. CMS is intact but patient is unable to lift leg off bed. Scabbed abrasion on left outer breast with surrounding redness noted. Fall risk score is moderate but patient is steady on feet and refuses to have alarm activated. Discussed importance of calling for help when getting up if feeling weak, unsteady or dizzy and patient verbalizes understanding.
[2020-04-01 00:30] VITALS: BP 115/67; PULSE 83; RESP 18; TEMP 36.5; O2SAT 97
[2020-04-01] MEDS: IBUPROFEN 400 MG TABLET PO ×4 (01:12→13:19)
[2020-04-01] MEDS: HYDROMORPHONE 4 MG TABLET 10 MG PO ×4 (03:24→13:19)
[2020-04-01 04:00] VITALS: BP 115/65; PULSE 79; RESP 18; TEMP 36.5; O2SAT 100
[2020-04-01] MEDS: hydrOXYzine pamoate 25 MG CAPSULE 50 MG PO (05:57)
[2020-04-01] MEDS: HYDROMORPHONE 0.5 MG INJ 0.2 MG IV ×3 (06:00→14:40)
[2020-04-01] MEDS: CEFAZOLIN 2 GM/100 ML FROZ.PIGGY IV ×2 (06:30→13:19)
[2020-04-01] MEDS: SODIUM CHLORIDE 0.9% FLUSH 10 ML IV ×2 (06:31→09:15)
[2020-04-01] MEDS: levoFLOXacin 250 MG TABLET 750 MG PO (06:31)
[2020-04-01] MEDS: ONDANSETRON 4 MG ODT 8 MG PO (06:31)
--- NOTE | 2020-04-01 06:41 | PM.DS.1 ---
History of Present Illness History of Present Illness Date Patient Seen: 04/01/20 Time Patient Seen: 06:41 Chief complaint: IP Narrative: The history and physical is contained in the chart in a previously completed note. Please refer to that note for this information. Discharge Providers Provider Date of admission: 03/29/20 07:30 Discharge Date: 04/01/20 Primary care physician: GISELA Cash Consults: 03/29/20 18:48 Consult to Discharge Planning Routine Comment: Consult to Physical Therapy Evaluate & Treat Comment: Physician Instructions: WBAT in knee immob, can do ROM in bed 03/31/20 06:47 Consult to Discharge Planning Routine Comment: Home IV with Ancef for 6 weeks, has PICC in place Discharge provider: Vasyl Cesar MD Summary Hospital Course Discharge Diagnosis: 1. Infected left total knee replacement 2. Post hemorrhagic anemia Hospital Course: Patient was admitted to the hospital and had a PICC line placed. She was then taken to the operating room where she underwent a left knee prosthetic excision, extensive debridement and placement of a cement spacer. She was maintained in the hospital on Levaquin and intravenous Ancef. Her postoperative course was remarkably stable. Cultures returned pansensitive Staphylococcus aureus. Pain was controlled on high doses of Dilaudid. The patient is managed by pain clinic as an outpatient due to her high narcotic requirements. She was felt to be stable for discharge on home IV therapy on postoperative day 3. Exam Vital Signs (past 8 hours): - 04/01/20 00:30 04/01/20 04:00 Temperature 97.7 F 97.7 F Pulse Rate 83 79 Respiratory Rate 18 18 Blood Pressure 115/67 115/65 Pulse Oximetry 97 100 Oxygen Delivery Method Room Air Oxygen Flow Rate 0 Objective Labs Result Diagrams: 03/30/20 06:38 03/30/20 08:15 [facility] Medical History Acute metabolic encephalopathy (09/16/17) Arthralgia Chronic back pain Degenerative disc disease, cervical Degenerative disc disease, lumbar Depression with anxiety Fibromyalgia GERD (gastroesophageal reflux disease) Neck infection (06/2017) Osteoarthritis Restless leg syndrome Rheumatoid arthritis Sepsis (09/16/17) Surgical History History of arthroplasty of left knee (09/18/19) History of kidney surgery (2019) History of lumbar fusion Hx of cholecystectomy Hx of hernia repair (~2012) Status post cervical spinal fusion Tubal ligation status Social History household members: spouse Smoking Status: Former smoker alcohol intake: current substance use type: marijuana Discharge Assessment & Plan Assessment and Plan Assessment: Stable postoperative day 3 status post excision of infected knee arthroplasty on the left. She will be discharged to home on IV Ancef as well as oral Levaquin. We will arrange follow-up for her through her outpatient infectious disease consultation at [facility]. She will be discharged on Dilaudid 10 mg every 4 hours as needed for pain control as well as Vistaril. This will be managed eventually by the pain clinic. She does have a post hemorrhagic anemia which does not require active treatment. Plan of Treatment: Plan given above. Discharge today with follow-up in 2 weeks. Discharge Plan Discharge Plan Patient Disposition: Home Discharge orders & Medications Prescriptions: New acetaminophen 325 mg Tablet 650 mg PO TID 30 Days Qty: 180 RF: 0 aspirin 81 mg Tablet,Delayed Release (Dr/Ec) 81 mg PO BID 42 Days Qty: 84 RF: 0 hydromorphone 4 mg Tablet 10 mg PO Q4H PRN (Reason: Pain, Severe (7-10)) Qty: 60 RF: 0 hydroxyzine pamoate 25 mg Capsule 50 mg PO Q6HR PRN (Reason: Nausea) Qty: 40 RF: 0 cefazolin in dextrose (iso-os) 2 gram/100 mL Piggyback 2 gm IV Q8H 42 Days RF: 0 Continued trazodone 50 mg tablet 100 mg PO BEDTIME RF: 0 pramipexole 0.25 mg tablet 0.25 mg PO BID RF: 0 diclofenac sodium 1 % gel 1 applic Topical DIRECTED RF: 0 tizanidine 2 mg Capsule 2 mg PO Q6-8H PRN (Reason: Muscle spasms) RF: 0 ondansetron 8 mg tablet,disintegrating 8 mg PO Q12H RF: 0 levofloxacin 750 mg tablet 750 mg PO DAILY Qty: 10 RF: 0 Discontinued hydromorphone [Dilaudid] 4 mg tablet 8 mg PO Q4H PRN (Reason: pain) RF: 0 Follow up/Referrals: Ruth Arora ARNP [Primary Care Provider] - Vasyl Cesar MD [Physician] - 2 Weeks Discharge Health Status Multidrug resistant organism: No MDRO Diet/Activity/Treatments Diet: Diet as Tolerated and Regular Activity: You may bear weight as tolerated on your left leg in the knee immobilizer. Remove the knee immobilizer several times a day to work on range of motion. Cold/Heat Therapy: You may apply ice to the left knee for 15 minutes every hour as needed for pain control. Skin/Wound/Dressing Care Report to your healthcare provider any signs of infection, such as:: chills, fever, night sweats, increased pain, unusual drainage and unusual redness Dressing: You may shower with the dressing in place. Leave the dressing in place until postoperative follow-up. If the central strip of the dressing becomes saturated with either water or blood, please call the office to have it changed. Visit Report/Discharge Packet Instructions: DI for Knee Replacement, DI for Prescription Opioid Use Stand Alone Forms: Surgery Discharge Discharge Data Primary Care Provider: Ruth Arora Quality VTE Deep Vein Thrombosis/Pulmonary Embolism Present on Admission: No
[2020-04-01 07:45] VITALS: BP 119/67; PULSE 81; RESP 17; TEMP 37.1; O2SAT 98
[2020-04-01] MEDS: ASPIRIN EC 81 MG TABLET PO (09:15)
[2020-04-01] MEDS: PRAMIPEXOLE 0.25 MG TABLET PO (09:15)
[2020-04-01] MEDS: ACETAMINOPHEN 325 MG TABLET 650 MG PO (09:15)
[2020-04-01] MEDS: ASCORBIC ACID 500 MG TABLET PO (09:15)
[2020-04-01] MEDS: rifAMPin 300 MG CAPSULE 600 MG PO (09:21)
--- NOTE | 2020-04-01 10:14 | PT-IP ANOTE ---
Attempted to see patient at 10:14 AM, patient refused PT today stating she has no further needs before returning home and is waiting for pain meds. Offers that she has outpatient therapy scheduled already.
--- NOTE | 2020-04-01 11:28 | CM.DPNOTE ---
Faxed Face to Face, FS, orders, H&P & DC Summary to [facility]ung on 04/01/20. Received fax confirmation. Jeana Butler CM Asst.
--- NOTE | 2020-04-01 12:48 | CM.DPNOTE ---
DC Note Dr Cesar has DC order in place and patient has planned to return home w/ [facility] and [facility] RN to assist w/ PICC dressing changes. According to Dr Cesar' note: Stable postoperative day 3 status post excision of infected knee arthroplasty on the left. She will be discharged to home on IV Ancef as well as oral Levaquin*. We will arrange follow-up for her through her outpatient infectious disease consultation at [facility]. She will be discharged on Dilaudid 10 mg every 4 hours as needed for pain control as well as Vistaril. This will be managed eventually by the pain clinic. She does have a post hemorrhagic anemia which does not require active treatment. * Patient now being DC on IV Ancef and po Rifampin Updated Isaac/[facility] and they have coordinated w/ Dr Cesar and w/patient today. Their team will will meet patient here at before her departure, home w/her (via pov). No further clinical needed according to Isaac, he has access to chart notes and DC orders. TC placed to [place] at [facility], patient had been DC from services so new order/referral needed. Faxed the completed and signed F2F and order w/clinical information to [facility], request for RN. CEDRIC Solis shares that Dr Cesar' has placed an order to have [facility] f/u w/ both he and Dr Syed at [facility], faxed this information to [facility], [facility] aware Plan: DC home to [place] w/spouse via pov, continued SETH morris, [facility] to provide pharmacy for IV abx, [facility] to provide nursing assist JW
--- NOTE | 2020-04-01 14:55 | PC.NURSE ---
Pt is dressed and ready for discharge. Knee dressing change to aquacell as ordered. PICC dsg changed. IV abx infused at 1400. Pt met with [facility] in her room and is all set up. Home Health has been ordered for Pt. Went over d/c instructions with Pt and Spouse-discussed d/c meds, time of last dose, reviewed s/s of infection and stroke education. Pt to call for follow up appointments. Pt reminded not to drive while taking narcotics and to drink plenty of fluids to prevent constipation or dehydration. Pt out via w/c by PROTECTION OFFICER to POV with Spouse and all belongings.
== END 2020-04-01 14:59 | disposition home or self-care (01) | DRG 467 ==
PROVIDERS: Physician Assistant Surgical; Admitting Provider Orthopaedic Surgery; PCP Nurse Practitioner Family; Referring Provider Orthopaedic Surgery; Visit Provider Orthopaedic Surgery
PROC: 0SRD0JZ Replacement of Left Knee Joint with Synthetic Substitute, Open Approach (ICD-10-PCS; CPT 27447; principal; 2020-03-29 13:15)
DX: T84.54XA Infection and inflammatory reaction due to internal left knee prosthesis, initial encounter (principal); M00.862 Arthritis due to other bacteria, left knee; D62 Acute posthemorrhagic anemia; Z20.822 Contact with and (suspected) exposure to COVID-19; M79.7 Fibromyalgia; G25.81 Restless legs syndrome; Z87.891 Personal history of nicotine dependence; M06.9 Rheumatoid arthritis, unspecified; B95.61 Methicillin susceptible Staphylococcus aureus infection as the cause of diseases classified elsewhere
CPT/HCPCS: 36573; 36592; 73560; 80053; 85014; 85018; 87070; 87075; 87077; 87147; 87186; 87205; 87635; 90471; 90656; 94760; 97110; 97161; 99281; C1776; C9803; C9290; J0690; J1170; J1885; J2060; J2250; J2405; J2704; J3010; Q2038

== ENCOUNTER → 2020-07-10 11:45 | Outpatient (CLI) | payer MEDICARE, MEDICAID, SELFPAY ==
[2020-03-29 18:48] VITALS: BMI 29.2
[2020-07-10 13:32] LABS: COVID19 -Nasal RAPID Negative (Negative)
== END ==
PROVIDERS: PCP Nurse Practitioner Family; Visit Provider Physician Assistant
DX: Z20.822 Contact with and (suspected) exposure to COVID-19 (principal)
CPT/HCPCS: 87635; C9803

== ENCOUNTER 2020-07-12 11:32 | Observation (INO) | payer MEDICARE, MEDICAID, SELFPAY ==
[2020-03-29 18:48] VITALS: BMI 29.2
[2020-07-12] VITALS (19 sets, daily range): BP systolic 117–186; BP diastolic 62–105; PULSE 77–98; RESP 13–33; TEMP 36.1–36.9; O2SAT 84–98; BMI 29.2
--- NOTE | 2020-07-12 11:53 | DI.RAD.S_ITS ---
PROCEDURE: XR KNEE LT 1TO2V INDICATIONS: LEFT KNEE REVISION TECHNIQUE: 2 view(s) of the knee acquired. COMPARISON: [facility], CR, XR KNEE LT 1TO2V, 03/29/2020, 16:46. [facility], CR, XR KNEE LT 3V, 11/12/2019, 19:29. FINDINGS: Bones: Patient is status post knee joint arthroplasty. Hardware components are in expected positions. Visualized bony structures are intact. Soft tissues: Overlying postoperative changes are noted. IMPRESSION: Revision left total knee arthroplasty. Normal alignment. Dictated by: Dorian Lee M.D. on 07/12/2020 at 16:22 Approved by: Dorian Lee M.D. on 07/12/2020 at 16:22
--- NOTE | 2020-07-12 12:06 | PM.PREOP ---
Pre-operative Note COVID-19 COVID-19 status: Negative Result date/Date tested (Pos, Neg/Pending): 07/10/20 Interval Note History & Physical reviewed/Exam performed by Physician: Yes Changes to H&P: No
[2020-07-12] MEDS: ACETAMINOPHEN 325 MG TABLET 975 MG PO (12:22)
[2020-07-12] MEDS: MELOXICAM 7.5 MG TABLET 15 MG PO (12:22)
[2020-07-12] MEDS: PREGABALIN 75 MG CAPSULE PO (12:23)
[2020-07-12] MEDS: LACTATED RINGERS 1,000 ML 42 ML IV ×2 (12:42→14:57)
--- NOTE | 2020-07-12 12:53 | SUR.PREOP ---
Pt falls asleep easily when care not given, state she did not sleep well last night. Dr. Trey haney. Cherelle called for IV start after 2 unsuccessful attempts, IV obtained. Pt up to BR x 2. Left for OR in stable condition.
[2020-07-12] MEDS: CEFAZOLIN 2 GM/100 ML FROZ.PIGGY IV (13:13)
[2020-07-12] MEDS: TRANEXAMIC ACID 1,000 MG VIAL 1000 MG INJ ×2 (13:20→15:12)
--- NOTE | 2020-07-12 13:39 | SUR.OPER ---
Supine on padded OR bed. Pillow under head, arms secured on padded armboards <90 degree abduction. Safety belt across torso. Non-operative leg secured with tape over blanket over lower leg. Operative leg secured in DeMayo/Dom positioner. Foam padded brace at thigh of operative leg.
[2020-07-12] MEDS: BUPIVACAINE LIPOSOME 266 MG/20 ML VIAL INJ (13:55)
[2020-07-12] MEDS: BUPIVACAINE 0.25% W/ EPI 30 ML VIAL 60 ML INJ (13:55)
[2020-07-12] MEDS: SODIUM CHLORIDE IRRIG SOLUTION 250 ML, POVIDONE-IODINE SPONGE STICKS 1 APPLIC IRR (14:03)
--- NOTE | 2020-07-12 15:37 | P.OP_ITS ---
Operative Date/Time/Diagnoses Date of procedure: 07/12/20 Time of procedure: 15:37 Pre-op diagnosis: Status post excision of left total knee and placement of cement spacer. Post-op diagnosis: same Procedure & Clinicians Procedure: Excision of cement spacer and revision total knee, left knee Same procedure as scheduled: Yes Indications: Patient is undergone an excision arthroplasty due to infection of the left total knee replacement. She has a cement spacer of antibiotic cement in place. She now returns for the 2nd stage with removal of the cement spacer and placement of a revision total knee replacement. She has agreed to surgery after discussion the risks, benefits and alternatives. Risks discussed included but were not limited to: Failure to eradicate infection, stiffness, infection, nerve damage, deep venous thrombosis, pulmonary embolism, stroke, myocardial infarction, permanent paralysis, aspiration pneumonia and . Surgeon: Vasyl Cesar Flour Worker: Slava Candelario Click Yes if Unassisted: No Anesthesia Type: General, Spinal and Local Operative Notes Findings: No obvious infection. Moderate bone loss from excision of the prior total knee replacement and cement spacer. Closure Type: primary Specimen(s): other (Swab cultures of joint fluid and membrane from both the femur and tibia were sent for culture.) Prosthetic devices, grafts, tissues, transplants, or devices: Implants used in this procedure were manufactured by the [employer] and [employer] and included a Journey revision total knee replacement with a size size 3 left revision tibial base plate with a 12 mm x 160 mm Press-Fit stem, a 9 mm posterior stabilized cross-linked tibial insert, a size 4 left Oxinium femoral component with a 15 mm x 160 mm Press-Fit stem, and a size 4 5 mm distal and 5 mm posterior augment for both sides. In addition a 32 mm oval Guadalupe II patellar component was placed. Applied: implant(s) Estimated Blood Loss (mL): 100 Blood products transfused: none Tourniquet time (min): 92 Procedure in detail: The patient was seen in the pre-operative area, where the left knee was identified as the operative site and this was marked with my initials. The patient received pre-operative antibiotics, and was taken to the operating room and placed on the operative table in the supine position. After satisfactory anesthesia, a socket puller out was performed. The left leg was encircled with a tourniquet about the proximal thigh, and the leg was prepared from the toes to the tourniquet with ChloroPrep in the usual fashion and draped through sterile drapes. The leg was elevated and exsanguinated with Eschmark bandage and the tourniquet inflated to 250 mmHg pressure. The knee was approached through the prior scar which was excised. The knee was entered through a medial parapatellar arthrotomy. The sutures that were previously present were removed. The fluid in the joint did not appear to be purulence. This was cultured and sent to the lab. The cement spacers for the femur and tibia were loosened from the underlying bone with an osteotome and removed with a tamp. Membrane from under both the femur and tibia was taken and sent for culture. The knee was then soaked with dilute Betadine and irrigated. The intramedullary reamers for the tibia were used until a good fit was reached at 160 mm depth. A proximal tibial skim cut was then made. The Reamer for the proximal coupling was used. It did not appear that we needed to use a metaphyseal cone. The appropriate trial components were assembled and the tibial trial placed. We then turned our attention to the femur. The intramedullary canal was progressively reamed to a depth of 190 mm. The distal femoral cut was made in 6? of valgus. This was again a skim cut. The anterior, posterior and chamfer cuts were then made. As it was evident that we would not need an offset molybdenum steamer operator I increased the size of the Reamer to a depth of 160 mm. The trial femur was assembled. The patient had had a severe flexion contracture preoperatively. Rather than excessively elevate the joint line, I performed a posterior capsular release using a العلي elevator. With this we were able to gain full extension with a slightly additional cut on the femur taking about 2 mm more to make room for a 5 mm augment. These trials were assembled. The cent ral box was cut through the femoral trial. The knee was stable with a 9 mm trial tibial insert. We then turned our attention to the patella. A skim cut was made here and a 32 mm trial patella placed. There was excellent patellar tracking. A lateral release had been performed to allow the patella to be everted due to the thick scarred tissue. Range of motion was 0-135 degrees with excellent stability. The trials were then removed, and the knee again soaked with dilute Betadine. The bone was prepared with pulsatile lavage, and dried with a sponge. Cement was applied to the cut surfaces but not in the intramedullary canal and the final prosthetics placed. Excess cement was removed during and after cement curing. After confirming there was no extruded cement posteriorly, the final tibial insert was placed. During and after cement curing, a total of 60 mL 0.25% Marcaine with epinephrine mixed with 20 mL of Exparel was injected into the capsule and subcutaneous tissues for postoperative pain control. Prior to final irrigation the knee was once again irrigated with dilute Betadine. The knee was copiously irrigated and the tourniquet deflated. Hemostasis was obtained. The capsule was closed with interrupted # 2 polyester sutures. The subcutaneous layer was closed with 3-0 Vicryl, and the skin with a staple. A Evelina dressing was applied, the patient was placed in a knee immobilizer to maintain her extension range of motion, and the patient was taken to recovery having tolerated the procedure well. Complications: none Post-operative Condition: stable Disposition: PACU Plan for aftercare: The patient will be maintained on a standard total knee protocol however she will wear the knee immobilizer when she is in bed or at rest to maintain extension range of motion. She may be out of the knee immobilizer work on range of motion with physical therapy and walk. She will be in the hospital for several days due to her substantial narcotic pain medicine requirements. She will be discharged home when stable.
[2020-07-12] MEDS: HYDROMORPHONE 2 MG INJ IV ×2 (16:06→16:14)
[2020-07-12] MEDS: fentaNYL 100 MCG/2 ML INJ IV (16:14)
--- NOTE | 2020-07-12 16:55 | SUR.PHASEI ---
Pt with oxygen sats decreasing. Placed on simple mask at ten liters. Dr Bell and Dr Yang notified. Dr Bell requested hospitalist consulted Dr Antonio. mold shop supervisor notified of potential ICU bed need. Awaiting update from senior data warehouse architect Nancie.
--- NOTE | 2020-07-12 16:59 | SUR.PHASEI ---
DR Antonio at [facility] assess pt.
--- NOTE | 2020-07-12 17:26 | PM.HP.1 ---
History of Present Illness History of Present Illness Date Patient Seen: 07/12/20 Time Patient Seen: 17:03 Chief complaint: *OPB* Narrative: 55W with a past medial history of restless leg, fibromyalgia and complicated ortho history which includes left total knee replacement 08/2019 who then developed infection 12/2019. She was taken for irrigation in debridement and poly exchange in 12/2019, placed on IV antibiotics through PICC. She then had removal of left knee with placement of antibiotic space in 03/2020. She was found to have MSSA and completed her antibiotic course. She returned to the OR for conversion to a revision total knee replacement. Of note patient has high opiate usage, and is managed by a pain clinic. She takes dilaudid 6mg q4hr prn for pain. She takes no other pain medications. She underwent surgery with no complications in the OR. Afterwards for her pain she was given 2mg IV dilaudid and 50mcg IV fentanyl. She then became altered and hypoxemic with desaturations to 80s requiring 10L simple mask. Dr. Cesar, orthopedic surgeon, requested close monitoring for this decompensation. Per report she has been either altered from pain medications, or abusive to staff complaining of uncontrolled pain When I saw the patient she was in the PACU and beginning to wake up. She was being transitioned to nasal cannula oxygen. She had received IV pain medications approximately 40 minutes earlier. Now she was again complaining of uncontrolled pain which she described as 8/10 in her left knee. She was requesting oral and IV dilaudid. She denies any respiratory complaints currently. No fevers/chills, sob, cough. Per surgeon, there was no concern for aspiration during surgery. She is also requesting continuining her home medications. She is admitted for further treatment. Patient History Medical History Acute metabolic encephalopathy (09/16/17) Arthralgia Arthritis Chronic back pain Degenerative disc disease, cervical Degenerative disc disease, lumbar Depression with anxiety Fibromyalgia Former smoker GERD (gastroesophageal reflux disease) History of meningitis Neck infection (06/2017) Osteoarthritis Restless leg syndrome Rheumatoid arthritis Sepsis (09/16/17) Surgical History History of arthroplasty of left knee (09/18/19) History of incision and drainage (~03/2020) History of kidney surgery (2019) History of lumbar fusion Hx of cholecystectomy Hx of hernia repair (~2012) Status post cervical spinal fusion Tubal ligation status Family & Social History Social History: household members spouse Tobacco & Substance use: Tobacco type cigarettes Smoking Status Former smoker alcohol intake current alcohol intake frequency holiday/special occasion Substance Use Type former substance user,marijuana,opiates, painkillers Meds Home Medications and Allergies Home Medications Medication Instructions Recorded Confirmed Type diclofenac sodium 1 applic TOPICAL DIRECTED 10/03/17 07/12/20 History pramipexole 0.25 mg PO BID 10/03/17 07/12/20 History trazodone 100 mg PO BEDTIME 10/03/17 07/12/20 History tizanidine 2 mg PO Q6-8H PRN 05/28/19 07/12/20 History ondansetron 8 mg PO Q12H 02/09/20 07/12/20 History hydromorphone 10 mg PO Q4H PRN #60 tab 04/01/20 07/12/20 Rx Allergies Allergy/AdvReac Type Severity Reaction Status Date / Time bee venom protein (honey bee) Allergy Severe Hives Verified 03/29/20 11:55 morphine Allergy Severe Anaphylaxis Verified 03/29/20 11:55 Sulfa (Sulfonamide Allergy Severe Anaphylaxis Verified 03/29/20 11:55 Antibiotics) gabapentin AdvReac Severe Weight gain Verified 03/29/20 11:55 aspirin AdvReac Intermediate Abdominal Verified 03/29/20 11:55 Pain methadone AdvReac Intermediate Hallucinati Verified 03/29/20 11:55 ng Review of Systems Review of Systems Narrative: 14 systems reviewed and negative aside from what is noted in HPI Exam Vital Signs (past 8 hours): - 07/12/20 12:25 07/12/20 16:20 07/12/20 16:27 Temperature 98 F 97.9 F Pulse Rate 83 92 H 82 Respiratory Rate 20 20 18 Blood Pressure 117/68 134/99 H 161/88 H Pulse Oximetry 96 88 L 84 L 07/12/20 16:32 07/12/20 16:37 07/12/20 16:42 Temperature Pulse Rate 86 89 98 H Respiratory Rate 13 13 22 Blood Pressure 167/89 H 172/105 H 154/94 H Pulse Oximetry 92 91 96 07/12/20 16:53 04/19/21 17:02 07/12/20 17:08 Temperature 97.1 F L Pulse Rate 85 84 84 Respiratory Rate 13 18 18 Blood Pressure 174/73 H 152/82 H 143/75 H Pulse Oximetry 95 95 97 07/12/20 17:20 Temperature Pulse Rate 83 Respiratory Rate 20 Blood Pressure 155/62 H Pulse Oximetry 92 Oxygen Delivery Method Nasal Cannula Oxygen Flow Rate 3 Narrative Exam Narrative: GEN: mild distress from left knee pain HEENT: moist mucous membranes, no JVD, trachea midline CV: regular rate and rhythm with no murmurs PULM: clear bilaterally ABD: soft, nontender, nondistended, no organomegaly, normal bowel sounds EXT: left leg bandaged SKIN: no rashes noted NEURO: AAOx3 PSYCH: pleasant mood, significant focus on pain medication regimen Assessment & Plan Assessment & Plan narrative: Ms. Miramontes is a 55W with complicated ortho history who is POD #0 of excision of left knee and placement of spacer after previous infected prosthetic joint who is admitted for further monitoring due to hypoxemia in PACU in setting of opiate medications for pain control. 1. Acute respiratory failure -patient noted to be hypoxemic after surgery, in the setting of opiate narcotics -required a simple mask at 10L initially -now improving as she is waking up -no symptoms of infection, lungs are clear -will plan for close monitoring while titrating opiate regimen 2. s/p excision of left total knee and placement of cement spacer -went to OR with DR. Cesar 07/12 for above surgery -cultures pending -currently on antibiotics and course will be determined by culture result 3. Chronic pain with opiate dependence - previous concern by providers for drug seeking behavior -patient seen by pain clinic as outpatient -outpatient regimen per pt of dilaudid 6mg q4 prn -given surgery will likely need higher dosing -for now will increase dilaudid to 8mg q4-q6 prn for pain, with breakthrough pain of dilaudid 0.5mg prn -will possibly need higher doses, but will start at this dose for now given episode of hypoxemia and obtundation after higher doses 4. Restless leg syndrome -continue pramipexole DVT ppx: SCDs, IVF: LR DIET: advance per ortho Code staus: full, proxy is Eleonora statt COVID-19 COVID-19 status: Negative Result date/Date tested (Pos, Neg/Pending): 07/10/20 Time Spent With Patient Time with patient: 15-24 minutes Quality MIPS - Admit I confirm the patient?s Advance Care Plan is present, Code status is documented, Surrogate decision maker is in patient?s record [If Yes, STOP here]: Yes
[2020-07-12] MEDS: HYDROMORPHONE 2 MG TABLET 6 MG PO (17:30)
--- NOTE | 2020-07-12 17:48 | SUR.PHASEI ---
Pt transferred to 228. pt communicating easily. Laughing at times during transfer. No acute or respiratory distress reported or noted. RN Alejandra available at room upon arrival and introduced herself to pt. During interview communicated pain 8, but stated she received PO pain meds in PACU and they haven't had time to work yet. Personal items (suitcase and WC) available in room upon arrival.
[2020-07-12] MEDS: LACTATED RINGERS 1,000 ML 100 ML IV (18:10)
[2020-07-12] MEDS: HYDROMORPHONE 2 MG TABLET PO (18:38)
[2020-07-12] MEDS: HYDROMORPHONE 0.5 MG INJ IV ×2 (18:38→21:00)
[2020-07-12] MEDS: IBUPROFEN 400 MG TABLET PO (18:38)
[2020-07-12] MEDS: PRAMIPEXOLE 0.25 MG TABLET PO (18:52)
[2020-07-12] MEDS: CEFAZOLIN VIAL 3 GM in SODIUM CHLORIDE 0.9% 100 ML 200 ML IV (21:05)
[2020-07-12] MEDS: ASPIRIN EC 81 MG TABLET PO (21:05)
[2020-07-12] MEDS: DOCUSATE 100 MG CAPSULE PO (21:05)
[2020-07-12] MEDS: ACETAMINOPHEN 325 MG TABLET 650 MG PO (21:05)
[2020-07-12] MEDS: HYDROMORPHONE 4 MG TABLET 8 MG PO (22:03)
--- NOTE | 2020-07-12 22:33 | PC.NURSE ---
Admission Note: Pt arrives from PACU reporting L knee pain at 8/10, pain rapidly increased to 10/10 with pt moaning, crying, becoming diaphoretic and hypertensive. Discussed pain management strategy with MD and pt given additional 2 mg PO dilaudid (given 6 mg in PACU), 0.5 mg iv dilauaid, ibuprofen, knee iced and given pm pramipexole. Pt reported pain at 5/10 30 minutes after medical and nursing interventions. Pt arrives on 3 L NC from PACU, quickly weaned to RA with pt maintaining SPO2 mid 90s. Initially with ~5 second self-limiting desaturations to 85%, with pt recovering to mid 90s spontaneously. Pt has not had episodes of desaturation since ~ 1800. Pt arrives in SR, HR 70s-90. Initially with hypertension up to 180 systolic, pt now with SBP 140-160s. Denies chest pain. CMS intact. Denies nausea, good appetite. Hypoactive BTs. Passing flatus. Pt had difficulty initiating urine stream post-surgery, but was able to void adequate volume dark celeste urine. Pt remains on IVF and encouraged to hydrate PO. Pt was able to stand-pivot to commode almost independantly. Able to lift her own leg back into bed from being OOB. Safe mobility without cueing. Medications and unsafe pt belongings sent to pharmacy and coordinator for safe-keeping. Call light in reach. Bed alarm on and functioning. Will continue to monitor for safety and comfort. Notify MD with changes.
[2020-07-13] VITALS (8 sets, daily range): BP systolic 98–172; BP diastolic 51–89; PULSE 61–80; RESP 17–30; TEMP 35.9–36.6; O2SAT 96–100
[2020-07-13] MEDS: HYDROMORPHONE 0.5 MG INJ IV ×8 (00:34→21:34)
[2020-07-13] MEDS: HYDROMORPHONE 4 MG TABLET 8 MG PO ×7 (01:06→23:38)
[2020-07-13] MEDS: IBUPROFEN 400 MG TABLET PO ×6 (01:06→21:27)
[2020-07-13] MEDS: LACTATED RINGERS 1,000 ML 100 ML IV ×2 (03:33→14:43)
[2020-07-13] MEDS: CEFAZOLIN VIAL 3 GM in SODIUM CHLORIDE 0.9% 100 ML 200 ML IV (04:55)
[2020-07-13 05:37] LABS: Add Manual Diff / Slide Review NO; Basophils Absolute Auto 0 /uL (0-100); Basophils Percent Auto 0.3 % (0-2); Eosinophils Absolute Auto 0 /uL (0-450); Eosinophils Percent Auto 0.1 % (2-4); Lymphocytes Absolute Auto 500 /uL (1100-4500); Lymphocytes Percent Auto 15.1 % (25-40); Mean Corpuscular HGB Conc 32.6 % (30-36); Mean Corpuscular Hemoglobin 23.5 PG (26-34); Mean Corpuscular Volume 71.9 fL (80-100); Monocytes Absolute Auto 600 /uL (0-900); Monocytes Percent Auto 18.7 % (3-14); Neutrophils Absolute Auto 2200 /uL (1500-7000); Neutrophils Percent Auto 65.8 % (50-75); Platelet Count 98 X10^3/uL (150-400); Red Cell Distribution Width 18.8 % (11.6-14.8); White Blood Cell Count 3.3 X10^3/uL (4.5-11.0)
[2020-07-13 05:42] LABS: BUN Creatinine Ratio 40.8 (6-22); Blood Urea Nitrogen 31 mg/dL (7-17); Calcium 8.4 mg/dL (8.4-10.2); Carbon Dioxide 25 mmol/L (22-32); Chloride 105 mmol/L (98-107); Estimated Glomerular Filt Rate > 60.0 mL/min (>60); Glucose 145 mg/dL (70-100); HEMOLYSIS 17 (0-50); Potassium 4.5 mmol/L (3.4-5.1); Sodium 139 mmol/L (137-145)
[2020-07-13 06:18] LABS: Hematocrit 24.5 % (36-46)
--- NOTE | 2020-07-13 07:39 | P.PN_ITS ---
Subjective Subjective Date Patient Seen: 07/13/20 Time Patient Seen: 07:39 Interval history: The patient reports she has been reasonably comfortable. She says she is ?so over this? with respect to the knee revision. Exam Vital Signs (past 8 hours): - 07/13/20 02:58 Temperature 97.8 F Pulse Rate 75 Respiratory Rate 30 H Blood Pressure 113/69 Pulse Oximetry 96 Oxygen Delivery Method Room Air Oxygen Flow Rate 0 Narrative Exam Narrative: Left knee is in a knee immobilizer with no obvious drainage. Calf is soft. Light touch is intact throughout the left foot. Dorsiflexion and plantar flexion of the toes are intact. She has a 2+ dorsalis pedis pulse. Objective Labs Result Diagrams: 07/13/20 05:01 07/13/20 05:01 Labs: Laboratory Results - last 24 hr 07/12/20 07/13/20 07/13/20 20:06 05:01 05:01 WBC 3.3 L RBC 3.40 L Hgb 8.0 L Hct 24.5 L MCV 71.9 L MCH 23.5 L MCHC 32.6 RDW 18.8 H Plt Count 98 L Neut % (Auto) 65.8 Lymph % (Auto) 15.1 L [place] % (Auto) 18.7 H Eos % (Auto) 0.1 L Baso % (Auto) 0.3 Neut # (Auto) 2200 Lymph # (Auto) 500 L [place] # (Auto) 600 Eos # (Auto) 0 Baso # (Auto) 0 Sodium 139 Potassium 4.5 Chloride 105 Carbon Dioxide 25 BUN 31 H Creatinine 0.76 Estimated GFR > 60.0 BUN/Creatinine Ratio 40.8 H Glucose 145 H Calcium 8.4 Nasal Screen MRSA (PCR) Negative for mrsa [facility] Medical History Acute metabolic encephalopathy (09/16/17) Arthralgia Arthritis Chronic back pain Degenerative disc disease, cervical Degenerative disc disease, lumbar Depression with anxiety Fibromyalgia Former smoker GERD (gastroesophageal reflux disease) History of meningitis Neck infection (06/2017) Osteoarthritis Restless leg syndrome Rheumatoid arthritis Sepsis (09/16/17) Surgical History History of arthroplasty of left knee (09/18/19) History of incision and drainage (~03/2020) History of kidney surgery (2019) History of lumbar fusion Hx of cholecystectomy Hx of hernia repair (~2012) Status post cervical spinal fusion Tubal ligation status Social History household members: spouse Smoking Status: Former smoker alcohol intake: current substance use type: marijuana Assessment & Plan Post-op Postoperative Procedures: Procedures Operation Date: 07/12/20 12:45 Actual Procedures Side Surgeon p removal, spacer, knee, w. repeat total knee arthroplasty w. 2 seperate setups Left Vasyl Cesar MD Postoperative day: 1 Postoperative status: doing well and anemia Postoperative status narrative: She is stable postoperative day 1. She has a post hemorrhagic anemia, but is asymptomatic. Cultures are pending. She spent the night in the ICU due to desaturation. She does not appear to be having any issues with that this morning. She is still requiring IV medication for breakthrough pain. Postoperative plan: routine post-op care and ambulate Postoperative plan narrative: The patient is postoperative day 1 status post excision of an antibiotic spacer and revision left total knee replacement. She has a moderate post hemorrhagic anemia which we will follow tomorrow with another hemoglobin and hematocrit. She will get physical therapy. We will keep her in the knee immobilizer when she is in bed or chair to prevent her from developing the severe flexion contracture she had preoperatively. Discharge is likely either tomorrow or the following day provided she is on strictly oral medications. Time Spent With Patient Time with patient: less than 15 minutes
[2020-07-13] MEDS: TIZANIDINE 4 MG TABLET 2 MG PO ×2 (07:46→19:30)
[2020-07-13] MEDS: PRAMIPEXOLE 0.25 MG TABLET PO ×2 (09:17→21:27)
[2020-07-13] MEDS: ASPIRIN EC 81 MG TABLET PO ×2 (09:18→21:26)
[2020-07-13] MEDS: ACETAMINOPHEN 325 MG TABLET 650 MG PO ×3 (09:18→21:26)
--- NOTE | 2020-07-13 09:19 | PM.PN.1 ---
Subjective Subjective Date Patient Seen: 07/13/20 Time Patient Seen: 08:19 Interval history: No new concerns today. Doing well after the surgery. Her pain is moderately well controlled, but she says the dilaudid isn't lasting long enough Exam Vital Signs (past 8 hours): - 07/13/20 02:58 07/13/20 07:00 07/13/20 09:04 Temperature 97.8 F 97.7 F Pulse Rate 75 80 Respiratory Rate 30 H 20 Blood Pressure 113/69 151/73 H Pulse Oximetry 96 99 99 Oxygen Delivery Method Room Air Oxygen Flow Rate 0 Narrative Exam Narrative: GEN: no acute distress HEENT: moist mucous membranes, no JVD, trachea midline CV: regular rate and rhythm with no murmurs PULM: clear bilaterally ABD: soft, nontender, nondistended, no organomegaly, normal bowel sounds EXT: left leg immobilizer in place SKIN: no rashes noted NEURO: AAOx3 PSYCH: pleasant mood Objective Labs Result Diagrams: 07/13/20 05:01 07/13/20 05:01 Labs: Laboratory Results - last 24 hr 07/12/20 07/13/20 07/13/20 20:06 05:01 05:01 WBC 3.3 L RBC 3.40 L Hgb 8.0 L Hct 24.5 L MCV 71.9 L MCH 23.5 L MCHC 32.6 RDW 18.8 H Plt Count 98 L Neut % (Auto) 65.8 Lymph % (Auto) 15.1 L [place] % (Auto) 18.7 H Eos % (Auto) 0.1 L Baso % (Auto) 0.3 Neut # (Auto) 2200 Lymph # (Auto) 500 L [place] # (Auto) 600 Eos # (Auto) 0 Baso # (Auto) 0 Sodium 139 Potassium 4.5 Chloride 105 Carbon Dioxide 25 BUN 31 H Creatinine 0.76 Estimated GFR > 60.0 BUN/Creatinine Ratio 40.8 H Glucose 145 H Calcium 8.4 Nasal Screen MRSA (PCR) Negative for mrsa [facility] Medical History Acute metabolic encephalopathy (09/16/17) Arthralgia Arthritis Chronic back pain Degenerative disc disease, cervical Degenerative disc disease, lumbar Depression with anxiety Fibromyalgia Former smoker GERD (gastroesophageal reflux disease) History of meningitis Neck infection (06/2017) Osteoarthritis Restless leg syndrome Rheumatoid arthritis Sepsis (09/16/17) Surgical History History of arthroplasty of left knee (09/18/19) History of incision and drainage (~03/2020) History of kidney surgery (2019) History of lumbar fusion Hx of cholecystectomy Hx of hernia repair (~2012) Status post cervical spinal fusion Tubal ligation status Social History household members: spouse Smoking Status: Former smoker alcohol intake: current substance use type: marijuana Assessment & Plan Assessment & Plan narrative: Ms. Miramontes is a 55W with complicated ortho history who is POD #0 of excision of left knee and placement of spacer after previous infected prosthetic joint who is admitted for further monitoring due to hypoxemia in PACU in setting of opiate medications for pain control. 1. Acute respiratory failure, resolved -patient noted to be hypoxemic after surgery, in the setting of opiate narcotics -required a simple mask at 10L initially -now resolved with decreasing opiates -no symptoms of infection, lungs are clear -will plan for close monitoring while titrating opiate regimen 2. s/p excision of left total knee and placement of cement spacer -went to OR with DR. Cesar 07/12 for above surgery -cultures pending, but gram stain negative for organisms -antibiotic course will be determined by culture result 3. Chronic pain with opiate dependence - previous concern by providers for drug seeking behavior -patient seen by pain clinic as outpatient -outpatient regimen per pt of dilaudid 6mg q4 prn -given surgery will likely need higher dosing -for now will increase dilaudid to 8mg q3 prn for pain, with breakthrough pain of dilaudid 0.5mg prn -will possibly need higher doses, but will start at this dose for now given episode of hypoxemia and obtundation after higher doses 4. Restless leg syndrome -continue pramipexole DVT ppx: SCDs, IVF: LR DIET: advance per ortho Code staus: full, proxy is Eleonora statt Time Spent With Patient Time with patient: less than 15 minutes
--- NOTE | 2020-07-13 11:13 | PT.IIE ---
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 repeat total knee arthroplasty w. 2 seperate setups(Left) - Vasyl Cesar MD Surgical History (Last Reviewed 07/12/20 @ 17:34 by Driss Antonio MD) History of arthroplasty of left knee (09/18/19) History of incision and drainage (~03/2020) History of kidney surgery (2018) History of lumbar fusion Hx of cholecystectomy Hx of hernia repair (~2012) Status post cervical spinal fusion Tubal ligation status Medical History (Last Reviewed 07/12/20 @ 17:34 by Driss Antonio MD) Acute metabolic encephalopathy (09/16/17) Arthralgia Arthritis Chronic back pain Degenerative disc disease, cervical Degenerative disc disease, lumbar Depression with anxiety Fibromyalgia Former smoker GERD (gastroesophageal reflux disease) History of meningitis Neck infection (06/2017) Osteoarthritis Restless leg syndrome Rheumatoid arthritis Sepsis (09/16/17) Physical Therapy Inpatient Evaluation/Re-Eval M1 PT/OT-IP Prior Functional Status Start: 07/13/20 11:25 Freq: NEEDED Status: Active Protocol: Document 07/13/20 11:13 DLM (Rec: 07/13/20 11:46 DLM [id number]) Medical Review Prior Functional Status Medical History Reviewed Yes Diet/Fluid Consistency Regular Communication WNL Mobility and Gait has been using FWW or wheelchair since infection in left knee 12/2019 Activities of Daily Living and IADL's Independent with equipment Prior Functional Level (Other details) she does art/painting, she has her supplies in her hospital room Social History Household Members spouse Living Arrangements House Number of Floors (Floors) One Floor Number of Stairs To Enter/Railing? none Home Environment High Toilet Home Equipment Front Wheel Walker,Straight Cane,Manual Wheelchair,Bedside Commode,Shower Seat with Backrest,Grab Bars Near Toilet ,Grab Bars In Shower Employment Status Unemployed Additional Social History Comment disabled Her wheelchair is a transport chair and it is in her hospital room M2 PT-IP Current Condition Start: 07/13/20 11:25 Freq: NEEDED Status: Active Protocol: Document 07/13/20 11:13 DLM (Rec: 07/13/20 11:46 DL [id number]) Physical Therapy Current Condition Current Condition Evaluation Date 07/13/20 Treatment Diagnosis left TKA revision following infection, impaired ROM/ strength Onset Date 07/12/20 Precautions Brace knee immobilizer when at rest to promote knee extension, okay to be out of brace for gait and exercises Other Precautions knee flexion contracture before surgery, hx cervical and lumbar fusions, chronic pain issues Weight Bearing Status Weight Bearing Status Weight Bear as Tolerated M3 PT-IP Subjective Start: 07/13/20 11:25 Freq: NEEDED Status: Active Protocol: Document 07/13/20 11:13 DLM (Rec: 07/13/20 11:46 DL [id number]) Subjective Physical Therapy Visit Type Type Initial Evaluation Visit Start Time 10:30 Visit Stop Time 11:13 Total Visit Minutes 43 Number of RN HEDIS Visits 0 Physical Therapy Visit Comments Patient Comments She reports having all the equipment she needs at home, no concerns about going home at discharge Patient Goals discharge home Therapy Pain Assessment Pain When Pain Assessed During Mobility Pain Present Pain Present Pain Reported Location Left Knee Intensity 6 Scale Used Numeric (0 - 10) Description Aching Pain Behaviors Facial Grimacing Pain Management Techniques Apply Cold,Elevation,Timing of Activity with Medications M4 PT-IP Mobility and Gait Start: 07/13/20 11:25 Freq: NEEDED Status: Active Protocol: Document 07/13/20 11:13 DLM (Rec: 07/13/20 11:46 [facility] [id number]) PT-Bed Mobility Assessment Supine to Sit Supine to Sit Independent Sit to Supine Sit to Supine Independent Scooting Scooting to Edge of Bed Independent Scooting Up and Down in Bed Independent PT-Transfer Assessment Sit to and From Stand Sit to and from Stand Standby Assistance,Use of Upper Extremities Equipment Transfer Assistive Device Gait Belt,Front Wheeled Walker Transfers Transfer Destination Bed,Chair Transfer Technique Stand Step Pivot Transfer Ability Level of Assist Standby Assistance,Use of Upper Extremities Gait Assessment Gait Gait Assistance Required: Standby Assistance,1 Person Assist Distance (Feet) 150 Assistive Devices Assistive Device Gait Belt,Front Wheeled Walker Orthotic/Prosthetic Devices or Brace: No Gait Deviations General Gait Pattern Antalgic Factors Limiting Gait Function Factors Limiting Gait Function Decreased Activity Tolerance, Decreased Strength,Limited Range of Motion,Pain Comments Gait Comments pt prefered to ambulate without knee brace today, she gets short of breath and fatigued with gait but recovers well with seated rest break, No light-headedness and no nausea this visit Stair Climbing Assessment Comments Stair Climbing Comments pt reports having no steps at home PT-Balance Assessment Sitting Balance and Reactions Static Sitting Balance Ability Normal Dynamic Sitting Balance Ability Normal Standing Balance and Reactions Static Standing Balance Ability Good Dynamic Standing Balance Ability Good Device Used FWW M5 PT-IP Objective Assessments Start: 07/13/20 11:25 Freq: NEEDED Status: Active Protocol: Document 07/13/20 11:13 DL (Rec: 07/13/20 11:46 DL [id number]) Orientation Orientation/Cognition Level of Alertness Alert Orientation Name,Age,Birthday,Month,Date, Year,Day of Week,Place, Situation Language Function Ability No Deficits Noted Safety Awareness Understands Safety Issues Memory Description No Deficits Noted Comments mildly impulsive, she understands concerns about her knee extension ROM Gross Range of Motion Upper Extremity ROM Assessment Within Functional Limits Impairments cervical spine flexed, UE fatigue with using FWW Lower Extremity ROM Assessment Left Impaired Impairments left Knee ROM 20-85 degrees, painful Strength Upper Extremity Strength Assessment Within Functional Limits Lower Extremity Strength Assessment Left Impaired Hip needs assist to lift LE off bed Knee seated knee ext 2+/5 Ankle DF 4+/5 Comments Strength Comments crepitus left ankle with AROM, pt often externally rotates LE in bed leaving the knee in flexed position Coordination Assessment Gross Coordination Gross Coordination WNL Sensation Assessment Sensation Gross Sensation WNL Comments Sensation Comments no numbness/tingling reported at this time Muscle Tone Muscle Tone WNL Yes M6 PT-IP Treatment Start: 07/13/20 11:25 Freq: NEEDED Status: Active Protocol: Document 07/13/20 11:13 DL (Rec: 07/13/20 11:46 DL [id number]) Physical Therapy Treatment Exercises Exercises Ankle Pumps,Quad Sets,Heel Slides,Straight Leg Raises, Short Arc Quads,Passive Knee Extension Hang,Seated Knee Flexion/Extension Education Education Provided Weight Bearing Status,Post-Op Packet,Safety Other Treatments Other Treatment Performed educated pt in post-op recommendations for her knee brace and importance of positioning left LE in bed in straight position, pt has JAREN drain and ice inside her knee brace after activity M7 PT-IP Assessment and Plan Start: 07/13/20 11:25 Freq: NEEDED Status: Active Protocol: Document 07/13/20 11:13 DLM (Rec: 07/13/20 11:46 DLM [id number]) PT Summary Assessment and Plan Potential Rehabilitation Potential Good Status of Condition at Evaluation Evolving Summary Impairments Pain,ROM,Strength,Bed Mobility ,Transfers,Gait,Activity Tolerance Goals Bed Mobility Goal Independent Transfer Goal Independent,Front Wheeled Walker Gait Goal Independent,Front Wheel Walker Gait Distance 150 feet Other Goals demonstrate good understanding of knee HEP and wearing of knee immobilizer Days to Meet Goals 3 Frequency of Treatment Frequency Of Treatment Twice a Day Treatment Plan Physical Therapy Treatment Plan Bed Mobility Training,Transfer Training,Gait Training, Therapeutic Exercise,Post Op Education,Discharge Planning, Hot or Cold Pack Other Recommendations and Next Treatment education for use of knee Focus immobilizer post-op Recommendations To Nursing Amount of Assist Needed Standby Assistance Discharge Recommendations PT Discharge Recommendations Home with Assistance,Home Health Other Discharge Recommendations she reports having home health PT before this sx Transportation Needs at Discharge Private Vehicle
--- NOTE | 2020-07-13 13:39 | PC.NURSE ---
Shift Summary Uneventful shift. Patient POD 1 abx spacer removal on left knee. Surgeon rounded around 7am. Dressing dry, intact, no drainage. Ice packs present. Bilateral pedal pulses 2+. Patient frequently c/o pain to left knee, takes quite a few pain medications. Pt educated on different pain medications available and their scheduling (or PRN status). Patient worked with physical therapy, ambulating in the hallway with a walker, at 1030. Vital signs stable, patient alert and oriented/
--- NOTE | 2020-07-13 16:22 | CM.DANOTE ---
DCP ASSESSMENT: Patient is a 55 year-old female admitted to the hospital for infection and inflammatory reaction of left knee, staphlylococcal arthritis, left knee. PCP Dr. Zak Miramontes at [facility]. Primary payer Medicare and Medicaid. Therapy is recommending Home with Home Health. Patient reports she has she has utilized [facility] in the past. TRUCK SHOP MECHANIC and TRUCK SHOP MECHANIC student met with patient at bedside she was alert and oriented. Educated on role of social work in discharge planning. Patient has DME and adaptive equipment at home to help manage ADL's. Patient has wheelchair at hospital. Per patient Eleonora Allison is supportive in the home environment. Patient reports she has been on IV antibiotics in the past however, she does not believe she will need them at time of D/C. Patient expressed concerns about pain management. Patient does not have reliable transportation to return home from hospital Medicare transport will need to be set-up. PLAN: Anticipate D/C home possibly with [facility] for physical therapy, will check with orthopedics. CM Team to follow-up in am. Discharge Planning/Care Management CM Discharge Assessment Start: 07/13/20 16:14 Freq: Status: Active Protocol: Document 07/13/20 16:14 AL (Rec: 07/13/20 16:22 AL [id number]) Discharge Planning Assessment Assigned Plant Tour Guide BERNARDINO Westfall Contact Information Eleonora Allison, [phone] Advance Directives? Yes History Provided By Patient,Medical Record Has Patient been admitted in last 30 No days? Prior Living Arrangements Apartment/Condo Household Members spouse Type of transporation used prior to Relies on Others admit Comment Patient will need Medicare transportation set-up Independent with ADL's Yes Is patient alert and oriented? Yes DME Already Rented / Owned Bath Bench,Wheelchair,FWW / Walker Comment Has wheelchair at hospital Patient/Family Preference Home with Home Health Comment Physical therapy recommending home with home health. [facility] used in the past. Cultures pending possible Home with IV antibiotics. Barriers to Discharge No Discharge Plan Home with Home Health Transportation Arrangement Medicaid transport will need to be set-up for D/C from hospital. Referrals Initiated Other Whiteboard Updated in Patient Room with Yes name and ext. # of Plant Tour Guide Review Status In Process Pre-Anesthesia Assessment Start: 07/02/20 12:26 Freq: Status: Complete Protocol: Document 07/02/20 12:26 [email or web address] (Rec: 07/02/20 12:37 [facility] [id number]) Pre-Anesthesia Assessment Patient Information Reviewed Via Chart Review Seen Specialist in Last 12 Months Yes Specialist Seen Orthopedist,Other Comment Infectious Disease - [facility] Preferred Language Tajik Hx Anesthesia Reactions Yes: Occasional nausea Hx Family Anesthesia Reaction No Hx Malignant Hyperthermia No Hx Blood Transfusions Yes: x 2 transfusions Hx Blood Transfusion Reaction No 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 alcohol intake current alcohol intake frequency holidays/special occasions only Smoking Status Former smoker Tobacco type cigarettes how long ago did patient quit smoking Quit 2005 Substance Use Type marijuana,former substance user Does patient have VELAZQUEZ/SOB No Hx Sleep Apnea No CPAP/BIPAP use not prescribed Can You Climb a Flight of Stairs Without Yes SOB Hx Chest Pain No Hx SOB No Hx Syncope or Dizziness No Cardiac Testing No: Echo, CT Angio @ Hx Pacemaker/ICD No Hx Urinary Self Catheterization No Diabetes No HgbA1C 5.6 Date 02/14/20 Hx Drug Resistant Organism Yes: MSSA 2018 Presence of External or Internal Medical Yes: lumbar/cervical hardware, Devices mesh, left TKA Lives With spouse Patient Discharge Plan Description Return Home Do You Have Any Spiritual Beliefs That No May Affect Your HC Choices? Do You Have Any Cultural Practices That No May Affect Your HC Choices? Emergency Contact Name Geovanna () Emergency Contact Advance Directives? No Power of Bookkeeping Service Sales Agent No
--- NOTE | 2020-07-13 16:38 | PT.IPTN ---
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 repeat total knee arthroplasty w. 2 seperate setups(Left) - Vasyl Cesar MD Physical Therapy Treatment Note M2 PT-IP Current Condition Start: 07/13/20 11:25 Freq: NEEDED Status: Active Protocol: Document 07/13/20 11:13 DLM (Rec: 07/13/20 11:46 DLM [id number]) Physical Therapy Current Condition Current Condition Evaluation Date 07/13/20 Treatment Diagnosis left TKA revision following infection, impaired ROM/ strength Onset Date 07/12/20 Precautions Brace knee immobilizer when at rest to promote knee extension, okay to be out of brace for gait and exercises Other Precautions knee flexion contracture before surgery, hx cervical and lumbar fusions, chronic pain issues Weight Bearing Status Weight Bearing Status Weight Bear as Tolerated M3 PT-IP Subjective Start: 07/13/20 11:25 Freq: NEEDED Status: Active Protocol: Document 07/13/20 16:38 DLM (Rec: 07/13/20 17:43 DL [id number]) Subjective Physical Therapy Visit Type Type Treatment Note Visit Start Time 16:25 Visit Stop Time 16:38 Total Visit Minutes 13 Number of CEMENT MIXER DRIVER Visits 0 Physical Therapy Visit Comments Patient Comments she believes with will be going home on after her blood culture is back Patient Goals discharge home Therapy Pain Assessment Pain When Pain Assessed During Mobility Pain Present Pain Present Pain Reported Location Left Knee Intensity 9 Scale Used Numeric (0 - 10) Description Aching Pain Behaviors Facial Grimacing Pain Management Techniques Apply Cold,Elevation M4 PT-IP Mobility and Gait Start: 07/13/20 11:25 Freq: NEEDED Status: Active Protocol: Document 07/13/20 16:38 DLM (Rec: 07/13/20 17:43 DL [id number]) PT-Bed Mobility Assessment Supine to Sit Supine to Sit Independent Sit to Supine Sit to Supine Independent Scooting Scooting to Edge of Bed Independent Scooting Up and Down in Bed Independent PT-Transfer Assessment Sit to and From Stand Sit to and from Stand Standby Assistance,Use of Upper Extremities Equipment Transfer Assistive Device Front Wheeled Walker Transfers Transfer Destination Bed Transfer Technique Stand Step Pivot Gait Assessment Gait Gait Assistance Required: Standby Assistance Distance (Feet) 120 Able to Maintain Weight Bearing Status Yes During Gait Assistive Devices Assistive Device Front Wheeled Walker Orthotic/Prosthetic Devices or Brace: Yes Gait Deviations General Gait Pattern Antalgic Factors Limiting Gait Function Factors Limiting Gait Function Decreased Activity Tolerance, Decreased Strength,Limited Range of Motion,Pain Comments Gait Comments pt ambulated with the knee immobiler on this visit per her request, pt having more pain this afternoon, she declined use of gait belt reporting she does not need it Stair Climbing Assessment Comments Stair Climbing Comments pt reports having no steps at home PT-Balance Assessment Sitting Balance and Reactions Static Sitting Balance Ability Normal Dynamic Sitting Balance Ability Normal Standing Balance and Reactions Static Standing Balance Ability Good Dynamic Standing Balance Ability Good Device Used FWW M5 PT-IP Objective Assessments Start: 07/13/20 11:25 Freq: NEEDED Status: Active Protocol: Document 07/13/20 11:13 DLM (Rec: 07/13/20 11:46 DLM [id number]) Orientation Orientation/Cognition Level of Alertness Alert Orientation Name,Age,Birthday,Month,Date, Year,Day of Week,Place, Situation Language Function Ability No Deficits Noted Safety Awareness Understands Safety Issues Memory Description No Deficits Noted Comments mildly impulsive, she understands concerns about her knee extension ROM Gross Range of Motion Upper Extremity ROM Assessment Within Functional Limits Impairments cervical spine flexed, UE fatigue with using FWW Lower Extremity ROM Assessment Left Impaired Impairments left Knee ROM 20-85 degrees, painful Strength Upper Extremity Strength Assessment Within Functional Limits Lower Extremity Strength Assessment Left Impaired Hip needs assist to lift LE off bed Knee seated knee ext 2+/5 Ankle DF 4+/5 Comments Strength Comments crepitus left ankle with AROM, pt often externally rotates LE in bed leaving the knee in flexed position Coordination Assessment Gross Coordination Gross Coordination WNL Sensation Assessment Sensation Gross Sensation WNL Comments Sensation Comments no numbness/tingling reported at this time Muscle Tone Muscle Tone WNL Yes M6 PT-IP Treatment Start: 07/13/20 11:25 Freq: NEEDED Status: Active Protocol: Document 07/13/20 16:38 DLM (Rec: 07/13/20 17:43 DLM [id number]) Physical Therapy Treatment Exercises Knee ROM Measurement pt declined Ex Education Education Provided Weight Bearing Status,Post-Op Packet,Safety Other Treatments Other Treatment Performed educated pt in post-op recommendations for her knee brace and importance of positioning left LE in bed in straight position, pt has JAREN drain and ice inside her knee brace after activity M7 PT-IP Assessment and Plan Start: 07/13/20 11:25 Freq: NEEDED Status: Active Protocol: Document 07/13/20 16:38 DLM (Rec: 07/13/20 17:43 DLM [id number]) PT Summary Assessment and Plan Summary Impairments Pain,ROM,Strength,Bed Mobility ,Transfers,Gait,Activity Tolerance Progress Towards Goals Progressing Toward Goals Assessment Summary Jessica is reporting having more pain this afternoon. She believes she is behind in her pain medication. Encouraged pt to discuss her pain issues with her nurse for good pain management. Pt agreed to ambulate in the ashraf but declined to do her knee exercises. She has her knee immobilizer in place. Pt returned to bed to rest after gait. Will encourage ambulation and knee exercises while she is hospitalized. Goals Bed Mobility Goal Independent Transfer Goal Independent,Front Wheeled Walker Gait Goal Independent,Front Wheel Walker Gait Distance 150 feet Other Goals demonstrate good understanding of knee HEP and wearing of knee immobilizer Days to Meet Goals 3 Frequency of Treatment Frequency Of Treatment Twice a Day Treatment Plan Physical Therapy Treatment Plan Bed Mobility Training,Transfer Training,Gait Training, Therapeutic Exercise,Post Op Education,Discharge Planning, Hot or Cold Pack Other Recommendations and Next Treatment education for use of knee Focus immobilizer post-op Recommendations To Nursing Amount of Assist Needed Standby Assistance Discharge Recommendations PT Discharge Recommendations Home with Assistance,Home Health Other Discharge Recommendations she reports having home health PT before this sx Transportation Needs at Discharge Private Vehicle
[2020-07-13] MEDS: DOCUSATE 100 MG CAPSULE PO (21:26)
[2020-07-14] MEDS: diphenhydrAMINE 25 MG TABLET PO (00:13)
[2020-07-14] MEDS: IBUPROFEN 400 MG TABLET PO ×4 (02:02→12:40)
[2020-07-14] MEDS: HYDROMORPHONE 0.5 MG INJ IV ×5 (02:03→13:19)
[2020-07-14] MEDS: HYDROMORPHONE 4 MG TABLET 8 MG PO ×4 (02:41→12:30)
[2020-07-14 03:08] VITALS: BP 118/78; PULSE 71; RESP 18; TEMP 36.2; O2SAT 100
[2020-07-14 07:00] VITALS: BP 124/69; PULSE 62; RESP 18; TEMP 36.5; O2SAT 100
[2020-07-14] MEDS: hydrOXYzine pamoate 25 MG CAPSULE PO ×2 (07:31→13:19)
--- NOTE | 2020-07-14 08:08 | PM.DS.1 ---
History of Present Illness History of Present Illness Date Patient Seen: 07/14/20 Time Patient Seen: 08:08 Chief complaint: *OPB* Narrative: Pain is moderate to severe. Denies fever or chills. No nausea or vomiting. Patient does have assistance at home. Discharge Providers Provider Date of admission: 07/12/20 11:32 Discharge Date: 07/14/20 Consults: 07/12/20 11:53 Consult to Anesthesiology Routine Comment: Consulting Provider: Anesthesiologist Reason for consultation: Regional block for post operative pain control 07/12/20 18:09 Consult to Discharge Planning Routine Comment: Consult to Physical Therapy Evaluate & Treat Comment: Knee immobilizer at rest to help keep exten. 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 She has a cement spacer of antibiotic cement in place. She now returns for the 2nd stage with removal of the cement spacer and placement of a revision total knee replacement. She has agreed to surgery after discussion the risks, benefits and alternatives. Risks discussed included but were not limited to: Failure to eradicate infection, stiffness, infection, nerve damage, deep venous thrombosis, pulmonary embolism, stroke, myocardial infarction, permanent paralysis, aspiration pneumonia and . Surgeon: Vasyl Cesar Internist Medical Doctor Md: Slava Candelario Click Yes if Unassisted: No Anesthesia Type: General, Spinal and Local Operative Notes Findings: No obvious infection. Moderate bone loss from excision of the prior total knee replacement and cement spacer. Closure Type: primary Specimen(s): other (Swab cultures of joint fluid and membrane from both the femur and tibia were sent for culture.) Prosthetic devices, grafts, tissues, transplants, or devices: Implants used in this procedure were manufactured by the [employer] and included a Journey revision total knee replacement with a size size 3 left revision tibial base plate with a 12 mm x 160 mm Press-Fit stem, a 9 mm posterior stabilized cross-linked tibial insert, a size 4 left Oxinium femoral component with a 15 mm x 160 mm Press-Fit stem, and a size 4 5 mm distal and 5 mm posterior augment for both sides. In addition a 32 mm oval Guadalupe II patellar component was placed. Applied: implant(s) Estimated Blood Loss (mL): 100 Blood products transfused: none Tourniquet time (min): 92 For the above-mentioned procedure. Patient consented to the same. Patient taken to the operating room on July 12, 2020. Patient back in her room recovering well and is stable condition. Preliminary culture shows no growth. Discharge home today in stable condition. The patient will be maintained on a standard total knee protocol however she will wear the knee immobilizer when she is in bed or at rest to maintain extension range of motion. She may be out of the knee immobilizer work on range of motion with physical therapy and walk. She will be in the hospital for several days due to her substantial narcotic pain medicine requirements. She will be discharged home today. Status at Discharge Cognitive/behavioral status at discharge: at baseline, oriented Functional status at discharge: uses cane/walker Overall status at discharge: patient is progressing back to baseline Exam Vital Signs (past 8 hours): - 07/14/20 03:08 07/14/20 07:00 Temperature 97.2 F L 97.7 F Pulse Rate 71 62 Respiratory Rate 18 18 Blood Pressure 118/78 124/69 Pulse Oximetry 100 100 Oxygen Delivery Method Room Air Oxygen Flow Rate 0 Narrative Exam Narrative: 55-year-old female resting comfortably in bed painting, in no apparent distress. Dressing is Clean, dry, intact.. Sensation grossly intact to light touch distal left lower extremity. Motor functions intact distal left lower extremity. Both legs are warm and dry. Objective Labs Result Diagrams: 07/13/20 05:01 07/13/20 05:01 [facility] Medical History Acute metabolic encephalopathy (09/16/17) Arthralgia Arthritis Chronic back pain Degenerative disc disease, cervical Degenerative disc disease, lumbar Depression with anxiety Fibromyalgia Former smoker GERD (gastroesophageal reflux disease) History of meningitis Neck infection (06/2017) Osteoarthritis Restless leg syndrome Rheumatoid arthritis Sepsis (09/16/17) Surgical History History of arthroplasty of left knee (09/18/19) History of incision and drainage (~03/2020) History of kidney surgery (2019) History of lumbar fusion Hx of cholecystectomy Hx of hernia repair (~2012) Status post cervical spinal fusion Tubal ligation status Social History household members: spouse Smoking Status: Former smoker alcohol intake: current substance use type: marijuana Discharge Assessment & Plan Assessment and Plan Assessment: Patient progressing as expected. Plan of Treatment: he patient will be maintained on a standard total knee protocol however she will wear the knee immobilizer when she is in bed or at rest to maintain extension range of motion. She may be out of the knee immobilizer work on range of motion with physical therapy and walk. She will be in the hospital for several days due to her substantial narcotic pain medicine requirements. She will be discharged home today. Discharge Plan Discharge Plan Patient Disposition: Home Discharge orders & Medications Prescriptions: New acetaminophen 325 mg Tablet 650 mg PO TID Qty: 60 RF: 0 aspirin 81 mg Tablet,Delayed Release (Dr/Ec) 81 mg PO BID Qty: 60 RF: 0 hydromorphone 4 mg Tablet 8 mg PO Q3HR PRN (Reason: Pain, Moderate (4-6)) 7 Days Qty: 100 RF: 0 polyethylene glycol 3350 17 gram Powder In Packet 17 g PO DAILY PRN (Reason: Constipation) 30 Days Qty: 30 RF: 0 ibuprofen 400 mg Tablet 400 mg PO Q4HR Qty: 60 RF: 0 Continued trazodone 50 mg tablet 100 mg PO BEDTIME RF: 0 pramipexole 0.25 mg tablet 0.25 mg PO BID RF: 0 diclofenac sodium 1 % gel 1 applic Topical DIRECTED RF: 0 tizanidine 2 mg Capsule 2 mg PO Q6-8H PRN (Reason: Muscle spasms) RF: 0 hydromorphone 4 mg Tablet 10 mg PO Q4H PRN (Reason: Pain, Severe (7-10)) Qty: 60 RF: 0 ondansetron 8 mg tablet,disintegrating 8 mg PO Q12H RF: 0 Follow up/Referrals: Vasyl Cesar MD [Physician] - (2 weeks) Diet/Activity/Treatments Diet: Diet as Tolerated Activity: Weight-bearing as tolerated, knee immobilizer when she is in bed or at rest to maintain extension Cold/Heat Therapy: As needed to the knee Skin/Wound/Dressing Care Report to your healthcare provider any signs of infection, such as:: chills, fever, increased pain, unusual drainage and unusual redness Dressing: Keep clean and dry Visit Report/Discharge Packet Instructions: DI for Knee Replacement, DI for Prescription Opioid Use, Hydromorphone Stand Alone Forms: Surgery Discharge Discharge Data Attending Provider: Vasyl Cesar
[2020-07-14] MEDS: ASPIRIN EC 81 MG TABLET PO (08:27)
[2020-07-14] MEDS: ACETAMINOPHEN 325 MG TABLET 650 MG PO (08:28)
[2020-07-14] MEDS: PRAMIPEXOLE 0.25 MG TABLET PO (08:29)
[2020-07-14 08:53] LABS: Hematocrit 23.9 % (36-46); Hemoglobin 7.8 g/dL (12.0-16.0); Mean Corpuscular HGB Conc 32.5 % (30-36); Mean Corpuscular Hemoglobin 23.6 PG (26-34); Mean Corpuscular Volume 72.5 fL (80-100); Platelet Count 96 X10^3/uL (150-400); White Blood Cell Count 3.5 X10^3/uL (4.5-11.0)
[2020-07-14 08:59] LABS: BUN Creatinine Ratio 33.3 (6-22); Blood Urea Nitrogen 25 mg/dL (7-17); Calcium 8.8 mg/dL (8.4-10.2); Carbon Dioxide 26 mmol/L (22-32); Chloride 106 mmol/L (98-107); Estimated Glomerular Filt Rate > 60.0 mL/min (>60); Glucose 113 mg/dL (70-100); HEMOLYSIS < 15 (0-50); Potassium 4.4 mmol/L (3.4-5.1); Sodium 138 mmol/L (137-145)
[2020-07-14] MEDS: SODIUM CHLORIDE 0.9% FLUSH 10 ML IV (09:35)
--- NOTE | 2020-07-14 10:35 | PT.IPTN ---
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 repeat total knee arthroplasty w. 2 seperate setups(Left) - Vasyl Cesar MD Physical Therapy Treatment Note M2 PT-IP Current Condition Start: 07/13/20 11:25 Freq: NEEDED Status: Active Protocol: Document 07/13/20 11:13 DLM (Rec: 07/13/20 11:46 DLM [id number]) Physical Therapy Current Condition Current Condition Evaluation Date 07/13/20 Treatment Diagnosis left TKA revision following infection, impaired ROM/ strength Onset Date 07/12/20 Precautions Brace knee immobilizer when at rest to promote knee extension, okay to be out of brace for gait and exercises Other Precautions knee flexion contracture before surgery, hx cervical and lumbar fusions, chronic pain issues Weight Bearing Status Weight Bearing Status Weight Bear as Tolerated M3 PT-IP Subjective Start: 07/13/20 11:25 Freq: NEEDED Status: Active Protocol: Document 07/14/20 10:10 SP (Rec: 07/14/20 13:56 SP [id number]) Subjective Physical Therapy Visit Type Type Treatment Note Visit Start Time 10:10 Visit Stop Time 10:35 Total Visit Minutes 31 Notes Pt required split treatment due to increased pain. Seen [phone], [phone]. Number of INFRASTRUCTURE MANAGER Visits 1 Physical Therapy Visit Comments Patient Comments Pt stated in alot of pain, unsure when can have IV medication for assistance, willing to work with therapy initially then asked that come back after meds. Patient Goals discharge home w/ SO to assist her Therapy Pain Assessment Pain When Pain Assessed During Mobility Pain Present Pain Present Pain Reported Location Left Knee Intensity 8 Scale Used Numeric (0 - 10) Description Acute,With Movement Pain Behaviors Facial Grimacing,Guarding, Moaning,Wincing Pain Management Techniques Apply Cold,Modification of Treatment,Re-positioning, Timing of Activity with Medications M4 PT-IP Mobility and Gait Start: 07/13/20 11:25 Freq: NEEDED Status: Active Protocol: Document 04/21/21 10:10 SP (Rec: 07/14/20 13:56 SP [id number]) PT-Bed Mobility Assessment Supine to Sit Supine to Sit Independent Sit to Supine Sit to Supine Independent Scooting Scooting to Edge of Bed Independent Scooting Up and Down in Bed Independent PT-Transfer Assessment Sit to and From Stand Sit to and from Stand Standby Assistance,Use of Upper Extremities Equipment Transfer Assistive Device Front Wheeled Walker Orthotic/Prosthetic Devices or Brace: Yes Transfers Transfer Destination Bed,Toilet Transfer Technique pt ambulated using FWW Transfer Ability Level of Assist Standby Assistance,Use of Upper Extremities Comments Mobility Comments Pt supine in bed when arrived. Independently doffed L knee immobilizer and cold packs for transfers and gait. supine> sitting w/ BUE repositioning LLE, scoot I, sit<> stand SBA using fWW, ambulated to door heavy BUE WB on FWW SBA approx 15 ft before had to stop and return to bed due to 8/10 pain in L knee. Pt requested I return after gets pain meds, nursing reported due for pain meds in 15 min. Pt donned L knee immobilizer once in bed. When INFRASTRUCTURE MANAGER returned pt completed same activities with same sBA required. She was able to step to gait using fWW in to hallway approx 90 ft SBA with intermittent stops for BUE rest due to heavy BUE WB on FWW and reports of no significant change in pain 7/ 10 L knee. I only received 1/ 2 mg pain med for help. Gait Assessment Gait Gait Assistance Required: Standby Assistance Distance (Feet) 90 Able to Maintain Weight Bearing Status Yes During Gait Assistive Devices Assistive Device Front Wheeled Walker Orthotic/Prosthetic Devices or Brace: Yes Gait Deviations General Gait Pattern Antalgic,Decreased Stride Length,Decreased Feet Clearance,Flexed Trunk,Step-to Gait Factors Limiting Gait Function Factors Limiting Gait Function Decreased Activity Tolerance, Decreased Strength,Limited Range of Motion,Pain Comments Gait Comments Step to patterning using FWW, not full WB into LLE heavy BUE on FW, cued L quad facilitation during WB to encourage knee extension functional mobility, noted knee flexion during swing phase. Stair Climbing Assessment Comments Stair Climbing Comments pt reports having no steps at home PT-Balance Assessment Sitting Balance and Reactions Static Sitting Balance Ability Normal Dynamic Sitting Balance Ability Normal Standing Balance and Reactions Static Standing Balance Ability Good Dynamic Standing Balance Ability Good Device Used FWW M5 PT-IP Objective Assessments Start: 07/13/20 11:25 Freq: NEEDED Status: Active Protocol: Document 07/13/20 11:13 DLM (Rec: 07/13/20 11:46 DLM [id number]) Orientation Orientation/Cognition Level of Alertness Alert Orientation Name,Age,Birthday,Month,Date, Year,Day of Week,Place, Situation Language Function Ability No Deficits Noted Safety Awareness Understands Safety Issues Memory Description No Deficits Noted Comments mildly impulsive, she understands concerns about her knee extension ROM Gross Range of Motion Upper Extremity ROM Assessment Within Functional Limits Impairments cervical spine flexed, UE fatigue with using FWW Lower Extremity ROM Assessment Left Impaired Impairments left Knee ROM 20-85 degrees, painful Strength Upper Extremity Strength Assessment Within Functional Limits Lower Extremity Strength Assessment Left Impaired Hip needs assist to lift LE off bed Knee seated knee ext 2+/5 Ankle DF 4+/5 Comments Strength Comments crepitus left ankle with AROM, pt often externally rotates LE in bed leaving the knee in flexed position Coordination Assessment Gross Coordination Gross Coordination WNL Sensation Assessment Sensation Gross Sensation WNL Comments Sensation Comments no numbness/tingling reported at this time Muscle Tone Muscle Tone WNL Yes M6 PT-IP Treatment Start: 07/13/20 11:25 Freq: NEEDED Status: Active Protocol: Document 07/14/20 10:10 SP (Rec: 07/14/20 13:56 SP [id number]) Physical Therapy Treatment Exercises Exercises Ankle Pumps,Quad Sets,Heel Slides,Straight Leg Raises, Short Arc Quads,Passive Knee Extension Hang,Seated Knee Flexion/Extension Knee ROM Measurement pt declined Ex Education Education Provided Weight Bearing Status,Post-Op Packet,Safety Brace Education [place],Patient Other Treatments Other Treatment Performed Pt I don/doff L knee immobilizer. M7 PT-IP Assessment and Plan Start: 07/13/20 11:25 Freq: NEEDED Status: Active Protocol: Document 07/14/20 10:10 SP (Rec: 07/14/20 13:56 SP [id number]) PT Summary Assessment and Plan Potential Rehabilitation Potential Good Status of Condition at Evaluation Evolving Summary Impairments Pain,ROM,Strength,Bed Mobility ,Transfers,Gait,Activity Tolerance Progress Towards Goals Progressing Toward Goals,Slow Progress due to Pain,Slow Progress due to Activity Tolerance Assessment Summary Jessica continues to report high level pain 8/10 during mobility, split treatment due to pain with no significant decrease post pre medicated. SBA during mobility using FWW, I with don/doff L knee immobilizer. Pt is ok to return home with SO to assist her when medically cleared with control assist for pain if needed. INFRASTRUCTURE MANAGER recommending HHPT to improve strength and functional mobility. Goals Bed Mobility Goal Independent Transfer Goal Independent,Front Wheeled Walker Gait Goal Independent,Front Wheel Walker Gait Distance 150 feet Other Goals demonstrate good understanding of knee HEP and wearing of knee immobilizer Days to Meet Goals 3 Frequency of Treatment Frequency Of Treatment Twice a Day Treatment Plan Physical Therapy Treatment Plan Bed Mobility Training,Transfer Training,Gait Training, Therapeutic Exercise,Post Op Education,Discharge Planning, Hot or Cold Pack Other Recommendations and Next Treatment LE exercises, gait further Focus distance using FWW w/decrease UE required. Precautions Brace knee immobilizer when at rest to promote knee extension, okay to be out of brace for gait and exercises Other Precautions knee flexion contracture before surgery, hx cervical and lumbar fusions, chronic pain issues Recommendations To Nursing Amount of Assist Needed Standby Assistance Discharge Recommendations PT Discharge Recommendations Home with Assistance,Home Health Other Discharge Recommendations she reports having home health PT before this sx Transportation Needs at Discharge Private Vehicle
--- NOTE | 2020-07-14 10:37 | PC.NURSE ---
Addendum entered by Dianne Oscar R.N. 07/14/20 14:46: Meds from pharmacy, including PO dilaudid returned to Pt, and market research senior project manager/propane from main nurses station. Addendum entered by Dianne Oscar R.N. 07/14/20 12:36: Pt remains tearful when asked about plan to d/c. I still hurt Education provided about post op pain control and expectations. Pt verbalizes understanding, but continues to request IV pain control. Original Note: AM Shift Pt has pain control issues this AM, working on reducing IV dilaudid dosing as DC order is written. Pt reporting that pain is not well controlled and has concerns about dc home. Would like to stay additional day. Discussed with GIANA Pollock, who has written for a large quantity of PO dilaudid Pt with past Hx of opiate seeking so attempts with conservative use of IV narcotics. Up with PT
[2020-07-14 11:00] VITALS: BP 121/61; PULSE 61; RESP 17; TEMP 36.3; O2SAT 97
--- NOTE | 2020-07-14 11:15 | CM.DPC ---
Addendum entered by BERNARDINO Funk 07/14/20 13:05: SW called [facility] as had not heard from transport on a confirmation or time for transportation today and confirmed [facility] will transport pt around 1340 and updated that we could have pt ready at ED entrance. SW updated RN who will quick get pt ready for d/c home today via Medicaid transport. BF Addendum entered by BERNARDINO Funk 07/14/20 12:11: ADD: SW spoke to Medicaid transport and confirmed pt has transportation benefits and that Medicaid has called [facility] and [employer] and waiting to hear back about a time for transport. SW met bedside with pt and explained role and updated on waiting to hear about time for transport and pt still somewhat tearful as she was hopeful to stay tonight in the hospital and SW briefly discussed the need to medically justify staying and that right now she is stable for d/c. NARCISO also provided the [facility] brochure and discussed that [facility] could not accept the referral and pt agreeable with [facility]. NARCISO updated RN on awaiting time for transport. BF Original Note: DCP Discharge Home with HH Per Ortho PA, pt medically stable to d/c home today with an Rx for pain medication and per PT recommending HH and safe to transport via taxi. Pt preference for HH had been [facility] as she has used them previously and NARCISO called [facility] with new referral and unfortunately they cannot accept pt as she is on their Do Not Accept list as she has a hx in [place] of noncompliance with tx recommendations and cancellations and high risk due to her chronic high pain medication use at baseline. NARCISO therefore made a referral to HH based on the Vendor Calendar and the only other agency that covers the [facility] which is [facility]. NARCISO called and made new referral and faxed clinicals along with signed F2F and MD orders to [facility] to review and they confirm they can start right away with PT as they are fully staffed for that area. NARCISO faxed Medicaid Transport request form and Pharmacy medication picker tender for pt as she states that their car broke down yesterday and does not have any other options for transportation home and is tearful as she is worried that she is being discharged too soon but pt OBS Status and no ability to contest discharge at this time and back to baseline and ambulating well but slowly with PT. Plan: SW to follow for return call from Medicaid transport to confirm her transportation benefits and time for transport home today (they are in a meeting until 1130 today) for plan of home with [facility]. BERNARDINO Funk
== END 2020-07-14 14:10 | disposition home or self-care (01) ==
LOC: OR 11:35 → AC 11:36 → ICU 17:20
PROVIDERS: Internal Medicine; Nurse Practitioner Family; Admitting Provider Orthopaedic Surgery; Referring Provider Orthopaedic Surgery; Visit Provider Orthopaedic Surgery
PROC: (CPT 27487; principal; 2020-07-12 12:45)
DX: T84.54XD Infection and inflammatory reaction due to internal left knee prosthesis, subsequent encounter (principal); M00.062 Staphylococcal arthritis, left knee; M06.9 Rheumatoid arthritis, unspecified; E66.9 Obesity, unspecified; D50.0 Iron deficiency anemia secondary to blood loss (chronic); D61.818 Other pancytopenia; G25.81 Restless legs syndrome; G89.29 Other chronic pain; F11.20 Opioid dependence, uncomplicated; J45.20 Mild intermittent asthma, uncomplicated; M79.7 Fibromyalgia; Z68.28 Body mass index [BMI] 28.0-28.9, adult
CPT/HCPCS: 27487; 36415; 36592; 73560; 80048; 85025; 85027; 87070; 87075; 87176; 87205; 87797; 94762; 97110; 97116; 97162; 97530; C1776; G0378; C9290; J0690; J1100; J1170; J2250; J2405; J2704; J3010

== ENCOUNTER → 2023-03-02 08:50 | Outpatient (CLI) | payer MEDICARE, MEDICAID, SELFPAY ==
[2020-07-12 18:20] VITALS: BMI 29.2
--- NOTE | 2023-03-02 | DI.RAD.S_ITS ---
PROCEDURE: FL KNEE INJECTION MR/CT LT COMPARISON: None. INDICATIONS: LEFT KNEE PAIN Risks and benefits of the procedure were discussed with the patient as well as alternatives. Informed consent was obtained. Position was marked on left knee for injection. The area was sterilized and draped in normal fashion. Subcutaneous lidocaine was used as a local anesthetic. An 18 gauge spinal needle was inserted into the joint space. Proper position was confirmed by injection of iodinated contrast under fluoroscopy. 40 cc of a dilute gadolinium and saline solution was injected into the joint space. The needle was removed and a Band-Aid was placed. No immediate complications. FINDINGS: Left knee arthroplasty. Spot image shows contrast filling the joint space. IMPRESSION: Successful left knee arthrogram with injection of dilute gadolinium prior to MR. Dictated by: Klaus Burleson M.D. on 03/02/2023 at 11:06 Approved by: Klaus Burleson M.D. on 03/02/2023 at 11:10
--- NOTE | 2023-03-02 | DI.MRI.S_ITS ---
PROCEDURE: MR KNEE LT W CON INDICATIONS: LEFT KNEE PAIN TECHNIQUE: After the administration of 50 mL of dilute intra-articular Gadolinium contrast, sagittal T1 spin echo with fat saturation and PD fast spin echo with fat saturation, coronal T1 spin echo with and without fat saturation, coronal T2 fast spin echo with fat saturation, axial PD fast spin echo with fat saturation through the knee. COMPARISON: [facility], , [place] KNEE INJECTION MR/CT LT, 03/02/2023, 10:14. FINDINGS: Image quality: Limited due to significant susceptibility artifacts. Bone and cartilage: Patient is status post left total knee arthroplasty. Significant susceptibility artifacts are noted from left knee prosthesis. No gross marrow edema is seen. No acute fracture or dislocation. Cruciate ligaments: The cruciate ligaments are not well visualized. No definite full-thickness cruciate ligament rupture. Medial structures: The medial collateral ligament appears grossly intact. Visualized portions of the pes anserinus tendons appear normal. Lateral structures: The lateral collateral ligament, long and short heads of the biceps femoris tendon appear grossly intact. Anterior structures: The quadriceps and patellar tendons appear intact. Patellar alignment is normal. Joint space: No Wiggins's cyst. No intra-articular bodies. IMPRESSION: 1. Prior left total knee arthroplasty. No gross acute fracture or dislocation. No suspicious bony lesions. 2. Limited evaluation of left knee soft tissue structures due to significant susceptibility artifacts. No gross full-thickness tendon or ligament rupture is seen. 3. No gross intra-articular loose bodies. Dictated by: Shahriar Moe M.D. on 03/02/2023 at 12:57 Approved by: Shahriar Moe M.D. on 03/02/2023 at 13:01
[2023-03-02] MEDS: LIDOCAINE 1% 20 ML INJ (09:42)
[2023-03-02] MEDS: SODIUM CHLORIDE 0.9 % 20 ML VIAL IV ×2 (09:43)
== END ==
PROVIDERS: PCP Internal Medicine; Referring Provider Internal Medicine; Visit Provider Internal Medicine
DX: M25.462 Effusion, left knee (principal); Z96.652 Presence of left artificial knee joint
CPT/HCPCS: 27369; 73722; 77002

== ENCOUNTER → 2023-05-09 09:34 | Outpatient (CLI) | payer MEDICARE, MEDICAID, SELFPAY ==
[2020-07-12 18:20] VITALS: BMI 29.2
--- NOTE | 2023-05-09 09:41 | DI.CT.S_ITS ---
PROCEDURE: CT LE LT without CON INDICATIONS: Presence of left artificial knee joint TECHNIQUE: Noncontrast 1 mm axial sections through the femoral head. coronal and sagittal reformats were obtained and reviewed. 3D reconstruction of obtained images was also performed. COMPARISON: [facility], MR, MR KNEE LT W CON, 03/02/2023, 9:40. FINDINGS: Image quality: Diagnostic. Beam hardening artifacts are noted from left knee prosthesis.. Bones: Patient is status post left total knee arthroplasty. Surgical hardware are noted in their expected positions. No gross hardware loosening or failure is noted. No acute periprosthetic fracture. No suspicious intraosseous lesion. Soft tissues: [id number] subcutaneous soft tissue edema and swelling along anterior and lateral aspect of left knee is seen. No discrete drainable fluid collection is noted. No abnormal soft tissue calcifications. There is moderate joint effusion, no gross calcified intra-articular loose bodies. There is no full-thickness tendon rupture. The cruciate ligaments are not well seen due to significant beam hardening artifacts. No abnormal anterior tibial translation is seen. IMPRESSION: 1. Prior left total knee arthroplasty with anatomic left knee alignment. No evidence of hardware loosening or failure. No fracture or dislocation. 2. Moderate joint effusion, no definite calcified intra-articular loose bodies. Nonspecific subcutaneous soft tissue edema and swelling along anterior and lateral aspect of left knee. No gross abscess collection is seen. No subcutaneous emphysema. No abnormal soft tissue calcifications. Dictated by: Shahriar Moe M.D. on 05/09/2023 at 10:19 Approved by: Shahriar Moe M.D. on 05/09/2023 at 10:27
== END ==
PROVIDERS: PCP Internal Medicine; Referring Provider Orthopaedic Surgery Adult Reconstructive Orthopaedic Surgery; Visit Provider Orthopaedic Surgery Adult Reconstructive Orthopaedic Surgery
DX: Z96.652 Presence of left artificial knee joint (principal); M25.462 Effusion, left knee
CPT/HCPCS: 73700